=== PATIENT | female | born 1965 | race Caucasian/White ===

== ENCOUNTER 2016-05-29 17:09 | Inpatient (IN) | payer BC, MEDICARE ==
[2016-05-29] MEDS ORDERED: SODIUM CHLORIDE 0.9% 1,000 ML IV STA (17:17)
--- NOTE | 2016-05-29 17:40 | ED ---
General Adult HPI - General Stated complaint: POST OP PROBLEM Time Seen by Provider: 05/29/16 17:17 Source: RN notes reviewed, old records reviewed - History of Present Illness Initial comments: This is a 50-year-old female ER for evaluation. Patient coming in here for evaluation of wound care. Patient having postop wound issues, patient just had panniculectomy and said poor healing. Patient's surgery was an by Dr. Emery about 2-3 weeks ago. Patient denies any feversof the condyle pain, decreased appetite no chest pain cough or congestion. No other significant complaints. - Related Data Home Medications Medication Instructions Recorded Confirmed DULoxetine HCL [Cymbalta] 60 mg PO BID 03/19/15 05/29/16 Meclizine [Antivert] 25 mg PO TID PRN 03/19/15 05/29/16 Sucralfate [Carafate] 1 gm PO QID 03/19/15 05/29/16 Albuterol Inhaler [Ventolin Hfa 2 puff INHALATION RT-QID PRN 07/31/15 05/29/16 Inhaler] Cholecalciferol (Vitamin D3) 10,000 unit PO DAILY 10/24/15 05/29/16 [Vitamin D3] Multivitamins, Thera [Multivitamin] 1 tab PO DAILY 10/24/15 05/29/16 Furosemide [Lasix] 40 mg PO DAILY 05/06/16 05/29/16 Gabapentin [Neurontin] 100 mg PO BID 05/06/16 05/29/16 Metolazone [Zaroxolyn] 2.5 mg PO DAILY PRN 05/06/16 05/29/16 Mirtazapine 30 mg PO HS 05/06/16 05/29/16 Potassium Chloride [K-Sarah Oral 40 meq PO BID 05/06/16 05/29/16 Liquid] Tiotropium Br/Olodaterol HCl 1 puff INHALATION RT-BID 05/06/16 05/29/16 [Stiolto Respimat Inhal [place]] diphenhydrAMINE [Benadryl] 25 mg PO TID 05/06/16 05/29/16 Varenicline [Chantix] 1 mg PO BID 05/15/16 05/29/16 Previous Rx's Medication Instructions Recorded Omeprazole [PriLOSEC] 40 mg PO AC-BRKFST #30 cap 08/20/15 Cefuroxime Axetil [Ceftin] 500 mg PO BID #28 tab 06/08/16 HYDROcodone/APAP 7.5-325MG [Juana Diaz 1 tab PO Q6HR PRN #28 tab 06/08/16 7.5-325] LORazepam [Ativan] 1 mg PO TID PRN #15 tab 06/08/16 metroNIDAZOLE [Flagyl] 500 mg PO Q8HR #42 tab 06/08/16 Allergies Allergy/AdvReac Type Severity Reaction Status Date / Time broccoli Allergy Severe Anaphylaxis Verified 05/29/16 18:05 W/ RAW BROCCOLI ampicillin Allergy Intermediate Swelling Verified 05/29/16 18:05 IN FACE Penicillins Allergy Intermediate Swelling Verified 05/29/16 18:05 amoxicillin Allergy Swelling Verified 05/29/16 18:05 IN FACE Review of Systems ROS Statement: Those systems with pertinent positive or pertinent negative responses have been documented in the HPI. ROS Other: All systems not noted in ROS Statement are negative. Past Medical History Past Medical History: Asthma, Fibromyalgia, GERD/Reflux, Mitral Valve Prolapse ( MVP), Osteoarthritis (OA), Sleep Apnea/CPAP/BIPAP Additional Past Medical History / Comment(s): Chronic bronchial asthma, fibromyalgia, history of obesity with a previous bariatric surgery/gastric bypass surgery, reflux, osteoarthritis, obstructive sleep apnea, migraine, nephrolithiasis, gastric ulcer, varicose veins, chronic fatigue syndrome History of Any Multi-Drug Resistant Organisms: None Reported Past Surgical History: Appendectomy, Back Surgery, Bariatric Surgery, Section, Cholecystectomy, Hernia Repair, Hysterectomy Additional Past Surgical History / Comment(s): x2, metal removed from rt eye 15 years ago, kidney stone-lithotripsy, gastric bypass 2003 years ago. EGD X2, COLONOSCOPY. Carpal tunnel release bilaterally Past Anesthesia/Blood Transfusion Reactions: Family History of Problems w/ Anesthesia Additional Past Anesthesia/Blood Transfusion Reaction / Comment(s): family members w/severe headaches w/anesthesia Past Psychological History: Anxiety, Bipolar Smoking Status: Current every day smoker Past Alcohol Use History: None Reported Additional Past Alcohol Use History / Comment(s): STARTED SMOKING AT AGE 33- SMOKED 8-10 CIG PER; QUIT 2 WEEKS AGO. Past Drug Use History: None Reported - Past Family History Father Family Medical History: Cancer, CVA/TIA, Hyperlipidemia, Hypertension, Prostate Disorder Additional Family Medical History / Comment(s): PROSTATE CANCER Mother Additional Family Medical History / Comment(s): OBESITY-HAD GASTRIC BYPASS SX General Exam - General Exam Comments Initial Comments: Wound is draining mild serosanguineous fluid, no pus noted, wound has black eschar to entire surface, General appearance: alert, in no apparent distress Head exam: Present: atraumatic, normocephalic, normal inspection Eye exam: Present: normal appearance, PERRL, EOMI. Absent: scleral icterus, conjunctival injection, periorbital swelling ENT exam: Present: normal exam, mucous membranes moist Neck exam: Present: normal inspection. Absent: tenderness, meningismus, lymphadenopathy Respiratory exam: Present: normal lung sounds bilaterally. Absent: respiratory distress, wheezes, rales, rhonchi, stridor Cardiovascular Exam: Present: regular rate, normal rhythm, normal heart sounds. Absent: systolic murmur, diastolic murmur, rubs, gallop, clicks GI/Abdominal exam: Present: soft, normal bowel sounds. Absent: distended, tenderness, guarding, rebound, rigid Extremities exam: Present: normal inspection, full ROM, normal capillary refill. Absent: tenderness, pedal edema, joint swelling, calf tenderness Back exam: Present: normal inspection Neurological exam: Present: alert, oriented X3, CN II-XII intact Psychiatric exam: Present: normal affect, normal mood Skin exam: Present: warm, dry, intact, normal color. Absent: rash Course Vital Signs 05/29/16 05/29/16 17:57 19:02 Temperature 98.0 F 98.0 F Pulse Rate 101 H 96 Respiratory 18 18 Rate Blood Pressure 130/90 127/70 O2 Sat by Pulse 95 96 Oximetry EKG Findings - EKG Comments: EKG Findings:: EKG shows normal sinus rhythm rate 95, HI 180, QRS 78, QTC 439 Medical Decision Making - Medical Decision Making 4019 at ER for evaluation of postop wound, postop wound evaluation and treatment , patient will be admitted for will control and evaluation by general surgery - Lab Data Result diagrams: 06/08/16 07:34 06/08/16 07:34 Lab Results 05/29/16 05/29/16 05/29/16 Range/Units 17:50 17:50 17:50 WBC 10.4 (3.8-10.6) k/uL RBC 3.00 L (3.80-5.40) m/uL Hgb 9.1 L (11.4-16.0) gm/dL Hct 29.8 L (34.0-46.0) % MCV 99.5 (80.0-100.0) fL MCH 30.4 (25.0-35.0) pg MCHC 30.6 L (31.0-37.0) g/dL RDW 15.1 (11.5-15.5) % Plt Count 533 H D (150-450) k/uL Neutrophils % 65 % Lymphocytes % 23 % Monocytes % 6 % Eosinophils % 4 % Basophils % 1 % Neutrophils # 6.7 (1.3-7.7) k/uL Lymphocytes # 2.4 (1.0-4.8) k/uL Monocytes # 0.6 (0-1.0) k/uL Eosinophils # 0.4 (0-0.7) k/uL Basophils # 0.1 (0-0.2) k/uL Hypochromasia Slight Macrocytosis Slight PT (9.0-12.0) sec INR (<1.1) APTT (22.0-30.0) sec Sodium 141 (137-145) mmol/L Potassium 4.2 (3.5-5.1) mmol/L Chloride 108 H (98-107) mmol/L Carbon Dioxide 26 (22-30) mmol/L Anion Gap 7 mmol/L BUN 15 (7-17) mg/dL Creatinine 0.71 (0.52-1.04) mg/dL Est GFR (MDRD) Af Amer >60 (>60 ml/min/1.73 sqM) Est GFR (MDRD) Non-Af >60 (>60 ml/min/1.73 sqM) Glucose 95 (74-99) mg/dL POC Glucose (mg/dL) (75-99) mg/dL POC Glu Astronomy Instructor ID Plasma Lactic Acid Dirk (0.7-2.0) mmol/L Calcium 9.1 (8.4-10.2) mg/dL Phosphorus 4.9 H (2.5-4.5) mg/dL Magnesium 1.8 (1.6-2.3) mg/dL Total Bilirubin 0.3 (0.2-1.3) mg/dL AST 19 (14-36) U/L ALT 32 (9-52) U/L Alkaline Phosphatase 133 H (38-126) U/L Total Creatine Kinase 36 (30-135) U/L CK-MB (CK-2) 0.6 (0.0-2.4) ng/mL CK-MB (CK-2) Rel Index 1.7 Troponin I <0.012 (0.000-0.034) ng/mL Total Protein 5.8 L (6.3-8.2) g/dL Albumin 3.1 L (3.5-5.0) g/dL Urine Color Urine Appearance (Clear) Urine pH (5.0-8.0) Ur Specific [place] (1.001-1.035) Urine Protein (Negative) Urine Glucose (UA) (Negative) Urine Ketones (Negative) Urine Blood (Negative) Urine Nitrate (Negative) Urine Bilirubin (Negative) Urine Urobilinogen (<2.0) mg/dL Ur Leukocyte Esterase (Negative) Blood Type Blood Type Recheck Antibody Screen Crossmatch Spec Expiration Date 05/29/16 05/29/16 05/29/16 Range/Units 17:50 17:50 21:28 WBC (3.8-10.6) k/uL RBC (3.80-5.40) m/uL Hgb (11.4-16.0) gm/dL Hct (34.0-46.0) % MCV (80.0-100.0) fL MCH (25.0-35.0) pg MCHC (31.0-37.0) g/dL RDW (11.5-15.5) % Plt Count (150-450) k/uL Neutrophils % % Lymphocytes % % Monocytes % % Eosinophils % % Basophils % % Neutrophils # (1.3-7.7) k/uL Lymphocytes # (1.0-4.8) k/uL Monocytes # (0-1.0) k/uL Eosinophils # (0-0.7) k/uL Basophils # (0-0.2) k/uL Hypochromasia Macrocytosis PT 10.3 (9.0-12.0) sec INR 1.0 (<1.1) APTT 26.6 (22.0-30.0) sec Sodium (137-145) mmol/L Potassium (3.5-5.1) mmol/L Chloride (98-107) mmol/L Carbon Dioxide (22-30) mmol/L Anion Gap mmol/L BUN (7-17) mg/dL Creatinine (0.52-1.04) mg/dL Est GFR (MDRD) Af Amer (>60 ml/min/1.73 sqM) Est GFR (MDRD) Non-Af (>60 ml/min/1.73 sqM) Glucose (74-99) mg/dL POC Glucose (mg/dL) 144 H (75-99) mg/dL POC Glu Astronomy Instructor ID Fely Clark Plasma Lactic Acid Dirk 0.7 (0.7-2.0) mmol/L Calcium (8.4-10.2) mg/dL Phosphorus (2.5-4.5) mg/dL Magnesium (1.6-2.3) mg/dL Total Bilirubin (0.2-1.3) mg/dL AST (14-36) U/L ALT (9-52) U/L Alkaline Phosphatase (38-126) U/L Total Creatine Kinase (30-135) U/L CK-MB (CK-2) (0.0-2.4) ng/mL CK-MB (CK-2) Rel Index Troponin I (0.000-0.034) ng/mL Total Protein (6.3-8.2) g/dL Albumin (3.5-5.0) g/dL Urine Color Urine Appearance (Clear) Urine pH (5.0-8.0) Ur Specific [place] (1.001-1.035) Urine Protein (Negative) Urine Glucose (UA) (Negative) Urine Ketones (Negative) Urine Blood (Negative) Urine Nitrate (Negative) Urine Bilirubin (Negative) Urine Urobilinogen (<2.0) mg/dL Ur Leukocyte Esterase (Negative) Blood Type Blood Type Recheck Antibody Screen Crossmatch Spec Expiration Date 05/29/16 05/29/16 05/29/16 Range/Units 22:00 22:29 22:29 WBC 13.7 H (3.8-10.6) k/uL RBC 1.99 L (3.80-5.40) m/uL Hgb 6.1 L* D (11.4-16.0) gm/dL Hct 20.1 L (34.0-46.0) % MCV 101.3 H (80.0-100.0) fL MCH 30.7 (25.0-35.0) pg MCHC 30.3 L (31.0-37.0) g/dL RDW 15.3 (11.5-15.5) % Plt Count 492 H (150-450) k/uL Neutrophils % 72 % Lymphocytes % 20 % Monocytes % 4 % Eosinophils % 2 % Basophils % 0 % Neutrophils # 9.8 H (1.3-7.7) k/uL Lymphocytes # 2.7 (1.0-4.8) k/uL Monocytes # 0.6 (0-1.0) k/uL Eosinophils # 0.3 (0-0.7) k/uL Basophils # 0.1 (0-0.2) k/uL Hypochromasia Marked Macrocytosis Slight PT 11.5 (9.0-12.0) sec INR 1.2 (<1.1) APTT 23.7 (22.0-30.0) sec Sodium (137-145) mmol/L Potassium (3.5-5.1) mmol/L Chloride (98-107) mmol/L Carbon Dioxide (22-30) mmol/L Anion Gap mmol/L BUN (7-17) mg/dL Creatinine (0.52-1.04) mg/dL Est GFR (MDRD) Af Amer (>60 ml/min/1.73 sqM) Est GFR (MDRD) Non-Af (>60 ml/min/1.73 sqM) Glucose (74-99) mg/dL POC Glucose (mg/dL) 148 H (75-99) mg/dL POC Glu Astronomy Instructor ID Magen Hussein Plasma Lactic Acid Dirk (0.7-2.0) mmol/L Calcium (8.4-10.2) mg/dL Phosphorus (2.5-4.5) mg/dL Magnesium (1.6-2.3) mg/dL Total Bilirubin (0.2-1.3) mg/dL AST (14-36) U/L ALT (9-52) U/L Alkaline Phosphatase (38-126) U/L Total Creatine Kinase (30-135) U/L CK-MB (CK-2) (0.0-2.4) ng/mL CK-MB (CK-2) Rel Index Troponin I (0.000-0.034) ng/mL Total Protein (6.3-8.2) g/dL Albumin (3.5-5.0) g/dL Urine Color Urine Appearance (Clear) Urine pH (5.0-8.0) Ur Specific [place] (1.001-1.035) Urine Protein (Negative) Urine Glucose (UA) (Negative) Urine Ketones (Negative) Urine Blood (Negative) Urine Nitrate (Negative) Urine Bilirubin (Negative) Urine Urobilinogen (<2.0) mg/dL Ur Leukocyte Esterase (Negative) Blood Type Blood Type Recheck Antibody Screen Crossmatch Spec Expiration Date 05/29/16 05/29/16 05/29/16 Range/Units 22:29 22:29 22:45 WBC (3.8-10.6) k/uL RBC (3.80-5.40) m/uL Hgb (11.4-16.0) gm/dL Hct (34.0-46.0) % MCV (80.0-100.0) fL MCH (25.0-35.0) pg MCHC (31.0-37.0) g/dL RDW (11.5-15.5) % Plt Count (150-450) k/uL Neutrophils % % Lymphocytes % % Monocytes % % Eosinophils % % Basophils % % Neutrophils # (1.3-7.7) k/uL Lymphocytes # (1.0-4.8) k/uL Monocytes # (0-1.0) k/uL Eosinophils # (0-0.7) k/uL Basophils # (0-0.2) k/uL Hypochromasia Macrocytosis PT (9.0-12.0) sec INR (<1.1) APTT (22.0-30.0) sec Sodium 140 (137-145) mmol/L Potassium 4.6 (3.5-5.1) mmol/L Chloride 112 H (98-107) mmol/L Carbon Dioxide 21 L (22-30) mmol/L Anion Gap 7 mmol/L BUN 18 H (7-17) mg/dL Creatinine 0.71 (0.52-1.04) mg/dL Est GFR (MDRD) Af Amer >60 (>60 ml/min/1.73 sqM) Est GFR (MDRD) Non-Af >60 (>60 ml/min/1.73 sqM) Glucose 116 H (74-99) mg/dL POC Glucose (mg/dL) (75-99) mg/dL POC Glu Astronomy Instructor ID Plasma Lactic Acid Dirk (0.7-2.0) mmol/L Calcium 7.8 L (8.4-10.2) mg/dL Phosphorus 4.3 (2.5-4.5) mg/dL Magnesium 1.6 (1.6-2.3) mg/dL Total Bilirubin (0.2-1.3) mg/dL AST (14-36) U/L ALT (9-52) U/L Alkaline Phosphatase (38-126) U/L Total Creatine Kinase (30-135) U/L CK-MB (CK-2) (0.0-2.4) ng/mL CK-MB (CK-2) Rel Index Troponin I (0.000-0.034) ng/mL Total Protein (6.3-8.2) g/dL Albumin (3.5-5.0) g/dL Urine Color Yellow Urine Appearance Clear (Clear) Urine pH 5.5 (5.0-8.0) Ur Specific [place] 1.018 (1.001-1.035) Urine Protein Trace H (Negative) Urine Glucose (UA) Negative (Negative) Urine Ketones Negative (Negative) Urine Blood Negative (Negative) Urine Nitrate Negative (Negative) Urine Bilirubin Negative (Negative) Urine Urobilinogen <2.0 (<2.0) mg/dL Ur Leukocyte Esterase Negative (Negative) Blood Type O Positive Blood Type Recheck No Antibody Screen NEGATIVE Crossmatch See Detail Spec Expiration Date 06/01/2016232805/30/16 05/30/16 Range/Units 05:18 05:18 WBC 9.3 (3.8-10.6) k/uL RBC 2.81 L (3.80-5.40) m/uL Hgb 8.5 L D (11.4-16.0) gm/dL Hct 27.8 L (34.0-46.0) % MCV 98.9 (80.0-100.0) fL MCH 30.3 (25.0-35.0) pg MCHC 30.7 L (31.0-37.0) g/dL RDW 15.1 (11.5-15.5) % Plt Count 366 (150-450) k/uL Neutrophils % 68 % Lymphocytes % 24 % Monocytes % 5 % Eosinophils % 1 % Basophils % 1 % Neutrophils # 6.4 (1.3-7.7) k/uL Lymphocytes # 2.3 (1.0-4.8) k/uL Monocytes # 0.4 (0-1.0) k/uL Eosinophils # 0.1 (0-0.7) k/uL Basophils # 0.0 (0-0.2) k/uL Hypochromasia Slight Macrocytosis Slight PT (9.0-12.0) sec INR (<1.1) APTT (22.0-30.0) sec Sodium 141 (137-145) mmol/L Potassium 4.2 (3.5-5.1) mmol/L Chloride 111 H (98-107) mmol/L Carbon Dioxide 24 (22-30) mmol/L Anion Gap 6 mmol/L BUN 19 H (7-17) mg/dL Creatinine 0.60 (0.52-1.04) mg/dL Est GFR (MDRD) Af Amer >60 (>60 ml/min/1.73 sqM) Est GFR (MDRD) Non-Af >60 (>60 ml/min/1.73 sqM) Glucose 96 (74-99) mg/dL POC Glucose (mg/dL) (75-99) mg/dL POC Glu Astronomy Instructor ID Plasma Lactic Acid Dirk (0.7-2.0) mmol/L Calcium 8.0 L (8.4-10.2) mg/dL Phosphorus (2.5-4.5) mg/dL Magnesium 1.7 (1.6-2.3) mg/dL Total Bilirubin (0.2-1.3) mg/dL AST (14-36) U/L ALT (9-52) U/L Alkaline Phosphatase (38-126) U/L Total Creatine Kinase (30-135) U/L CK-MB (CK-2) (0.0-2.4) ng/mL CK-MB (CK-2) Rel Index Troponin I (0.000-0.034) ng/mL Total Protein (6.3-8.2) g/dL Albumin (3.5-5.0) g/dL Urine Color Urine Appearance (Clear) Urine pH (5.0-8.0) Ur Specific [place] (1.001-1.035) Urine Protein (Negative) Urine Glucose (UA) (Negative) Urine Ketones (Negative) Urine Blood (Negative) Urine Nitrate (Negative) Urine Bilirubin (Negative) Urine Urobilinogen (<2.0) mg/dL Ur Leukocyte Esterase (Negative) Blood Type Blood Type Recheck Antibody Screen Crossmatch Spec Expiration Date Disposition Clinical Impression: Postoperative wound breakdown, Panniculus adiposus, Post-op bleeding Disposition: ADMITTED IP TO THIS HOSP Condition: Good
[2016-05-29] MEDS ORDERED: SODIUM CHLORIDE 0.9% 1,000 ML IV ONE (17:59)
[2016-05-29 18:05] LABS: Basophils # (A) 0.1 k/uL (0-0.2); Basophils % (A) 1 %; CH 31.2; CHCM 31.6; Eosinophils # (A) 0.4 k/uL (0-0.7); Eosinophils % (A) 4 %; HCT 29.8 % (34.0-46.0); HDW 3.08; HGB 9.1 gm/dL (11.4-16.0); Hypochromasia Slight; Luc % (Auto) 2; Lymphocytes # (A) 2.4 k/uL (1.0-4.8); Lymphocytes % (A) 23 %; MCH 30.4 pg (25.0-35.0); MCHC 30.6 g/dL (31.0-37.0); MCV 99.5 fL (80.0-100.0); Macrocytosis Slight; Mean Platelet Volume 7.5; Monocytes # (A) 0.6 k/uL (0-1.0); Monocytes % (A) 6 %; Neutrophils # (A) 6.7 k/uL (1.3-7.7); Neutrophils % (A) 65 %; RDW 15.1 % (11.5-15.5); WBC 10.4 k/uL (3.8-10.6); WBC (Perox) 10.61
[2016-05-29 18:18] LABS: ALT 32 U/L (9-52); AST 19 U/L (14-36); Alkaline Phosphatase 133 U/L (38-126); Anion Gap 7 mmol/L; Blood Urea Nitrogen 15 mg/dL (7-17); Calcium 9.1 mg/dL (8.4-10.2); Carbon Dioxide 26 mmol/L (22-30); Chloride 108 mmol/L (98-107); Glucose 95 mg/dL (74-99); Magnesium 1.8 mg/dL (1.6-2.3); Non-African American GFR(MDRD) >60 (>60 ml/min/1.73 sqM); Phosphorous 4.9 mg/dL (2.5-4.5); Potassium 4.2 mmol/L (3.5-5.1); Sodium 141 mmol/L (137-145); Total Bilirubin 0.3 mg/dL (0.2-1.3); Total Protein 5.8 g/dL (6.3-8.2)
[2016-05-29 18:22] LABS: Partial Thromboplastin Time 26.6 sec (22.0-30.0); Prothrombin Time 10.3 sec (9.0-12.0)
[2016-05-29 18:34] LABS: Creatine Kinase 36 U/L (30-135)
--- NOTE | 2016-05-29 18:38 | XR ---
EXAMINATION TYPE: XR abdomen acute w cxr DATE OF EXAM: 05/29/2016 6:15 PM CLINICAL HISTORY: Chest and abdominal pain. Wound issues after abdominal surgery. TECHNIQUE: Single frontal view of chest is obtained. Supine and upright views of the abdomen are acq uired. COMPARISON: Chest x-ray November 17, 2015. CT abdomen August 04, 2015 FINDINGS: There is new rectangular shaped consolidation and/or atelectasis in the right midlung. Ther e is patchy left basilar atelectasis. No large pleural effusion or pneumothorax is seen bilaterally. Cardiac silhouette size appears within normal limits. Osseous structures are intact. Gas is noted in nondistended small bowel loops. Gas and fecal material is seen in nondistended colon . A few colonic loops left upper quadrant are slightly prominent with air-fluid levels. Percutaneous drainage catheters in the bilateral lower quadrants are identified. Overlying horizontal skin staple s in the upper pelvis are seen. There is postsurgical change in the lower lumbar spine with posterior interpedicular rods and screws. No pneumoperitoneum is present. IMPRESSION: 1. New right basilar atelectasis and/or consolidation. 2. Overall nonspecific but likely nonobstructive bowel gas pattern.
[2016-05-29 18:48] LABS: Creatine Kinase MB 0.6 ng/mL (0.0-2.4); Troponin I <0.012 ng/mL (0.000-0.034)
[2016-05-29] MEDS ORDERED: METOLAZONE 2.5 MG TAB PO PRN (19:12)
[2016-05-29] MEDS ORDERED: ALBUTEROL NEBULIZED 2.5 MG/3 ML INHALATION PRN (19:12)
[2016-05-29] MEDS ORDERED: MECLIZINE 25 MG TAB PO PRN (19:12)
[2016-05-29 21:33] LABS: Glucose,Whole Blood 144 mg/dL (75-99)
[2016-05-29 22:02] LABS: Glucose,Whole Blood 148 mg/dL (75-99)
[2016-05-29 22:55] LABS: Basophils # (A) 0.1 k/uL (0-0.2); Basophils % (A) 0 %; CH 30.3; CHCM 30.1; Eosinophils # (A) 0.3 k/uL (0-0.7); Eosinophils % (A) 2 %; HCT 20.1 % (34.0-46.0); HDW 3.17; Hypochromasia Marked; Luc # (Auto) 0.26; Luc % (Auto) 2; Lymphocytes # (A) 2.7 k/uL (1.0-4.8); Lymphocytes % (A) 20 %; MCH 30.7 pg (25.0-35.0); MCHC 30.3 g/dL (31.0-37.0); MCV 101.3 fL (80.0-100.0); Macrocytosis Slight; Mean Platelet Volume 6.8; Monocytes # (A) 0.6 k/uL (0-1.0); Monocytes % (A) 4 %; Neutrophils # (A) 9.8 k/uL (1.3-7.7); Neutrophils % (A) 72 %; RBC 1.99 m/uL (3.80-5.40); RDW 15.3 % (11.5-15.5); WBC 13.7 k/uL (3.8-10.6); WBC (Perox) 14.52
[2016-05-29 22:59] LABS: INR 1.2 (<1.1); Partial Thromboplastin Time 23.7 sec (22.0-30.0); Prothrombin Time 11.5 sec (9.0-12.0)
[2016-05-29 23:00] LABS: Anion Gap 7 mmol/L; Blood Urea Nitrogen 18 mg/dL (7-17); Calcium 7.8 mg/dL (8.4-10.2); Carbon Dioxide 21 mmol/L (22-30); Chloride 112 mmol/L (98-107); Glucose 116 mg/dL (74-99); Magnesium 1.6 mg/dL (1.6-2.3); Non-African American GFR(MDRD) >60 (>60 ml/min/1.73 sqM); Phosphorous 4.3 mg/dL (2.5-4.5); Potassium 4.6 mmol/L (3.5-5.1); Sodium 140 mmol/L (137-145)
[2016-05-29 23:03] LABS: HGB 6.1 gm/dL (11.4-16.0)
[2016-05-29 23:06] LABS: Appearance,Urine Clear (Clear); Bilirubin,Urine Negative (Negative); Glucose,Urine (UA) Negative (Negative); Ketones,Urine Negative (Negative); Leukocyte Esterase,Urine Negative (Negative); Nitrite,Urine Negative (Negative); PH, Urine 5.5 (5.0-8.0); Protein,Urine Trace (Negative); Specific Gravity,Urine 1.018 (1.001-1.035); UA Billing (MACRO vs. MICRO) CHEM; Urobilinogen,Urine <2.0 mg/dL (<2.0)
[2016-05-30] MEDS: PANTOPRAZOLE 40 MG/10 ML VIAL IVP SCH ×3 (01:32→22:18)
[2016-05-30] MEDS: POTASSIUM CHLORIDE ORAL LIQUID 40 MEQ/30 ML CUP PO SCH ×4 (01:32→22:07)
[2016-05-30] MEDS: DULoxetine HCL 60 MG CAPSULE.DR PO SCH ×3 (01:32→22:08)
[2016-05-30] MEDS: SUCRALFATE 1 GM TAB PO SCH ×5 (01:32→22:07)
[2016-05-30] MEDS: GABAPENTIN 100 MG CAP PO SCH ×3 (01:32→22:07)
[2016-05-30 05:40] LABS: Basophils % (A) 1 %; CH 31.5; CHCM 32.1; Eosinophils # (A) 0.1 k/uL (0-0.7); Eosinophils % (A) 1 %; HCT 27.8 % (34.0-46.0); HDW 3.25; Hypochromasia Slight; Luc # (Auto) 0.11; Luc % (Auto) 1; Lymphocytes # (A) 2.3 k/uL (1.0-4.8); Lymphocytes % (A) 24 %; MCH 30.3 pg (25.0-35.0); MCHC 30.7 g/dL (31.0-37.0); MCV 98.9 fL (80.0-100.0); Macrocytosis Slight; Mean Platelet Volume 7.6; Monocytes # (A) 0.4 k/uL (0-1.0); Monocytes % (A) 5 %; Neutrophils # (A) 6.4 k/uL (1.3-7.7); Neutrophils % (A) 68 %; RBC 2.81 m/uL (3.80-5.40); RDW 15.1 % (11.5-15.5); WBC 9.3 k/uL (3.8-10.6); WBC (Perox) 9.94
[2016-05-30 05:41] LABS: HGB 8.5 gm/dL (11.4-16.0)
[2016-05-30 05:42] LABS: Anion Gap 6 mmol/L; Blood Urea Nitrogen 19 mg/dL (7-17); Carbon Dioxide 24 mmol/L (22-30); Chloride 111 mmol/L (98-107); Glucose 96 mg/dL (74-99); Magnesium 1.7 mg/dL (1.6-2.3); Non-African American GFR(MDRD) >60 (>60 ml/min/1.73 sqM); Potassium 4.2 mmol/L (3.5-5.1); Sodium 141 mmol/L (137-145)
[2016-05-30] MEDS: MAGNESIUM SULFATE-D5W PMX 1 GM in DEXTROSE/WATER 1 100ML.BAG IVPB SCH ×2 (07:16→09:11)
[2016-05-30] MEDS: FUROSEMIDE 40 MG TAB PO SCH (09:14)
[2016-05-30] MEDS: HYDROmorphone 1 MG/ML 1 ML SYRINGE IVP PRN ×4 (09:33→22:03)
--- NOTE | 2016-05-30 11:03 | P.GSHP ---
History of Present Illness H&P Date: 05/30/16 Chief Complaint: Abdominal wall cellulitis Patient underwent recent panniculectomy. The patient developed some issues with postoperative bleeding. She was at home and noticed increased drainage from the umbilical site. She's having mild increase in her level of discomfort. She has an area in the right midabdomen where she has developing ischemia. This is being followed as an outpatient. Denies fevers or chills. Came to the hospital for further evaluation. White blood cell count 5.6. While in the hospital last night she developed hematemesis. That has resolved. No melanotic stools. She was tachycardic. She is now in the ICU. She has a history of a marginal ulcer and had 2 endoscopies done last summer by Dr. Weiss. The last endoscopy showed resolution of the ulcer. She does take antiacids. Denies abdominal pain. Abdominal x-rays benign. - Review of Systems Comment: The patient denies any acute changes in his vision or hearing, no dysphagia or odynophagia, no chest pain or shortness of breath, no dysuria or hematuria, no headache, no runny nose, no rectal bleeding or melena, no unexplained weight loss Past Medical History Past Medical History: Asthma, Fibromyalgia, GERD/Reflux, Mitral Valve Prolapse ( MVP), Osteoarthritis (OA), Sleep Apnea/CPAP/BIPAP Additional Past Medical History / Comment(s): Chronic bronchial asthma, fibromyalgia, history of obesity with a previous bariatric surgery/gastric bypass surgery, reflux, osteoarthritis, obstructive sleep apnea, migraine, nephrolithiasis, gastric ulcer, varicose veins, chronic fatigue syndrome History of Any Multi-Drug Resistant Organisms: None Reported Past Surgical History: Appendectomy, Back Surgery, Bariatric Surgery, Section, Cholecystectomy, Hernia Repair, Hysterectomy Additional Past Surgical History / Comment(s): x2, metal removed from rt eye 15 years ago, kidney stone-lithotripsy, gastric bypass 2003 years ago. EGD X2, COLONOSCOPY. Carpal tunnel release bilaterally Past Anesthesia/Blood Transfusion Reactions: Family History of Problems w/ Anesthesia Additional Past Anesthesia/Blood Transfusion Reaction / Comment(s): family members w/severe headaches w/anesthesia Past Psychological History: Anxiety, Bipolar Smoking Status: Current every day smoker Past Alcohol Use History: None Reported Additional Past Alcohol Use History / Comment(s): STARTED SMOKING AT AGE 33- SMOKED 8-10 CIG PER; QUIT 2 WEEKS AGO. Past Drug Use History: None Reported - Past Family History Father Family Medical History: Cancer, CVA/TIA, Hyperlipidemia, Hypertension, Prostate Disorder Additional Family Medical History / Comment(s): PROSTATE CANCER Mother Additional Family Medical History / Comment(s): OBESITY-HAD GASTRIC BYPASS SX Medications and Allergies Home Medications Medication Instructions Recorded Confirmed Type DULoxetine HCL [Cymbalta] 60 mg PO BID 03/19/15 05/29/16 History Meclizine [Antivert] 25 mg PO TID PRN 03/19/15 05/29/16 History Sucralfate [Carafate] 1 gm PO QID 03/19/15 05/29/16 History Albuterol Inhaler [Ventolin Hfa 2 puff INHALATION RT-QID PRN 07/31/15 05/29/16 History Inhaler] Cholecalciferol (Vitamin D3) 10,000 unit PO DAILY 10/24/15 05/29/16 History [Vitamin D3] Multivitamins, Thera [Multivitamin] 1 tab PO DAILY 10/24/15 05/29/16 History Furosemide [Lasix] 40 mg PO DAILY 05/06/16 05/29/16 History Gabapentin [Neurontin] 100 mg PO BID 05/06/16 05/29/16 History Metolazone [Zaroxolyn] 2.5 mg PO DAILY PRN 05/06/16 05/29/16 History Mirtazapine 30 mg PO HS 05/06/16 05/29/16 History Potassium Chloride [K-Sarah Oral 40 meq PO BID 05/06/16 05/29/16 History Liquid] Tiotropium Br/Olodaterol HCl 1 puff INHALATION RT-BID 05/06/16 05/29/16 History [Stiolto Respimat Inhal [place]] diphenhydrAMINE [Benadryl] 25 mg PO TID 05/06/16 05/29/16 History Varenicline [Chantix] 1 mg PO BID 05/15/16 05/29/16 History Allergies Allergy/AdvReac Type Severity Reaction Status Date / Time broccoli Allergy Severe Anaphylaxis Verified 05/29/16 18:05 W/ RAW BROCCOLI ampicillin Allergy Intermediate Swelling Verified 05/29/16 18:05 IN FACE Penicillins Allergy Intermediate Swelling Verified 05/29/16 18:05 amoxicillin Allergy Swelling Verified 05/29/16 18:05 IN FACE Surgical - Exam Vital Signs Temp Pulse Resp BP Pulse Ox 98.0 F 101 H 18 130/90 95 05/29/16 17:57 05/29/16 17:57 05/29/16 17:57 05/29/16 17:57 05/29/16 17:57 Physical exam: General: Well-developed, well-nourished HEENT: Normocephalic, sclerae nonicteric Abdomen: Mild erythema surrounding an area of black eschar in the right lower abdomen small amount of drainage from the umbilical incision site mild tenderness to drains remain in place and demonstrate serosanguineous drainage. Extremities: No edema Neuro: Alert and oriented Results - Labs 05/30/16 05:18 05/30/16 05:18 Abnormal Lab Results - Last 24 Hours (Table) 05/29/16 05/29/16 05/29/16 Range/Units 21:28 22:00 22:29 WBC 13.7 H (3.8-10.6) k/uL RBC 1.99 L (3.80-5.40) m/uL Hgb 6.1 L* D (11.4-16.0) gm/dL Hct 20.1 L (34.0-46.0) % MCV 101.3 H (80.0-100.0) fL MCHC 30.3 L (31.0-37.0) g/dL Plt Count 492 H (150-450) k/uL Neutrophils # 9.8 H (1.3-7.7) k/uL Chloride (98-107) mmol/L Carbon Dioxide (22-30) mmol/L BUN (7-17) mg/dL Glucose (74-99) mg/dL POC Glucose (mg/dL) 144 H 148 H (75-99) mg/dL Calcium (8.4-10.2) mg/dL Urine Protein (Negative) Crossmatch 05/29/16 05/29/16 05/29/16 Range/Units 22:29 22:29 22:45 WBC (3.8-10.6) k/uL RBC (3.80-5.40) m/uL Hgb (11.4-16.0) gm/dL Hct (34.0-46.0) % MCV (80.0-100.0) fL MCHC (31.0-37.0) g/dL Plt Count (150-450) k/uL Neutrophils # (1.3-7.7) k/uL Chloride 112 H (98-107) mmol/L Carbon Dioxide 21 L (22-30) mmol/L BUN 18 H (7-17) mg/dL Glucose 116 H (74-99) mg/dL POC Glucose (mg/dL) (75-99) mg/dL Calcium 7.8 L (8.4-10.2) mg/dL Urine Protein Trace H (Negative) Crossmatch See Detail 05/30/16 05/30/16 Range/Units 05:18 05:18 WBC (3.8-10.6) k/uL RBC 2.81 L (3.80-5.40) m/uL Hgb 8.5 L D (11.4-16.0) gm/dL Hct 27.8 L (34.0-46.0) % MCV (80.0-100.0) fL MCHC 30.7 L (31.0-37.0) g/dL Plt Count (150-450) k/uL Neutrophils # (1.3-7.7) k/uL Chloride 111 H (98-107) mmol/L Carbon Dioxide (22-30) mmol/L BUN 19 H (7-17) mg/dL Glucose (74-99) mg/dL POC Glucose (mg/dL) (75-99) mg/dL Calcium 8.0 L (8.4-10.2) mg/dL Urine Protein (Negative) Crossmatch Diabetes panel 05/29/16 05/30/16 Range/Units 22:29 05:18 Sodium 140 141 (137-145) mmol/L Potassium 4.6 4.2 (3.5-5.1) mmol/L Chloride 112 H 111 H (98-107) mmol/L Carbon Dioxide 21 L 24 (22-30) mmol/L BUN 18 H 19 H (7-17) mg/dL Creatinine 0.71 0.60 (0.52-1.04) mg/dL Glucose 116 H 96 (74-99) mg/dL Calcium 7.8 L 8.0 L (8.4-10.2) mg/dL Calcium panel 05/29/16 05/30/16 Range/Units 22:29 05:18 Calcium 7.8 L 8.0 L (8.4-10.2) mg/dL Phosphorus 4.3 (2.5-4.5) mg/dL Pituitary panel 05/29/16 05/30/16 Range/Units 22:29 05:18 Sodium 140 141 (137-145) mmol/L Potassium 4.6 4.2 (3.5-5.1) mmol/L Chloride 112 H 111 H (98-107) mmol/L Carbon Dioxide 21 L 24 (22-30) mmol/L BUN 18 H 19 H (7-17) mg/dL Creatinine 0.71 0.60 (0.52-1.04) mg/dL Glucose 116 H 96 (74-99) mg/dL Calcium 7.8 L 8.0 L (8.4-10.2) mg/dL Adrenal panel 05/29/16 05/30/16 Range/Units 22:29 05:18 Sodium 140 141 (137-145) mmol/L Potassium 4.6 4.2 (3.5-5.1) mmol/L Chloride 112 H 111 H (98-107) mmol/L Carbon Dioxide 21 L 24 (22-30) mmol/L BUN 18 H 19 H (7-17) mg/dL Creatinine 0.71 0.60 (0.52-1.04) mg/dL Glucose 116 H 96 (74-99) mg/dL Calcium 7.8 L 8.0 L (8.4-10.2) mg/dL Assessment and Plan (1) Abdominal wall cellulitis Narrative/Plan: Continue local wound care. Begin IV antibiotics. Continue Protonix drip with Carafate. Possible endoscopy this admission. Status: Acute
--- NOTE | 2016-05-30 11:23 | P.CNPUL ---
History of Present Illness Consult date: 05/30/16 Reason for consult: other (ICU management) Chief complaint: Vomiting blood History of present illness: This is a 50-year-old female who presented emergency department complaining of pain and drainage from her surgical site. The patient had a recent panniculectomy and has a large eschar. She also has had some 0 single and is drainage from her surgical site. The patient had an episode of vomiting bright red blood last night. She was hypotensive and given 2 units of packed red blood cells. Her blood pressure remained stable. She has not had any further vomiting. She is complaining of pain in her box from laying in bed. She states she has chronic back pain and used to take buprenorphine and now takes [place]. The patient denies abdominal pain, chest pain, shortness of breath. Review of Systems All systems: negative Past Medical History Past Medical History: Asthma, Fibromyalgia, GERD/Reflux, Mitral Valve Prolapse ( MVP), Osteoarthritis (OA), Sleep Apnea/CPAP/BIPAP Additional Past Medical History / Comment(s): Chronic bronchial asthma, fibromyalgia, history of obesity with a previous bariatric surgery/gastric bypass surgery, reflux, osteoarthritis, obstructive sleep apnea, migraine, nephrolithiasis, gastric ulcer, varicose veins, chronic fatigue syndrome History of Any Multi-Drug Resistant Organisms: None Reported Past Surgical History: Appendectomy, Back Surgery, Bariatric Surgery, Section, Cholecystectomy, Hernia Repair, Hysterectomy Additional Past Surgical History / Comment(s): x2, metal removed from rt eye 15 years ago, kidney stone-lithotripsy, gastric bypass 2003 years ago. EGD X2, COLONOSCOPY. Carpal tunnel release bilaterally Past Anesthesia/Blood Transfusion Reactions: Family History of Problems w/ Anesthesia Additional Past Anesthesia/Blood Transfusion Reaction / Comment(s): family members w/severe headaches w/anesthesia Past Psychological History: Anxiety, Bipolar Smoking Status: Current every day smoker Past Alcohol Use History: None Reported Additional Past Alcohol Use History / Comment(s): STARTED SMOKING AT AGE 33- SMOKED 8-10 CIG PER; QUIT 2 WEEKS AGO. Past Drug Use History: None Reported - Past Family History Father Family Medical History: Cancer, CVA/TIA, Hyperlipidemia, Hypertension, Prostate Disorder Additional Family Medical History / Comment(s): PROSTATE CANCER Mother Additional Family Medical History / Comment(s): OBESITY-HAD GASTRIC BYPASS SX Medications and Allergies Home Medications Medication Instructions Recorded Confirmed Type DULoxetine HCL [Cymbalta] 60 mg PO BID 03/19/15 05/29/16 History Meclizine [Antivert] 25 mg PO TID PRN 03/19/15 05/29/16 History Sucralfate [Carafate] 1 gm PO QID 03/19/15 05/29/16 History Albuterol Inhaler [Ventolin Hfa 2 puff INHALATION RT-QID PRN 07/31/15 05/29/16 History Inhaler] Cholecalciferol (Vitamin D3) 10,000 unit PO DAILY 10/24/15 05/29/16 History [Vitamin D3] Multivitamins, Thera [Multivitamin] 1 tab PO DAILY 10/24/15 05/29/16 History Furosemide [Lasix] 40 mg PO DAILY 05/06/16 05/29/16 History Gabapentin [Neurontin] 100 mg PO BID 05/06/16 05/29/16 History Metolazone [Zaroxolyn] 2.5 mg PO DAILY PRN 05/06/16 05/29/16 History Mirtazapine 30 mg PO HS 05/06/16 05/29/16 History Potassium Chloride [K-Sarah Oral 40 meq PO BID 05/06/16 05/29/16 History Liquid] Tiotropium Br/Olodaterol HCl 1 puff INHALATION RT-BID 05/06/16 05/29/16 History [Stiolto Respimat Inhal Kendall] diphenhydrAMINE [Benadryl] 25 mg PO TID 05/06/16 05/29/16 History Varenicline [Chantix] 1 mg PO BID 05/15/16 05/29/16 History Allergies Allergy/AdvReac Type Severity Reaction Status Date / Time broccoli Allergy Severe Anaphylaxis Verified 05/29/16 18:05 W/ RAW BROCCOLI ampicillin Allergy Intermediate Swelling Verified 05/29/16 18:05 IN FACE Penicillins Allergy Intermediate Swelling Verified 05/29/16 18:05 amoxicillin Allergy Swelling Verified 05/29/16 18:05 IN FACE Physical Exam Osteopathic Statement: *. No significant issues noted on an osteopathic structural exam other than those noted in the History and Physical/Consult. Vitals: Vital Signs Temp Pulse Resp BP Pulse Ox 05/30/16 09:00 91 12 119/64 95 05/30/16 08:00 98.2 F 95 11 L 116/74 95 05/30/16 07:00 92 13 109/74 95 05/30/16 06:00 93 8 L 117/70 96 05/30/16 05:00 94 8 L 113/78 96 05/30/16 04:22 98.1 F 102 H 12 118/65 98 05/30/16 04:00 98.2 F 95 10 L 115/75 97 05/30/16 03:52 98.1 F 97 12 108/65 98 05/30/16 03:42 98.1 F 102 H 12 122/73 98 05/30/16 03:21 98.1 F 99 12 112/73 98 05/30/16 03:15 12 05/30/16 03:00 112 H 16 102/73 98 05/30/16 02:27 98.1 F 110 H 12 98/64 97 05/30/16 02:00 98.1 F 113 H 12 100/64 97 05/30/16 01:57 98.1 F 113 H 12 100/64 97 05/30/16 01:47 98.0 F 96 18 127/70 96 05/30/16 01:00 98.1 F 116 H 12 99/64 96 05/30/16 00:00 98.1 F 117 H 18 100/62 96 05/29/16 23:00 119 H 12 102/68 98 05/29/16 22:00 117 H 15 117/78 100 05/29/16 21:56 120 H 05/29/16 19:02 98.0 F 96 18 127/70 96 Intake and Output 05/29/16 05/30/16 05/30/16 22:59 06:59 14:59 Intake Total 1040 400 Output Total 455 330 Balance 585 70 Intake: IV 300 Magnesium Sulfate-D5w Pmx 100 1 gm In Dextrose/Water 1 100ml.bag @ 100 mls/hr IVPB Q1H GHAZAL Rx#: [id number] Sodium Chloride 0.9% 1, 200 000 ml @ 100 mls/hr IV . Q10H ONE Rx#:[id number] Intake, IV Titration 540 100 Amount Sodium Chloride 0.9% 1, 540 100 000 ml @ 100 mls/hr IV . Q10H ONE Rx#:[id number] Blood Product 500 Rc Cpda-1 Unit 250 [id number] Rc Cpda-1 Unit 250 [id number] Output: Drainage 50 Left Lower Medial Abdomen 20 Lower Medial Abdomen 30 Urine 405 330 Other: Voiding Method Toilet Indwelling Catheter Weight 81.647 kg 89 kg Gen.: Patient is alert and oriented 3, no acute distress Cardiovascular: Regular rate and rhythm, S1/S2 Lungs: Clear to auscultation bilaterally no wheezes rales or rhonchi Abdomen: Soft, mildly diffusely tender to palpation, positive bowel sounds, large eschar noted, no drainage noted from the umbilical site Extremities: Trace edema Results - Laboratory Findings CBC and BMP: 05/30/16 05:18 05/30/16 05:18 PT/INR, D-dimer PT 11.5 sec (9.0-12.0) 05/29/16 22:29 INR 1.2 (<1.1) 05/29/16 22:29 Abnormal lab findings: Abnormal Labs 05/29/16 05/29/16 05/29/16 21:28 22:00 22:29 WBC 13.7 H RBC 1.99 L Hgb 6.1 L* D Hct 20.1 L MCV 101.3 H MCHC 30.3 L Plt Count 492 H Neutrophils # 9.8 H Chloride Carbon Dioxide BUN Glucose POC Glucose (mg/dL) 144 H 148 H Calcium Urine Protein Crossmatch 05/29/16 05/29/16 05/29/16 22:29 22:29 22:45 WBC RBC Hgb Hct MCV MCHC Plt Count Neutrophils # Chloride 112 H Carbon Dioxide 21 L BUN 18 H Glucose 116 H POC Glucose (mg/dL) Calcium 7.8 L Urine Protein Trace H Crossmatch See Detail 05/30/16 05/30/16 05:18 05:18 WBC RBC 2.81 L Hgb 8.5 L D Hct 27.8 L MCV MCHC 30.7 L Plt Count Neutrophils # Chloride 111 H Carbon Dioxide BUN 19 H Glucose POC Glucose (mg/dL) Calcium 8.0 L Urine Protein Crossmatch - Diagnostic Findings Chest x-ray: report reviewed, image reviewed Assessment and Plan Plan: Right mid lung atelectasis Hematemesis Hypotension Anemia, symptomatic Recent panniculectomy with abdominal wall cellulitis Leukocytosis History of COPD, not acutely exacerbated Chronic pain syndrome Active tobacco abuse Pain control Begin antibiotics: Levaquin Carafate and Protonix Surgery recommendations Incentive spirometry and pulmonary hygiene Monitor hemoglobin Probable plan for EGD this admission Okay to transfer out of the ICU today
[2016-05-30] MEDS: HYDROcodone/APAP 7.5-325MG 1 EACH TAB PO PRN ×3 (12:01→23:50)
[2016-05-30] MEDS: LEVOFLOXACIN 500MG-D5W PMX 500 MG in DEXTROSE/WATER 1 100ML.BAG IVPB SCH (12:02)
[2016-05-30 12:39] LABS: CH 31.3; HCT 24.4 % (34.0-46.0); HDW 3.47; HGB 7.6 gm/dL (11.4-16.0); Hypochromasia Slight; MCH 30.5 pg (25.0-35.0); MCV 98.5 fL (80.0-100.0); Macrocytosis Slight; Mean Platelet Volume 7.5; Poikilocytosis Slight; RBC 2.47 m/uL (3.80-5.40); RDW 15.5 % (11.5-15.5); WBC 9.2 k/uL (3.8-10.6)
--- NOTE | 2016-05-30 17:37 | CONS ---
DATE OF CONSULTATION: CHIEF COMPLAINT: A 50-year-old white female with hematemesis admitted to ICU for throwing up blood, large amounts of blood, recent panniculectomy and large eschar, drainage from the surgical site and vomiting and a large amount of blood, dehiscence of the right lower abdominal wound, right redness throughout the abdomen over the stitch line and a large black eschar area 5 x 5 inches, 2 units of packed red blood cells. She had no further episodes of emesis overnight, chronic back pain for which she uses [place]. She is status post panniculectomy with dehiscence of the wound as mentioned above. Expecting EGD today. Discussed with the ICU nurse and consults appreciated. REVIEW OF SYSTEMS: Fourteen-point review of systems negative. PAST MEDICAL HISTORY: Asthmas, fibromyalgia, GERD, mitral valve prolapse osteoarthritis, CPAP, sleep apnea, chronic bronchial asthma, fibromyalgia, history of bariatric surgery, osteoarthritis, nephrolithiasis, gastric ulcer, varicose veins, fatigued, chronic fatigue. Surgery, cholecystectomy, hernia repair, hysterectomy, back surgery, bariatric surgery, C-sections, gastric bypass, lithotripsy, carpal tunnel release, anxiety, bipolar. SOCIAL HISTORY: Smoking, current every day smoker. Start smoking age 33. No alcohol. No illicit drugs. FAMILY HISTORY: Father of cancer, CVA, TIA, hypertension, prostate disorder. Mother obesity and gastric symptoms. Home medicines: 1. Cymbalta 60 b.i.d. 2. Antivert 25 t.i.d. 3. Carafate 1 gram q.i.d. 4. Ventolin HFA 2 puffs q.4 hours p.r.n. 5. Vitamin D3, 10,000 units daily. 6. Multivitamin daily. 7. Lasix 40 daily. 8. Neurontin 100 b.i.d. 9. Zaroxolyn 2.5 daily. 10. Remeron 30 daily. 11. Potassium chloride 40 mEq b.i.d. 12. ( ) one puff b.i.d. 13. Benadryl 25 t.i.d. 14. Chantix 1 mg b.i.d. ALLERGIES: BROCCOLI, AMPICILLIN AND AMOXICILLIN. PHYSICAL EXAM: Pulse is in the 90s. Temperature is 98.2, respiratory rate 12 to 16, blood pressure is 100 to 120's over 70s to 80s. CARDIOVASCULAR: S1, S2. LUNGS: Transmitted upper airway sounds. HEMATOLOGICAL: Negative Homans. PSYCHIATRIC: Fair mood and affect. NEUROLOGIC: Alert and oriented x3. VASCULAR: Normal dorsalis pedis, posterior tibial and radial pulse. GI: Soft. NEUROLOGIC: Alert and oriented x3. Hemoglobin is 8.5. ASSESSMENT: 1. Abdominal wall cellulitis. 2. Acute gastrointestinal bleed unclear etiology, EGD to be done today. 3. Hypotension secondary to hematemesis. 4. Acute on chronic anemia secondary to gastrointestinal bleed. 5. Recent panniculectomy with abdominal wall cellulitis and black eschar for which debridement will be needed. 6. History of chronic obstructive pulmonary disease. Continue on home medications. Nicotine patch. On broad-spectrum antibiotics. Anti-ulcer medications. Incentive spirometry. Monitor hemoglobin. Follow up in next 24 to 48 hours. Thank you for the consult Dr. Washington.
[2016-05-30 18:34] LABS: Basophils % (A) 0 %; CH 31.8; CHCM 32.4; Eosinophils # (A) 0.2 k/uL (0-0.7); Eosinophils % (A) 2 %; HCT 24.1 % (34.0-46.0); HDW 3.47; HGB 7.4 gm/dL (11.4-16.0); Hypochromasia Slight; Luc # (Auto) 0.22; Luc % (Auto) 2; Lymphocytes % (A) 32 %; MCH 30.3 pg (25.0-35.0); MCHC 30.6 g/dL (31.0-37.0); Macrocytosis Slight; Mean Platelet Volume 8.5; Monocytes # (A) 0.5 k/uL (0-1.0); Monocytes % (A) 6 %; Neutrophils # (A) 5.3 k/uL (1.3-7.7); Neutrophils % (A) 57 %; Poikilocytosis Slight; RBC 2.44 m/uL (3.80-5.40); RDW 15.7 % (11.5-15.5); WBC 9.2 k/uL (3.8-10.6); WBC (Perox) 9.12
[2016-05-30] MEDS: SODIUM CHLORIDE 0.9% 1,000 ML IV SCH (19:28)
[2016-05-31] MEDS: HYDROmorphone 1 MG/ML 1 ML SYRINGE IVP PRN ×6 (02:29→21:04)
[2016-05-31] MEDS: SODIUM CHLORIDE 0.9% 1,000 ML IV SCH ×3 (04:09→21:09)
[2016-05-31] MEDS: SUCRALFATE 1 GM TAB PO SCH ×4 (06:41→21:03)
[2016-05-31] MEDS: PANTOPRAZOLE 40 MG/10 ML VIAL IVP SCH ×2 (08:43→21:03)
[2016-05-31 09:09] LABS: ALT 34 U/L (9-52); AST 19 U/L (14-36); Alkaline Phosphatase 88 U/L (38-126); Anion Gap 7 mmol/L; Blood Urea Nitrogen 18 mg/dL (7-17); Calcium 8.5 mg/dL (8.4-10.2); Carbon Dioxide 25 mmol/L (22-30); Chloride 109 mmol/L (98-107); Glucose 90 mg/dL (74-99); Non-African American GFR(MDRD) >60 (>60 ml/min/1.73 sqM); Potassium 4.9 mmol/L (3.5-5.1); Sodium 141 mmol/L (137-145); Total Bilirubin 0.2 mg/dL (0.2-1.3); Total Protein 4.7 g/dL (6.3-8.2)
[2016-05-31] MEDS ORDERED: PROPOFOL 10 MG/ML 20 ML VIAL IV ONE (12:29)
[2016-05-31] MEDS ORDERED: LIDOCAINE 1% INJ 10MG/ML (20 ML MDV) ONE (12:29)
[2016-05-31] MEDS ORDERED: IV FLUID CONTINUATION 1,000 ML IV ONE (12:31)
--- NOTE | 2016-05-31 12:32 | P.PN ---
Progress Note - Text The patient had recent evidence of upper GI bleed. The patient states that she vomited bright red blood on Tuesday. She is now having some melanotic and blood passing per rectum. Patient will undergo EGD today.
--- NOTE | 2016-05-31 12:40 | P.OP ---
Date of Procedure: 05/31/16 Preoperative Diagnosis: Upper GI bleed Postoperative Diagnosis: Marginal ulcer at jejunum just below gastrojejunostomy Procedure(s) Performed: EGD Anesthesia: MAC Surgeon: López Washington Pathology: other (Jejunal ulcer biopsy) Condition: stable Disposition: PACU Description of Procedure: The patient's placed on the endoscopy table in the lateral position. She received IV sedation. The gastroscope some placed oropharynx passed in the esophagus and into the stomach. The patient a previous gastric bypass. The gastrojejunostomy was seen just below the GE junction. Just distal to the gastroenterostomy in the jejunum was an ulcer. This was not actively bleeding. A biopsies performed. The ulcer was photographed. The scope was then brought back and the gastrojejunostomy was visualized. This was without any obvious scarring. The GE junction was at 40 cm. The distal esophagus appeared normal. Scope was withdrawn for patient.
[2016-05-31] MEDS: GABAPENTIN 100 MG CAP PO SCH ×2 (13:01→21:03)
[2016-05-31] MEDS: FUROSEMIDE 40 MG TAB PO SCH (13:01)
[2016-05-31] MEDS: DULoxetine HCL 60 MG CAPSULE.DR PO SCH ×2 (13:01→21:03)
[2016-05-31] MEDS: POTASSIUM CHLORIDE ORAL LIQUID 40 MEQ/30 ML CUP PO SCH ×2 (13:01→21:01)
--- NOTE | 2016-05-31 14:57 | P.PN ---
Subjective 50-year-old female being seen with the attending on rounds. Patient is tentatively scheduled for an EGD per surgical service this morning. Patient had a recent panniculectomy and has a large eschar. Currently has an abdominal binder in place. Patient reports that she had an episode last evening of vomiting with bright red blood. Patient did have an incident with the hemoglobin was down to 6.1 on May 29 necessitating the need to be transfused for 2 units of packed red blood cells hemoglobin this morning is pending Objective - Vital Signs Vital signs: Vital Signs Temp 97.1 F L 05/31/16 08:09 Pulse 101 H 05/31/16 08:09 Resp 16 05/31/16 08:09 BP 114/77 05/31/16 08:09 Pulse Ox 96 05/31/16 08:09 Intake & Output 05/30/16 05/31/16 05/31/16 18:59 06:59 18:59 Intake Total 600 1540 100 Output Total 640 590 25 Balance -40 950 75 Weight 89 kg Intake: IV 600 1300 100 Sodium Chloride 0.9% 1, 600 1300 000 ml @ 100 mls/hr IV . Q10H ONE Rx#:[id number] Oral 240 Output: Drainage 65 65 25 Left Lower Medial Abdomen 45 50 20 Lower Medial Abdomen 20 15 5 Urine 575 525 Other: Voiding Method Indwelling Catheter Toilet Toilet # Voids 1 - Exam Physical exam 50-year-old female currently resting in bed is aware of the plan of care scheduled for an EGD today Lungs posterior diminished at the bases upper airways clear Heart S1-S2 audible regular Abdomen a large black eschar 5 x 5 and inches kourtney in place to the abdominal wall at the surgical site. Soft nondistended. No further emesis reports pain to the surgical site Extremities no edema noted to the lower extremities - Labs CBC & Chem 7: 05/30/16 18:16 05/31/16 06:06 Labs: Abnormal Lab Results - Last 24 Hours (Table) 05/30/16 05/31/16 Range/Units 18:16 06:06 RBC 2.44 L (3.80-5.40) m/uL Hgb 7.4 L (11.4-16.0) gm/dL Hct 24.1 L (34.0-46.0) % MCHC 30.6 L (31.0-37.0) g/dL RDW 15.7 H (11.5-15.5) % Chloride 109 H (98-107) mmol/L BUN 18 H (7-17) mg/dL Total Protein 4.7 L (6.3-8.2) g/dL Albumin 2.3 L (3.5-5.0) g/dL Assessment and Plan Plan: Impression Acute on chronic anemia secondary to a GI bleed Recent panniculectomy with abdominal wall cellulitis with a large area of eschar measuring 5 x 5 COPD with no evidence of exacerbation Leukocytosis Chronic pain narcotic dependence Active tobacco abuse Right midlung atelectasis Episode of acute blood loss anemia hematemesis symptomatic necessitating 2 units of packed red blood cells Plan Await findings from the EGD currently pending Continue postop surgical care per surgical service Pain control DVT and GI prophylaxis Resume home meds as appropriate Smoking cessation information to be provided patient's been advised to stop smoking cigarettes Monitor hemoglobin attempt keep in a therapeutic range greater than 8 Further recommendations pending will follow IV antibiotics as ordered currently on Levaquin The above dictated assessment and findings were discussed with dr perez Impression and the plan of care have been dictated as directed. Lisa Alfaro nurse practitioner acting as a scribe for dr perez
[2016-05-31] MEDS: LEVOFLOXACIN 500MG-D5W PMX 500 MG in DEXTROSE/WATER 1 100ML.BAG IVPB SCH (15:48)
[2016-06-01] MEDS: HYDROmorphone 1 MG/ML 1 ML SYRINGE IVP PRN ×5 (01:13→23:22)
[2016-06-01] MEDS: DULoxetine HCL 60 MG CAPSULE.DR PO SCH ×2 (07:28→19:58)
[2016-06-01] MEDS: PANTOPRAZOLE 40 MG/10 ML VIAL IVP SCH ×2 (07:28→19:57)
[2016-06-01] MEDS: SUCRALFATE 1 GM TAB PO SCH ×4 (07:28→19:58)
[2016-06-01] MEDS: GABAPENTIN 100 MG CAP PO SCH ×2 (07:28→19:57)
[2016-06-01] MEDS: FUROSEMIDE 40 MG TAB PO SCH (07:28)
[2016-06-01] MEDS: HYDROcodone/APAP 7.5-325MG 1 EACH TAB PO PRN ×3 (10:10→19:57)
--- NOTE | 2016-06-01 11:59 | P.PN ---
Subjective 50-year-old female ambulating in the room. no new postop events. is being followed by surgical service status post EGD done on May 31 per surgical service no labs this morning patient states pain medication effective for pain control. Patient reports having increased swelling in the upper thighs. Additionally patient is reporting anxiety issues did note the patient is on Cymbalta 60 twice a day home dose Patient had a recent panniculectomy has a large eschar. Noted. Currently has an abdominal binder in place. Reportedly is tolerating a diet. Objective - Vital Signs Vital signs: Vital Signs Temp 98.9 F 06/01/16 07:00 Pulse 104 H 06/01/16 07:00 Resp 18 06/01/16 07:00 BP 114/70 06/01/16 07:00 Pulse Ox 98 06/01/16 07:00 Intake & Output 05/31/16 06/01/16 06/01/16 18:59 06:59 18:59 Intake Total 100 1100 Output Total 55 225 25 Balance 45 875 -25 Intake: IV 100 800 Sodium Chloride 0.9% 1, 800 000 ml @ 100 mls/hr IV . Q10H GHAZAL Rx#:[id number] Oral 300 Output: Drainage 55 25 25 Left Lower Abdomen 10 20 5 Left Lower Medial Abdomen 20 Lower Medial Abdomen 5 Right Lower Abdomen 20 5 20 Urine 200 Other: Voiding Method Toilet Toilet Toilet # Voids 2 1 1 - Exam Physical exam 50-year-old female ambulating in the room appearing in no acute distress talkative oriented 3 Lungs essentially clear with adequate air movement Heart S1-S2 audible regular Abdomen soft not distended currently has an abdominal binder in place reports urinating no difficulty. No document stool. Extremities upper extremities anterior thighs firm with a trace pedal edema - Labs CBC & Chem 7: 05/30/16 18:16 05/31/16 06:06 Assessment and Plan Plan: Impression Acute on chronic anemia secondary to a GI bleed Recent panniculectomy with abdominal wall cellulitis with a large area of eschar measuring 5 x 5 COPD with no evidence of exacerbation Leukocytosis Chronic pain narcotic dependence Active tobacco abuse Right midlung atelectasis Episode of acute blood loss anemia hematemesis symptomatic necessitating 2 units of packed red blood cells Depressive anxiety disorder nonspecified Status post EGD on the may marginal ulcer at the jejunal just below the gastrojejunostomy Plan Increase activity Continue postop surgical care per surgical service Pain control DVT and GI prophylaxis Resume home meds as appropriate Smoking cessation information to be provided patient's been advised to stop smoking cigarettes Monitor hemoglobin attempt keep in a therapeutic range greater than 8 Further recommendations pending will follow IV antibiotics as ordered currently on Levaquin The above dictated assessment and findings were discussed with dr ana Petersen and the plan of care have been dictated as directed. Lisa Alfaro nurse practitioner acting as a scribe for dr perez
[2016-06-01] MEDS: LEVOFLOXACIN 500MG-D5W PMX 500 MG in DEXTROSE/WATER 1 100ML.BAG IVPB SCH (12:58)
[2016-06-01] MEDS: METOLAZONE 2.5 MG TAB PO SCH (13:05)
[2016-06-01] MEDS: POTASSIUM CHLORIDE ORAL LIQUID 40 MEQ/30 ML CUP PO SCH ×2 (13:08→19:58)
[2016-06-01] MEDS: SODIUM CHLORIDE 0.9% 1,000 ML IV SCH ×2 (13:15→23:23)
[2016-06-01 14:28] LABS: Anisocytosis Slight; Basophils % (A) 0 %; CH 30.3; CHCM 29.9; Eosinophils # (A) 0.3 k/uL (0-0.7); Eosinophils % (A) 3 %; HCT 25.6 % (34.0-46.0); HDW 3.37; HGB 7.9 gm/dL (11.4-16.0); Hypochromasia Marked; Luc # (Auto) 0.19; Luc % (Auto) 2; Lymphocytes # (A) 2.4 k/uL (1.0-4.8); Lymphocytes % (A) 26 %; MCH 31.8 pg (25.0-35.0); MCHC 31.1 g/dL (31.0-37.0); MCV 102.5 fL (80.0-100.0); Macrocytosis Slight; Monocytes # (A) 0.4 k/uL (0-1.0); Monocytes % (A) 5 %; Neutrophils # (A) 5.9 k/uL (1.3-7.7); Neutrophils % (A) 64 %; RDW 16.4 % (11.5-15.5); WBC 9.2 k/uL (3.8-10.6); WBC (Perox) 9.46
[2016-06-01 14:45] LABS: ALT 32 U/L (9-52); AST 43 U/L (14-36); Alkaline Phosphatase 104 U/L (38-126); Anion Gap 11 mmol/L; Blood Urea Nitrogen 13 mg/dL (7-17); Calcium 8.6 mg/dL (8.4-10.2); Carbon Dioxide 18 mmol/L (22-30); Chloride 108 mmol/L (98-107); Glucose 131 mg/dL (74-99); Non-African American GFR(MDRD) >60 (>60 ml/min/1.73 sqM); Potassium 4.5 mmol/L (3.5-5.1); Sodium 137 mmol/L (137-145); Total Bilirubin 0.4 mg/dL (0.2-1.3); Total Protein 5.6 g/dL (6.3-8.2)
--- NOTE | 2016-06-01 15:37 | P.PN ---
Subjective Principal diagnosis: Upper GI bleed Patient is a 50-year-old female with medical history significant for marginal ulcer and recent panniculectomy on May 14. Patient admitted with upper GI bleed status post EGD with findings of marginal ulcer at jejunum just below gastro-jejunostomy on 05/31/2016, no evidence of active bleeding noted. Objective - Vital Signs Vital signs: Vital Signs Temp 97.1 F L 06/01/16 14:24 Pulse 106 H 06/01/16 14:24 Resp 18 06/01/16 14:24 BP 106/62 06/01/16 14:24 Pulse Ox 98 06/01/16 14:24 Intake & Output 05/31/16 06/01/16 06/01/16 18:59 06:59 18:59 Intake Total 100 1100 Output Total 55 225 25 Balance 45 875 -25 Intake: IV 100 800 Sodium Chloride 0.9% 1, 800 000 ml @ 50 mls/hr IV . Q20H GHAZAL Rx#:[id number] Oral 300 Output: Drainage 55 25 25 Left Lower Abdomen 10 20 5 Left Lower Medial Abdomen 20 Lower Medial Abdomen 5 Right Lower Abdomen 20 5 20 Urine 200 Other: Voiding Method Toilet Toilet Toilet # Voids 2 1 1 - Exam GENERAL: Pt awake and alert, well-appearing, well-nourished, and in no acute distress. LUNGS: Breath sounds clear to auscultation bilaterally. No wheezes, rales, or rhonchi. HEART: Heart S1, S2, no S3 or S4. Regular rate and rhythm. No murmurs, rubs or gallops. ABDOMEN: Soft, obese, tender, nondistended, normoactive bowel sounds. Area of black eschar in the right lower abdomen with small amount of drainage from umbilical incision site. Judd Delaney drains 2 intact and compressed with serosanguineous drainage. EXTREMITIES: 2+ peripheral pulses. 1+ edema to bilateral lower extremities. No calf tenderness. NEUROLOGICAL: Pt oriented x 3. - Labs CBC & Chem 7: 06/01/16 13:48 06/01/16 13:48 Labs: Abnormal Lab Results - Last 24 Hours (Table) 06/01/16 06/01/16 Range/Units 13:48 13:48 RBC 2.50 L (3.80-5.40) m/uL Hgb 7.9 L (11.4-16.0) gm/dL Hct 25.6 L (34.0-46.0) % MCV 102.5 H (80.0-100.0) fL RDW 16.4 H (11.5-15.5) % Chloride 108 H (98-107) mmol/L Carbon Dioxide 18 L (22-30) mmol/L Glucose 131 H (74-99) mg/dL AST 43 H (14-36) U/L Total Protein 5.6 L (6.3-8.2) g/dL Albumin 2.9 L (3.5-5.0) g/dL Assessment and Plan Plan: Impression: 1. Acute blood loss anemia status post EGD with findings of marginal jejunal ulcer just below the gastrojejunostomy, biopsies pending, on 05/31/2016. 2. History of recent panniculectomy with abdominal wall cellulitis and large area of eschar. Plan: Patient will undergo debridement of abdominal wall tomorrow. Patient will be kept nothing by mouth after midnight. Continue local wound care. Repeat CBC and BMP in a.m. Continue to follow with medical service. The above impression and plan have been discussed and directed by Dr. Washington. Nora IBRAHMI acting as scribe for Dr. Washington.
--- NOTE | 2016-06-01 16:56 | P.PN ---
Subjective Principal diagnosis: GIB, cellulitis Patient seen and examined. Patient is on room air. She denies chest pain or shortness of breath. Patient underwent EGD yesterday and was found to have an ulcer. It was not actively bleeding. Patient states she is feeling better otherwise. Objective - Vital Signs Vital signs: Vital Signs Temp 97.1 F L 06/01/16 14:24 Pulse 106 H 06/01/16 14:24 Resp 18 06/01/16 14:24 BP 106/62 06/01/16 14:24 Pulse Ox 98 06/01/16 14:24 Intake & Output 05/31/16 06/01/16 06/01/16 18:59 06:59 18:59 Intake Total 100 1100 Output Total 55 225 25 Balance 45 875 -25 Intake: IV 100 800 Sodium Chloride 0.9% 1, 800 000 ml @ 50 mls/hr IV . Q20H GHAZAL Rx#:[id number] Oral 300 Output: Drainage 55 25 25 Left Lower Abdomen 10 20 5 Left Lower Medial Abdomen 20 Lower Medial Abdomen 5 Right Lower Abdomen 20 5 20 Urine 200 Other: Voiding Method Toilet Toilet Toilet # Voids 2 1 1 - Exam Gen.: Alert and oriented 3, no acute distress Cardiac vascular: Regular rate and rhythm, S1/S2 Lungs: Clear to auscultation bilaterally no wheezes rales or rhonchi Abdomen: Soft nontender nondistended positive bowel sounds, ALTEHA drains in place, wound is unchanged Extremities: No edema - Labs CBC & Chem 7: 06/01/16 13:48 06/01/16 13:48 Labs: Abnormal Lab Results - Last 24 Hours (Table) 06/01/16 06/01/16 Range/Units 13:48 13:48 RBC 2.50 L (3.80-5.40) m/uL Hgb 7.9 L (11.4-16.0) gm/dL Hct 25.6 L (34.0-46.0) % MCV 102.5 H (80.0-100.0) fL RDW 16.4 H (11.5-15.5) % Chloride 108 H (98-107) mmol/L Carbon Dioxide 18 L (22-30) mmol/L Glucose 131 H (74-99) mg/dL AST 43 H (14-36) U/L Total Protein 5.6 L (6.3-8.2) g/dL Albumin 2.9 L (3.5-5.0) g/dL Assessment and Plan Plan: Right mid lung atelectasis Hematemesis, gastric ulcer Hypotension, resolved Anemia, symptomatic Recent panniculectomy with abdominal wall cellulitis Leukocytosis History of COPD, not acutely exacerbated Chronic pain syndrome Active tobacco abuse Pain control Levaquin Carafate and Protonix Surgery recommendations Incentive spirometry and pulmonary hygiene Monitor hemoglobin Hemodynamic and respiratory status are stable. We'll sign off and reevaluate your request. Thank you for this consultation.
[2016-06-02] MEDS: HYDROmorphone 1 MG/ML 1 ML SYRINGE IVP PRN ×5 (03:10→19:39)
[2016-06-02] MEDS: PANTOPRAZOLE 40 MG/10 ML VIAL IVP SCH ×2 (07:31→21:49)
[2016-06-02 07:37] LABS: Anisocytosis Slight; Basophils # (A) 0.1 k/uL (0-0.2); Basophils % (A) 1 %; CH 31.1; CHCM 31.6; Eosinophils # (A) 0.3 k/uL (0-0.7); Eosinophils % (A) 4 %; HDW 3.57; HGB 7.1 gm/dL (11.4-16.0); Hypochromasia Moderate; INR 1.1 (<1.1); Luc # (Auto) 0.13; Luc % (Auto) 2; Lymphocytes # (A) 2.4 k/uL (1.0-4.8); Lymphocytes % (A) 33 %; MCH 30.9 pg (25.0-35.0); MCV 99.5 fL (80.0-100.0); Macrocytosis Slight; Mean Platelet Volume 7.8; Monocytes # (A) 0.5 k/uL (0-1.0); Monocytes % (A) 6 %; Neutrophils # (A) 4.1 k/uL (1.3-7.7); Neutrophils % (A) 55 %; Poikilocytosis Slight; Prothrombin Time 10.7 sec (9.0-12.0); RBC 2.31 m/uL (3.80-5.40); RDW 17.4 % (11.5-15.5); WBC 7.5 k/uL (3.8-10.6); WBC (Perox) 7.95
[2016-06-02 07:39] LABS: ALT 32 U/L (9-52); AST 16 U/L (14-36); Alkaline Phosphatase 106 U/L (38-126); Anion Gap 10 mmol/L; Blood Urea Nitrogen 14 mg/dL (7-17); Calcium 8.6 mg/dL (8.4-10.2); Carbon Dioxide 25 mmol/L (22-30); Chloride 106 mmol/L (98-107); Glucose 84 mg/dL (74-99); Non-African American GFR(MDRD) >60 (>60 ml/min/1.73 sqM); Potassium 3.5 mmol/L (3.5-5.1); Sodium 141 mmol/L (137-145); Total Bilirubin 0.3 mg/dL (0.2-1.3); Total Protein 5.4 g/dL (6.3-8.2)
[2016-06-02] MEDS: SUCRALFATE 1 GM TAB PO SCH ×4 (09:09→21:47)
[2016-06-02] MEDS: POTASSIUM CHLORIDE ORAL LIQUID 40 MEQ/30 ML CUP PO SCH ×2 (09:15→21:49)
[2016-06-02] MEDS: DULoxetine HCL 60 MG CAPSULE.DR PO SCH ×2 (09:16→21:48)
[2016-06-02] MEDS: GABAPENTIN 100 MG CAP PO SCH ×2 (09:16→21:48)
[2016-06-02] MEDS: METOLAZONE 2.5 MG TAB PO SCH (09:16)
[2016-06-02] MEDS: HYDROcodone/APAP 7.5-325MG 1 EACH TAB PO PRN (09:24)
[2016-06-02] MEDS: FUROSEMIDE 40 MG TAB PO SCH (09:53)
--- NOTE | 2016-06-02 10:59 | P.PN ---
Subjective 50-year-old female scheduled today for debridement of the abdominal wall procedure per surgical service Patient had a recent panniculectomy has a large eschar Noted. Currently has an abdominal binder in place. Objective - Vital Signs Vital signs: Vital Signs Temp 98.2 F 06/02/16 07:00 Pulse 90 06/02/16 07:00 Resp 16 06/02/16 07:00 BP 99/68 06/02/16 07:00 Pulse Ox 96 06/02/16 07:00 Intake & Output 06/01/16 06/02/16 06/02/16 18:59 06:59 18:59 Intake Total 1140 Output Total 50 1485 Balance -50 -345 Intake: IV 400 Sodium Chloride 0.9% 1, 400 000 ml @ 50 mls/hr IV . Q20H [facility] Rx#:[id number] Oral 740 Output: Drainage 50 35 Left Lower Abdomen 10 10 Right Lower Abdomen 40 25 Urine 1450 Other: Voiding Method Toilet Toilet # Voids 1 400 - Exam Physical exam 50-year-old female scheduled this morning for debridement of the abdominal wall per surgical service currently NPL Lungs essentially clear adequate air movement Heart S1-S2 audible regular Abdomen abdominal binder in place Judd-Delaney drain Extremities no edema noted - Labs CBC & Chem 7: 06/02/16 07:10 06/02/16 07:10 Labs: Abnormal Lab Results - Last 24 Hours (Table) 06/01/16 06/01/16 06/02/16 Range/Units 13:48 13:48 07:10 RBC 2.50 L (3.80-5.40) m/uL Hgb 7.9 L (11.4-16.0) gm/dL Hct 25.6 L (34.0-46.0) % MCV 102.5 H (80.0-100.0) fL RDW 16.4 H (11.5-15.5) % Chloride 108 H (98-107) mmol/L Carbon Dioxide 18 L (22-30) mmol/L Glucose 131 H (74-99) mg/dL AST 43 H (14-36) U/L Total Protein 5.6 L 5.4 L (6.3-8.2) g/dL Albumin 2.9 L 3.0 L (3.5-5.0) g/dL 06/02/16 Range/Units 07:10 RBC 2.31 L (3.80-5.40) m/uL Hgb 7.1 L (11.4-16.0) gm/dL Hct 23.0 L (34.0-46.0) % MCV (80.0-100.0) fL RDW 17.4 H (11.5-15.5) % Chloride (98-107) mmol/L Carbon Dioxide (22-30) mmol/L Glucose (74-99) mg/dL AST (14-36) U/L Total Protein (6.3-8.2) g/dL Albumin (3.5-5.0) g/dL Assessment and Plan Plan: Impression Acute on chronic anemia secondary to a GI bleed Recent panniculectomy with abdominal wall cellulitis with a large area of eschar measuring 5 x 5 COPD with no evidence of exacerbation Leukocytosis Chronic pain narcotic dependence Active tobacco abuse Right midlung atelectasis Episode of acute blood loss anemia hematemesis symptomatic necessitating 2 units of packed red blood cells Depressive anxiety disorder nonspecified Status post EGD on the may marginal ulcer at the jejunal just below the gastrojejunostomy Plan Increase activity Continue postop surgical care per surgical service Pain control DVT and GI prophylaxis Resume home meds as appropriate Smoking cessation information to be provided patient's been advised to stop smoking cigarettes Monitor hemoglobin attempt keep in a therapeutic range greater than 8 Further recommendations pending will follow IV antibiotics as ordered currently on Levaquin Scheduled today for debridement of the abdominal wall The above dictated assessment and findings were discussed with dr ana Petersen and the plan of care have been dictated as directed. Lisa Alfaro nurse practitioner acting as a scribe for dr perez
[2016-06-02] MEDS: LEVOFLOXACIN 500MG-D5W PMX 500 MG in DEXTROSE/WATER 1 100ML.BAG IVPB SCH (11:33)
[2016-06-02] MEDS ORDERED: IV FLUID CONTINUATION 1,000 ML IV ONE (15:26)
[2016-06-02] MEDS ORDERED: LACTATED RINGERS 1,000 ML IV SCH (15:38)
[2016-06-02] MEDS ORDERED: HYDROmorphone 1 MG/ML 1 ML SYRINGE IVP PRN (15:38)
[2016-06-02] MEDS ORDERED: ONDANSETRON 4 MG/2 ML VIAL IVP ONE (15:38)
[2016-06-02] MEDS ORDERED: SCOPOLAMINE 1.5MG/72HR PATCH TRANSDERM ONE (15:38)
[2016-06-02] MEDS ORDERED: HEPARIN SODIUM,PORCINE 5,000 UNIT/ML 1 ML VIAL SQ ONE (15:42)
[2016-06-02] MEDS ORDERED: MIDAZOLAM 2 MG/2 ML VIAL ONE (16:11)
[2016-06-02] MEDS ORDERED: KETAMINE 10 MG/ML 20 ML VIAL ONE (16:11)
[2016-06-02] MEDS ORDERED: diphenhydrAMINE 50 MG/ML 1 ML VIAL ONE (16:11)
[2016-06-02] MEDS ORDERED: SODIUM CHLORIDE 0.9% 1,000 ML BAG ONE (16:11)
[2016-06-02] MEDS ORDERED: PROPOFOL 10 MG/ML 20 ML VIAL IV ONE (16:11)
[2016-06-02] MEDS ORDERED: fentaNYL (PF) 50 MCG/ML 2 ML AMP ONE (16:11)
--- NOTE | 2016-06-02 17:00 | P.PN ---
Progress Note - Text The patient had a small bloody bowel movement earlier today. She denies any significant abdominal pain. The patient was taken the OR today for debridement of abdominal wound. Her marginal ulcer appears to blood slightly. Her hematoma stable some 0.1. She'll be observed closely after her abdominal wall debridement.
[2016-06-02] MEDS ORDERED: NALOXONE 0.4 MG/ML 1 ML VIAL IV PRN (17:02)
[2016-06-02] MEDS ORDERED: ONDANSETRON 4 MG/2 ML VIAL IVP PRN (17:02)
[2016-06-02] MEDS ORDERED: LACTATED RINGERS 1,000 ML IV ONE (17:02)
--- NOTE | 2016-06-02 17:03 | P.OP ---
Date of Procedure: 06/02/16 Preoperative Diagnosis: Abdominal wall wound Postoperative Diagnosis: Abdominal wall wound Procedure(s) Performed: Debridement of abdominal wall Anesthesia: MAC Surgeon: López Washington Estimated Blood Loss (ml): 5 Pathology: other (Abdominal wall wound) Condition: stable Disposition: PACU Description of Procedure: The patient's placed the operative table in the supine position she received IV sedation. Her abdomen was prepped and draped usual sterile fashion. The patient's kourtney removed. Her abdominal wall was examined. There appeared to be some ischemia changes of the right abdominal wall with a Blanquita her on the skin. Using sharp dissection the ischemic skin and fat was sharply excised. Down to the level of the fascia. The area injury measured approximately 15 x 10 cm. There was no significant bleeding seen. The skin edges were pink and had some small amount of bleeding. The wound was packed with wet-to-dry Kerlix. Patient was sent to recovery in stable condition.
[2016-06-02] MEDS ORDERED: SODIUM CHLORIDE 0.9% 1,000 ML IV ONE (17:52)
[2016-06-02] MEDS: HYDROcodone/APAP 5-325MG 1 EACH TAB PO PRN (21:48)
[2016-06-03] MEDS: HYDROmorphone 1 MG/ML 1 ML SYRINGE IVP PRN ×6 (00:21→19:34)
[2016-06-03] MEDS: HYDROcodone/APAP 5-325MG 1 EACH TAB PO PRN ×4 (04:01→22:45)
[2016-06-03 07:38] LABS: Anisocytosis Slight; Basophils % (A) 0 %; CH 31.1; CHCM 31.8; Eosinophils # (A) 0.2 k/uL (0-0.7); Eosinophils % (A) 2 %; HCT 24.6 % (34.0-46.0); HDW 3.63; HGB 7.7 gm/dL (11.4-16.0); Hypochromasia Moderate; Luc % (Auto) 1; Lymphocytes # (A) 2.2 k/uL (1.0-4.8); Lymphocytes % (A) 23 %; MCH 31.1 pg (25.0-35.0); MCHC 31.5 g/dL (31.0-37.0); MCV 98.9 fL (80.0-100.0); Macrocytosis Slight; Monocytes # (A) 0.6 k/uL (0-1.0); Monocytes % (A) 6 %; Neutrophils # (A) 6.5 k/uL (1.3-7.7); Neutrophils % (A) 67 %; Poikilocytosis Slight; RBC 2.49 m/uL (3.80-5.40); RDW 17.3 % (11.5-15.5); WBC 9.6 k/uL (3.8-10.6)
[2016-06-03 07:51] LABS: ALT 34 U/L (9-52); AST 15 U/L (14-36); Alkaline Phosphatase 112 U/L (38-126); Anion Gap 9 mmol/L; Blood Urea Nitrogen 10 mg/dL (7-17); Calcium 8.8 mg/dL (8.4-10.2); Carbon Dioxide 31 mmol/L (22-30); Chloride 101 mmol/L (98-107); Glucose 103 mg/dL (74-99); Non-African American GFR(MDRD) >60 (>60 ml/min/1.73 sqM); Potassium 3.5 mmol/L (3.5-5.1); Sodium 141 mmol/L (137-145); Total Bilirubin 0.3 mg/dL (0.2-1.3); Total Protein 5.4 g/dL (6.3-8.2)
[2016-06-03] MEDS: SUCRALFATE 1 GM TAB PO SCH ×4 (08:50→21:21)
[2016-06-03] MEDS: DULoxetine HCL 60 MG CAPSULE.DR PO SCH ×2 (08:52→21:21)
[2016-06-03] MEDS: GABAPENTIN 100 MG CAP PO SCH ×2 (08:53→21:21)
[2016-06-03] MEDS: METOLAZONE 2.5 MG TAB PO SCH (08:53)
[2016-06-03] MEDS: PANTOPRAZOLE 40 MG/10 ML VIAL IVP SCH ×2 (08:53→21:22)
[2016-06-03] MEDS: POTASSIUM CHLORIDE ORAL LIQUID 40 MEQ/30 ML CUP PO SCH ×2 (08:54→21:21)
[2016-06-03] MEDS: FUROSEMIDE 40 MG TAB PO SCH (09:41)
[2016-06-03] MEDS ORDERED: IV VANCOMYCIN PER PHARMACY 1 EACH MISC MISCELLANE PRN (12:42)
[2016-06-03] MEDS ORDERED: cefTRIAXone 2,000 MG in SODIUM CHLORIDE 0.9% 100 ML IVPB SCH (12:45)
[2016-06-03] MEDS: LEVOFLOXACIN 500MG-D5W PMX 500 MG in DEXTROSE/WATER 1 100ML.BAG IVPB SCH (12:55)
[2016-06-03] MEDS ORDERED: VANCOMYCIN 1,500 MG in SODIUM CHLORIDE 0.9% 250 ML IVPB SCH (13:00)
[2016-06-03] MEDS: cefTRIAXone 2,000 MG in SODIUM CHLORIDE 0.9% 100 ML IVPB SCH (14:28)
--- NOTE | 2016-06-03 14:56 | P.PN ---
Subjective Principal diagnosis: Upper GI bleed Patient is a 50-year-old female with medical history significant for marginal ulcer and recent panniculectomy on May 14 with evidence of abdominal wall necrosis. Patient admitted with upper GI bleed status post EGD with findings of marginal ulcer at jejunum just below gastro-jejunostomy on 01/2017. Patient underwent debridement of abdominal wall wound on 06/03/2016. Patient tolerated procedure well. Upon evaluation, patient denies chills, nausea, vomiting, shortness of breath, or chest pain. Patient is tolerating a regular diet. Patient is urinating without difficulty. No bowel movements this morning. No further evidence of overt bleeding. Afebrile. WBC 9.6. Hemoglobin 7.7 from 7.1 yesterday. Objective - Vital Signs Vital signs: Vital Signs Temp 97.7 F 06/03/16 07:00 Pulse 95 06/03/16 07:00 Resp 16 06/03/16 07:00 BP 99/64 06/03/16 07:00 Pulse Ox 96 06/03/16 07:00 Intake & Output 06/02/16 06/03/16 06/03/16 18:59 06:59 18:59 Intake Total 935 1640 Output Total 1730 1405 770 Balance -795 235 -770 Intake: IV 775 600 Lactated Ringers 1,000 ml 600 @ 100 mls/hr IV .Q10H [facility] Rx#:[id number] Sodium Chloride 0.9% 1, 400 000 ml @ 50 mls/hr IV . Q20H [facility] Rx#:[id number] Intake, IV Titration 100 Amount Levofloxacin 500Mg-D5w 100 Pmx 500 mg In Dextrose/ Water 1 100ml.bag @ 100 mls/hr IVPB Q24H [facility] Rx#: [id number] Oral 60 1040 Output: Drainage 25 5 20 Left Lower Abdomen 15 5 20 Right Lower Abdomen 10 Urine 1700 1400 550 Stool 200 Estimated Blood Loss 5 Other: Voiding Method Toilet Toilet # Voids 3 # Bowel Movements 1 - Exam GENERAL: Pt awake and alert, well-appearing, well-nourished, and in no acute distress. LUNGS: Breath sounds clear to auscultation bilaterally. No wheezes, rales, or rhonchi. HEART: Heart S1, S2, no S3 or S4. Regular rate and rhythm. No murmurs, rubs or gallops. ABDOMEN: Soft, obese, incisional tenderness, nondistended, normoactive bowel sounds. Abdominal dressing dry and intact. EXTREMITIES: 2+ peripheral pulses. 1+ edema to bilateral lower extremities. No calf tenderness. NEUROLOGICAL: Pt oriented x 3. - Labs CBC & Chem 7: 06/03/16 07:19 06/03/16 07:19 Labs: Abnormal Lab Results - Last 24 Hours (Table) 06/03/16 06/03/16 Range/Units 07:19 07:19 RBC 2.49 L (3.80-5.40) m/uL Hgb 7.7 L (11.4-16.0) gm/dL Hct 24.6 L (34.0-46.0) % RDW 17.3 H (11.5-15.5) % Carbon Dioxide 31 H (22-30) mmol/L Glucose 103 H (74-99) mg/dL Total Protein 5.4 L (6.3-8.2) g/dL Albumin 3.0 L (3.5-5.0) g/dL Microbiology - Last 24 Hours (Table) 06/02/16 16:43 Gram Stain - Preliminary Abdomen Wound Culture - Preliminary 06/02/16 16:43 Anaerobic Culture - Preliminary Abdomen Assessment and Plan Plan: Impression: 1. Acute blood loss anemia status post EGD with findings of marginal jejunal ulcer just below the gastrojejunostomy on 05/31/2016. 2. History of recent panniculectomy with abdominal wall cellulitis and large area of eschar status post debridement of abdominal wall wound on 06/02/2016. Plan: Continue to monitor patient. Continue local wound care in the form of wet-to- dry dressing. Patient will need a wound VAC. Repeat CBC and BMP in a.m. Continue to follow with medical service. Possible discharge next 24 hours. The above impression and plan have been discussed and directed by Dr. Washington. Nora IBRAHIM acting as scribe for Dr. Washington.
--- NOTE | 2016-06-03 15:31 | P.PN ---
Subjective 50-year-old being seen on rounds. Patient currently is denying any dizziness lightheadedness chills fever nausea vomiting or shortness of breath. Patient did undergo debridement of the abdominal wound .. Patients being treated for abdominal wall cellulitis with a large area of eschar Patients being followed by surgical service. no new events. Is staying pain medication has been effective for pain control. Surgical service indicates the patient will need possible wound VAC to the area. For now will continue with the local wound care currently receiving wet-to-dry dressings to the area Objective - Vital Signs Vital signs: Vital Signs Temp 97.7 F 06/03/16 07:00 Pulse 95 06/03/16 07:00 Resp 16 06/03/16 07:00 BP 99/64 06/03/16 07:00 Pulse Ox 96 06/03/16 07:00 Intake & Output 06/02/16 06/03/16 06/03/16 18:59 06:59 18:59 Intake Total 935 1640 Output Total 1730 1405 770 Balance -795 235 -770 Intake: IV 775 600 Lactated Ringers 1,000 ml 600 @ 100 mls/hr IV .Q10H [facility] Rx#:[id number] Sodium Chloride 0.9% 1, 400 000 ml @ 50 mls/hr IV . Q20H [facility] Rx#:[id number] Intake, IV Titration 100 Amount Levofloxacin 500Mg-D5w 100 Pmx 500 mg In Dextrose/ Water 1 100ml.bag @ 100 mls/hr IVPB Q24H [facility] Rx#: [id number] Oral 60 1040 Output: Drainage 25 5 20 Left Lower Abdomen 15 5 20 Right Lower Abdomen 10 Urine 1700 1400 550 Stool 200 Estimated Blood Loss 5 Other: Voiding Method Toilet Toilet # Voids 3 # Bowel Movements 1 - Exam Physical exam 50-year-old female appears in no acute distress pleasant oriented 3 aware of the plan of care Lungs essentially clear with adequate air movement no conversational dyspnea noted no cough noted Heart S1-S2 audible and regular Abdomen patient does report having surgical tenderness with discomfort. The abdominal dressing in place dry and intact. Not distended no firmness reports no nausea vomiting Extremities 1+ nonpitting edema to the bilateral lower extremities no calf tenderness - Labs CBC & Chem 7: 06/03/16 07:19 06/03/16 07:19 Labs: Abnormal Lab Results - Last 24 Hours (Table) 06/03/16 06/03/16 Range/Units 07:19 07:19 RBC 2.49 L (3.80-5.40) m/uL Hgb 7.7 L (11.4-16.0) gm/dL Hct 24.6 L (34.0-46.0) % RDW 17.3 H (11.5-15.5) % Carbon Dioxide 31 H (22-30) mmol/L Glucose 103 H (74-99) mg/dL Total Protein 5.4 L (6.3-8.2) g/dL Albumin 3.0 L (3.5-5.0) g/dL Microbiology - Last 24 Hours (Table) 06/02/16 16:43 Gram Stain - Preliminary Abdomen Wound Culture - Preliminary 06/02/16 16:43 Anaerobic Culture - Preliminary Abdomen Assessment and Plan Plan: Impression Acute on chronic anemia secondary to a GI bleed Recent panniculectomy with abdominal wall cellulitis with a large area of eschar measuring 5 x 5 COPD with no evidence of exacerbation Leukocytosis Chronic pain narcotic dependence Active tobacco abuse Right midlung atelectasis Episode of acute blood loss anemia hematemesis symptomatic necessitating 2 units of packed red blood cells Depressive anxiety disorder nonspecified Status post EGD on the may marginal ulcer at the jejunal just below the gastrojejunostomy Plan Increase activity Continue postop surgical care per surgical service Pain control DVT and GI prophylaxis Resume home meds as appropriate Smoking cessation information to be provided patient's been advised to stop smoking cigarettes Monitor hemoglobin attempt keep in a therapeutic range greater than 8 Defer to the timing of the discharge to surgical service will continue to follow address medical issues as they arise Wound care per surgical service wet-to-dry dressing. Patient may need a wound VAC to the area defer to surgical service to address The above dictated assessment and findings were discussed with dr ana Petersen and the plan of care have been dictated as directed. Lisa Alfaro nurse practitioner acting as a scribe for dr perez
[2016-06-03] MEDS: VANCOMYCIN 1,500 MG in SODIUM CHLORIDE 0.9% 250 ML IVPB SCH ×2 (16:36→21:21)
[2016-06-04] MEDS: HYDROmorphone 1 MG/ML 1 ML SYRINGE IVP PRN ×7 (00:46→23:29)
[2016-06-04 07:41] LABS: Anisocytosis Slight; Basophils % (A) 0 %; CH 30.9; CHCM 31.6; Eosinophils # (A) 0.2 k/uL (0-0.7); Eosinophils % (A) 2 %; HCT 21.1 % (34.0-46.0); HDW 3.71; Hypochromasia Moderate; Luc # (Auto) 0.14; Luc % (Auto) 2; Lymphocytes # (A) 1.4 k/uL (1.0-4.8); Lymphocytes % (A) 17 %; MCH 30.8 pg (25.0-35.0); MCHC 31.1 g/dL (31.0-37.0); MCV 98.7 fL (80.0-100.0); Macrocytosis Slight; Mean Platelet Volume 7.5; Monocytes # (A) 0.4 k/uL (0-1.0); Monocytes % (A) 5 %; Neutrophils # (A) 6.1 k/uL (1.3-7.7); Neutrophils % (A) 74 %; Poikilocytosis Slight; RBC 2.14 m/uL (3.80-5.40); RDW 16.5 % (11.5-15.5); WBC 8.2 k/uL (3.8-10.6); WBC (Perox) 8.63
[2016-06-04 07:43] LABS: HGB 6.6 gm/dL (11.4-16.0)
[2016-06-04 07:58] LABS: ALT 26 U/L (9-52); AST 12 U/L (14-36); Alkaline Phosphatase 91 U/L (38-126); Anion Gap 8 mmol/L; Blood Urea Nitrogen 9 mg/dL (7-17); Calcium 8.4 mg/dL (8.4-10.2); Carbon Dioxide 32 mmol/L (22-30); Chloride 99 mmol/L (98-107); Glucose 111 mg/dL (74-99); Non-African American GFR(MDRD) >60 (>60 ml/min/1.73 sqM); Potassium 3.2 mmol/L (3.5-5.1); Sodium 139 mmol/L (137-145); Total Bilirubin 0.2 mg/dL (0.2-1.3); Total Protein 4.7 g/dL (6.3-8.2)
[2016-06-04] MEDS: POTASSIUM CHLORIDE ORAL LIQUID 40 MEQ/30 ML CUP PO SCH ×2 (08:17→20:32)
[2016-06-04] MEDS: PANTOPRAZOLE 40 MG/10 ML VIAL IVP SCH ×2 (08:18→20:32)
[2016-06-04] MEDS: DULoxetine HCL 60 MG CAPSULE.DR PO SCH ×2 (08:20→20:31)
[2016-06-04] MEDS: GABAPENTIN 100 MG CAP PO SCH ×2 (08:20→20:31)
[2016-06-04] MEDS: METOLAZONE 2.5 MG TAB PO SCH (08:21)
[2016-06-04] MEDS: FUROSEMIDE 40 MG TAB PO SCH (08:21)
[2016-06-04] MEDS: SUCRALFATE 1 GM TAB PO SCH ×4 (08:21→20:32)
[2016-06-04] MEDS: cefTRIAXone 2,000 MG in SODIUM CHLORIDE 0.9% 100 ML IVPB SCH (08:22)
--- NOTE | 2016-06-04 09:21 | CONS ---
DATE OF CONSULTATION: DATE OF SERVICE: 06/03/2016 REASON FOR CONSULTATION: Abdominal wound. HISTORY OF PRESENT ILLNESS: The patient is a 50-year-old female. The patient is status post panniculectomy done on May 14, 2016. Patient did have some problems postoperatively and she was noticed to have increased drainage from the umbilical site, also having increased discomfort from area. She was noticed to have the incision site becoming ischemic. Subsequently the patient has been brought into the ER and evaluated by the ER physician. The patient presented on the . She has been treated with Levaquin. She was taken to the OR by Dr. Washington yesterday and is status post extensive debridement of the abdominal wound with leading to a large open wound. The wound has been packed with wet-to-dry Kerlix. She did have cultures obtained from the wound for aerobic and anaerobic. I was asked to see the patient for further recommendations regarding antibiotic therapy. The patient had slight discomfort to the abdominal wound, dull 2 to 4 out of 10 and no radiation. There is no further drainage from it. The patient denies any high-grade fever. She denies having any chest pain, shortness of breath or cough. No diarrhea and no urinary symptoms. REVIEW OF SYSTEMS: CONSTITUTIONAL: Positive for weakness, but no high-grade fever. EYES: No complaint. ENT: No complaint. RESPIRATORY: No complaint. CARDIOVASCULAR: No complaint. GENITOURINARY: No complaint. GASTROINTESTINAL: As per HPI. MUSCULOSKELETAL: No complaint. INTEGUMENTARY: As per HPI. PSYCHOLOGICAL: No complaint. NEUROLOGICAL: No complaint. PAST MEDICAL HISTORY: Significant for gastroesophageal reflux disease, fibromyalgia, asthma, osteoarthritis, sleep apnea, mitral valve prolapse. PAST SURGICAL HISTORY: Significant for an appendectomy, back surgery, bariatric surgery, , cholecystectomy, hernia repair, hysterectomy, x2, EGD, colonoscopy, gastric bypass, carpal tunnel release. SOCIAL HISTORY: The patient recently quit smoking. She started smoking at the age of 33, did smoke about 8 to 10 cigarettes per day. Denies any drug use. FAMILY HISTORY: Father had history of prostate cancer, CVA, TIA. Allergies to AMPICILLIN, PENICILLIN, AMOXICILLIN with a rash. She has taken Keflex without any problem. Medications currently include the patient is on Fortson, Ventolin, Cymbalta, Lasix, Neurontin, Dilaudid, levofloxacin, Antivert, Zaroxolyn, Narcan, Protonix and Carafate. On examination, blood pressure 91/50 with a pulse of 94, temperature of 98. She is 96% on room air. General description is a middle-age female lying in bed in no distress. No tachypnea or accessory muscle of respiration use. HEENT examination shows pallor. There is no scleral icterus. Oral mucous membrane is dry. NECK: Trachea central. There is no thyromegaly. LUNGS: Unlabored breathing. Clear to auscultation anteriorly. No wheeze or crackle. HEART: S1, S2, regular rate and rhythm. ABDOMEN: Soft. She did have a large wound, however, the wound base looks clean with no significant slough tissue. No surrounding erythema or any foul smelling drainage. EXTREMITIES: No edema of feet. SKIN EXAMINATION: No rashes or masses palpable. NEUROLOGICAL: The patient is awake, alert, oriented x3. Mood and affect normal. LABS: Hemoglobin is 7.7, white count 9.6 with a BUN of 10, creatinine 0.67. Electrolytes have been normal. Liver enzymes are normal. Blood culture so far negative. Urine is negative. DIAGNOSTIC IMPRESSION AND PLAN: 1. Patient with extensive abdominal wound after surgical debridement in a patient who recently had extensive abdominal surgery in the form of panniculectomy with some skin ischemia more likely the etiology of the wound rather than any infection as the patient is not running any high grade fever and did not have an elevated white count. 2. The patient noted to have multiple antibiotic allergies, does limit the number of antibiotics that will be safe to use. Allergy to PENICILLIN mostly rash and has tolerated Keflex in past. PLAN: 1. Discontinue Levaquin. 2. Start the patient on Rocephin 2 gram daily and vancomycin pharmacy to dose. 3. Will apply wound VAC that will help in the wound healing process. 4. Depending upon the cultures results and clinical response, will determine her discharge antibiotic. Thank you for this consultation. Will follow this patient along with you. THAO
[2016-06-04] MEDS: VANCOMYCIN 1,500 MG in SODIUM CHLORIDE 0.9% 250 ML IVPB SCH ×2 (09:31→23:07)
[2016-06-04] MEDS: HYDROcodone/APAP 5-325MG 1 EACH TAB PO PRN ×2 (11:18→18:58)
[2016-06-04] MEDS: LEVOFLOXACIN 500 MG TAB PO SCH (12:57)
--- NOTE | 2016-06-04 13:40 | P.PN ---
Subjective 50-year-old female being seen this morning. Patient reports has had episodes of painless bright red rectal bleeding with bowel movements this morning. Hemoglobin noted to be 6.6 this morning down from 7.4 patient continues to report a nausea sensation no active bleeding. Additionally patient reports there's been a moderate amount of drainage at the surgical site. Currently has an abdominal binder in place with Judd-Delaney drain in place. Additionally patient reports feeling anxious at times is requesting something for anxiety currently a wound VAC is in place to the surgical site Objective - Vital Signs Vital signs: Vital Signs Temp 98 F 06/04/16 07:00 Pulse 88 06/04/16 07:00 Resp 16 06/04/16 07:00 BP 101/59 06/04/16 07:00 Pulse Ox 97 06/04/16 07:00 Intake & Output 06/03/16 06/04/16 06/04/16 18:59 06:59 18:59 Intake Total 100 850 Output Total 1395 200 Balance -1295 650 Intake: Intake, IV Titration 100 310 Amount Sodium Chloride 0.9% 1, 60 000 ml As IV .[facility] Rx#:[id number] Vancomycin 1,500 mg In 250 Sodium Chloride 0.9% 250 ml @ 125 mls/hr IVPB Q12HR@1000,2200 [facility] Rx#: [id number] cefTRIAXone 2,000 mg In 100 Sodium Chloride 0.9% 100 ml @ 100 mls/hr IVPB Q24HR [facility] Rx#:[id number] Oral 540 Output: Drainage 45 Left Lower Abdomen 45 Urine 1150 Stool 200 200 Other: Voiding Method Toilet Toilet # Voids 1 - Exam Physical exam 50-year-old female sitting up in bed appears in no acute distress denies dizziness lightheadedness chest pain or shortness of breath Lungs essentially clear with adequate air movement on room air heart S1-S2 audible and regular denying chest pain Abdomen wound VAC in place with an abdominal binder in place Judd-Delaney drain continues to report having surgical discomfort soft nontender Extremities no edema noted - Labs CBC & Chem 7: 06/04/16 07:16 06/04/16 07:16 Labs: Abnormal Lab Results - Last 24 Hours (Table) 06/04/16 06/04/16 06/04/16 Range/Units 07:16 07:16 09:00 RBC 2.14 L (3.80-5.40) m/uL Hgb 6.6 L* (11.4-16.0) gm/dL Hct 21.1 L (34.0-46.0) % RDW 16.5 H (11.5-15.5) % Potassium 3.2 L (3.5-5.1) mmol/L Carbon Dioxide 32 H (22-30) mmol/L Glucose 111 H (74-99) mg/dL AST 12 L (14-36) U/L Total Protein 4.7 L (6.3-8.2) g/dL Albumin 2.5 L (3.5-5.0) g/dL Crossmatch See Detail Assessment and Plan Plan: Impression Acute on chronic anemia secondary to a GI bleed Recent panniculectomy with abdominal wall cellulitis with a large area of eschar measuring 5 x 5 COPD with no evidence of exacerbation Leukocytosis Chronic pain narcotic dependence Active tobacco abuse Right midlung atelectasis Episode of acute blood loss anemia hematemesis symptomatic necessitating 2 units of packed red blood cells Depressive anxiety disorder nonspecified Status post EGD on the may marginal ulcer at the jejunal just below the gastrojejunostomy Anxiety disorder nonspecified Acute blood loss anemia necessitating 2 units of packed red blood cells infused on June 04 suspect GI source Plan Increase activity Continue postop surgical care per surgical service Pain control DVT and GI prophylaxis Resume home meds as appropriate Smoking cessation information to be provided patient's been advised to stop smoking cigarettes Defer to the timing of the discharge to surgical service will continue to follow address medical issues as they arise Wound care per surgical service wet-to-dry dressing. Patient may need a wound VAC to the area defer to surgical service to address Per surgical service wound VAC over the weekend re-eval on Tuesday Ativan as ordered for anxiety Transfused 2 units packed red blood cells repeat the hemoglobin attempt keep greater than 8 The above dictated assessment and findings were discussed with dr ana Petersen and the plan of care have been dictated as directed. Lisa Alfaro nurse practitioner acting as a scribe for dr perez
--- NOTE | 2016-06-04 14:01 | P.PN ---
Subjective Principal diagnosis: Upper GI bleed; abdominal wall wound Patient is a 50-year-old female with medical history significant for marginal ulcer and recent panniculectomy on May 14 with evidence of abdominal wall necrosis. Patient admitted with upper GI bleed status post EGD with findings of marginal ulcer at jejunum just below gastro-jejunostomy on 01/2017 for no evidence of active bleeding. Patient underwent debridement of abdominal wall wound on 06/03/2016. Patient tolerated procedure well. Upon evaluation, patient complains of feeling weak. Patient did have another bloody bowel movement yesterday afternoon. Patient denies chills, nausea, vomiting, shortness of breath, or chest pain. Incisional pain controlled. Patient is tolerating a regular diet. Patient is urinating without difficulty. Afebrile. WBC 8.2. Hemoglobin 6.6 from 7.7 yesterday. Objective - Vital Signs Vital signs: Vital Signs Temp 98 F 06/04/16 07:00 Pulse 88 06/04/16 08:00 Resp 16 06/04/16 07:00 BP 101/59 06/04/16 07:00 Pulse Ox 97 06/04/16 07:00 Intake & Output 06/03/16 06/04/16 06/04/16 18:59 06:59 18:59 Intake Total 100 850 Output Total 1395 200 20 Balance -1295 650 -20 Intake: Intake, IV Titration 100 310 Amount Sodium Chloride 0.9% 1, 60 000 ml As IV .[facility] Rx#:[id number] Vancomycin 1,500 mg In 250 Sodium Chloride 0.9% 250 ml @ 125 mls/hr IVPB Q12HR@1000,2200 [facility] Rx#: [id number] cefTRIAXone 2,000 mg In 100 Sodium Chloride 0.9% 100 ml @ 100 mls/hr IVPB Q24HR [facility] Rx#:[id number] Oral 540 Output: Drainage 45 20 Left Lower Abdomen 45 20 Urine 1150 Stool 200 200 Other: Voiding Method Toilet Toilet Toilet # Voids 1 - Exam GENERAL: Pt awake and alert, well-appearing, well-nourished, and in no acute distress. LUNGS: Breath sounds clear to auscultation bilaterally. No wheezes, rales, or rhonchi. HEART: Heart S1, S2, no S3 or S4. Regular rate and rhythm. No murmurs, rubs or gallops. ABDOMEN: Soft, obese, incisional tenderness, nondistended, normoactive bowel sounds. Wound VAC has been placed. ALTHEA drain compressed with minimal serosanguineous drainage. EXTREMITIES: 2+ peripheral pulses. 1+ edema to bilateral lower extremities. No calf tenderness. NEUROLOGICAL: Pt oriented x 3. - Labs CBC & Chem 7: 06/04/16 07:16 06/04/16 07:16 Labs: Abnormal Lab Results - Last 24 Hours (Table) 06/04/16 06/04/16 06/04/16 Range/Units 07:16 07:16 09:00 RBC 2.14 L (3.80-5.40) m/uL Hgb 6.6 L* (11.4-16.0) gm/dL Hct 21.1 L (34.0-46.0) % RDW 16.5 H (11.5-15.5) % Potassium 3.2 L (3.5-5.1) mmol/L Carbon Dioxide 32 H (22-30) mmol/L Glucose 111 H (74-99) mg/dL AST 12 L (14-36) U/L Total Protein 4.7 L (6.3-8.2) g/dL Albumin 2.5 L (3.5-5.0) g/dL Crossmatch See Detail Assessment and Plan Plan: Impression: 1. Acute blood loss anemia status post EGD with findings of marginal jejunal ulcer just below the gastrojejunostomy on 05/31/2016 with no evidence of active bleeding during procedure. Patient with bloody bowel movements and hemoglobin of 6.6 this morning. 2. History of recent panniculectomy with abdominal wall cellulitis and large area of eschar status post debridement of abdominal wall wound on 06/02/2016. Plan: Orders have been given to transfuse 2 units of PRBC. Continue to monitor for active bleeding and monitor hemoglobin. Continue wound VAC. Repeat CBC and BMP in a.m. Continue to follow with medical service. The above impression and plan have been discussed and directed by Dr. Washington. Nora IBRAHIM acting as scribe for Dr. Washington.
[2016-06-04 14:22] VITALS: BMI 35.9
[2016-06-04] MEDS: LORazepam 1 MG TAB PO PRN (23:29)
[2016-06-05] MEDS: HYDROcodone/APAP 5-325MG 1 EACH TAB PO PRN ×3 (02:01→18:12)
[2016-06-05] MEDS: HYDROmorphone 1 MG/ML 1 ML SYRINGE IVP PRN ×5 (02:54→19:57)
--- NOTE | 2016-06-05 07:48 | PN ---
DATE OF SERVICE: 06/04/2016 Reason for follow up is abdominal wall wound and cellulitis. INTERVAL HISTORY: The patient is afebrile. She has been breathing comfortably. Pain is currently controlled. Denies having any chest pain or shortness of breath or cough. No diarrhea. On examination, blood pressure is 112/58 with a pulse of 90, temperature 98.3. She is 95% on room air. General description is a middle-age female lying in bed in no distress. RESPIRATORY SYSTEM: Unlabored breathing. Clear to auscultation anteriorly. HEART: S1, S2 regular rate and rhythm. ABDOMEN: Soft, currently the wound is covered with the wound VAC. LABS: Hemoglobin 6.6, white count 8.2. BUN 9, creatinine 0.64. The abdominal wound culture currently pending. DIAGNOSTIC IMPRESSION AND PLAN: Patient with recent panniculectomy with the postoperative ischemia status post extensive debridement with significantly large wound. Patient at this time is covered with Rocephin and Vanco. That will be continued while waiting for the culture to finalize. Local wound care with wound VAC. Continue supportive care.
[2016-06-05] MEDS: cefTRIAXone 2,000 MG in SODIUM CHLORIDE 0.9% 100 ML IVPB SCH (08:19)
[2016-06-05] MEDS: POTASSIUM CHLORIDE ORAL LIQUID 40 MEQ/30 ML CUP PO SCH ×2 (08:34→19:58)
[2016-06-05] MEDS: DULoxetine HCL 60 MG CAPSULE.DR PO SCH ×2 (08:36→19:58)
[2016-06-05] MEDS: SUCRALFATE 1 GM TAB PO SCH ×4 (08:36→19:58)
[2016-06-05] MEDS: METOLAZONE 2.5 MG TAB PO SCH (08:37)
[2016-06-05] MEDS: GABAPENTIN 100 MG CAP PO SCH ×2 (08:37→19:58)
[2016-06-05] MEDS: PANTOPRAZOLE 40 MG/10 ML VIAL IVP SCH ×2 (08:37→19:57)
[2016-06-05] MEDS: FUROSEMIDE 40 MG TAB PO SCH (08:37)
[2016-06-05] MEDS ORDERED: VANCOMYCIN TROUGH DUE 1 EACH MISC MISCELLANE ONE (09:00)
[2016-06-05 09:35] LABS: ALT 31 U/L (9-52); AST 14 U/L (14-36); Alkaline Phosphatase 105 U/L (38-126); Anion Gap 8 mmol/L; Blood Urea Nitrogen 13 mg/dL (7-17); Calcium 8.5 mg/dL (8.4-10.2); Carbon Dioxide 33 mmol/L (22-30); Chloride 99 mmol/L (98-107); Glucose 96 mg/dL (74-99); Non-African American GFR(MDRD) >60 (>60 ml/min/1.73 sqM); Potassium 3.4 mmol/L (3.5-5.1); Sodium 140 mmol/L (137-145); Total Bilirubin 0.4 mg/dL (0.2-1.3); Total Protein 4.9 g/dL (6.3-8.2)
[2016-06-05 09:43] LABS: Basophils % (A) 0 %; CH 31.1; CHCM 32.7; Eosinophils # (A) 0.3 k/uL (0-0.7); Eosinophils % (A) 4 %; HCT 28.9 % (34.0-46.0); HDW 3.94; Hypochromasia Slight; Luc # (Auto) 0.16; Luc % (Auto) 2; Lymphocytes # (A) 1.3 k/uL (1.0-4.8); Lymphocytes % (A) 16 %; MCHC 32.3 g/dL (31.0-37.0); Monocytes # (A) 0.6 k/uL (0-1.0); Monocytes % (A) 7 %; Neutrophils # (A) 5.9 k/uL (1.3-7.7); Neutrophils % (A) 72 %; Poikilocytosis Slight; RBC 3.01 m/uL (3.80-5.40); RDW 15.8 % (11.5-15.5); WBC 8.2 k/uL (3.8-10.6); WBC (Perox) 8.59
[2016-06-05 09:46] LABS: HGB 9.3 gm/dL (11.4-16.0)
[2016-06-05] MEDS: VANCOMYCIN 1,500 MG in SODIUM CHLORIDE 0.9% 250 ML IVPB SCH (10:24)
--- NOTE | 2016-06-05 13:40 | P.PN ---
Subjective Principal diagnosis: Marginal ulcer with upper GI bleed, wound infection The patient is seen on rounds. She's feeling somewhat better today. She still passing some dark stools. The wound VAC is due to be changed today. Objective - Vital Signs Vital signs: Vital Signs Temp 97.8 F 06/05/16 07:00 Pulse 87 06/05/16 07:00 Resp 16 06/05/16 07:00 BP 111/58 06/05/16 07:00 Pulse Ox 98 06/05/16 07:00 Intake & Output 06/04/16 06/05/16 06/05/16 18:59 06:59 18:59 Intake Total 760 790 Output Total 30 Balance 730 790 Weight 89 kg Intake: Intake, IV Titration 450 Amount Sodium Chloride 0.9% 1, 100 000 ml As IV .STK-[facility] Rx#:[id number] Vancomycin 1,500 mg In 250 Sodium Chloride 0.9% 250 ml @ 125 mls/hr IVPB Q12HR@1000,2200 [facility] Rx#: [id number] cefTRIAXone 2,000 mg In 100 Sodium Chloride 0.9% 100 ml @ 100 mls/hr IVPB Q24HR [facility] Rx#:[id number] Oral 480 Blood Product 310 310 Rc As-1 Unit 0 310 [id number] Rc As-1 Unit 310 [id number] Output: Drainage 30 Left Lower Abdomen 30 Other: Voiding Method Toilet Toilet Toilet # Voids 2 - Constitutional General appearance: Present: cooperative, no acute distress - Gastrointestinal General gastrointestinal: Present: normal bowel sounds - Integumentary Integumentary Comment(s): Wound VAC is present in the right lower abdomen. There is a area of some superficial skin and fat necrosis about 7 or 8 mm x 3 cm. This appears superficial. The surrounding skin has some postsurgical changes. The ALTHEA in the left abdomen is serosanguineous. - Labs CBC & Chem 7: 06/05/16 08:52 06/05/16 08:52 Labs: Abnormal Lab Results - Last 24 Hours (Table) 06/04/16 06/05/16 06/05/16 Range/Units 09:00 08:52 08:52 RBC 3.01 L (3.80-5.40) m/uL Hgb 9.3 L D (11.4-16.0) gm/dL Hct 28.9 L (34.0-46.0) % RDW 15.8 H (11.5-15.5) % Potassium 3.4 L (3.5-5.1) mmol/L Carbon Dioxide 33 H (22-30) mmol/L Total Protein 4.9 L (6.3-8.2) g/dL Albumin 2.6 L (3.5-5.0) g/dL Crossmatch See Detail Microbiology - Last 24 Hours (Table) 06/02/16 16:43 Gram Stain - Final Abdomen Wound Culture - Final Assessment and Plan (1) Marginal ulcer Status: Acute (2) Postoperative wound breakdown Status: Acute (3) Acute blood loss anemia Status: Acute Plan: Her hemoglobin today appears within the expected range for her transfusion yesterday. We will recheck the CBC tomorrow. Continue local wound care. Progressing slowly.
[2016-06-05] MEDS: LEVOFLOXACIN 500 MG TAB PO SCH (13:51)
[2016-06-05] MEDS: VANCOMYCIN 1,250 MG in SODIUM CHLORIDE 0.9% 250 ML IVPB SCH (21:58)
[2016-06-05] MEDS: LORazepam 1 MG TAB PO PRN (22:01)
[2016-06-06] MEDS: HYDROmorphone 1 MG/ML 1 ML SYRINGE IVP PRN ×7 (01:11→23:21)
[2016-06-06] MEDS: HYDROcodone/APAP 5-325MG 1 EACH TAB PO PRN ×3 (01:45→17:14)
[2016-06-06 07:25] LABS: Basophils % (A) 1 %; CHCM 32.3; Eosinophils # (A) 0.3 k/uL (0-0.7); Eosinophils % (A) 4 %; HDW 3.85; HGB 9.2 gm/dL (11.4-16.0); Hypochromasia Moderate; Luc # (Auto) 0.18; Luc % (Auto) 3; Lymphocytes # (A) 1.7 k/uL (1.0-4.8); Lymphocytes % (A) 25 %; MCH 30.9 pg (25.0-35.0); MCHC 31.9 g/dL (31.0-37.0); Macrocytosis Slight; Mean Platelet Volume 8.3; Monocytes # (A) 0.5 k/uL (0-1.0); Monocytes % (A) 8 %; Neutrophils # (A) 3.9 k/uL (1.3-7.7); Neutrophils % (A) 59 %; Poikilocytosis Slight; RBC 2.99 m/uL (3.80-5.40); RDW 15.7 % (11.5-15.5); WBC 6.6 k/uL (3.8-10.6)
[2016-06-06 07:48] LABS: ALT 32 U/L (9-52); AST 18 U/L (14-36); Alkaline Phosphatase 105 U/L (38-126); Anion Gap 9 mmol/L; Blood Urea Nitrogen 19 mg/dL (7-17); Calcium 8.7 mg/dL (8.4-10.2); Carbon Dioxide 32 mmol/L (22-30); Chloride 101 mmol/L (98-107); Glucose 81 mg/dL (74-99); Non-African American GFR(MDRD) >60 (>60 ml/min/1.73 sqM); Potassium 3.9 mmol/L (3.5-5.1); Sodium 142 mmol/L (137-145); Total Bilirubin 0.3 mg/dL (0.2-1.3)
[2016-06-06] MEDS: SUCRALFATE 1 GM TAB PO SCH ×4 (09:25→21:49)
[2016-06-06] MEDS: cefTRIAXone 2,000 MG in SODIUM CHLORIDE 0.9% 100 ML IVPB SCH (09:26)
[2016-06-06] MEDS: DULoxetine HCL 60 MG CAPSULE.DR PO SCH ×2 (09:28→21:49)
[2016-06-06] MEDS: POTASSIUM CHLORIDE ORAL LIQUID 40 MEQ/30 ML CUP PO SCH ×2 (09:28→21:50)
[2016-06-06] MEDS: METOLAZONE 2.5 MG TAB PO SCH (09:29)
[2016-06-06] MEDS: PANTOPRAZOLE 40 MG/10 ML VIAL IVP SCH ×2 (09:29→21:49)
[2016-06-06] MEDS: FUROSEMIDE 40 MG TAB PO SCH (09:29)
[2016-06-06] MEDS: GABAPENTIN 100 MG CAP PO SCH ×2 (09:41→21:49)
[2016-06-06] MEDS: VANCOMYCIN 1,250 MG in SODIUM CHLORIDE 0.9% 250 ML IVPB SCH ×2 (10:46→21:49)
--- NOTE | 2016-06-06 12:07 | P.PN ---
Subjective Principal diagnosis: Marginal ulcer with upper GI bleed, wound infection The patient's continuing to pass some dark tarry stools. No nausea or vomiting. The wound VAC was changed yesterday. There is a moderately large amount of drainage in the canister. Overall she feels better. Objective - Vital Signs Vital signs: Vital Signs Temp 97.8 F 06/06/16 07:00 Pulse 83 06/06/16 07:00 Resp 16 06/06/16 07:00 BP 99/66 06/06/16 07:00 Pulse Ox 100 06/06/16 07:00 Intake & Output 06/05/16 06/06/16 06/06/16 18:59 06:59 18:59 Intake Total 250 365 Output Total 15 15 Balance 235 350 Intake: Intake, IV Titration 250 125 Amount Vancomycin 1,250 mg In 250 125 Sodium Chloride 0.9% 250 ml @ 125 mls/hr IVPB Q12HR@1000,2200 [facility] Rx#: [id number] Oral 240 Output: Drainage 15 15 Left Lower Abdomen 15 15 Other: Voiding Method Toilet Toilet # Voids 1 - Constitutional General appearance: Present: cooperative, no acute distress - Integumentary Integumentary Comment(s): Serosanguineous drainage in the wound VAC canister, wound VAC is in place and working well - Labs CBC & Chem 7: 06/06/16 07:01 06/06/16 07:01 Labs: Abnormal Lab Results - Last 24 Hours (Table) 06/06/16 06/06/16 Range/Units 07:01 07:01 RBC 2.99 L (3.80-5.40) m/uL Hgb 9.2 L (11.4-16.0) gm/dL Hct 29.0 L (34.0-46.0) % RDW 15.7 H (11.5-15.5) % Carbon Dioxide 32 H (22-30) mmol/L BUN 19 H (7-17) mg/dL Total Protein 5.0 L (6.3-8.2) g/dL Albumin 2.7 L (3.5-5.0) g/dL Microbiology - Last 24 Hours (Table) 06/02/16 16:43 Anaerobic Culture - Preliminary Abdomen Anaerobic Gram Positive Cocci Assessment and Plan (1) Marginal ulcer Status: Acute (2) Postoperative wound breakdown Status: Acute (3) Acute blood loss anemia Status: Acute Plan: The patient's hemoglobin has remained stable. I explained to her she can continue to pass some melanotic stools for several days after a upper GI bleed. If she continues to have bleeding or drops her hemoglobin, Dr. Washington may need to repeat her EGD.
[2016-06-06] MEDS: LEVOFLOXACIN 500 MG TAB PO SCH (12:44)
[2016-06-07] MEDS: HYDROcodone/APAP 5-325MG 1 EACH TAB PO PRN ×4 (00:35→23:25)
[2016-06-07] MEDS: LORazepam 1 MG TAB PO PRN ×2 (00:36→13:57)
[2016-06-07] MEDS: HYDROmorphone 1 MG/ML 1 ML SYRINGE IVP PRN ×6 (02:41→22:11)
--- NOTE | 2016-06-07 07:17 | PN ---
DATE OF SERVICE: 06/06/2016 Reason for followup is abdominal wound. INTERVAL HISTORY: The patient is afebrile. Wound VAC was changed yesterday. The patient has been complaining of more drainage and some pressure. The patient denies having any chest pain or shortness of breath or cough. Non nausea, vomiting or any diarrhea. On examination, blood pressure is 100/67 with a pulse of 92, temperature 97.7. She is 98% on room air. General description is a middle-age female, lying in bed in no distress. RESPIRATORY SYSTEM: Unlabored breathing. Clear to auscultation anteriorly. HEART: S1, S2, regular rate and rhythm. ABDOMEN: Soft, wound is currently covered with the wound VAC. Looking at the pictures that were taken yesterday at the time of dressing change, the wound is looking clean and no surrounding cellulitis. LABS: Hemoglobin is 9.2, white count is 6.6. with a BUN of 19, creatinine 0.67. Abdominal cultures showing an anaerobic gram-positive cocci. DIAGNOSTIC IMPRESSION AND PLAN: Patient with abdominal wound, status post debridement with recent panniculectomy. Cultures are negative for any resistant pathogen. Hopefully we are able to finish therapy with oral antibiotic in addition to wound VAC. Wound will be evaluated at the time of dressing change tomorrow. Continue supportive care. THAO
[2016-06-07 07:44] LABS: ALT 41 U/L (9-52); AST 36 U/L (14-36); Alkaline Phosphatase 99 U/L (38-126); Anion Gap 6 mmol/L; Blood Urea Nitrogen 19 mg/dL (7-17); Calcium 8.8 mg/dL (8.4-10.2); Carbon Dioxide 32 mmol/L (22-30); Chloride 102 mmol/L (98-107); Glucose 80 mg/dL (74-99); Non-African American GFR(MDRD) >60 (>60 ml/min/1.73 sqM); Potassium 4.3 mmol/L (3.5-5.1); Sodium 140 mmol/L (137-145); Total Bilirubin 0.2 mg/dL (0.2-1.3); Total Protein 4.7 g/dL (6.3-8.2)
[2016-06-07 08:04] LABS: Basophils % (A) 1 %; CH 30.5; CHCM 31.8; Eosinophils # (A) 0.4 k/uL (0-0.7); Eosinophils % (A) 6 %; HCT 29.6 % (34.0-46.0); HDW 3.71; HGB 9.2 gm/dL (11.4-16.0); Hypochromasia Moderate; Luc # (Auto) 0.18; Luc % (Auto) 3; Lymphocytes # (A) 2.1 k/uL (1.0-4.8); Lymphocytes % (A) 33 %; MCV 96.8 fL (80.0-100.0); Mean Platelet Volume 8.4; Monocytes # (A) 0.6 k/uL (0-1.0); Monocytes % (A) 9 %; Neutrophils # (A) 3.1 k/uL (1.3-7.7); Neutrophils % (A) 48 %; Poikilocytosis Slight; RBC 3.06 m/uL (3.80-5.40); RDW 15.3 % (11.5-15.5); WBC 6.4 k/uL (3.8-10.6); WBC (Perox) 5.94
[2016-06-07 08:36] VITALS: RESP 16
[2016-06-07] MEDS: SUCRALFATE 1 GM TAB PO SCH ×4 (08:50→21:16)
[2016-06-07] MEDS: FUROSEMIDE 40 MG TAB PO SCH (08:51)
[2016-06-07] MEDS: GABAPENTIN 100 MG CAP PO SCH ×2 (08:51→21:09)
[2016-06-07] MEDS: DULoxetine HCL 60 MG CAPSULE.DR PO SCH ×2 (08:51→21:09)
[2016-06-07] MEDS: POTASSIUM CHLORIDE ORAL LIQUID 40 MEQ/30 ML CUP PO SCH ×2 (08:52→21:09)
[2016-06-07] MEDS: METOLAZONE 2.5 MG TAB PO SCH (08:52)
[2016-06-07] MEDS: PANTOPRAZOLE 40 MG/10 ML VIAL IVP SCH ×2 (08:52→21:09)
[2016-06-07] MEDS: cefTRIAXone 2,000 MG in SODIUM CHLORIDE 0.9% 100 ML IVPB SCH (08:57)
[2016-06-07] MEDS ORDERED: FUROSEMIDE 10 MG/ML 4 ML VIAL IV STA (10:22)
[2016-06-07] MEDS: VANCOMYCIN 1,250 MG in SODIUM CHLORIDE 0.9% 250 ML IVPB SCH ×2 (10:51→23:20)
--- NOTE | 2016-06-07 11:59 | PN ---
DATE OF SERVICE: 06/07/2016 Reason for followup is abdominal wound. INTERVAL HISTORY: The patient is afebrile. She is feeling better. Breathing comfortably. Denies having any significant pain in the abdominal wound. No nausea. No vomiting. No diarrhea. On examination, blood pressure is 104/87 with a pulse of 84, temperature 97.7. She is 95% on room air. General description is a middle-age female, lying in bed in no distress. RESPIRATORY SYSTEM: Unlabored breathing. Clear to auscultation. HEART: S1, S2, regular rate and rhythm. ABDOMEN: Soft. Wound is currently packed. LABS: Hemoglobin 9.1, white count 6.4 with a BUN of 19, creatinine 0.74. Would culture shows an anaerobic gram-positive cocci. DIAGNOSTIC IMPRESSION AND PLAN: Patient with an abdominal wound status post extensive debridement and wound VAC applied that will be continued, antibiotics will be switched to oral Augmentin time of discharge for 2 weeks with outpatient followup. Continue supportive care. THAO
--- NOTE | 2016-06-07 12:53 | P.PN ---
Subjective Principal diagnosis: Upper GI bleed; abdominal wall wound Patient is a 50-year-old female with medical history significant for marginal ulcer and recent panniculectomy on May 14 with evidence of abdominal wall necrosis. Patient admitted with upper GI bleed status post EGD with findings of marginal ulcer at jejunum just below gastro-jejunostomy on 01/2017 for no evidence of active bleeding. Patient underwent debridement of abdominal wall wound on 06/03/2016. Patient tolerated procedure well. Wound VAC in place. Upon evaluation, patient complains of feeling weak. Patient complains of increased bilateral lower leg swelling. Patient's last bowel movement yesterday morning with minimal blood per patient. Patient denies chills, nausea, vomiting, shortness of breath, or chest pain. Incisional pain controlled. Patient is tolerating a regular diet. Patient is urinating without difficulty. Afebrile. WBC 6.4. Hemoglobin 9.2, stable. Objective - Vital Signs Vital signs: Vital Signs Temp 97.7 F 06/07/16 07:00 Pulse 84 06/07/16 07:00 Resp 16 06/07/16 07:00 BP 104/87 06/07/16 07:00 Pulse Ox 95 06/07/16 07:00 Intake & Output 06/06/16 06/07/16 06/07/16 18:59 06:59 18:59 Intake Total 380 Output Total 15 295 Balance -15 85 Intake: Oral 380 Output: Drainage 15 295 Left Lower Abdomen 15 45 Lower Abdomen 250 Other: Voiding Method Toilet Toilet Toilet # Voids 2 2 - Exam GENERAL: Pt awake and alert, well-appearing, well-nourished, and in no acute distress. LUNGS: Breath sounds clear to auscultation bilaterally. No wheezes, rales, or rhonchi. HEART: Heart S1, S2, no S3 or S4. Regular rate and rhythm. No murmurs, rubs or gallops. ABDOMEN: Soft, obese, incisional tenderness, nondistended, normoactive bowel sounds. Wound VAC has been placed. ALTHEA drain compressed with minimal brownish drainage. EXTREMITIES: 2+ peripheral pulses. 2+ edema to bilateral lower extremities. NEUROLOGICAL: Pt oriented x 3. - Labs CBC & Chem 7: 06/07/16 06:52 06/07/16 06:52 Labs: Abnormal Lab Results - Last 24 Hours (Table) 06/07/16 06/07/16 Range/Units 06:52 06:52 RBC 3.06 L (3.80-5.40) m/uL Hgb 9.2 L (11.4-16.0) gm/dL Hct 29.6 L (34.0-46.0) % Carbon Dioxide 32 H (22-30) mmol/L BUN 19 H (7-17) mg/dL Total Protein 4.7 L (6.3-8.2) g/dL Albumin 2.4 L (3.5-5.0) g/dL Microbiology - Last 24 Hours (Table) 06/02/16 16:43 Anaerobic Culture - Final Abdomen Anaerobic Gram Positive Cocci Assessment and Plan Plan: Impression: 1. Acute blood loss anemia status post EGD with findings of marginal jejunal ulcer just below the gastrojejunostomy on 05/31/2016 with no evidence of active bleeding during procedure. Hemoglobin stable at 9.2. 2. History of recent panniculectomy with abdominal wall cellulitis and large area of eschar status post debridement of abdominal wall wound on 06/02/2016. Plan: Continue wound VAC. Dr. Gee to evaluate for wound later today. We'll look for recommendations for antibiotics on discharge. Repeat CBC and BMP in a.m. Continue to follow with medical service. The above impression and plan have been discussed and directed by Dr. Washington. Nora IBRAHIM acting as scribe for Dr. Washington.
--- NOTE | 2016-06-07 13:28 | P.PN ---
Subjective 50-year-old female being seen on rounds. Currently resting in bed legs are elevated. Patient reports over the weekend had noted increase edema from the upper bilateral thighs to the ankle. Patient states it's painful to walk on. Patients being followed by surgical service currently has a wound VAC in place. Patient admitted with upper GI bleed status post EGD with findings of marginal ulcer at jejunum just below gastro-jejunostomy on 05/31/2016 for no evidence of active bleeding. Patient underwent debridement of abdominal wall wound on 06/03/2016. Patient tolerated procedure well. Wound VAC in place. Patient is denying any nausea vomiting. Patient does state she has been urinating frequently. Labs were noted and reviewed patient has remained afebrile. Objective - Vital Signs Vital signs: Vital Signs Temp 97.7 F 06/07/16 07:00 Pulse 84 06/07/16 07:00 Resp 16 06/07/16 07:00 BP 104/87 06/07/16 07:00 Pulse Ox 95 06/07/16 07:00 Intake & Output 06/06/16 06/07/16 06/07/16 18:59 06:59 18:59 Intake Total 380 Output Total 15 295 Balance -15 85 Intake: Oral 380 Output: Drainage 15 295 Left Lower Abdomen 15 45 Lower Abdomen 250 Other: Voiding Method Toilet Toilet Toilet # Voids 2 2 - Exam Physical exam 50-year-old female resting in bed and appears in no acute distress legs are elevated denies chest pain or shortness of breath Lungs essentially clear adequate air movement Heart S1-S2 audible and regular no murmur noted denying chest pain Abdomen obese soft wound VAC in place Judd-Delaney drain in place states no frequent stooling reports no nausea vomiting Extremities from the mid upper thigh to the ankle 2+ nonpitting edema noted bilaterally - Labs CBC & Chem 7: 06/07/16 06:52 06/07/16 06:52 Labs: Abnormal Lab Results - Last 24 Hours (Table) 06/07/16 06/07/16 Range/Units 06:52 06:52 RBC 3.06 L (3.80-5.40) m/uL Hgb 9.2 L (11.4-16.0) gm/dL Hct 29.6 L (34.0-46.0) % Carbon Dioxide 32 H (22-30) mmol/L BUN 19 H (7-17) mg/dL Total Protein 4.7 L (6.3-8.2) g/dL Albumin 2.4 L (3.5-5.0) g/dL Microbiology - Last 24 Hours (Table) 06/02/16 16:43 Anaerobic Culture - Final Abdomen Anaerobic Gram Positive Cocci Assessment and Plan Plan: Impression Acute on chronic anemia secondary to a GI bleed Recent panniculectomy with abdominal wall cellulitis with a large area of eschar measuring 5 x 5 COPD with no evidence of exacerbation Leukocytosis Chronic pain narcotic dependence Active tobacco abuse Right midlung atelectasis Episode of acute blood loss anemia hematemesis symptomatic necessitating 2 units of packed red blood cells Depressive anxiety disorder nonspecified Status post EGD on the may marginal ulcer at the jejunal just below the gastrojejunostomy Anxiety disorder nonspecified Acute blood loss anemia necessitating 2 units of packed red blood cells infused on June 04 suspect GI source Postprocedure bilateral edema lower extremities Plan Increase activity Continue postop surgical care per surgical service Pain control DVT and GI prophylaxis Resume home meds as appropriate Smoking cessation information to be provided patient's been advised to stop smoking cigarettes Defer to the timing of the discharge to surgical service will continue to follow address medical issues as they arise Wound care per surgical service wet-to-dry dressing. Patient may need a wound VAC to the area defer to surgical service to address Per surgical service wound VAC over the weekend re-eval on Tuesday Ativan as ordered for anxiety Give Lasix 40 IV now and repeat this afternoon monitoring electrolytes attempt keep in a therapeutic range Keep legs elevated Renato wrap was to the bilateral lower extremities The above dictated assessment and findings were discussed with dr deluna covering for Dr. Perez Impression and the plan of care have been dictated as directed. Lisa Alfaro nurse practitioner acting as a scribe for dr deluna covering for dr perez
[2016-06-07] MEDS: LEVOFLOXACIN 500 MG TAB PO SCH (13:53)
[2016-06-07] MEDS ORDERED: FUROSEMIDE 10 MG/ML 4 ML VIAL IV ONE (16:00)
[2016-06-08] MEDS: HYDROmorphone 1 MG/ML 1 ML SYRINGE IVP PRN ×3 (03:35→11:25)
[2016-06-08] MEDS: LORazepam 1 MG TAB PO PRN ×2 (03:37→12:41)
[2016-06-08] MEDS: HYDROcodone/APAP 5-325MG 1 EACH TAB PO PRN ×2 (06:02→12:32)
[2016-06-08 06:10] VITALS: BP 101/62; PULSE 88; TEMP 97.3
[2016-06-08] MEDS: SUCRALFATE 1 GM TAB PO SCH ×2 (08:06→12:42)
[2016-06-08] MEDS: cefTRIAXone 2,000 MG in SODIUM CHLORIDE 0.9% 100 ML IVPB SCH (08:06)
[2016-06-08] MEDS: FUROSEMIDE 40 MG TAB PO SCH (08:07)
[2016-06-08] MEDS: GABAPENTIN 100 MG CAP PO SCH (08:07)
[2016-06-08] MEDS: PANTOPRAZOLE 40 MG/10 ML VIAL IVP SCH (08:08)
[2016-06-08] MEDS: POTASSIUM CHLORIDE ORAL LIQUID 40 MEQ/30 ML CUP PO SCH (08:08)
[2016-06-08] MEDS: METOLAZONE 2.5 MG TAB PO SCH (08:08)
[2016-06-08] MEDS: DULoxetine HCL 60 MG CAPSULE.DR PO SCH (08:15)
[2016-06-08 08:25] LABS: AST 35 U/L (14-36); Alkaline Phosphatase 116 U/L (38-126); Anion Gap 7 mmol/L; Blood Urea Nitrogen 20 mg/dL (7-17); Carbon Dioxide 31 mmol/L (22-30); Chloride 103 mmol/L (98-107); Glucose 81 mg/dL (74-99); Non-African American GFR(MDRD) >60 (>60 ml/min/1.73 sqM); Potassium 4.8 mmol/L (3.5-5.1); Sodium 141 mmol/L (137-145); Total Bilirubin 0.2 mg/dL (0.2-1.3); Total Protein 5.2 g/dL (6.3-8.2)
[2016-06-08 08:27] LABS: Basophils % (A) 0 %; CH 30.3; Eosinophils # (A) 0.4 k/uL (0-0.7); Eosinophils % (A) 6 %; HCT 31.9 % (34.0-46.0); HDW 3.53; HGB 9.9 gm/dL (11.4-16.0); Hypochromasia Moderate; Luc # (Auto) 0.15; Luc % (Auto) 3; Lymphocytes # (A) 1.8 k/uL (1.0-4.8); Lymphocytes % (A) 31 %; MCH 30.4 pg (25.0-35.0); MCV 98.2 fL (80.0-100.0); Mean Platelet Volume 7.9; Monocytes # (A) 0.4 k/uL (0-1.0); Monocytes % (A) 7 %; Neutrophils # (A) 3.2 k/uL (1.3-7.7); Neutrophils % (A) 54 %; Poikilocytosis Slight; RBC 3.25 m/uL (3.80-5.40); RDW 14.9 % (11.5-15.5); WBC 5.9 k/uL (3.8-10.6)
[2016-06-08 08:45] LABS: ALT 38 U/L (9-52)
[2016-06-08] MEDS ORDERED: metroNIDAZOLE 500 MG TAB PO SCH (11:00)
--- NOTE | 2016-06-08 11:11 | P.PN ---
Subjective 50-year-old female sitting up on the edge of the bed the discharge plan is in progress. Plan on discharge today per surgical service. There's been no new events within the last 24 hours. There is a noted improvement to the edema involving the bilateral lower extremities compared to prior assessment Patient did voice concerns about the anxiety issue was asking for a prescription for Ativan to take home. Did relate to the patient that she will need to discuss with Dr. Perez in the outpatient setting about treating her anxiety issues currently is on Cymbalta 60 twice a day. Patient is in agreement to discuss this in the outpatient setting a prescription for Ativan was provided dispense 15 with no refills. It was reinforced to the patient this will need to be discussed with Dr. Perez in the office patient may benefit from therapy to discuss her anxiety issues patient agreed Objective - Vital Signs Vital signs: Vital Signs Temp 97.3 F L 06/08/16 06:09 Pulse 88 06/08/16 06:09 Resp 16 06/08/16 06:09 BP 101/62 06/08/16 06:09 Pulse Ox 96 06/08/16 06:09 Intake & Output 06/07/16 06/08/16 06/08/16 18:59 06:59 18:59 Intake Total 480 Output Total 800 1125 300 Balance -800 -645 -300 Intake: Oral 480 Output: Drainage 25 Left Lower Abdomen 15 Lower Abdomen 10 Urine 800 1100 300 Other: Voiding Method Toilet Toilet # Voids 1 - Exam Physical exam 50-year-old female sitting up on the edge of the bed wound VAC in place aware of the discharge plan Lungs essentially clear on room air Heart S1-S2 audible regular Abdomen soft wound VAC in place Extremities there is a noted improvement in the edema to the bilateral lower extremities compared to prior assessment below the knee JOHN hose in place nonpitting edema persist - Labs CBC & Chem 7: 06/08/16 07:34 06/08/16 07:34 Labs: Abnormal Lab Results - Last 24 Hours (Table) 06/08/16 06/08/16 Range/Units 07:34 07:34 RBC 3.25 L (3.80-5.40) m/uL Hgb 9.9 L (11.4-16.0) gm/dL Hct 31.9 L (34.0-46.0) % Carbon Dioxide 31 H (22-30) mmol/L BUN 20 H (7-17) mg/dL Total Protein 5.2 L (6.3-8.2) g/dL Albumin 2.7 L (3.5-5.0) g/dL Assessment and Plan Plan: Impression Acute on chronic anemia secondary to a GI bleed Recent panniculectomy with abdominal wall cellulitis with a large area of eschar measuring 5 x 5 COPD with no evidence of exacerbation Leukocytosis Chronic pain narcotic dependence Active tobacco abuse Right midlung atelectasis Episode of acute blood loss anemia hematemesis symptomatic necessitating 2 units of packed red blood cells Depressive anxiety disorder nonspecified Status post EGD on the may marginal ulcer at the jejunal just below the gastrojejunostomy Anxiety disorder nonspecified Acute blood loss anemia necessitating 2 units of packed red blood cells infused on June 04 suspect GI source Postprocedure bilateral edema lower extremities Plan From a medical perspective is appropriate to proceed with a discharge will follow patient in the outpatient setting Continue postop surgical care per surgical service Pain control DVT and GI prophylaxis Resume home meds as appropriate Smoking cessation information to be provided patient's been advised to stop smoking cigarettes Defer to the timing of the discharge to surgical service will continue to follow address medical issues as they arise Wound care per surgical service wet-to-dry dressing. Keep legs elevated Renato wrap was to the bilateral lower extremities The above dictated assessment and findings were discussed with dr deluna covering for Dr. Aleksandra Petersen and the plan of care have been dictated as directed. Lisa Alfaro nurse practitioner acting as a scribe for dr deluna covering for dr perez
[2016-06-08] MEDS: VANCOMYCIN 1,250 MG in SODIUM CHLORIDE 0.9% 250 ML IVPB SCH (11:12)
--- NOTE | 2016-06-08 11:19 | PN ---
DATE OF SERVICE: 06/08/2016 Reason for followup is abdominal wound. INTERVAL HISTORY: The patient is afebrile. The wound VAC was not changed yesterday. She is scheduled to be discharged today on a wet to dry dressing with a wound VAC application at home. Patient denies any significant chest pain, shortness of breath or cough. No abdominal pain, no diarrhea. On examination, blood pressure is 101/62 with a pulse of 88, temperature 97.3, she is 96% on room air. General description is a middle-age female, up in the bed in no distress. RESPIRATORY SYSTEM: Unlabored breathing. Clear to auscultation anteriorly. HEART: S1, S2. Regular rate and rhythm. ABDOMEN: Soft, no tenderness. LABS: Hemoglobin 9.9, white count 5.9 with a BUN of 20, creatinine 0.71. DIAGNOSTIC IMPRESSION AND PLAN: Patient with an abdominal wound, status post debridement and culture with anaerobic gram-negative. Flagyl will be added to her regimen and discharge antibiotic will be Ceftin and Flagyl for 2 weeks along with the wound VAC and outpatient followup.
[2016-06-08] MEDS: LEVOFLOXACIN 500 MG TAB PO SCH (12:41)
--- NOTE | 2016-06-08 15:35 | P.DS ---
Providers Date of admission: 05/30/16 12:19 Expected date of discharge: 06/08/16 Attending physician: López Washington Consults: 06/02/16 17:05 Consult Physician Routine Consulting Provider: Avni Gee Consult Reason/Comments: Wound VAC Do you want consulting provider notified?: Yes Primary care physician: [facility] Course: Patient is a 50-year-old female with medical history significant for marginal ulcer and recent panniculectomy on May 14 with evidence of abdominal wall necrosis. Patient admitted with upper GI bleed necessitating 2 units of packed red blood cells status post EGD with findings of marginal ulcer at jejunum just below gastro-jejunostomy on 05/31/2016 with no evidence of active bleeding. Patient underwent debridement and culture of abdominal wall wound on 06/03/2016; culture with evidence of anaerobic gram positive cocci. Patient tolerated procedure well. Dr. Gee consulted for antibiotic coverage and wound VAC management. Patient improved significantly during her hospital stay and was deemed stable for discharge to home with home care with close follow-up in the outpatient setting. Patient scheduled to be discharged on a wet-to-dry dressing with wound VAC application at home. Discharge diagnoses: 1. Acute blood loss anemia requiring 2 units of packed red blood cells status post EGD with findings of marginal jejunal ulcer just below the gastrojejunostomy on 05/31/2016 with no evidence of active bleeding during procedure. 2. History of recent panniculectomy with abdominal wall cellulitis and large area of eschar status post debridement of abdominal wall wound on 06/02/2016. The above impression and plan have been discussed and directed by Dr. Washington. Nora IBRAHIM acting as scribe for Dr. Washington. Pertinent Studies: Acute abdomen series Procedures: EGD; debridement of abdominal wall Patient Condition at Discharge: Good Plan - Discharge Summary New Discharge Prescriptions: Cefuroxime Axetil [Ceftin] 500 mg PO BID #28 tab HYDROcodone/APAP 7.5-325MG [[place] 7.5-325] 1 tab PO Q6HR PRN #28 tab PRN Reason: Pain LORazepam [Ativan] 1 mg PO TID PRN #15 tab PRN Reason: Anxiety metroNIDAZOLE [Flagyl] 500 mg PO Q8HR #42 tab Discharge Medication List DULoxetine HCL [Cymbalta] 60 mg PO BID 03/19/15 [History] Meclizine [Antivert] 25 mg PO TID PRN 03/19/15 [History] Sucralfate [Carafate] 1 gm PO QID 03/19/15 [History] Albuterol Inhaler [Ventolin Hfa Inhaler] 2 puff INHALATION RT-QID PRN 07/31/15 [ History] Omeprazole [PriLOSEC] 40 mg PO AC-BRKFST #30 cap 08/20/15 [Rx] Cholecalciferol (Vitamin D3) [Vitamin D3] 10,000 unit PO DAILY 10/24/15 [History ] Multivitamins, Thera [Multivitamin] 1 tab PO DAILY 10/24/15 [History] Furosemide [Lasix] 40 mg PO DAILY 05/06/16 [History] Gabapentin [Neurontin] 100 mg PO BID 05/06/16 [History] Metolazone [Zaroxolyn] 2.5 mg PO DAILY PRN 05/06/16 [History] Mirtazapine 30 mg PO HS 05/06/16 [History] Potassium Chloride [K-Sarah Oral Liquid] 40 meq PO BID 05/06/16 [History] Tiotropium Br/Olodaterol HCl [Stiolto Respimat Inhal [place]] 1 puff INHALATION RT -BID 05/06/16 [History] diphenhydrAMINE [Benadryl] 25 mg PO TID 05/06/16 [History] Varenicline [Chantix] 1 mg PO BID 05/15/16 [History] Cefuroxime Axetil [Ceftin] 500 mg PO BID #28 tab 06/08/16 [Rx] HYDROcodone/APAP 7.5-325MG [[place] 7.5-325] 1 tab PO Q6HR PRN #28 tab 06/08/16 [ Rx] LORazepam [Ativan] 1 mg PO TID PRN #15 tab 06/08/16 [Rx] metroNIDAZOLE [Flagyl] 500 mg PO Q8HR #42 tab 06/08/16 [Rx] Follow up Appointment(s)/Referral(s): Peter Lake MD [Primary Care Provider] - 10 Days (office closed at time of discharge. please call tomorrow to make appt.) Avni Gee MD [STAFF PHYSICIAN] - 06/17/16 9:45 am [facility] Visiting Nurse, [NON-STAFF] - (apply wound vac when patient gets home. call when you get home. wound vac. dilivered to your room to take home with you.) López Washington MD [STAFF PHYSICIAN] - 06/15/16 3:30 pm Patient Instructions/Handouts: Cefuroxime (By mouth), Hydrocodone/ Acetaminophen (By mouth), Lorazepam (By mouth), Metronidazole (By mouth), Negative Pressure Wound Therapy (GEN) Activity/Diet/Wound Care/Special Instructions: Wound care: Wet to dry dressing daily until home care nurse applies wound vac when you get home. Please notify Dr. Washington if you have any more bloody bowel movement. Discharge Disposition: HOME WITH HOME HEALTH SERVICES
== END 2016-06-08 17:11 | disposition home health service (06) | DRG 856 ==
LOC: EC 17:09 → 3SUR 17:59 → 6ICU 21:45 → OBSVTOIN 05-30 12:19 → 6SEL 05-30 21:09 → 5MS5E 05-31 10:35
PROVIDERS: ADMIT Surgery; ATTEND Surgery
PROC: 30233N1 Transfusion of Nonautologous Red Blood Cells into Peripheral Vein, Percutaneous Approach (ICD-10-PCS; 2016-05-30)
PROC: 0DBA8ZX Excision of Jejunum, Via Natural or Artificial Opening Endoscopic, Diagnostic (ICD-10-PCS; 2016-05-31)
PROC: 0JB80ZZ Excision of Abdomen Subcutaneous Tissue and Fascia, Open Approach (ICD-10-PCS; principal; 2016-06-02 14:45)
DX: T81.4XXA Infection following a procedure, initial encounter (principal); K28.4 Chronic or unspecified gastrojejunal ulcer with hemorrhage; T81.31XA Disruption of external operation (surgical) wound, not elsewhere classified, initial encounter; D62 Acute posthemorrhagic anemia; L03.311 Cellulitis of abdominal wall; F11.20 Opioid dependence, uncomplicated; J98.11 Atelectasis; E65 Localized adiposity; F17.200 Nicotine dependence, unspecified, uncomplicated; D50.0 Iron deficiency anemia secondary to blood loss (chronic); R60.9 Edema, unspecified; F41.9 Anxiety disorder, unspecified; G47.33 Obstructive sleep apnea (adult) (pediatric); G89.29 Other chronic pain; I34.1 Nonrheumatic mitral (valve) prolapse; J44.9 Chronic obstructive pulmonary disease, unspecified; J45.909 Unspecified asthma, uncomplicated; K21.9 Gastro-esophageal reflux disease without esophagitis; M19.90 Unspecified osteoarthritis, unspecified site; M79.7 Fibromyalgia; E66.9 Obesity, unspecified; G43.909 Migraine, unspecified, not intractable, without status migrainosus; I83.90 Asymptomatic varicose veins of unspecified lower extremity; M54.9 Dorsalgia, unspecified; R53.82 Chronic fatigue, unspecified; F32.9 Major depressive disorder, single episode, unspecified; Z88.0 Allergy status to penicillin; Z88.1 Allergy status to other antibiotic agents; Z98.84 Bariatric surgery status; Z79.899 Other long term (current) drug therapy; Z68.35 Body mass index [BMI] 35.0-35.9, adult; Z82.49 Family history of ischemic heart disease and other diseases of the circulatory system; Y83.4 Other reconstructive surgery as the cause of abnormal reaction of the patient, or of later complication, without mention of misadventure at the time of the procedure
CPT/HCPCS: 36415; 43239; 74022; 80048; 80053; 80202; 81003; 82550; 82553; 83605; 83735; 84100; 84484; 85025; 85027; 85610; 85730; 86850; 86900; 86901; 86920; 87040; 87070; 87075; 87086; 87205; 88304; 88305; 93005; 96361; 96365; 96366; 96367; 96375; 96376; 99285

== ENCOUNTER 2016-06-26 14:56 | Inpatient (IN) | payer BC, MEDICARE ==
[2016-06-26] MEDS ORDERED: SODIUM CHLORIDE 0.9% 500 ML IV STA (15:18)
--- NOTE | 2016-06-26 15:21 | ED ---
General Adult HPI - General Chief complaint: Recheck/Abnormal Lab/Rx Stated complaint: Dr Sent/Needs blood Time Seen by Provider: 06/26/16 15:00 Source: patient, RN notes reviewed Mode of arrival: ambulatory Limitations: no limitations - History of Present Illness Initial comments: This is a 50-year-old female presents to the emergency department complaining of feeling lightheaded and weak and feels her heart is racing. Patient states she was told her hemoglobin had dropped from 93-73 as of yesterday. Patient states she's had issues with anemia in the past secondary to bleeding ulcers. Patient states she had a hernia repair and has a wound VAC on that site because it did not heal right. Patient states she has had some darker stools but not black and tarry. Patient does say she is somewhat short of breath on occasion but she denies any fever or cough. Patient denies any chest pain. Patient denies any worsening abdominal pain. Patient denies any injury or trauma. Patient denies headache patient denies numbness weakness - Related Data Home Medications Medication Instructions Recorded Confirmed DULoxetine HCL [Cymbalta] 60 mg PO BID 03/19/15 06/26/16 Meclizine [Antivert] 25 mg PO TID PRN 03/19/15 06/26/16 Sucralfate [Carafate] 1 gm PO QID 03/19/15 06/26/16 Albuterol Inhaler [Ventolin Hfa 2 puff INHALATION RT-QID PRN 07/31/15 06/26/16 Inhaler] Cholecalciferol (Vitamin D3) 10,000 unit PO DAILY 10/24/15 06/26/16 [Vitamin D3] Multivitamins, Thera [Multivitamin] 1 tab PO DAILY 10/24/15 06/26/16 Furosemide [Lasix] 40 mg PO DAILY 05/06/16 06/26/16 Gabapentin [Neurontin] 100 mg PO BID 05/06/16 06/26/16 Metolazone [Zaroxolyn] 2.5 mg PO DAILY PRN 05/06/16 06/26/16 Mirtazapine 30 mg PO HS 05/06/16 06/26/16 Potassium Chloride [K-Sarah Oral 40 meq PO BID 05/06/16 06/26/16 Liquid] Tiotropium Br/Olodaterol HCl 1 puff INHALATION RT-BID 05/06/16 06/26/16 [Stiolto Respimat Inhal [place]] diphenhydrAMINE [Benadryl] 25 mg PO TID PRN 05/06/16 06/26/16 Varenicline [Chantix] 1 mg PO BID 05/15/16 06/26/16 Previous Rx's Medication Instructions Recorded Omeprazole [PriLOSEC] 40 mg PO AC-BRKFST #30 cap 08/20/15 HYDROcodone/APAP 7.5-325MG [[place] 1 tab PO Q6HR PRN #28 tab 06/08/16 7.5-325] LORazepam [Ativan] 1 mg PO TID PRN #15 tab 06/08/16 Allergies Allergy/AdvReac Type Severity Reaction Status Date / Time broccoli Allergy Severe Anaphylaxis Verified 06/26/16 15:13 W/ RAW BROCCOLI ampicillin Allergy Intermediate Swelling Verified 06/26/16 15:13 IN FACE Penicillins Allergy Intermediate Swelling Verified 06/26/16 15:13 amoxicillin Allergy Swelling Verified 06/26/16 15:13 IN FACE Review of Systems ROS Statement: Those systems with pertinent positive or pertinent negative responses have been documented in the HPI. ROS Other: All systems not noted in ROS Statement are negative. Past Medical History Past Medical History: Asthma, Fibromyalgia, GERD/Reflux, Mitral Valve Prolapse ( MVP), Osteoarthritis (OA), Sleep Apnea/CPAP/BIPAP Additional Past Medical History / Comment(s): Chronic bronchial asthma, fibromyalgia, history of obesity with a previous bariatric surgery/gastric bypass surgery, reflux, osteoarthritis, obstructive sleep apnea, migraine, nephrolithiasis, gastric ulcer, varicose veins, chronic fatigue syndrome History of Any Multi-Drug Resistant Organisms: None Reported Past Surgical History: Appendectomy, Back Surgery, Bariatric Surgery, Section, Cholecystectomy, Hernia Repair, Hysterectomy Additional Past Surgical History / Comment(s): x2, metal removed from rt eye 15 years ago, kidney stone-lithotripsy, gastric bypass 2003 years ago. EGD X2, COLONOSCOPY. Carpal tunnel release bilaterally Past Anesthesia/Blood Transfusion Reactions: Family History of Problems w/ Anesthesia Additional Past Anesthesia/Blood Transfusion Reaction / Comment(s): family members w/severe headaches w/anesthesia Past Psychological History: Anxiety, Bipolar Smoking Status: Former smoker Past Alcohol Use History: None Reported Additional Past Alcohol Use History / Comment(s): STARTED SMOKING AT AGE 33- SMOKED 8-10 CIG PER; QUIT 2 WEEKS AGO. Past Drug Use History: None Reported - Past Family History Father Family Medical History: Cancer, CVA/TIA, Hyperlipidemia, Hypertension, Prostate Disorder Additional Family Medical History / Comment(s): PROSTATE CANCER Mother Additional Family Medical History / Comment(s): OBESITY-HAD GASTRIC BYPASS SX General Exam - General Exam Comments Initial Comments: GENERAL: Patient is well-developed and well-nourished. Patient is nontoxic and well- hydrated and is in mild distress. ENT: Neck is soft and supple. No significant lymphadenopathy is noted. Oropharynx is clear. Moist mucous membranes. Neck has full range of motion without eliciting any pain. EYES: The sclera were anicteric and conjunctiva were pink and moist. Extraocular movements were intact and pupils were equal round and reactive to light. Eyelids were unremarkable. PULMONARY: Unlabored respirations. Good breath sounds bilaterally. No audible rales rhonchi or wheezing was noted. CARDIOVASCULAR: Patient is tachycardic ABDOMEN: Soft and nontender with normal bowel sounds. No palpable organomegaly was noted. There is no palpable pulsatile mass. Patient has a wound VAC on the lower right side SKIN: Pale skin NEUROLOGIC: Patient is alert and oriented x3. Cranial nerves II through XII are grossly intact. Motor and sensory are also intact. Normal speech, volume and content. Symmetrical smile. MUSCULOSKELETAL: Normal extremities with adequate strength and full range of motion. No lower extremity swelling or edema. No calf tenderness. LYMPHATICS: No significant lymphadenopathy is noted PSYCHIATRIC: Normal psychiatric evaluation. Normal interpersonal interactions appears functionally intact in deals appropriately with others. No signs of depression. Limitations: no limitations Course Vital Signs 06/26/16 06/26/16 15:01 15:48 Temperature 97.8 F Pulse Rate 121 H Pulse Rate [ 112 H Pulse Oximetery ] Respiratory 20 Rate Blood Pressure 121/61 O2 Sat by Pulse 99 Oximetry Medical Decision Making - Medical Decision Making EKG shows sinus tachycardia at 102 bpm NC interval is 162 QRS is 80 QT interval 334 QTC is 435. Patient's EKG shows no ST segment elevation or depression or T wave abnormalities are noted. Patient's hemoglobin was 6.9 I gave the patient 1 unit of packed red blood cells. I spoke with Dr. Mullally he wanted the patient admitted I admitted the patient and consult said Dr. Washington and Dr. Werner - Lab Data Result diagrams: 06/26/16 15:56 06/26/16 15:56 Lab Results 06/26/16 06/26/16 06/26/16 Range/Units 15:20 15:56 15:56 WBC 5.8 (3.8-10.6) k/uL RBC 2.31 L (3.80-5.40) m/uL Hgb 6.9 L* (11.4-16.0) gm/dL Hct 22.5 L (34.0-46.0) % MCV 97.6 (80.0-100.0) fL MCH 29.8 (25.0-35.0) pg MCHC 30.6 L (31.0-37.0) g/dL RDW 15.8 H (11.5-15.5) % Plt Count 295 (150-450) k/uL Neutrophils % 57 % Lymphocytes % 32 % Monocytes % 6 % Eosinophils % 3 % Basophils % 0 % Neutrophils # 3.3 (1.3-7.7) k/uL Lymphocytes # 1.8 (1.0-4.8) k/uL Monocytes # 0.3 (0-1.0) k/uL Eosinophils # 0.2 (0-0.7) k/uL Basophils # 0.0 (0-0.2) k/uL Hypochromasia Moderate Poikilocytosis Slight Macrocytosis Slight PT (9.0-12.0) sec INR (<1.1) APTT (22.0-30.0) sec Sodium 142 (137-145) mmol/L Potassium 4.4 (3.5-5.1) mmol/L Chloride 109 H (98-107) mmol/L Carbon Dioxide 25 (22-30) mmol/L Anion Gap 8 mmol/L BUN 14 (7-17) mg/dL Creatinine 0.64 (0.52-1.04) mg/dL Est GFR (MDRD) Af Amer >60 (>60 ml/min/1.73 sqM) Est GFR (MDRD) Non-Af >60 (>60 ml/min/1.73 sqM) Glucose 83 (74-99) mg/dL Calcium 8.6 (8.4-10.2) mg/dL Total Bilirubin 0.2 (0.2-1.3) mg/dL AST 25 (14-36) U/L ALT 33 (9-52) U/L Alkaline Phosphatase 102 (38-126) U/L Total Protein 5.9 L (6.3-8.2) g/dL Albumin 3.2 L (3.5-5.0) g/dL Stool Occult Blood Negative (Negative) 06/26/16 Range/Units 15:56 WBC (3.8-10.6) k/uL RBC (3.80-5.40) m/uL Hgb (11.4-16.0) gm/dL Hct (34.0-46.0) % MCV (80.0-100.0) fL MCH (25.0-35.0) pg MCHC (31.0-37.0) g/dL RDW (11.5-15.5) % Plt Count (150-450) k/uL Neutrophils % % Lymphocytes % % Monocytes % % Eosinophils % % Basophils % % Neutrophils # (1.3-7.7) k/uL Lymphocytes # (1.0-4.8) k/uL Monocytes # (0-1.0) k/uL Eosinophils # (0-0.7) k/uL Basophils # (0-0.2) k/uL Hypochromasia Poikilocytosis Macrocytosis PT 9.6 (9.0-12.0) sec INR 0.9 (<1.1) APTT 23.3 (22.0-30.0) sec Sodium (137-145) mmol/L Potassium (3.5-5.1) mmol/L Chloride (98-107) mmol/L Carbon Dioxide (22-30) mmol/L Anion Gap mmol/L BUN (7-17) mg/dL Creatinine (0.52-1.04) mg/dL Est GFR (MDRD) Af Amer (>60 ml/min/1.73 sqM) Est GFR (MDRD) Non-Af (>60 ml/min/1.73 sqM) Glucose (74-99) mg/dL Calcium (8.4-10.2) mg/dL Total Bilirubin (0.2-1.3) mg/dL AST (14-36) U/L ALT (9-52) U/L Alkaline Phosphatase (38-126) U/L Total Protein (6.3-8.2) g/dL Albumin (3.5-5.0) g/dL Stool Occult Blood (Negative) Critical Care Time Critical Care Time: Yes Total Critical Care Time: 35 Disposition Clinical Impression: Anemia, Generalized weakness Disposition: ADMITTED IP TO THIS [facility] Referrals: Peter Lake MD [Primary Care Provider] - 1-2 days Time of Disposition: 16:44
[2016-06-26 16:14] LABS: Basophils % (A) 0 %; CH 30.2; CHCM 31.1; Eosinophils # (A) 0.2 k/uL (0-0.7); Eosinophils % (A) 3 %; HCT 22.5 % (34.0-46.0); HDW 3.46; Hypochromasia Moderate; Luc # (Auto) 0.13; Luc % (Auto) 2; Lymphocytes # (A) 1.8 k/uL (1.0-4.8); Lymphocytes % (A) 32 %; MCH 29.8 pg (25.0-35.0); MCHC 30.6 g/dL (31.0-37.0); MCV 97.6 fL (80.0-100.0); Macrocytosis Slight; Mean Platelet Volume 8.4; Monocytes # (A) 0.3 k/uL (0-1.0); Monocytes % (A) 6 %; Neutrophils # (A) 3.3 k/uL (1.3-7.7); Neutrophils % (A) 57 %; Poikilocytosis Slight; RBC 2.31 m/uL (3.80-5.40); RDW 15.8 % (11.5-15.5); WBC 5.8 k/uL (3.8-10.6); WBC (Perox) 5.94
[2016-06-26 16:20] LABS: ALT 33 U/L (9-52); AST 25 U/L (14-36); Alkaline Phosphatase 102 U/L (38-126); Anion Gap 8 mmol/L; Blood Urea Nitrogen 14 mg/dL (7-17); Calcium 8.6 mg/dL (8.4-10.2); Carbon Dioxide 25 mmol/L (22-30); Chloride 109 mmol/L (98-107); Glucose 83 mg/dL (74-99); Non-African American GFR(MDRD) >60 (>60 ml/min/1.73 sqM); Potassium 4.4 mmol/L (3.5-5.1); Sodium 142 mmol/L (137-145); Total Bilirubin 0.2 mg/dL (0.2-1.3); Total Protein 5.9 g/dL (6.3-8.2)
[2016-06-26 16:24] LABS: HGB 6.9 gm/dL (11.4-16.0)
[2016-06-26 16:25] LABS: INR 0.9 (<1.1); Partial Thromboplastin Time 23.3 sec (22.0-30.0); Prothrombin Time 9.6 sec (9.0-12.0)
[2016-06-26] MEDS ORDERED: SODIUM CHLORIDE 0.9% 1,000 ML IV ONE (16:46)
[2016-06-26] MEDS ORDERED: HYDROcodone/APAP 7.5-325MG 1 EACH TAB PO STA (17:05)
[2016-06-26 19:09] LABS: Anisocytosis Slight; CH 29.4; CHCM 30.1; HCT 25.5 % (34.0-46.0); HDW 3.46; HGB 7.8 gm/dL (11.4-16.0); Hypochromasia Marked; MCHC 30.5 g/dL (31.0-37.0); MCV 98.3 fL (80.0-100.0); Macrocytosis Slight; Mean Platelet Volume 7.1; Poikilocytosis Slight; RDW 16.1 % (11.5-15.5)
[2016-06-26] MEDS ORDERED: MECLIZINE 25 MG TAB PO PRN (19:46)
[2016-06-26] MEDS ORDERED: ALBUTEROL NEBULIZED 2.5 MG/3 ML INHALATION PRN (19:46)
[2016-06-26] MEDS ORDERED: METOLAZONE 2.5 MG TAB PO PRN (19:46)
[2016-06-26] MEDS ORDERED: LORazepam 1 MG TAB PO PRN (19:46)
[2016-06-26] MEDS ORDERED: SODIUM FERRIC GLUCONAT-SUCROSE 125 MG in SODIUM CHLORIDE 0.9% 100 ML IVPB ONE (21:00)
[2016-06-26] MEDS: GABAPENTIN 100 MG CAP PO SCH (21:39)
[2016-06-26] MEDS: SUCRALFATE 1 GM TAB PO SCH (21:39)
[2016-06-26] MEDS: DULoxetine HCL 60 MG CAPSULE.DR PO SCH (21:39)
[2016-06-26] MEDS: VARENICLINE 1 MG TAB PO SCH (21:39)
[2016-06-26] MEDS: POTASSIUM CHLORIDE ORAL LIQUID 40 MEQ/30 ML CUP PO SCH (21:39)
[2016-06-26] MEDS: MIRTAZAPINE 15 MG TAB PO SCH (21:39)
[2016-06-26] MEDS: HYDROcodone/APAP 7.5-325MG 1 EACH TAB PO PRN (21:48)
[2016-06-26 23:06] VITALS: BMI 33.8
--- NOTE | 2016-06-26 23:08 | HP ---
CHIEF COMPLAINT: A 50-year-old white female with severe anemia, tachycardia and dizziness. HISTORY OF PRESENT ILLNESS: A 50-year-old white female who has had a wound VAC on her large abdominal wound. Hemoglobin dropped down 6.8, at which time she had dizziness, tachycardia and racing heart and states she had negative stools that were black or any vomiting up of blood. The patient was pale, weak. CBC was low. She was admitted for 2 units of blood and for GI bleed monitoring versus blood loss from some other source. HOME MEDICINES: 1. Cymbalta 60 b.i.d. 2. Antivert 25 t.i.d. 3. Carafate 1 g q.i.d. 4. Albuterol inhaler 2 puffs q.i.d. 5. Vitamin D3, 10,000 international units weekly. 6. Multivitamin daily. 7. Lasix 40 daily. 8. Neurontin 100 b.i.d. 9. Zaroxolyn 2.5 daily. 10. Mirtazapine 30 q.h.s. 11. Potassium chloride 40 mEq p.o. b.i.d. 12. ( ) 1 puff b.i.d. 13. Benadryl 25 t.i.d. 14. Chantix 1 b.i.d. ALLERGIES ARE TO BROCCOLI. PAST MEDICAL HISTORY: Fibromyalgia, asthma, GERD, mitral valve prolapse, osteoarthritis, sleep apnea, chronic bronchial asthma, previous bariatric gastric surgery with significant postop abdominal wound with some gangrenous tissue for which a wound VAC and debridement were necessary, history of gastric ulcer, varicose veins, chronic fatigue, sleep apnea, migraine. SURGERIES: Appendectomy, back surgery, bariatric surgery, cholecystectomy, hernia repair, hysterectomy, x2, renal stones, lithotripsy, gastric bypass, carpal tunnel release, anxiety, bipolar. SOCIAL HISTORY: Former smoker. No alcohol. FAMILY HISTORY: Father with cancer, CVA, TIA, dyslipidemia, hypertension, prostate disorder. Mother: Gastric bypass symptoms. PHYSICAL EXAM: CONSTITUTIONAL: Pale-appearing, poor skin turgor, white female, appears pale and nontoxic. Integument shows poor skin; dry, pale. ENT: External ear canals within normal limits. OPHTHALMOLOGIC: Pupils equal, round and reactive to light and accommodation. PULMONARY: Scattered wheeze, mild. No rales, rhonchi. CARDIAC: Tachycardic, S1, S2. Abdomen is soft. Wound VAC in the lower abdomen. NEUROLOGIC: Alert and oriented x3. PSYCH: Normal psych eval. Sodium 142, potassium 4.4. Hemoglobin 6.9, hematocrit 22.5. PLAN: 2 units of blood will be given, admitted to the hospital. Iron and sucrose will be given. Check CBC in the morning. Check stools for Hemoccult. Consult surgeon for GI bleed.
[2016-06-27] MEDS: HYDROcodone/APAP 7.5-325MG 1 EACH TAB PO PRN ×3 (04:57→17:48)
[2016-06-27 07:23] LABS: Anisocytosis Slight; Basophils % (A) 0 %; CH 29.9; CHCM 31.7; Eosinophils # (A) 0.2 k/uL (0-0.7); Eosinophils % (A) 4 %; HCT 27.9 % (34.0-46.0); HDW 3.84; HGB 8.8 gm/dL (11.4-16.0); Hypochromasia Moderate; Luc # (Auto) 0.17; Luc % (Auto) 3; Lymphocytes # (A) 1.4 k/uL (1.0-4.8); Lymphocytes % (A) 28 %; MCH 30.1 pg (25.0-35.0); MCHC 31.6 g/dL (31.0-37.0); MCV 95.3 fL (80.0-100.0); Mean Platelet Volume 7.2; Monocytes # (A) 0.3 k/uL (0-1.0); Monocytes % (A) 5 %; Neutrophils # (A) 2.9 k/uL (1.3-7.7); Neutrophils % (A) 59 %; Poikilocytosis Slight; RBC 2.93 m/uL (3.80-5.40); RDW 16.5 % (11.5-15.5); WBC 4.8 k/uL (3.8-10.6); WBC (Perox) 4.74
[2016-06-27 08:47] LABS: % Iron Saturation 90.4 % (20-50)
[2016-06-27] MEDS: DULoxetine HCL 60 MG CAPSULE.DR PO SCH ×2 (09:45→22:22)
[2016-06-27] MEDS: PANTOPRAZOLE 40 MG TABLET PO SCH (09:45)
[2016-06-27] MEDS: GABAPENTIN 100 MG CAP PO SCH ×2 (09:45→22:21)
[2016-06-27] MEDS: FUROSEMIDE 40 MG TAB PO SCH (09:45)
[2016-06-27] MEDS: VARENICLINE 1 MG TAB PO SCH ×2 (09:46→22:21)
[2016-06-27] MEDS: SUCRALFATE 1 GM TAB PO SCH ×4 (09:46→22:21)
[2016-06-27] MEDS: POTASSIUM CHLORIDE ORAL LIQUID 40 MEQ/30 ML CUP PO SCH ×3 (09:46→22:27)
[2016-06-27] MEDS: diphenhydrAMINE 25 MG CAP PO PRN ×2 (10:21→17:48)
--- NOTE | 2016-06-27 11:24 | P.GSCN ---
History of Present Illness Consult date: 06/27/16 Reason for Consult: Anemia, marginal ulcer History of present illness: This a 50-year-old female well-known to myself. Patient history of previous gastric bypass. She had a recent hospital admission for GI bleed secondary to marginal ulcer. Patient developed anemia and was admitted through the emergency room last night. She has received 2 units packed red cells this morning. The patient denies any evidence of GI bleed. Apparently she is Hemoccult negative. Past Medical History Past Medical History: Asthma, Fibromyalgia, GERD/Reflux, Mitral Valve Prolapse ( MVP), Osteoarthritis (OA), Sleep Apnea/CPAP/BIPAP Additional Past Medical History / Comment(s): Chronic bronchial asthma, fibromyalgia, history of obesity with a previous bariatric surgery/gastric bypass surgery, reflux, osteoarthritis, obstructive sleep apnea, migraine, nephrolithiasis, gastric ulcer, varicose veins, chronic fatigue syndrome, pernicious anemia, peneculectomy History of Any Multi-Drug Resistant Organisms: None Reported Past Surgical History: Appendectomy, Back Surgery, Bariatric Surgery, Section, Cholecystectomy, Hernia Repair, Hysterectomy Additional Past Surgical History / Comment(s): x2, metal removed from rt eye 15 years ago, kidney stone-lithotripsy, gastric bypass 2003 years ago. EGD X2, COLONOSCOPY. Carpal tunnel release bilaterally Past Anesthesia/Blood Transfusion Reactions: Family History of Problems w/ Anesthesia Additional Past Anesthesia/Blood Transfusion Reaction / Comm: family members w/ severe headaches w/anesthesia Past Psychological History: Anxiety, Bipolar Smoking Status: Former smoker Past Alcohol Use History: None Reported Additional Past Alcohol Use History / Comment(s): STARTED SMOKING AT AGE 33- SMOKED 8-10 CIG PER; QUIT 2 WEEKS before having recent abdominal surgery 05/14 Past Drug Use History: None Reported - Past Family History Father Family Medical History: Cancer, CVA/TIA, Hyperlipidemia, Hypertension, Prostate Disorder Additional Family Medical History / Comment(s): PROSTATE CANCER Mother Additional Family Medical History / Comment(s): OBESITY-HAD GASTRIC BYPASS SX Medications and Allergies Home Medications Medication Instructions Recorded Confirmed Type DULoxetine HCL [Cymbalta] 60 mg PO BID 03/19/15 06/26/16 History Meclizine [Antivert] 25 mg PO TID PRN 03/19/15 06/26/16 History Sucralfate [Carafate] 1 gm PO QID 03/19/15 06/26/16 History Albuterol Inhaler [Ventolin Hfa 2 puff INHALATION RT-QID PRN 07/31/15 06/26/16 History Inhaler] Cholecalciferol (Vitamin D3) 10,000 unit PO DAILY 10/24/15 06/26/16 History [Vitamin D3] Multivitamins, Thera [Multivitamin] 1 tab PO DAILY 10/24/15 06/26/16 History Furosemide [Lasix] 40 mg PO DAILY 05/06/16 06/26/16 History Gabapentin [Neurontin] 100 mg PO BID 05/06/16 06/26/16 History Metolazone [Zaroxolyn] 2.5 mg PO DAILY PRN 05/06/16 06/26/16 History Mirtazapine 30 mg PO HS 05/06/16 06/26/16 History Potassium Chloride [K-Sarah Oral 40 meq PO BID 05/06/16 06/26/16 History Liquid] Tiotropium Br/Olodaterol HCl 1 puff INHALATION RT-BID 05/06/16 06/26/16 History [Stiolto Respimat Inhal [place]] diphenhydrAMINE [Benadryl] 25 mg PO TID PRN 05/06/16 06/26/16 History Varenicline [Chantix] 1 mg PO BID 05/15/16 06/26/16 History Gabapentin [Gabapentin] 06/26/16 History Allergies Allergy/AdvReac Type Severity Reaction Status Date / Time broccoli Allergy Severe Anaphylaxis Verified 06/26/16 15:13 W/ RAW BROCCOLI ampicillin Allergy Intermediate Swelling Verified 06/26/16 15:13 IN FACE Penicillins Allergy Intermediate Swelling Verified 06/26/16 15:13 amoxicillin Allergy Swelling Verified 06/26/16 15:13 IN FACE Surgical - Exam Vital Signs Temp Pulse Resp BP Pulse Ox 97.8 F 121 H 20 121/61 99 06/26/16 15:01 06/26/16 15:01 06/26/16 15:01 06/26/16 15:01 06/26/16 15:01 - General well developed, no distress - Eyes PERRL - ENT normal pinna - Neck no masses - Respiratory normal expansion - Abdomen Wound VAC in place on the right lower abdomen Abdomen: soft, non tender Results - Labs 06/27/16 06:40 06/26/16 15:56 Abnormal Lab Results - Last 24 Hours (Table) 06/26/16 06/27/16 06/27/16 Range/Units 18:56 06:40 06:40 RBC 2.60 L 2.93 L (3.80-5.40) m/uL Hgb 7.8 L 8.8 L (11.4-16.0) gm/dL Hct 25.5 L 27.9 L (34.0-46.0) % MCHC 30.5 L (31.0-37.0) g/dL RDW 16.1 H 16.5 H (11.5-15.5) % Iron 265 H (37-170) ug/dL % Saturation 90.4 H (20-50) % Assessment and Plan Plan: History of chronic anemia. History gastric bypass. Patient has received packed red cell today. She'll have her hemoglobin rechecked in the morning. If there is any concern of GI bleed. She'll undergo EGD.
[2016-06-27] MEDS ORDERED: CHOLECALCIFEROL 1,000 UNIT TAB PO SCH (12:00)
[2016-06-27] MEDS ORDERED: MULTIVITAMINS, THERA 1 EACH TAB PO SCH (12:00)
[2016-06-27 21:59] VITALS: TEMP 97.9
[2016-06-27] MEDS: MIRTAZAPINE 15 MG TAB PO SCH (22:21)
[2016-06-28] MEDS: HYDROcodone/APAP 7.5-325MG 1 EACH TAB PO PRN ×2 (00:05→09:23)
[2016-06-28] MEDS: diphenhydrAMINE 25 MG CAP PO PRN ×2 (02:55→09:23)
[2016-06-28 07:22] VITALS: BP 118/69; PULSE 82; RESP 16
[2016-06-28] MEDS: VARENICLINE 1 MG TAB PO SCH (09:24)
[2016-06-28] MEDS: SUCRALFATE 1 GM TAB PO SCH (09:24)
[2016-06-28] MEDS: POTASSIUM CHLORIDE ORAL LIQUID 40 MEQ/30 ML CUP PO SCH (09:24)
[2016-06-28] MEDS: FUROSEMIDE 40 MG TAB PO SCH (09:25)
[2016-06-28] MEDS: GABAPENTIN 100 MG CAP PO SCH (09:25)
[2016-06-28] MEDS: DULoxetine HCL 60 MG CAPSULE.DR PO SCH (09:25)
[2016-06-28] MEDS: PANTOPRAZOLE 40 MG TABLET PO SCH (09:25)
[2016-06-28 10:28] LABS: Anisocytosis Slight; Basophils % (A) 0 %; CH 29.7; CHCM 31.3; Eosinophils # (A) 0.3 k/uL (0-0.7); Eosinophils % (A) 3 %; HCT 32.5 % (34.0-46.0); HDW 3.96; HGB 10.2 gm/dL (11.4-16.0); Hypochromasia Marked; Luc # (Auto) 0.25; Luc % (Auto) 3; Lymphocytes # (A) 1.7 k/uL (1.0-4.8); Lymphocytes % (A) 23 %; MCH 30.1 pg (25.0-35.0); MCHC 31.4 g/dL (31.0-37.0); MCV 95.7 fL (80.0-100.0); Mean Platelet Volume 7.4; Monocytes # (A) 0.4 k/uL (0-1.0); Monocytes % (A) 5 %; Neutrophils # (A) 4.7 k/uL (1.3-7.7); Neutrophils % (A) 65 %; Poikilocytosis Slight; RBC 3.39 m/uL (3.80-5.40); RDW 16.4 % (11.5-15.5); WBC 7.3 k/uL (3.8-10.6); WBC (Perox) 7.56
--- NOTE | 2016-06-28 11:39 | P.DS ---
Providers Date of admission: 06/26/16 16:46 Expected date of discharge: 06/28/16 Attending physician: Peter Perez Consults: Dr. peralta Primary care physician: Peter Perez [facility] Course: 50-year-old female presented on the day of admission to the emergency room with a chief complaint of dizziness lightheadedness felt like the heart was racing. Patient stated that she was told her hemoglobin had dropped down to 6.9 came into the emergency room to be evaluated for the above-mentioned symptoms the patient did receive 2 units of packed red blood cells monitoring the hemoglobin closely. There was no obvious signs of a GI bleed. Patient states she's been anemic in the past. Patient does have a history of a hernia repair and has a wound VAC in place secondary to bleeding ulcers. Patient was admitted and monitored closely and on the day of discharge hemoglobin was 10. Patient was felt to be hemodynamically stable and appropriate to proceed with a discharge. Patient will follow-up in the outpatient setting with surgical service with patient to be evaluated for a possible EGD to be set up in the outpatient setting Impression discharge diagnosis Present on admission dizziness lightheadedness heart palpitation symptomatic acute blood loss anemia hemoglobin 6.9 likely GI source Present on admission hemoglobin 6.9 necessitating 2 units of packed red blood cells infused via peripheral vein History of chronic anemia History of gastric bypass A recent EGD 05/31/2016 for acute blood loss anemia it showed no evidence of an active bleed findings marginal jejunal ulcer just below the gastrojejunostomy A recent admission with a discharge June 08 2016 History of a recent panniculectomy with abdominal wall cellulitis and a large area of eschar status post debridement of the abdominal wound on 06/02/2016 The above dictated assessment and findings were discussed with dr perez . Impression and the plan of care have been dictated as directed. Lisa Alfaro nurse practitioner acting as a scribe for dr perez. Plan - Discharge Summary Discharge Medication List DULoxetine HCL [Cymbalta] 60 mg PO BID 03/19/15 [History] Meclizine [Antivert] 25 mg PO TID PRN 03/19/15 [History] Sucralfate [Carafate] 1 gm PO QID 03/19/15 [History] Albuterol Inhaler [Ventolin Hfa Inhaler] 2 puff INHALATION RT-QID PRN 07/31/15 [ History] Omeprazole [PriLOSEC] 40 mg PO AC-BRKFST #30 cap 08/20/15 [Rx] Cholecalciferol (Vitamin D3) [Vitamin D3] 10,000 unit PO DAILY 10/24/15 [History ] Multivitamins, Thera [Multivitamin] 1 tab PO DAILY 10/24/15 [History] Furosemide [Lasix] 40 mg PO DAILY 05/06/16 [History] Gabapentin [Neurontin] 100 mg PO BID 05/06/16 [History] Metolazone [Zaroxolyn] 2.5 mg PO DAILY PRN 05/06/16 [History] Mirtazapine 30 mg PO HS 05/06/16 [History] Potassium Chloride [K-Sarah Oral Liquid] 40 meq PO BID 05/06/16 [History] Tiotropium Br/Olodaterol HCl [Stiolto Respimat Inhal [place]] 1 puff INHALATION RT -BID 05/06/16 [History] diphenhydrAMINE [Benadryl] 25 mg PO TID PRN 05/06/16 [History] Varenicline [Chantix] 1 mg PO BID 05/15/16 [History] HYDROcodone/APAP 7.5-325MG [[place] 7.5-325] 1 tab PO Q6HR PRN #28 tab 06/08/16 [ Rx] LORazepam [Ativan] 1 mg PO TID PRN #15 tab 06/08/16 [Rx] Gabapentin 06/26/16 [History] Follow up Appointment(s)/Referral(s): Peter Perez MD [Primary Care Provider] - 1-2 days López Peralta MD [STAFF PHYSICIAN] - 1 Week Discharge Disposition: HOME WITH HOME HEALTH SERVICES
--- NOTE | 2016-06-28 13:59 | CONS ---
DATE OF CONSULTATION: 06/27/2016 REASON FOR CONSULTATION: Abdominal wound. HISTORY OF PRESENT ILLNESS: The patient is a 50 -year-old female recently admitted to [facility]. The patient did have an ischemia by some eschar status post extensive debridement which resulted in abdominal wound which has been treated as an outpatient with a Wound V.A.C. The patient was [facility] seen [facility] on Tuesday. Patient presenting to the ER at [facility] with chief complaints of feeling lightheaded and weak and feels her heart racing. Apparently the patient also had hemoglobin has dropped from 9 to 7.3. The patient who did have previous history of anemia. Subsequently, the patient did have CBC and her hemoglobin was 6.9. The patient has been transfused and admitted to the hospital for further work-up. I was asked to see the patient for management of underlying abdominal wound which is currently treated with the wound VAC. The patient denies any significant blood cell secretion through the abdominal wound VAC. The patient denies significant abdominal pain. Denies any nausea or vomiting. Denies having any blood in the stool. Denies having any fever and chills. REVIEW OF SYSTEMS: CONSTITUTIONAL: Positive for weakness. No high grade fever. EYES: No complaint. ENT: No complaint. RESPIRATORY: No complaint. CARDIOVASCULAR: No complaint. GENITOURINARY: No complaint. GASTROINTESTINAL: As per HPI. MUSCULOSKELETAL: No complaint. INTEGUMENTARY: No complaint. PSYCHOLOGICAL: No complaint. ENDOCRINE: No complaint. NEUROLOGICAL: No complaint. Past medical history for: 1. Asthma. 2. Fibromyalgia. 3. Gastroesophageal reflux disease. 4. Mitral valve prolapse. 5. Osteoarthritis. 6. Obstructive sleep apnea. PAST SURGICAL HISTORY: Appendectomy, back surgery, , cholecystectomy, hernia repair, hysterectomy, EGD, colonoscopy. The patient did have history of smoking in the past. Denies any drinking, or drug use. FAMILY HISTORY: Father with history of CVA, TIA, and prostate cancer. ALLERGIES: AMPICILLIN. Medications include the patient is currently on: 1. [place]. 2. Albuterol. 3. Vitamin D3. 4. Benadryl. 5. Cymbalta. 6. Lasix. 7. Neurontin. 8. Ativan. 9. Antivert. 10. Zaroxolyn. 11. Remeron. 13. Protonix. 14. Carafate. 15. Chantix. On examination, blood pressure is 115/71, with a pulse of 83, temperature 97.4. She is 98% on room air. General description is a middle-age female lying in bed in no distress. HEENT examination shows pallor. There is no scleral icterus. Oral mucous membranes dry. NECK: Trachea is central. No thyromegaly. LUNGS: Unlabored breathing. Clear to auscultation anteriorly. HEART: S1, S2 regular rate and rhythm. ABDOMEN: Soft. Wound VAC is currently intact. No blood or blood stained secretions were noticed in the drainage canister. EXTREMITIES: No edema of the feet. No rash or mass palpable. NEUROLOGICAL: Patient is awake, alert, oriented x3. Mood and affect normal. LABS: Hemoglobin 8.8, white count 4.8. Admission hemoglobin was 6.9, BUN of 14, creatinine 0.64. Stool for occult blood was negative. DIAGNOSTIC IMPRESSION AND PLAN: Patient with abdominal wound as a result of surgical debridement currently being treated with a wound VAC with no evidence of any cellulitis in a patient admitted to hospital with anemia; however no blood has been noticed in the wound VAC not the source of her underlying anemia. PLAN: 1. We will continue the patient on wound VAC that will be changed tomorrow if the patient ends up staying in the hospital, otherwise is will be changed by the home care nurse. 2. No need for any systemic antibiotic. MTDD
--- NOTE | 2016-06-28 17:46 | DS ---
DATE OF ADMISSION: 06/26/2016 DATE OF DISCHARGE: 06/28/2016 FINAL DIAGNOSIS(ES): 1. Severe anemia due to chronic disease requiring blood transfusion of 2 units of blood and iron infusion. 2. Generalized weakness. 3. Abdominal cellulitis wound VAC in the abdominal wound. 4. Acute blood loss anemia. 5. Gastroesophageal reflux disease. 6. Status post lap band. 7. Neuropathy. DISCHARGE MEDICATIONS: 1. Cymbalta 60 b.i.d. 2. Meclizine 25 t.i.d. 3. Carafate 1 gram q.i.d. 4. Ventolin HFA inhaler 2 puffs q.i.d. 5. Prilosec 40 daily. 6. Vitamin D3 10,000 units weekly. 7. Multivitamin daily. 8. Lasix 40 mg daily. 9. Neurontin 100 b.i.d. 10. Zaroxolyn 2.5 mg daily. CONDITION: Stable. PROGNOSIS: Guarded. Ambulate as tolerated. HOSPITAL COURSE OF EVENTS: This is a white female admitted with severe anemia, acute blood loss anemia into the sixes, possibly from a wound VAC area that she has on. She has no GI bleeding, but her hemoglobin was so low she has received 2 units of blood and iron infusion. She has a history of pernicious anemia. Her hemoglobin came up to 8.6 on discharge. She will follow up in next 24 to 48 hours, ( ) CBC. Continue home medications as an outpatient. CONDITION: Stable. PROGNOSIS: Guarded.
--- NOTE | 2016-06-28 20:33 | PN ---
DATE OF SERVICE: 06/28/2016 Reason for follow-up: Abdominal wound. INTERVAL HISTORY: The patient is afebrile. Her wound VAC was changed last night because of some irritation to the right lateral side , no significant bleeding. Denies any chest pain, shortness of breath or cough and no abdominal pain or any diarrhea. On examination, blood pressure 118/69, pulse 82, temperature 97.9. She is 100% on room air. General description is a middle aged female up in the room in no distress. Abdominal examination wound VAC is intact. No bleeding. LABS: Hemoglobin 10.1, white count 7.3. Diagnostic impression and plan: The patient with abdominal wound, recommend continue with wound VAC and follow-up in the wound care center next week. Continue supportive care. CALLID
== END 2016-06-28 11:55 | disposition home health service (06) | DRG 920 ==
LOC: EC 14:56 → 5MS5E 16:46
PROVIDERS: ADMIT Family Medicine; ATTEND Family Medicine
PROC: 30233N1 Transfusion of Nonautologous Red Blood Cells into Peripheral Vein, Percutaneous Approach (ICD-10-PCS; principal; 2016-06-26)
PROC: 2W03X6Z Change Pressure Dressing on Abdominal Wall (ICD-10-PCS; 2016-06-27)
DX: L76.82 Other postprocedural complications of skin and subcutaneous tissue (principal); L03.311 Cellulitis of abdominal wall; G62.9 Polyneuropathy, unspecified; D62 Acute posthemorrhagic anemia; D63.8 Anemia in other chronic diseases classified elsewhere; M79.7 Fibromyalgia; R00.0 Tachycardia, unspecified; R53.1 Weakness; G47.33 Obstructive sleep apnea (adult) (pediatric); K21.9 Gastro-esophageal reflux disease without esophagitis; D51.0 Vitamin B12 deficiency anemia due to intrinsic factor deficiency; R19.5 Other fecal abnormalities; M19.90 Unspecified osteoarthritis, unspecified site; R42 Dizziness and giddiness; I34.1 Nonrheumatic mitral (valve) prolapse; J45.909 Unspecified asthma, uncomplicated; F41.9 Anxiety disorder, unspecified; G43.909 Migraine, unspecified, not intractable, without status migrainosus; F31.9 Bipolar disorder, unspecified; I83.90 Asymptomatic varicose veins of unspecified lower extremity; Z88.0 Allergy status to penicillin; Z91.018 Allergy to other foods; Z79.899 Other long term (current) drug therapy; Z98.84 Bariatric surgery status; Z80.9 Family history of malignant neoplasm, unspecified; Z82.3 Family history of stroke; Z82.49 Family history of ischemic heart disease and other diseases of the circulatory system; Z87.442 Personal history of urinary calculi; Z87.891 Personal history of nicotine dependence; Z83.49 Family history of other endocrine, nutritional and metabolic diseases; Z80.42 Family history of malignant neoplasm of prostate; Z98.890 Other specified postprocedural states; Z90.49 Acquired absence of other specified parts of digestive tract; Z90.710 Acquired absence of both cervix and uterus; Z87.11 Personal history of peptic ulcer disease; Z87.19 Personal history of other diseases of the digestive system; Y83.4 Other reconstructive surgery as the cause of abnormal reaction of the patient, or of later complication, without mention of misadventure at the time of the procedure; Y81.1 Therapeutic (nonsurgical) and rehabilitative general- and plastic-surgery devices associated with adverse incidents
CPT/HCPCS: 36415; 36430; 80053; 82272; 83010; 83540; 83550; 85025; 85027; 85610; 85730; 86850; 86900; 86901; 86920; 93005; 94760; 96360; 96361; 99291

== ENCOUNTER 2017-02-21 14:55 | Emergency (ER) | payer BC, MEDICARE ==
[2017-02-21] MEDS ORDERED: RX INFO: IV CONTRAST WAS GIVEN 1 EACH MISC MISCELLANE PRN (15:42)
[2017-02-21] MEDS ORDERED: IOHEXOL 350 MG/ML 25 ML BOTTLE (ORAL USE) PO PRN (15:42)
[2017-02-21] MEDS ORDERED: HYDROmorphone 1 MG/ML 1 ML SYRINGE IVP STA ×2 (15:43→20:23)
[2017-02-21] MEDS ORDERED: ONDANSETRON 4 MG/2 ML VIAL IVP STA ×2 (15:43→21:47)
--- NOTE | 2017-02-21 15:48 | ED ---
Abdominal Pain HPI - General Chief Complaint: Abdominal Pain Stated Complaint: Abd Pain Time Seen by Provider: 02/21/17 15:27 Source: patient, family Mode of arrival: wheelchair Limitations: no limitations - History of Present Illness Initial Comments: Patient is a 51-year-old female with a history of a gastric bypass in 2002, with complications from a panniculectomy and hernia repair performed in May 2016 who presents with a chief complaint abdominal pain. Patient states that her pain is her entire abdomen from her diaphragm to her pelvis. Patient characterizes the pain as an ache, and burning, with periods of sharp pain. Exacerbating factors are eating and drinking, though she states that warm liquids are somewhat alleviating. Timing is constant. This is been going on for about 4 days. Patient called her primary care doctor's office who told her to go to the emergency department. Patient denies fevers, chills, she admits to nausea though she denies vomiting. Patient states that she has also been having darker stools that she has had stools every day for the past 3 days. She states her stool is otherwise normal. - Related Data Home Medications Medication Instructions Recorded Confirmed DULoxetine HCL [Cymbalta] 60 mg PO BID 03/19/15 02/21/17 Sucralfate [Carafate] 1 gm PO QID 03/19/15 02/21/17 Albuterol Inhaler [Ventolin Hfa 2 puff INHALATION RT-QID PRN 07/31/15 02/21/17 Inhaler] Cholecalciferol (Vitamin D3) 10,000 unit PO DAILY 10/24/15 02/21/17 [Vitamin D3] Buprenorphine HCl [Subutex] 4 mg SL BID 02/21/17 02/21/17 Lisinopril [Zestril] 10 mg PO DAILY 02/21/17 02/21/17 busPIRone HCL [Buspar] 30 mg PO BID 02/21/17 02/21/17 Previous Rx's Medication Instructions Recorded Omeprazole [PriLOSEC] 40 mg PO AC-BRKFST #30 cap 08/20/15 Dicyclomine [Bentyl] 20 mg PO QID PRN #20 tablet 02/21/17 Ondansetron [Zofran ODT] 4 mg PO Q8HR PRN #20 tab 10/02/17 Allergies Allergy/AdvReac Type Severity Reaction Status Date / Time broccoli Allergy Severe Anaphylaxis Verified 02/21/17 15:49 W/ RAW BROCCOLI ampicillin Allergy Intermediate Swelling Verified 02/21/17 15:49 IN FACE Penicillins Allergy Intermediate Swelling Verified 02/21/17 15:49 amoxicillin Allergy Swelling Verified 02/21/17 15:49 IN FACE Review of Systems ROS Statement: Those systems with pertinent positive or pertinent negative responses have been documented in the HPI. ROS Other: All systems not noted in ROS Statement are negative. Constitutional: Denies: fever, chills Eyes: Denies: vision change ENT: Denies: ear pain, throat pain Respiratory: Denies: cough Cardiovascular: Denies: chest pain Endocrine: Reports: fatigue Gastrointestinal: Reports: abdominal pain, nausea. Denies: vomiting, diarrhea, constipation Genitourinary: Denies: dysuria Musculoskeletal: Denies: back pain Skin: Denies: rash Neurological: Denies: headache, weakness Past Medical History Past Medical History: Asthma, Fibromyalgia, GERD/Reflux, Mitral Valve Prolapse ( MVP), Osteoarthritis (OA), Sleep Apnea/CPAP/BIPAP Additional Past Medical History / Comment(s): Chronic bronchial asthma, fibromyalgia, history of obesity with a previous bariatric surgery/gastric bypass surgery, reflux, osteoarthritis, obstructive sleep apnea, migraine, nephrolithiasis, gastric ulcer, varicose veins, chronic fatigue syndrome, pernicious anemia, peneculectomy History of Any Multi-Drug Resistant Organisms: None Reported Past Surgical History: Appendectomy, Back Surgery, Bariatric Surgery, Section, Cholecystectomy, Hernia Repair, Hysterectomy Additional Past Surgical History / Comment(s): x2, metal removed from rt eye 15 years ago, kidney stone-lithotripsy, gastric bypass 2003 years ago. EGD X2, COLONOSCOPY. Carpal tunnel release bilaterally Past Anesthesia/Blood Transfusion Reactions: Family History of Problems w/ Anesthesia Additional Past Anesthesia/Blood Transfusion Reaction / Comment(s): family members w/severe headaches w/anesthesia Past Psychological History: Anxiety, Bipolar Smoking Status: Former smoker Past Alcohol Use History: None Reported Past Drug Use History: None Reported - Past Family History Father Family Medical History: Cancer, CVA/TIA, Hyperlipidemia, Hypertension, Prostate Disorder Additional Family Medical History / Comment(s): PROSTATE CANCER Mother Additional Family Medical History / Comment(s): OBESITY-HAD GASTRIC BYPASS SX General Exam Limitations: no limitations General appearance: alert, in no apparent distress Head exam: Present: atraumatic, normocephalic Eye exam: Present: normal appearance ENT exam: Present: normal exam, mucous membranes moist Neck exam: Present: normal inspection Respiratory exam: Present: normal lung sounds bilaterally. Absent: respiratory distress Cardiovascular Exam: Present: regular rate, normal rhythm, normal heart sounds GI/Abdominal exam: Present: tenderness, other (Inspection of the abdomen shows extensive scarring from previous surgeries. The abdomen does not feel rigid however it feels as though there is extensive scar tissue. There is no rebound tenderness.). Absent: distended, rebound Rectal exam: Present: normal inspection, normal rectal tone Extremities exam: Present: normal inspection Back exam: Present: normal inspection Neurological exam: Present: alert, oriented X3 Psychiatric exam: Present: normal affect, normal mood Skin exam: Present: warm, dry, intact Course Vital Signs 02/21/17 02/21/17 15:23 16:50 Temperature 98.2 F 97.7 F Pulse Rate 77 76 Respiratory 20 18 Rate Blood Pressure 116/75 111/64 O2 Sat by Pulse 98 97 Oximetry Medical Decision Making - Medical Decision Making Patient with an extensive history of abdominal surgeries, including bypass, herniorrhaphy, and panniculectomy with several, location presents with a chief complaint of abdominal pain. On initial evaluation, vital signs are stable, patient does not appear to be in acute distress. Patient was given pain and nausea control. She'll be sent for a computed tomography scan of the abdomen and pelvis. basic and abdominal lab work sent. 9:49 PM Lab evaluation this patient is grossly unremarkable. Patient is mildly anemic with a hemoglobin of 12 however compared to previous values this is actually increased. There are no signs of pancreatitis, or liver dysfunction. Computed tomography scan of the abdomen and pelvis does not show any acute process. Reevaluation, patient states that her pain is improved. Patient did have occult blood in her stool however given the stable nature of her hemoglobin, admission is not likely warranted. I discussed the findings with the patient. She is agreeable to discharge and follow-up with Dr. Muñoz. Patient was given prescriptions for Bentyl, and Zofran for symptomatically relief. She is further instructed to continue taking her pain medications as prescribed. Patient is agreeable with this plan. Patient was given explicit signs and symptoms that should prompt return visit to the emergency department. At this time, all of her questions are answered to the best of my ability, patient is stable for discharge. - Lab Data Result diagrams: 02/21/17 16:01 02/21/17 16:01 Lab Results 02/21/17 02/21/17 02/21/17 Range/Units 16:01 16:01 16:01 WBC 9.4 (3.8-10.6) k/uL RBC 3.57 L (3.80-5.40) m/uL Hgb 12.0 (11.4-16.0) gm/dL Hct 37.5 (34.0-46.0) % MCV 104.9 H (80.0-100.0) fL MCH 33.6 (25.0-35.0) pg MCHC 32.0 (31.0-37.0) g/dL RDW 13.6 (11.5-15.5) % Plt Count 239 (150-450) k/uL Neutrophils % 67 % Lymphocytes % 23 % Monocytes % 6 % Eosinophils % 1 % Basophils % 0 % Neutrophils # 6.3 (1.3-7.7) k/uL Lymphocytes # 2.2 (1.0-4.8) k/uL Monocytes # 0.6 (0-1.0) k/uL Eosinophils # 0.1 (0-0.7) k/uL Basophils # 0.0 (0-0.2) k/uL Macrocytosis Slight Sodium 140 (137-145) mmol/L Potassium 4.1 (3.5-5.1) mmol/L Chloride 103 (98-107) mmol/L Carbon Dioxide 27 (22-30) mmol/L Anion Gap 10 mmol/L BUN 11 (7-17) mg/dL Creatinine 0.60 (0.52-1.04) mg/dL Est GFR (MDRD) Af Amer >60 (>60 ml/min/1.73 sqM) Est GFR (MDRD) Non-Af >60 (>60 ml/min/1.73 sqM) Glucose 92 (74-99) mg/dL Calcium 9.4 (8.4-10.2) mg/dL Total Bilirubin 0.2 (0.2-1.3) mg/dL AST 22 (14-36) U/L ALT 41 (9-52) U/L Alkaline Phosphatase 108 (38-126) U/L Total Protein 6.0 L (6.3-8.2) g/dL Albumin 3.6 (3.5-5.0) g/dL Lipase 46 (23-300) U/L Stool Occult Blood Positive H (Negative) Disposition Clinical Impression: Abdominal pain, Occult blood in stools Disposition: HOME SELF-CARE Condition: Good Instructions: Abdominal Pain (ED), Rectal Bleeding (ED) Prescriptions: Dicyclomine [Bentyl] 20 mg PO QID PRN #20 tablet PRN Reason: Pain Ondansetron [Zofran ODT] 4 mg PO Q8HR PRN #20 tab PRN Reason: Nausea Referrals: Peter Lake MD [Primary Care Provider] - 1-2 days
[2017-02-21 16:27] LABS: Basophils % (A) 0 %; CH 32.9; CHCM 31.5; Eosinophils # (A) 0.1 k/uL (0-0.7); Eosinophils % (A) 1 %; HCT 37.5 % (34.0-46.0); HDW 2.14; Luc % (Auto) 2; Lymphocytes # (A) 2.2 k/uL (1.0-4.8); Lymphocytes % (A) 23 %; MCH 33.6 pg (25.0-35.0); MCV 104.9 fL (80.0-100.0); Macrocytosis Slight; Mean Platelet Volume 7.1; Monocytes # (A) 0.6 k/uL (0-1.0); Monocytes % (A) 6 %; Neutrophils # (A) 6.3 k/uL (1.3-7.7); Neutrophils % (A) 67 %; RBC 3.57 m/uL (3.80-5.40); RDW 13.6 % (11.5-15.5); WBC 9.4 k/uL (3.8-10.6); WBC (Perox) 9.47
[2017-02-21 16:38] LABS: ALT 41 U/L (9-52); AST 22 U/L (14-36); Alkaline Phosphatase 108 U/L (38-126); Anion Gap 10 mmol/L; Blood Urea Nitrogen 11 mg/dL (7-17); Calcium 9.4 mg/dL (8.4-10.2); Carbon Dioxide 27 mmol/L (22-30); Chloride 103 mmol/L (98-107); Glucose 92 mg/dL (74-99); Non-African American GFR(MDRD) >60 (>60 ml/min/1.73 sqM); Potassium 4.1 mmol/L (3.5-5.1); Sodium 140 mmol/L (137-145); Total Bilirubin 0.2 mg/dL (0.2-1.3)
--- NOTE | 2017-02-21 21:17 | CT ---
EXAMINATION TYPE: CT abdomen pelvis w con DATE OF EXAM: 02/21/2017 COMPARISON: CT 08/04/2015 HISTORY: Abdominal pressure x [address] DLP: 667.90 mGycm Automated exposure control for dose reduction was used. TECHNIQUE: Helical acquisition of images was performed from the lung bases through the pelvis. CONTRAST: Performed with Oral Contrast and with IV Contrast, patient injected with 100 mL of Omnipaqu e 300. FINDINGS: LUNG BASES: No significant abnormality is appreciated. LIVER/GB: No significant abnormality is appreciated. PANCREAS: No significant abnormality is seen. SPLEEN: No significant abnormality is seen. ADRENALS: No significant abnormality is seen. KIDNEYS: No significant abnormality is seen. FREE AIR: No free air is visualized. RETROPERITONEAL ADENOPATHY: None visualized REPRODUCTIVE ORGANS: No significant abnormality is seen URINARY BLADDER: No significant abnormality is seen. PELVIC ADENOPATHY: None visualized. OSSEOUS STRUCTURES: No significant abnormality is seen. BOWEL: No significant abnormality is seen. OTHER: Vasculature is unremarkable. IMPRESSION: NO ACUTE PROCESS.
[2017-02-21] MEDS ORDERED: DICYCLOMINE 20 MG TAB PO STA (21:47)
[2017-02-21 22:31] VITALS: BP 130/85; PULSE 89; RESP 16; TEMP 98.8
== END 2017-02-21 22:31 | disposition home or self-care (01) ==
LOC: EC 14:55
DX: R10.84 Generalized abdominal pain (principal); R19.5 Other fecal abnormalities; R11.0 Nausea; D64.9 Anemia, unspecified; K21.9 Gastro-esophageal reflux disease without esophagitis; F41.9 Anxiety disorder, unspecified; Z87.891 Personal history of nicotine dependence; Z79.899 Other long term (current) drug therapy; Z88.0 Allergy status to penicillin; Z91.018 Allergy to other foods; Z90.49 Acquired absence of other specified parts of digestive tract; Z98.84 Bariatric surgery status; Z83.79 Family history of other diseases of the digestive system; Z87.19 Personal history of other diseases of the digestive system
CPT/HCPCS: 99284 ×2; 96374 ×2; 96375 ×2; 96376 ×3; 36415; 80053; 83690; 85025; 82272; 74177; J2405; J1170; Q9967

== ENCOUNTER 2017-02-28 16:53 | Emergency (ER) | payer BC, MEDICARE ==
[2017-02-28] MEDS ORDERED: KETOROLAC 30 MG/ML 1 ML VIAL IVP STA (20:58)
[2017-02-28] MEDS ORDERED: SODIUM CHLORIDE 0.9% 1,000 ML IV STA (20:58)
--- NOTE | 2017-02-28 21:13 | ED ---
Abdominal Pain HPI - General Chief Complaint: Abdominal Pain Stated Complaint: constipation Time Seen by Provider: 02/28/17 20:40 Source: patient, RN notes reviewed, old records reviewed Mode of arrival: ambulatory Limitations: no limitations - History of Present Illness Initial Comments: 51-year-old female presents emergency Department chief complaint constipation and unable to have bowel movement for the past week. Patient was seen earlier in the week for cramping abdominal pain and was discharged and advised follow- up with primary care provider she reports she followed up with her primary and then sent her home with laxative. She reports taking laxative but no help. Patient reports that she's had extensive abdominal surgeries. - Related Data Home Medications Medication Instructions Recorded Confirmed DULoxetine HCL [Cymbalta] 60 mg PO BID 03/19/15 02/28/17 Sucralfate [Carafate] 1 gm PO ACHS 03/19/15 02/28/17 Albuterol Inhaler [Ventolin Hfa 2 puff INHALATION RT-QID PRN 07/31/15 02/28/17 Inhaler] Cholecalciferol (Vitamin D3) 10,000 unit PO DAILY 10/24/15 02/28/17 [Vitamin D3] Buprenorphine HCl [Subutex] 2 mg SUBLINGUAL BID@0800,1200 02/21/17 02/28/17 busPIRone HCL [Buspar] 30 mg PO BID 02/21/17 02/28/17 Aspirin/Acetaminophen/Caffeine 1 tab PO BID 02/28/17 02/28/17 [Excedrin Extra Strength Caplet] Buprenorphine HCl [Subutex] 4 mg SUBLINGUAL DAILY@1600 02/28/17 02/28/17 Dicyclomine [Bentyl] 20 mg PO QID PRN 02/28/17 02/28/17 Spironolactone 100 mg PO DAILY 02/28/17 02/28/17 diphenhydrAMINE HCL [Benadryl] 50 mg PO BID PRN 02/28/17 02/28/17 Previous Rx's Medication Instructions Recorded Omeprazole [PriLOSEC] 40 mg PO AC-BRKFST #30 cap 08/20/15 Ondansetron [Zofran ODT] 4 mg PO Q8HR PRN #20 tab 02/21/17 Allergies Allergy/AdvReac Type Severity Reaction Status Date / Time broccoli Allergy Severe Anaphylaxis Verified 02/28/17 20:38 with raw broccoli Penicillins Allergy Intermediate Facial Verified 02/28/17 20:38 Swelling Review of Systems ROS Statement: Those systems with pertinent positive or pertinent negative responses have been documented in the HPI. ROS Other: All systems not noted in ROS Statement are negative. Past Medical History Past Medical History: Asthma, Fibromyalgia, GERD/Reflux, Mitral Valve Prolapse ( MVP), Osteoarthritis (OA), Sleep Apnea/CPAP/BIPAP Additional Past Medical History / Comment(s): Chronic bronchial asthma, fibromyalgia, history of obesity with a previous bariatric surgery/gastric bypass surgery, reflux, osteoarthritis, obstructive sleep apnea, migraine, nephrolithiasis, gastric ulcer, varicose veins, chronic fatigue syndrome, pernicious anemia, peneculectomy History of Any Multi-Drug Resistant Organisms: None Reported Past Surgical History: Appendectomy, Back Surgery, Bariatric Surgery, Section, Cholecystectomy, Hernia Repair, Hysterectomy Additional Past Surgical History / Comment(s): x2, metal removed from rt eye 15 years ago, kidney stone-lithotripsy, gastric bypass 2003 years ago. EGD X2, COLONOSCOPY. Carpal tunnel release bilaterally Past Anesthesia/Blood Transfusion Reactions: Family History of Problems w/ Anesthesia Additional Past Anesthesia/Blood Transfusion Reaction / Comment(s): family members w/severe headaches w/anesthesia Past Psychological History: Anxiety, Bipolar Smoking Status: Former smoker Past Alcohol Use History: None Reported Past Drug Use History: None Reported - Past Family History Father Family Medical History: Cancer, CVA/TIA, Hyperlipidemia, Hypertension, Prostate Disorder Additional Family Medical History / Comment(s): PROSTATE CANCER Mother Additional Family Medical History / Comment(s): OBESITY-HAD GASTRIC BYPASS SX General Exam - General Exam Comments Initial Comments: Pleant 51 year old female, no distress. Limitations: no limitations General appearance: alert, in no apparent distress Head exam: Present: atraumatic, normocephalic, normal inspection Eye exam: Present: normal appearance ENT exam: Present: normal exam, mucous membranes moist Neck exam: Present: normal inspection. Absent: tenderness, meningismus, lymphadenopathy Respiratory exam: Present: normal lung sounds bilaterally. Absent: respiratory distress, wheezes, rales, rhonchi, stridor Cardiovascular Exam: Present: regular rate, normal rhythm, normal heart sounds. Absent: systolic murmur, diastolic murmur, rubs, gallop, clicks GI/Abdominal exam: Present: soft, normal bowel sounds, other (multiple scars from paniculectomy and multiple surgeries. ). Absent: distended, tenderness, guarding, rebound, rigid Extremities exam: Present: normal inspection, full ROM, normal capillary refill. Absent: tenderness, pedal edema, joint swelling, calf tenderness Back exam: Present: normal inspection Neurological exam: Present: alert, oriented X3, CN II-XII intact Psychiatric exam: Present: normal affect, normal mood Skin exam: Present: warm, dry, intact, normal color. Absent: rash Course Vital Signs 02/28/17 02/28/17 02/28/17 17:04 21:47 22:41 Temperature 96.9 F L Pulse Rate 82 81 58 L Respiratory 17 18 18 Rate Blood Pressure 128/72 121/76 126/71 O2 Sat by Pulse 98 100 99 Oximetry 03/01/17 00:55 Temperature 98.2 F Pulse Rate 75 Respiratory 18 Rate Blood Pressure 126/74 O2 Sat by Pulse 97 Oximetry Medical Decision Making - Medical Decision Making Old female chief complaint of increased constipation and unable to have bowel movement for a week. Patient's KUB x-ray which showed no significant stool burden. Patient had an elevated WBC compared to previous. Patient was complaining of significant bowel patterns. Therefore she underwent CT on pelvis again. It does not show any significant acute process. Patient was given milk and molasses enema. She did not have a major stool after that. At this time patient also is complaining of some acid reflux like pain. Given a GI cocktail does have some relief. Patient will be discharged with magnesium citrate. Discussed falling up with primary care provider. Discussed return to emergency department if any alarming signs or symptoms occur. Patient agrees treatment plan all 5. Return parameters were discussed. - Lab Data Result diagrams: 02/28/17 21:11 02/28/17 21:11 Lab Results 02/28/17 02/28/17 02/28/17 Range/Units 21:11 21:11 21:11 WBC 15.2 H (3.8-10.6) k/uL RBC 3.84 (3.80-5.40) m/uL Hgb 12.6 (11.4-16.0) gm/dL Hct 39.5 (34.0-46.0) % MCV 103.1 H (80.0-100.0) fL MCH 32.8 (25.0-35.0) pg MCHC 31.9 (31.0-37.0) g/dL RDW 14.2 (11.5-15.5) % Plt Count 336 (150-450) k/uL Neutrophils % 67 % Lymphocytes % 26 % Monocytes % 4 % Eosinophils % 1 % Basophils % 1 % Neutrophils # 10.2 H (1.3-7.7) k/uL Lymphocytes # 4.0 (1.0-4.8) k/uL Monocytes # 0.7 (0-1.0) k/uL Eosinophils # 0.2 (0-0.7) k/uL Basophils # 0.1 (0-0.2) k/uL Macrocytosis Slight PT 9.9 (9.0-12.0) sec INR 1.0 (<1.2) APTT 24.4 (22.0-30.0) sec Sodium 137 (137-145) mmol/L Potassium 3.9 (3.5-5.1) mmol/L Chloride 102 (98-107) mmol/L Carbon Dioxide 22 (22-30) mmol/L Anion Gap 13 mmol/L BUN 19 H (7-17) mg/dL Creatinine 0.78 (0.52-1.04) mg/dL Est GFR (MDRD) Af Amer >60 (>60 ml/min/1.73 sqM) Est GFR (MDRD) Non-Af >60 (>60 ml/min/1.73 sqM) Glucose 89 (74-99) mg/dL Calcium 9.9 (8.4-10.2) mg/dL Total Bilirubin 0.3 (0.2-1.3) mg/dL AST 22 (14-36) U/L ALT 37 (9-52) U/L Alkaline Phosphatase 117 (38-126) U/L Total Protein 7.5 (6.3-8.2) g/dL Albumin 4.6 (3.5-5.0) g/dL Amylase 30 (30-110) U/L Lipase 62 (23-300) U/L Urine Color Urine Appearance (Clear) Urine pH (5.0-8.0) Ur Specific [place] (1.001-1.035) Urine Protein (Negative) Urine Glucose (UA) (Negative) Urine Ketones (Negative) Urine Blood (Negative) Urine Nitrite (Negative) Urine Bilirubin (Negative) Urine Urobilinogen (<2.0) mg/dL Ur Leukocyte Esterase (Negative) Urine RBC (0-5) /hpf Urine WBC (0-5) /hpf Ur Squamous Epith Cells (0-4) /hpf Urine Mucus (None) /hpf 02/28/17 Range/Units 21:11 WBC (3.8-10.6) k/uL RBC (3.80-5.40) m/uL Hgb (11.4-16.0) gm/dL Hct (34.0-46.0) % MCV (80.0-100.0) fL MCH (25.0-35.0) pg MCHC (31.0-37.0) g/dL RDW (11.5-15.5) % Plt Count (150-450) k/uL Neutrophils % % Lymphocytes % % Monocytes % % Eosinophils % % Basophils % % Neutrophils # (1.3-7.7) k/uL Lymphocytes # (1.0-4.8) k/uL Monocytes # (0-1.0) k/uL Eosinophils # (0-0.7) k/uL Basophils # (0-0.2) k/uL Macrocytosis PT (9.0-12.0) sec INR (<1.2) APTT (22.0-30.0) sec Sodium (137-145) mmol/L Potassium (3.5-5.1) mmol/L Chloride (98-107) mmol/L Carbon Dioxide (22-30) mmol/L Anion Gap mmol/L BUN (7-17) mg/dL Creatinine (0.52-1.04) mg/dL Est GFR (MDRD) Af Amer (>60 ml/min/1.73 sqM) Est GFR (MDRD) Non-Af (>60 ml/min/1.73 sqM) Glucose (74-99) mg/dL Calcium (8.4-10.2) mg/dL Total Bilirubin (0.2-1.3) mg/dL AST (14-36) U/L ALT (9-52) U/L Alkaline Phosphatase (38-126) U/L Total Protein (6.3-8.2) g/dL Albumin (3.5-5.0) g/dL Amylase (30-110) U/L Lipase (23-300) U/L Urine Color Light Yellow Urine Appearance Clear (Clear) Urine pH 6.5 (5.0-8.0) Ur Specific [place] 1.010 (1.001-1.035) Urine Protein Negative (Negative) Urine Glucose (UA) Negative (Negative) Urine Ketones Negative (Negative) Urine Blood Negative (Negative) Urine Nitrite Negative (Negative) Urine Bilirubin Negative (Negative) Urine Urobilinogen <2.0 (<2.0) mg/dL Ur Leukocyte Esterase Small H (Negative) Urine RBC 1 (0-5) /hpf Urine WBC 2 (0-5) /hpf Ur Squamous Epith Cells <1 (0-4) /hpf Urine Mucus Rare H (None) /hpf - Radiology Data Radiology results: report reviewed KUB shows small left renal calculus. Nonacute abdomen. Clearing of gas distended loops of bowel malaise upper quadrant. EXAM. Clearing of atelectasis in the right lower lung. CT abdomen shows mild constipation, no other acute process. Disposition Clinical Impression: Abdominal pain, Constipation Disposition: HOME SELF-CARE Condition: Good Instructions: Constipation (ED), Abdominal Pain (ED) Additional Instructions: Advised to drink the magnesium citrate when you home. Follow-up with primary care provider tomorrow. Return to emergency department if any alarming signs or symptoms occur. Referrals: Peter Lake MD [Primary Care Provider] - 1-2 days Time of Disposition: 00:11
[2017-02-28 21:24] LABS: Basophils # (A) 0.1 k/uL (0-0.2); Basophils % (A) 1 %; CH 33.5; CHCM 32.6; Eosinophils # (A) 0.2 k/uL (0-0.7); Eosinophils % (A) 1 %; HCT 39.5 % (34.0-46.0); HDW 2.34; HGB 12.6 gm/dL (11.4-16.0); Luc # (Auto) 0.19; Luc % (Auto) 1; Lymphocytes % (A) 26 %; MCH 32.8 pg (25.0-35.0); MCHC 31.9 g/dL (31.0-37.0); MCV 103.1 fL (80.0-100.0); Macrocytosis Slight; Mean Platelet Volume 7.7; Monocytes # (A) 0.7 k/uL (0-1.0); Monocytes % (A) 4 %; Neutrophils # (A) 10.2 k/uL (1.3-7.7); Neutrophils % (A) 67 %; RBC 3.84 m/uL (3.80-5.40); RDW 14.2 % (11.5-15.5); WBC 15.2 k/uL (3.8-10.6); WBC (Perox) 15.84
--- NOTE | 2017-02-28 21:27 | XR ---
EXAMINATION TYPE: XR KUB DATE OF EXAM: 02/28/2017 COMPARISON: 05/29/2016 HISTORY: Constipation TECHNIQUE: 2 views FINDINGS: There is contrast in the left colon. There is no sign of intestinal obstruction or pneumope ritoneum. Fecal pattern is normal. Lung bases are clear. There is a 3 mm calcification over lower jesus e left kidney. IMPRESSION: Small left renal calculus. Nonacute abdomen. There is clearing of the gas distended loops of bowel in the left upper quadrant compared to old exam. There is clearing of atelectasis at the ri t lung base compared to old exam.
[2017-02-28 21:29] LABS: Appearance,Urine Clear (Clear); Bilirubin,Urine Negative (Negative); Glucose,Urine (UA) Negative (Negative); Ketones,Urine Negative (Negative); Leukocyte Esterase,Urine Small (Negative); Mucus,Urine Rare /hpf; Nitrite,Urine Negative (Negative); PH, Urine 6.5 (5.0-8.0); Particle Count 431; Protein,Urine Negative (Negative); RBC,Urine 1 /hpf (0-5); Squamous Epithelial Cell,Urine <1 /hpf (0-4); UA Billing (MACRO vs. MICRO) MICRO; Urobilinogen,Urine <2.0 mg/dL (<2.0); WBC,Urine 2 /hpf (0-5)
[2017-02-28 21:36] LABS: ALT 37 U/L (9-52); AST 22 U/L (14-36); Alkaline Phosphatase 117 U/L (38-126); Amylase 30 U/L (30-110); Anion Gap 13 mmol/L; Blood Urea Nitrogen 19 mg/dL (7-17); Calcium 9.9 mg/dL (8.4-10.2); Carbon Dioxide 22 mmol/L (22-30); Chloride 102 mmol/L (98-107); Glucose 89 mg/dL (74-99); Non-African American GFR(MDRD) >60 (>60 ml/min/1.73 sqM); Partial Thromboplastin Time 24.4 sec (22.0-30.0); Potassium 3.9 mmol/L (3.5-5.1); Prothrombin Time 9.9 sec (9.0-12.0); Sodium 137 mmol/L (137-145); Total Bilirubin 0.3 mg/dL (0.2-1.3); Total Protein 7.5 g/dL (6.3-8.2)
[2017-02-28] MEDS ORDERED: RX INFO: IV CONTRAST WAS GIVEN 1 EACH MISC MISCELLANE PRN (21:43)
[2017-02-28 21:48] VITALS: RESP 18
--- NOTE | 2017-02-28 22:34 | CT ---
EXAMINATION TYPE: CT abdomen pelvis w con DATE OF EXAM: 02/28/2017 COMPARISON: NONE HISTORY: No bowel movement x [address] DLP: 705.10 mGycm Automated exposure control for dose reduction was used. TECHNIQUE: Helical acquisition of images was performed from the lung bases through the pelvis. CONTRAST: Performed without Oral Contrast and with IV Contrast, patient injected with 100 mL of Omnipaque 300. FINDINGS: Lung bases are clear. There is no pleural effusion. Liver spleen pancreas appear normal. Bile ducts a re not dilated. There are clips from gastric surgery. Gallbladder is absent. There is no adrenal mass. Kidneys show satisfactory contrast opacification. There is no hydronephrosi s. There is no retroperitoneal adenopathy. There is metal artifact from posterior lower lumbar spine fusion surgery. Bladder distends smoothly. There is no sign of a pelvic mass. There is some retained fecal material in the right colon. There is contrast in the left colon apparently from previous CT sc an. There is no ascites. I see no focal bone destruction. There is mesh in the upper anterior abdomen from hernia surgery. IMPRESSION: PREVIOUS SURGERY. RESIDUAL ORAL CONTRAST IN THE LEFT: FROM LAST CT SCAN. MILD CONSTIPATION. NO SIGN O F ACUTE ABDOMEN AND PELVIS. 1 CM RIGHT RENAL CORTICAL CYSTS NOTED.
[2017-02-28] MEDS ORDERED: MORPHINE SULFATE 2 MG/ML SYRINGE IV ONE (22:53)
[2017-02-28] MEDS ORDERED: MAG HYDROX/AL HYDROX/SIMETH 30 ML, HYOSCYAMINE ELIXIR 10 ML, CIMETIDINE HCL 300 MG, LID... PO STA ×4 (23:38)
[2017-02-28] MEDS ORDERED: MAGNESIUM CITRATE 296 ML BOTTLE PO ONE (23:39)
[2017-02-28] MEDS ORDERED: MORPHINE SULFATE 2 MG/ML SYRINGE IVP STA (23:47)
[2017-03-01 00:55] VITALS: BP 126/74; PULSE 75; TEMP 98.2
== END 2017-03-01 00:55 | disposition home or self-care (01) ==
LOC: EC 16:53
DX: K59.00 Constipation, unspecified (principal); R10.9 Unspecified abdominal pain; M79.7 Fibromyalgia; K21.9 Gastro-esophageal reflux disease without esophagitis; M19.90 Unspecified osteoarthritis, unspecified site; G47.33 Obstructive sleep apnea (adult) (pediatric); F31.9 Bipolar disorder, unspecified; F41.9 Anxiety disorder, unspecified; Z87.891 Personal history of nicotine dependence; Z79.82 Long term (current) use of aspirin; Z79.899 Other long term (current) drug therapy; Z88.0 Allergy status to penicillin; Z91.018 Allergy to other foods; Z90.710 Acquired absence of both cervix and uterus; Z90.49 Acquired absence of other specified parts of digestive tract
CPT/HCPCS: 99285 ×2; 96374 ×2; 96375 ×2; 96361 ×2; 36415; 80053; 82150; 83690; 85025; 85610; 85730; 81001; 74000; 74177; J1885; J2270; Q9967

== ENCOUNTER 2017-04-06 07:57 | Day surgery (SDC) | payer BC, MEDICARE ==
[2017-03-31 12:45] VITALS: BMI 28.7
[~2017-04-06 07:57] MED LIST: LACTATED RINGERS 1,000 ML IV SCH; LIDOCAINE 1% 20 ML VIAL (10MG/ML) FOR IV START INTRADERMA PRN
--- NOTE | 2017-04-06 08:09 | P.GSHP ---
History of Present Illness H&P Date: 04/06/17 Chief Complaint: Constipation This a 51-year-old female who's had chronic issues with constipation. Patient presents today for colonoscopy. He's had some issues with rectal bleeding. Past Medical History Past Medical History: Asthma, Fibromyalgia, GERD/Reflux, Mitral Valve Prolapse ( MVP), Osteoarthritis (OA), Sleep Apnea/CPAP/BIPAP Additional Past Medical History / Comment(s): Chronic bronchial asthma, migraine, nephrolithiasis, gastric ulcer, varicose veins, chronic fatigue syndrome, pernicious anemia, History of Any Multi-Drug Resistant Organisms: None Reported Past Surgical History: Appendectomy, Back Surgery, Bariatric Surgery, Section, Cholecystectomy, Hernia Repair, Hysterectomy Additional Past Surgical History / Comment(s): x2, metal removed from rt eye 15 years ago, kidney stone-lithotripsy, gastric bypass 2003 years ago. EGD X2, COLONOSCOPY. Carpal tunnel release bilaterally, PANNICULECTOMY Past Anesthesia/Blood Transfusion Reactions: Family History of Problems w/ Anesthesia Additional Past Anesthesia/Blood Transfusion Reaction / Comment(s): family members w/severe headaches w/anesthesia Smoking Status: Former smoker - Past Family History Father Family Medical History: Cancer, CVA/TIA, Hyperlipidemia, Hypertension, Prostate Disorder Additional Family Medical History / Comment(s): PROSTATE CANCER Mother Additional Family Medical History / Comment(s): OBESITY-HAD GASTRIC BYPASS SX Medications and Allergies Home Medications Medication Instructions Recorded Confirmed Type DULoxetine HCL [Cymbalta] 60 mg PO BID 03/19/15 03/31/17 History Sucralfate [Carafate] 1 gm PO ACHS 03/19/15 03/31/17 History Albuterol Inhaler [Ventolin Hfa 2 puff INHALATION RT-QID PRN 07/31/15 03/31/17 History Inhaler] Omeprazole [PriLOSEC] 40 mg PO AC-BRKFST #30 cap 08/20/15 03/31/17 Rx Buprenorphine HCl [Subutex] 2 mg SUBLINGUAL BID@0800,1200 02/21/17 03/31/17 History Ondansetron [Zofran ODT] 4 mg PO Q8HR PRN #20 tab 02/21/17 03/31/17 Rx busPIRone HCL [Buspar] 30 mg PO BID 02/21/17 03/31/17 History Aspirin/Acetaminophen/Caffeine 1 tab PO BID 02/28/17 03/31/17 History [Excedrin Extra Strength Caplet] Buprenorphine HCl [Subutex] 4 mg SUBLINGUAL DAILY@1600 02/28/17 03/31/17 History Dicyclomine [Bentyl] 20 mg PO QID PRN 02/28/17 03/31/17 History Spironolactone 100 mg PO DAILY 02/28/17 03/31/17 History diphenhydrAMINE HCL [Benadryl] 50 mg PO BID PRN 02/28/17 03/31/17 History Acetaminophen Tab [Tylenol Tab] 1,000 mg PO Q6HR PRN 03/31/17 03/31/17 History Cholecalciferol [Vitamin D3] 5,000 unit PO DAILY 03/31/17 03/31/17 History Allergies Allergy/AdvReac Type Severity Reaction Status Date / Time broccoli Allergy Severe Anaphylaxis Verified 03/31/17 12:39 with raw broccoli Penicillins Allergy Intermediate Facial Verified 03/31/17 12:39 Swelling Surgical - Exam - General well developed, no distress - Eyes PERRL - ENT normal pinna - Neck no masses - Respiratory normal expansion - Cardiovascular Rhythm: regular - Abdomen Abdomen: soft, non tender Assessment and Plan Assessment: Chronic constipation, GI bleed. We'll perform colonoscopy.
[2017-04-06 08:12] VITALS: TEMP 97.4
[2017-04-06] MEDS ORDERED: PROPOFOL 10 MG/ML 20 ML VIAL IV ONE (08:22)
[2017-04-06 08:45] VITALS: PULSE 79
--- NOTE | 2017-04-06 08:47 | P.OP ---
Date of Procedure: 04/06/17 Preoperative Diagnosis: Constipation GI bleed Postoperative Diagnosis: External hemorrhoids Normal colonoscopy Anesthesia: MAC Surgeon: López Washington Pathology: none sent Condition: stable Disposition: PACU Description of Procedure: The patient's placed on the endoscopy table in the lateral position. She received IV sedation. Digital rectal exam was performed which revealed external hemorrhoids. The flexible colonoscope was then placed patient anus and passed throughout the entire colon. The ileocecal valve was visualized. Cecum, ascending and transverse colon appeared normal. The descending and sigmoid colon appeared normal. There is no evidence of any mechanical obstruction scope was then brought back the rectum and this appeared normal. Scope was withdrawn for patient.
[2017-04-06 09:04] VITALS: BP 117/81; RESP 16
== END 2017-04-06 09:26 | disposition home or self-care (01) ==
LOC: ORWHC2ENDO 07:57
PROVIDERS: ATTEND Surgery
DX: K64.4 Residual hemorrhoidal skin tags (principal); K59.09 Other constipation; M79.7 Fibromyalgia; K21.9 Gastro-esophageal reflux disease without esophagitis; I34.1 Nonrheumatic mitral (valve) prolapse; M19.90 Unspecified osteoarthritis, unspecified site; G47.30 Sleep apnea, unspecified; J44.9 Chronic obstructive pulmonary disease, unspecified; J45.998 Other asthma; G43.909 Migraine, unspecified, not intractable, without status migrainosus; R53.83 Other fatigue; N20.0 Calculus of kidney; Z98.84 Bariatric surgery status; Z79.82 Long term (current) use of aspirin; Z79.899 Other long term (current) drug therapy; Z88.0 Allergy status to penicillin; Z91.018 Allergy to other foods; Z87.891 Personal history of nicotine dependence
CPT/HCPCS: 45378; J2704

== ENCOUNTER → 2017-04-18 | Outpatient (CLI) | payer BC, MEDICARE ==
--- NOTE | 2017-04-18 08:58 | XR ---
EXAMINATION TYPE: XR cervical spine comp DATE OF EXAM: 04/18/2017 COMPARISON: NONE HISTORY: Pain TECHNIQUE: Four views are submitted. FINDINGS: The odontoid is intact. There are no compression deformities. The prevertebral soft tissue structur es are within normal limits. Diffuse osteopenia noted. Minimal anterolisthesis of C5 on C6 and C4 on C5 with facet arthropathy at these levels. Mild multilevel degenerative disc disease IMPRESSION: 1. Mild multilevel degenerative disc disease with slight anterolisthesis of C4 on C5 and C5-C6. Facet arthropathy at these levels. Recommend follow-up MRI.
--- NOTE | 2017-04-18 09:01 | XR ---
EXAMINATION TYPE: XR thoracic spine complete DATE OF EXAM: 04/18/2017 COMPARISON: NONE HISTORY: chronic back pain Alignment is anatomic. There is no compression deformities. Vertebral body height and disc interspa morena are maintained. Multilevel degenerative disc disease and hypertrophic changes seen. Scoliotic cur vature noted. IMPRESSION: 1. Multilevel degenerative disc disease with scoliotic curvature..
--- NOTE | 2017-04-18 17:05 | FL ---
EXAMINATION TYPE: FL UGI w small bowel DATE OF EXAM: 04/18/2017 COMPARISON: NONE HISTORY: Dysphasia cramping vomiting diarrhea reflux TECHNIQUE: A single contrast UGI study is performed with small bowel follow through. FINDINGS: Electric System Operator image of the abdomen shows no gross abnormality. Multiple surgical clips are in the upper abdomen compatible with the patient's Kaya-en-Y surgery history. Esophagus dilates to normal caliber has normal contour to the gastroesophageal junction. Gastroesopha geal junction opens to normal caliber. Overhead radiographs were obtained. There is prompt flow of contrast through the stomach into the sma ll bowel. Very little stomach remains present. Small bowel follow-through: Slow administration of contrast was obtained with sequential overhead rad iographs. The jejunum has a normal caliber has a normal fold pattern. There is a loop of small bowel which is somewhat prominent in the left lateral aspect appears to be a loop of jejunum. Focal stenosi s however is not identified. Mild adhesion causing minimal obstruction is not entirely excluded but s omewhat unlikely given the transit time to the colon. Transit time to the colon is estimated at 1 hour 50 minutes. Distal ileum has a normal fold pattern a nd normal caliber. Note is made during fluoroscopy as well as on overhead radiographs of thickened irregular ascending c olon. Correlate for colitis. Neoplasm is not entirely excluded, additional workup of the ascending co kavitha is recommended. IMPRESSION: 1. Normal single contrast upper GI post Kaya-en-Y without evidence of stenosis at the anastomosis. 2. Minimal partial small bowel obstruction of the lateral left jejunum is not entirely excluded. Cons ider ileus as well. 3. Transit time to the colon is 1 hour 50 minutes suggesting significant obstruction is not evident. 4. The ascending colon from the cecum appears thickened with inflammatory changes nor head radiograph s and fluoroscopic spot images. Correlate for colitis. Additional workup is recommended.
== END | disposition home or self-care (01) ==
LOC: RADFLMAIN 08:22
PROVIDERS: ATTEND Family Medicine
DX: M50.30 Other cervical disc degeneration, unspecified cervical region (principal); M43.16 Spondylolisthesis, lumbar region; M46.92 Unspecified inflammatory spondylopathy, cervical region; M51.34 Other intervertebral disc degeneration, thoracic region; M41.84 Other forms of scoliosis, thoracic region; R13.10 Dysphagia, unspecified
CPT/HCPCS: 72050; 72072; 74245

== ENCOUNTER 2017-06-19 20:24 | Emergency (ER) | payer BC, MEDICARE ==
[2017-06-19] MEDS ORDERED: RX INFO: IV CONTRAST WAS GIVEN 1 EACH MISC MISCELLANE PRN (20:43)
[2017-06-19] MEDS ORDERED: SODIUM CHLORIDE 0.9% 1,000 ML IV STA (20:43)
[2017-06-19] MEDS ORDERED: IOHEXOL 350 MG/ML 25 ML BOTTLE (ORAL USE) PO PRN (20:43)
--- NOTE | 2017-06-19 20:46 | ED ---
General Adult HPI - General Chief complaint: Abdominal Pain Stated complaint: abdominal pain Time Seen by Provider: 06/19/17 20:37 Source: patient, RN notes reviewed Mode of arrival: wheelchair Limitations: no limitations - History of Present Illness Initial comments: 51 yo female presents to the ER with a chief complaint of flareup of her chronic abdominal pain. She suffers chronically from abdominal pain she's had multiple surgeries on her abdomen and her surgeon is Dr. Berry. She states her last year so she's had these flareup of abdominal pains. She seen a surgeon she's had multiple different studies and tests they're unable to figure it out. She states now she's developed this chest discomfort with this. He denies any shortness of breath. She states she has had nausea and dry heaving associated with the abdominal pain. She states food seems to make everything worse. Do not know if this chest pain is related to her abdominal pain or not. She denies any high fevers. She denies any diaphoresis. Family history of heart disease in the past. She states the pain in her chest goes from stabbing achy. It does seem to correlate with the abdominal pain. Patient denies any recent fever, chills, shortness of breath, numbness or tingling, dysuria or hematuria, constipation or diarrhea, headaches or visual changes, or any other current symptoms. - Related Data Home Medications Medication Instructions Recorded Confirmed DULoxetine HCL [Cymbalta] 60 mg PO BID 03/19/15 06/19/17 Albuterol Inhaler [Ventolin Hfa 2 puff INHALATION RT-QID PRN 07/31/15 06/19/17 Inhaler] Buprenorphine HCl [Subutex] 2 mg SUBLINGUAL BID@0800,1200 02/21/17 06/19/17 busPIRone HCL [Buspar] 30 mg PO BID 02/21/17 06/19/17 Buprenorphine HCl [Subutex] 4 mg SUBLINGUAL DAILY@1600 02/28/17 06/19/17 Dicyclomine [Bentyl] 20 mg PO TID PRN 02/28/17 06/19/17 Spironolactone 100 mg PO DAILY 02/28/17 06/19/17 diphenhydrAMINE HCL [Benadryl] 25 - 50 mg PO BID PRN 02/28/17 06/19/17 Acetaminophen Tab [Tylenol Tab] 1,000 mg PO Q6HR PRN 03/31/17 06/19/17 Acetaminophen/Diphenhydramine 1 - 2 tab PO HS PRN 06/19/17 06/19/17 [Tylenol PM 500-25mg] Butalb/APAP/Caff 50-325-40Mg 1 tab PO Q4H PRN 06/19/17 06/19/17 [Fioricet 50-325-40] Sennosides [Senna] 8.6 mg PO BID 06/19/17 06/19/17 Previous Rx's Medication Instructions Recorded Hydrocodone/Acetaminophen [Flom 1 each PO Q6HR PRN #20 tab 06/19/17 5-325] Allergies Allergy/AdvReac Type Severity Reaction Status Date / Time broccoli Allergy Severe Anaphylaxis Verified 06/19/17 20:54 with raw broccoli Penicillins Allergy Intermediate Facial Verified 06/19/17 20:54 Swelling Review of Systems ROS Statement: Those systems with pertinent positive or pertinent negative responses have been documented in the HPI. ROS Other: All systems not noted in ROS Statement are negative. Past Medical History Past Medical History: Asthma, Fibromyalgia, GERD/Reflux, Mitral Valve Prolapse ( MVP), Osteoarthritis (OA), Sleep Apnea/CPAP/BIPAP Additional Past Medical History / Comment(s): Chronic bronchial asthma, migraine, nephrolithiasis, gastric ulcer, varicose veins, chronic fatigue syndrome, pernicious anemia, History of Any Multi-Drug Resistant Organisms: None Reported Past Surgical History: Appendectomy, Back Surgery, Bariatric Surgery, Section, Cholecystectomy, Hernia Repair, Hysterectomy Additional Past Surgical History / Comment(s): x2, metal removed from rt eye 15 years ago, kidney stone-lithotripsy, gastric bypass 2003 years ago. EGD X2, COLONOSCOPY. Carpal tunnel release bilaterally, PANNICULECTOMY Past Anesthesia/Blood Transfusion Reactions: Family History of Problems w/ Anesthesia Additional Past Anesthesia/Blood Transfusion Reaction / Comment(s): family members w/severe headaches w/anesthesia Past Psychological History: Anxiety, Bipolar Smoking Status: Former smoker Past Alcohol Use History: None Reported Past Drug Use History: None Reported - Past Family History Father Family Medical History: Cancer, CVA/TIA, Hyperlipidemia, Hypertension, Prostate Disorder Additional Family Medical History / Comment(s): PROSTATE CANCER Mother Additional Family Medical History / Comment(s): OBESITY-HAD GASTRIC BYPASS SX General Exam - General Exam Comments Initial Comments: General: The patient is awake and alert, in no distress, and does not appear acutely ill. Eye: Pupils are equal, round and reactive to light, extra-ocular movements are intact; there is normal conjunctiva bilaterally. No signs of icterus. Ears, nose, mouth and throat: There are moist mucous membranes and no oral lesions. Neck: The neck is supple, there is no tenderness. Cardiovascular: There is a regular rate and rhythm. No murmur, rub or gallop is appreciated. Respiratory: Lungs are clear to auscultation, respirations are non-labored, breath sounds are equal. No wheezes, stridor, rales, or rhonchi. Gastrointestinal: Soft, non-distended, mild diffuse tender abdomen without masses or organomegaly noted. There is no rebound or guarding present. No CVA tenderness. Bowel sounds are unremarkable. Back: There is no tenderness to palpation in the midline. There is no obvious deformity. No rashes noted. Musculoskeletal: Normal ROM, no tenderness, There is no pedal edema. There is no calf tenderness or swelling. Sensation intact. Pulses equal bilaterally 2+. Neurological: CN II-XII intact, There are no obvious motor or sensory deficits. Coordination appears grossly intact. Speech is normal. Skin: Skin is warm and dry and no rashes or lesions are noted. Psychiatric: Cooperative, appropriate mood & affect, normal judgment. Limitations: no limitations Course Vital Signs 06/19/17 06/19/17 20:26 21:56 Temperature 97.3 F L Pulse Rate 87 75 Respiratory 16 18 Rate Blood Pressure 144/84 135/85 O2 Sat by Pulse 100 100 Oximetry EKG Findings - EKG Comments: EKG Findings:: normal sinus rhythm 76 bpm, normal axis, no atopy, no S-T depressions or elevations, Medical Decision Making - Medical Decision Making 51-year-old female presents for a flareup of her chronic abdominal pain along with associated chest pain. At this time patient's EKG and lab work has been reviewed. She's had this pain for over a week. At this time we did discuss the CAT scan results and she needs follow-up with Dr. Berry. We did discuss the patient may have a mild colitis which is flaring up her pain. We discussed to use her at home pain medication for discomfort. We did discuss close follow- up with Dr. Berry and return parameters all questions. Patient stated that she understood and she is in agreement this plan. All questions have been answered. She will be discharged. - Lab Data Result diagrams: 06/19/17 21:02 06/19/17 21:02 Lab Results 06/19/17 06/19/17 06/19/17 Range/Units 21:02 21:02 21:02 WBC 7.5 (3.8-10.6) k/uL RBC 4.11 (3.80-5.40) m/uL Hgb 12.0 (11.4-16.0) gm/dL Hct 38.6 (34.0-46.0) % MCV 93.8 (80.0-100.0) fL MCH 29.1 (25.0-35.0) pg MCHC 31.0 (31.0-37.0) g/dL RDW 17.0 H (11.5-15.5) % Plt Count 248 (150-450) k/uL Neutrophils % 65 % Lymphocytes % 25 % Monocytes % 7 % Eosinophils % 1 % Basophils % 0 % Neutrophils # 4.8 (1.3-7.7) k/uL Lymphocytes # 1.9 (1.0-4.8) k/uL Monocytes # 0.5 (0-1.0) k/uL Eosinophils # 0.1 (0-0.7) k/uL Basophils # 0.0 (0-0.2) k/uL Hypochromasia Slight Anisocytosis Slight PT (9.0-12.0) sec INR (<1.2) APTT (22.0-30.0) sec Sodium 137 (137-145) mmol/L Potassium 3.5 (3.5-5.1) mmol/L Chloride 104 (98-107) mmol/L Carbon Dioxide 23 (22-30) mmol/L Anion Gap 10 mmol/L BUN 11 (7-17) mg/dL Creatinine 0.60 (0.52-1.04) mg/dL Est GFR (MDRD) Af Amer >60 (>60 ml/min/1.73 sqM) Est GFR (MDRD) Non-Af >60 (>60 ml/min/1.73 sqM) Glucose 89 (74-99) mg/dL Calcium 9.1 (8.4-10.2) mg/dL Magnesium 1.3 L (1.6-2.3) mg/dL Total Bilirubin 0.2 (0.2-1.3) mg/dL AST 23 (14-36) U/L ALT 26 (9-52) U/L Alkaline Phosphatase 118 (38-126) U/L Total Creatine Kinase 53 (30-135) U/L CK-MB (CK-2) 0.8 (0.0-2.4) ng/mL CK-MB (CK-2) Rel Index 1.5 Troponin I <0.012 (0.000-0.034) ng/mL Total Protein 5.8 L (6.3-8.2) g/dL Albumin 3.2 L (3.5-5.0) g/dL Amylase <30 L (30-110) U/L Lipase 25 (23-300) U/L 06/19/17 Range/Units 21:02 WBC (3.8-10.6) k/uL RBC (3.80-5.40) m/uL Hgb (11.4-16.0) gm/dL Hct (34.0-46.0) % MCV (80.0-100.0) fL MCH (25.0-35.0) pg MCHC (31.0-37.0) g/dL RDW (11.5-15.5) % Plt Count (150-450) k/uL Neutrophils % % Lymphocytes % % Monocytes % % Eosinophils % % Basophils % % Neutrophils # (1.3-7.7) k/uL Lymphocytes # (1.0-4.8) k/uL Monocytes # (0-1.0) k/uL Eosinophils # (0-0.7) k/uL Basophils # (0-0.2) k/uL Hypochromasia Anisocytosis PT 10.2 (9.0-12.0) sec INR 1.0 (<1.2) APTT 26.2 (22.0-30.0) sec Sodium (137-145) mmol/L Potassium (3.5-5.1) mmol/L Chloride (98-107) mmol/L Carbon Dioxide (22-30) mmol/L Anion Gap mmol/L BUN (7-17) mg/dL Creatinine (0.52-1.04) mg/dL Est GFR (MDRD) Af Amer (>60 ml/min/1.73 sqM) Est GFR (MDRD) Non-Af (>60 ml/min/1.73 sqM) Glucose (74-99) mg/dL Calcium (8.4-10.2) mg/dL Magnesium (1.6-2.3) mg/dL Total Bilirubin (0.2-1.3) mg/dL AST (14-36) U/L ALT (9-52) U/L Alkaline Phosphatase (38-126) U/L Total Creatine Kinase (30-135) U/L CK-MB (CK-2) (0.0-2.4) ng/mL CK-MB (CK-2) Rel Index Troponin I (0.000-0.034) ng/mL Total Protein (6.3-8.2) g/dL Albumin (3.5-5.0) g/dL Amylase (30-110) U/L Lipase (23-300) U/L - Radiology Data Radiology results: report reviewed, image reviewed Disposition Clinical Impression: Colitis, Chronic abdominal pain Disposition: HOME SELF-CARE Condition: Stable Instructions: Abdominal Pain (ED), Colitis (ED) Additional Instructions: Please use medication as discussed. Please follow up with family doctor if symptoms have not improved over the next two days. Please return to the emergency room if your symptoms increase or worsen or for any other concerns. Prescriptions: Hydrocodone/Acetaminophen [Flom 5-325] 1 each PO Q6HR PRN #20 tab PRN Reason: Pain Referrals: Peter Lake MD [Primary Care Provider] - 1-2 days Time of Disposition: 22:17
[2017-06-19 21:14] LABS: Anisocytosis Slight; Basophils % (A) 0 %; Eosinophils # (A) 0.1 k/uL (0-0.7); Eosinophils % (A) 1 %; HCT 38.6 % (34.0-46.0); Hypochromasia Slight; Lymphocytes # (A) 1.9 k/uL (1.0-4.8); Lymphocytes % (A) 25 %; MCH 29.1 pg (25.0-35.0); MCV 93.8 fL (80.0-100.0); Mean Platelet Volume 7.4; Monocytes # (A) 0.5 k/uL (0-1.0); Monocytes % (A) 7 %; Neutrophils # (A) 4.8 k/uL (1.3-7.7); Neutrophils % (A) 65 %; Platelet Count 248 k/uL (150-450); RBC 4.11 m/uL (3.80-5.40); WBC 7.5 k/uL (3.8-10.6)
[2017-06-19 21:22] LABS: Partial Thromboplastin Time 26.2 sec (22.0-30.0); Prothrombin Time 10.2 sec (9.0-12.0)
--- NOTE | 2017-06-19 21:39 | XR ---
EXAMINATION TYPE: XR chest 2V DATE OF EXAM: 06/19/2017 COMPARISON: 11/10/1715 HISTORY: Chest pain TECHNIQUE: Frontal and lateral views of the chest are obtained. FINDINGS: There is no focal air space opacity, pleural effusion, or pneumothorax seen. The cardiac silhouette size is within normal limits. The osseous structures are intact. Mild acromioclavicular arthropathy is seen. IMPRESSION: No acute cardiopulmonary process.
[2017-06-19 21:42] LABS: Creatine Kinase 53 U/L (30-135)
[2017-06-19 21:45] LABS: ALT 26 U/L (9-52); AST 23 U/L (14-36); Albumin 3.2 g/dL (3.5-5.0); Alkaline Phosphatase 118 U/L (38-126); Amylase <30 U/L (30-110); Anion Gap 10 mmol/L; Blood Urea Nitrogen 11 mg/dL (7-17); Calcium 9.1 mg/dL (8.4-10.2); Carbon Dioxide 23 mmol/L (22-30); Chloride 104 mmol/L (98-107); Glucose 89 mg/dL (74-99); Lipase 25 U/L (23-300); Magnesium 1.3 mg/dL (1.6-2.3); Potassium 3.5 mmol/L (3.5-5.1); Sodium 137 mmol/L (137-145); Total Bilirubin 0.2 mg/dL (0.2-1.3); Total Protein 5.8 g/dL (6.3-8.2)
--- NOTE | 2017-06-19 21:49 | CT ---
EXAMINATION TYPE: CT abdomen pelvis w con DATE OF EXAM: 06/19/2017 HISTORY: Epigastric pain. CT DLP: 510.5mGycm Automated Exposure Control for Dose Reduction was Utilized. CONTRAST: CT scan of the abdomen and pelvis is performed with IV Contrast, patient injected with 100ml mL of Om nipaque 300. COMPARISON: None. FINDINGS: LUNG BASES: No significant abnormality is appreciated. LIVER/GB: No significant abnormality is appreciated. PANCREAS: No significant abnormality is seen. SPLEEN: No significant abnormality is seen. ADRENALS: No significant abnormality is seen. KIDNEYS: 2 small to accurately characterize renal lesions may represent renal cysts. Additionally the re are bilateral 2 mm nonobstructing upper pole renal calculi. Mild hydroureteral nephrosis. Right hy droureter is seen secondary to a 3 mm obstructing calculus at the distal ureter approximately 1.5 cm proximal to the ureteropelvic junction. BOWEL: There is new bowel wall thickening of the bypassed stomach with mild surrounding inflammatory fat stranding. Thickening is also seen of the Kaya limb with mild surrounding inflammatory change ext ending into the anterior abdomen on series 3 image 19. Single loop of dilated bowel seen at the anast omotic site in the left mid abdomen, only minimally changed from the exam of 02/28/2017. Majority the small bowel is located within the left hemiabdomen, this is also unchanged from the exam of 02/28/2017 . Postsurgical changes of the ventral abdomen are also noted. No other loops of dilated bowel are see n. Additionally there is decompression of the descending colon with bowel wall thickening of the sple heron flexure and transverse colon. UTERUS/ADNEXA: No gross abnormality seen. LYMPH NODES: No greater than 1cm abdominal or pelvic lymph nodes are appreciated. Few prominent but n onenlarged central mesenteric lymph nodes are seen on sagittal series 7 image 25 and 27. OSSEOUS STRUCTURES: Postoperative changes of the lumbosacral junction are noted as well as grade 1 an terolisthesis of L4 on L5, unchanged from the prior. OTHER: No significant additional abnormality is seen. IMPRESSION: 1. Obstructing 3 mm calculus within the distal right ureter approximately 1.5 cm from the ureterovesi cular junction creating mild right hydroureteronephrosis. Additional bilateral nonobstructing renal c alculi. 2. New bowel wall thickening of the descending colon and transverse colon as well as the splenic flex ure suggesting mild colitis. 3. New bowel wall thickening of the bypassed stomach with surrounding inflammatory fat stranding. Fin ding could relate to incomplete distention and fat stranding could relate to be adjacent colitis or g astritis. 4. Distention of the solitary bowel loop in the left mid abdomen at the anastomotic site, progressed from the prior. Remainder the bowel loops are nondilated and this may be related to peristalsis or mi ld ileus. Majority of the bowel loops are seen within the left mid abdomen and pelvis however this fi nding is unchanged from the prior and internal hernia is not suspected.
[2017-06-19] MEDS ORDERED: HYDROmorphone 0.5 MG/0.5 ML SYRINGE IVP STA ×2 (21:51→22:16)
[2017-06-19 21:54] LABS: Creatine Kinase MB 0.8 ng/mL (0.0-2.4); Troponin I <0.012 ng/mL (0.000-0.034)
[2017-06-19 21:57] VITALS: RESP 18
[2017-06-19 22:30] VITALS: BP 132/85; PULSE 84; TEMP 98.2
== END 2017-06-19 22:34 | disposition home or self-care (01) ==
LOC: EC 20:24
DX: K52.9 Noninfective gastroenteritis and colitis, unspecified (principal); F41.9 Anxiety disorder, unspecified; F31.9 Bipolar disorder, unspecified; G47.30 Sleep apnea, unspecified; Z87.19 Personal history of other diseases of the digestive system; Z90.49 Acquired absence of other specified parts of digestive tract; Z98.84 Bariatric surgery status; Z90.710 Acquired absence of both cervix and uterus; Z98.890 Other specified postprocedural states; Z87.891 Personal history of nicotine dependence; Z79.899 Other long term (current) drug therapy; Z88.0 Allergy status to penicillin; Z91.018 Allergy to other foods
CPT/HCPCS: 36415; 93005; 80053; 82150; 82550; 82553; 83690; 83735; 84484; 85025; 85610; 85730; 71046; 74177; 99284; 96374; 96376; 96361; Q9967; J1170

== ENCOUNTER 2017-06-23 07:56 | Day surgery (SDC) | payer BC, MEDICARE ==
[2017-06-22 08:22] VITALS: BMI 25.6
[2017-06-23 08:11] VITALS: TEMP 98
[2017-06-23] MEDS ORDERED: GLYCOPYRROLATE 0.2 MG/ML 2 ML VIAL ONE (08:54)
[2017-06-23] MEDS ORDERED: LIDOCAINE 1% INJ 10MG/ML (20 ML MDV) ONE (08:54)
[2017-06-23] MEDS ORDERED: PROPOFOL 10 MG/ML 20 ML VIAL IV ONE (08:54)
--- NOTE | 2017-06-23 09:05 | P.GSHP ---
History of Present Illness H&P Date: 06/23/17 Chief Complaint: GI bleed, epigastric pain This a 51-year-old female for from Dr. Peter Morales. Patient presents today for EGD and colonoscopy. Patient complaints of epigastric pain and GI bleed. Patient's. History of gastric bypass surgery. Past Medical History Past Medical History: Asthma, Fibromyalgia, GERD/Reflux, Sleep Apnea/CPAP/BIPAP Additional Past Medical History / Comment(s): migraines, gastric ulcer, varicose veins, chronic fatigue syndrome, hx pernicious anemia, abdominal pain- colitis-IBS, oral yeast infections, hx kidney stones History of Any Multi-Drug Resistant Organisms: None Reported Past Surgical History: Appendectomy, Back Surgery, Bariatric Surgery, Section, Cholecystectomy, Hernia Repair, Hysterectomy Additional Past Surgical History / Comment(s): x2, metal removed from rt eye 15 years ago,-lithotripsy, gastric bypass 2002 , 2 titanium rods in lower back, Carpal tunnel release bilaterally, PANNICULECTOMY Past Anesthesia/Blood Transfusion Reactions: Family History of Problems w/ Anesthesia Additional Past Anesthesia/Blood Transfusion Reaction / Comment(s): family members w/severe headaches w/anesthesia Smoking Status: Former smoker - Past Family History Father Family Medical History: Cancer Additional Family Medical History / Comment(s): PROSTATE CANCER Mother Additional Family Medical History / Comment(s): OBESITY-HAD GASTRIC BYPASS SX Medications and Allergies Home Medications Medication Instructions Recorded Confirmed Type DULoxetine HCL [Cymbalta] 60 mg PO BID 03/19/15 06/23/17 History Albuterol Inhaler [Ventolin Hfa 2 puff INHALATION QID PRN 07/31/15 06/23/17 History Inhaler] busPIRone HCL [Buspar] 30 mg PO BID 02/21/17 06/23/17 History Dicyclomine [Bentyl] 20 mg PO TID PRN 02/28/17 06/23/17 History Spironolactone 100 mg PO DAILY 02/28/17 06/23/17 History diphenhydrAMINE HCL [Benadryl] 25 - 50 mg PO BID PRN 02/28/17 06/23/17 History Acetaminophen Tab [Tylenol Tab] 1,000 mg PO Q6HR PRN 03/31/17 06/23/17 History Acetaminophen/Diphenhydramine 1 - 2 tab PO HS PRN 06/19/17 06/23/17 History [Tylenol PM 500-25mg] Butalb/APAP/Caff 50-325-40Mg 1 tab PO Q4H PRN 06/19/17 06/23/17 History [Fioricet 50-325-40] Hydrocodone/Acetaminophen [[place] 1 each PO Q6HR PRN #20 tab 06/19/17 06/23/17 Rx 5-325] Allergies Allergy/AdvReac Type Severity Reaction Status Date / Time broccoli Allergy Severe Anaphylaxis Verified 06/23/17 08:04 with raw broccoli Penicillins Allergy Intermediate Facial Verified 06/23/17 08:04 Swelling diet cola Allergy GI irritant Uncoded 06/23/17 08:04 Surgical - Exam Vital Signs Temp Pulse Resp BP Pulse Ox 98 F 94 16 117/82 99 06/23/17 08:10 06/23/17 08:10 06/23/17 08:10 06/23/17 08:10 06/23/17 08:10 - General well developed, no distress - Eyes PERRL - ENT normal pinna - Neck no masses - Respiratory normal expansion - Cardiovascular Rhythm: regular - Abdomen Mild epigastric pain Abdomen: soft, non tender Assessment and Plan Assessment: GI bleed, epigastric pain. We'll perform EGD and colonoscopy.
[2017-06-23 09:30] VITALS: RESP 18
--- NOTE | 2017-06-23 09:31 | P.OP ---
Date of Procedure: 06/23/17 Preoperative Diagnosis: GI bleed, epigastric pain Postoperative Diagnosis: Marginal ulcer of gastrojejunostomy. Normal colonoscopy Procedure(s) Performed: EGD Colonoscopy Anesthesia: MAC Surgeon: López [place] Pathology: other (Marginal ulcer) Condition: stable Disposition: PACU Description of Procedure: The patient's placed on the endoscopy table lateral position. She received IV sedation. The gastroscope placed oropharynx passed in the esophagus and into the stomach. The patient a previous Kaya-en-Y gastric bypass. At the gastrojejunostomy there was a large ulcer seen. There was a fibropurulent peel located in the bed of the ulcer. There is no active bleeding. The ulcer was biopsied. Scope was then withdrawn and there is no other gastric pathology seen. The GE junction was at 47 is. The distal esophagus and proximal esophagus appeared normal. Scope was withdrawn for patient. Next digital rectal exam was performed which revealed no abnormalities. The flexible colonoscope was then placed patient anus and passed throughout the entire colon. The ileocecal valve was visualized. The cecum, ascending and transverse colon appeared normal. The descending and; appeared normal. Scope was then brought back the rectum and this appeared normal. Scope was withdrawn from patient.
[2017-06-23 10:00] VITALS: BP 105/78; PULSE 75
== END 2017-06-23 09:50 | disposition home or self-care (01) ==
LOC: ORWHC2ENDO 07:56
PROVIDERS: ATTEND Surgery
DX: K52.9 Noninfective gastroenteritis and colitis, unspecified (principal); K25.9 Gastric ulcer, unspecified as acute or chronic, without hemorrhage or perforation; Z98.84 Bariatric surgery status; K21.9 Gastro-esophageal reflux disease without esophagitis; J45.909 Unspecified asthma, uncomplicated; M79.7 Fibromyalgia; G47.30 Sleep apnea, unspecified; Z99.89 Dependence on other enabling machines and devices; G43.909 Migraine, unspecified, not intractable, without status migrainosus; R53.82 Chronic fatigue, unspecified; Z87.11 Personal history of peptic ulcer disease; Z87.442 Personal history of urinary calculi; Z87.891 Personal history of nicotine dependence; Z79.899 Other long term (current) drug therapy; Z88.0 Allergy status to penicillin; Z91.018 Allergy to other foods
CPT/HCPCS: 45378; 43239; J2001; J2704; 88305

== ENCOUNTER 2017-08-02 19:03 | Emergency (ER) | payer BC, MEDICARE ==
[2017-08-02 19:43] LABS: Anisocytosis Slight; Basophils % (A) 0 %; Eosinophils # (A) 0.1 k/uL (0-0.7); Eosinophils % (A) 1 %; HCT 37.1 % (34.0-46.0); HGB 11.6 gm/dL (11.4-16.0); Lymphocytes # (A) 2.8 k/uL (1.0-4.8); Lymphocytes % (A) 32 %; MCH 29.3 pg (25.0-35.0); MCHC 31.2 g/dL (31.0-37.0); MCV 93.9 fL (80.0-100.0); Mean Platelet Volume 7.6; Monocytes # (A) 0.5 k/uL (0-1.0); Monocytes % (A) 6 %; Neutrophils # (A) 5.1 k/uL (1.3-7.7); Neutrophils % (A) 58 %; Platelet Count 231 k/uL (150-450); RBC 3.96 m/uL (3.80-5.40); WBC 8.8 k/uL (3.8-10.6)
--- NOTE | 2017-08-02 19:50 | XR ---
EXAMINATION TYPE: XR chest 2V DATE OF EXAM: 08/02/2017 COMPARISON: 06/19/2017 HISTORY: Chest pain TECHNIQUE: Frontal and lateral views of the chest are obtained. FINDINGS: Heart and mediastinum are normal. Lungs are clear. Diaphragm is normal. Bony thorax is int act. IMPRESSION: Normal chest. No change.
[2017-08-02 19:52] LABS: Albumin 2.7 g/dL (3.5-5.0); Calcium 8.8 mg/dL (8.4-10.2); Magnesium 1.8 mg/dL (1.6-2.3); Potassium 3.4 mmol/L (3.5-5.1); Total Bilirubin 0.3 mg/dL (0.2-1.3); Total Protein 5.1 g/dL (6.3-8.2)
[2017-08-02 19:58] LABS: INR 1.1 (<1.2); Partial Thromboplastin Time 27.2 sec (22.0-30.0); Prothrombin Time 10.4 sec (9.0-12.0)
[2017-08-02] MEDS ORDERED: SODIUM CHLORIDE 0.9% 500 ML IV STA ×2 (20:10→21:18)
[2017-08-02] MEDS ORDERED: SODIUM CHLORIDE 0.9% 1,000 ML IV STA (20:10)
[2017-08-02 20:14] VITALS: RESP 18
--- NOTE | 2017-08-02 20:14 | ED ---
Chest Pain HPI - General Chief Complaint: Chest Pain Stated Complaint: Palpitations/dizzy Time Seen by Provider: 08/02/17 20:00 Source: patient, RN notes reviewed Mode of arrival: ambulatory Limitations: no limitations - History of Present Illness Initial Comments: This is a 51-year-old female with a history of a gastric pouch who states for last 5 days she's had episodes of lightheadedness and dizziness distress. She tries to stand up and walk occasionally when she sits. She states her hearts also been racing. Currently she is not doing in the above. She states also she 's had decreased oral intake recently. She states she does get somewhat nauseated when she tries eating or drinking. She did see her surgeon 5 days ago she states his symptoms; going on since. She has a history of GI bleeding she is concerned this may be a case of she's had no bleeding in her bowel movements and has not vomited any blood or dark material. She does deny any chest pain at this time or prior. MD Complaint: other - Related Data Home Medications Medication Instructions Recorded Confirmed DULoxetine HCL [Cymbalta] 60 mg PO BID 03/19/15 08/02/17 Albuterol Inhaler [Ventolin Hfa 2 puff INHALATION QID PRN 07/31/15 08/02/17 Inhaler] busPIRone HCL [Buspar] 30 mg PO BID 02/21/17 08/02/17 Dicyclomine [Bentyl] 20 mg PO TID PRN 02/28/17 08/02/17 Spironolactone 100 mg PO DAILY 02/28/17 08/02/17 diphenhydrAMINE HCL [Benadryl] 25 - 50 mg PO BID PRN 02/28/17 08/02/17 Acetaminophen Tab [Tylenol Tab] 1,000 mg PO Q6HR PRN 03/31/17 08/02/17 Butalb/APAP/Caff 50-325-40Mg 1 tab PO Q4H PRN 06/19/17 08/02/17 [Fioricet 50-325-40] Bon[place] 1 tab PO BID 08/02/17 08/02/17 Buprenorphine HCl [Subutex] 2 mg SL QID 08/02/17 08/02/17 Cholecalciferol [Vitamin D3] 5,000 unit PO DAILY 08/02/17 08/02/17 Fiber+Calcium 1,000mg 1 tab PO DAILY 08/02/17 08/02/17 Furosemide [Lasix] 40 mg PO DAILY PRN 08/02/17 08/02/17 L.acidoph,Paracasei, B.lactis 1 cap PO BID 08/02/17 08/02/17 [Probiotic] Lisinopril [Zestril] 10 mg PO DAILY 08/02/17 08/02/17 Meclizine HCl 25 mg PO BID 08/02/17 08/02/17 Metolazone [Zaroxolyn] 2.5 mg PO DAILY PRN 08/02/17 08/02/17 Multivitamin [Multivitamins Adult 2 tab PO DAILY 08/02/17 08/02/17 Gummies] Ondansetron HCl [Zofran] 4 mg PO BID PRN 08/02/17 08/02/17 Sennosides [Ex-Lax Maximum 25 mg PO BID 08/02/17 08/02/17 Strength] Previous Rx's Medication Instructions Recorded Omeprazole 40 mg PO DAILY #60 capsule. 06/23/17 Sucralfate [Carafate] 1 gm PO BID #60 tablet 06/23/17 Cephalexin [Keflex] 500 mg PO Q6HR #40 cap 08/02/17 Allergies Allergy/AdvReac Type Severity Reaction Status Date / Time broccoli Allergy Severe Anaphylaxis Verified 08/02/17 20:28 with raw broccoli Penicillins Allergy Intermediate Facial Verified 08/02/17 20:28 Swelling diet cola Allergy GI irritant Uncoded 06/23/17 08:04 Review of Systems ROS Statement: Those systems with pertinent positive or pertinent negative responses have been documented in the HPI. ROS Other: All systems not noted in ROS Statement are negative. EKG Findings - EKG Results: EKG: interpreted by EMMANUEL, sinus rhythm (Normal sinus rhythm rate of 88. Interval 144 QRS duration 84 QT since QTC 362/or 38 this is a normal-appearing EKG.) Past Medical History Past Medical History: Asthma, Fibromyalgia, GERD/Reflux, Sleep Apnea/CPAP/BIPAP Additional Past Medical History / Comment(s): migraines, gastric ulcer, varicose veins, chronic fatigue syndrome, hx pernicious anemia, abdominal pain- colitis-IBS, oral yeast infections, hx kidney stones History of Any Multi-Drug Resistant Organisms: None Reported Past Surgical History: Appendectomy, Back Surgery, Bariatric Surgery, Section, Cholecystectomy, Hernia Repair, Hysterectomy Additional Past Surgical History / Comment(s): x2, metal removed from rt eye 15 years ago,-lithotripsy, gastric bypass 2002 , 2 titanium rods in lower back, Carpal tunnel release bilaterally, PANNICULECTOMY Past Anesthesia/Blood Transfusion Reactions: Family History of Problems w/ Anesthesia Additional Past Anesthesia/Blood Transfusion Reaction / Comment(s): family members w/severe headaches w/anesthesia Past Psychological History: Anxiety, Depression Smoking Status: Former smoker - Past Family History Father Family Medical History: Cancer Additional Family Medical History / Comment(s): PROSTATE CANCER Mother Additional Family Medical History / Comment(s): OBESITY-HAD GASTRIC BYPASS SX General Exam - General Exam Comments Initial Comments: This a well-developed well-nourished awake alert oriented 3 female Limitations: no limitations General appearance: alert, anxious Head exam: Present: atraumatic, normocephalic, normal inspection Eye exam: Present: normal appearance, PERRL, EOMI. Absent: scleral icterus, conjunctival injection, periorbital swelling ENT exam: Present: mucous membranes dry Neck exam: Present: normal inspection. Absent: tenderness, meningismus, lymphadenopathy Respiratory exam: Present: normal lung sounds bilaterally. Absent: respiratory distress, wheezes, rales, rhonchi, stridor Cardiovascular Exam: Present: regular rate, normal rhythm, normal heart sounds. Absent: systolic murmur, diastolic murmur, rubs, gallop, clicks GI/Abdominal exam: Present: soft, tenderness (Mild left upper quadrant tenderness palpation no guarding rebound masses or bruits), normal bowel sounds. Absent: distended, guarding, rebound, rigid Extremities exam: Present: normal inspection, full ROM, normal capillary refill. Absent: tenderness, pedal edema, joint swelling, calf tenderness Back exam: Present: normal inspection Neurological exam: Present: alert, oriented X3, CN II-XII intact Psychiatric exam: Present: normal affect, normal mood Skin exam: Present: warm, dry, intact, normal color. Absent: rash Course Vital Signs 08/02/17 08/02/17 08/02/17 19:54 20:11 21:24 Temperature 97.2 F L Pulse Rate 95 91 91 Pulse Rate [ 89 Apical] Respiratory 16 18 18 Rate Blood Pressure 88/55 102/68 97/60 O2 Sat by Pulse 100 98 98 Oximetry - Reevaluation(s) Reevaluation #1: 08/02/17 21:28 I did discuss case with Dr. Washington. The patient will be discharged and follow -up with his office in 2 days. Reevaluation #2: 08/02/17 21:31 Patient is able to take Keflex as she has ALLERGY to penicillin. Chest Pain MDM - MDM I did discuss the findings with the patient and her . X-rays negative for acute findings the workup is consistent with a urinary tract infection as well as dehydration. The patient will receive IV fluids she can take Keflex she will be placed on it with the initial dose tonight. She is increase her oral fluids follow-up with her doctor and return when necessary Disposition Clinical Impression: Urinary tract infection, Dehydration Disposition: HOME SELF-CARE Condition: Good Instructions: Urinary Tract Infection in Women (ED), Dehydration (ED) Additional Instructions: Increase oral fluids, follow-up with Dr. Washington in 2 days. Prescriptions: Cephalexin [Keflex] 500 mg PO Q6HR #40 cap Referrals: Peter Lake MD [Primary Care Provider] - 1-2 days López Washington MD [STAFF PHYSICIAN] - 1-2 days
[2017-08-02 20:18] LABS: Creatine Kinase MB 1.7 ng/mL (0.0-2.4)
[2017-08-02 20:25] LABS: Amylase <30 U/L (30-110); Lipase 54 U/L (23-300)
[2017-08-02 20:46] LABS: Amorphous Sediment,Urine Occasional /hpf; Appearance,Urine Clear (Clear); Bacteria,Urine Moderate /hpf; Bilirubin,Urine Negative (Negative); Blood,Urine Negative (Negative); Color,Urine Yellow; Glucose,Urine (UA) Negative (Negative); Hyaline Casts,Urine 76 /lpf (0-2); Ketones,Urine Trace (Negative); Leukocyte Esterase,Urine Moderate (Negative); Mucus,Urine Rare /hpf; Nitrite,Urine Positive (Negative); PH, Urine 6.5 (5.0-8.0); Protein,Urine Negative (Negative); RBC,Urine 1 /hpf (0-5); Specific Gravity,Urine 1.014 (1.001-1.035); Squamous Epithelial Cell,Urine 1 /hpf (0-4); Urobilinogen,Urine <2.0 mg/dL (<2.0); WBC,Urine 37 /hpf (0-5)
[2017-08-02] MEDS ORDERED: CEPHALEXIN 500 MG CAP PO STA (21:18)
[2017-08-02 21:49] VITALS: BP 100/65; PULSE 98; TEMP 97.4
== END 2017-08-02 21:48 | disposition home or self-care (01) ==
LOC: EC 19:03
DX: E86.0 Dehydration (principal); N39.0 Urinary tract infection, site not specified; J45.909 Unspecified asthma, uncomplicated; G47.30 Sleep apnea, unspecified; K58.9 Irritable bowel syndrome, unspecified; F41.9 Anxiety disorder, unspecified; F32.9 Major depressive disorder, single episode, unspecified; Z87.19 Personal history of other diseases of the digestive system; Z87.891 Personal history of nicotine dependence; Z99.89 Dependence on other enabling machines and devices; Z90.49 Acquired absence of other specified parts of digestive tract; Z90.710 Acquired absence of both cervix and uterus; Z98.84 Bariatric surgery status; Z98.890 Other specified postprocedural states; Z79.899 Other long term (current) drug therapy; Z88.0 Allergy status to penicillin; Z91.018 Allergy to other foods
CPT/HCPCS: 36415; 71046; 80053; 81001; 82150; 82550; 82553; 83690; 83735; 84484; 85025; 85610; 85730; 93005; 96360; 99285

== ENCOUNTER 2017-08-09 06:48 | Day surgery (SDC) | payer BC, MEDICARE ==
[2017-08-05 11:21] VITALS: BMI 22.8
[2017-08-09 07:11] VITALS: RESP 18
[2017-08-09] MEDS ORDERED: LACTATED RINGERS 1,000 ML IV ONE (07:12)
[2017-08-09] MEDS ORDERED: fentaNYL (PF) 50 MCG/ML 2 ML AMP ONE (07:48)
[2017-08-09] MEDS ORDERED: PROPOFOL 10 MG/ML 20 ML VIAL IV ONE (07:48)
[2017-08-09] MEDS ORDERED: GLYCOPYRROLATE 0.2 MG/ML 2 ML VIAL ONE (07:48)
[2017-08-09] MEDS ORDERED: LIDOCAINE 1% INJ 10MG/ML (20 ML MDV) ONE (07:48)
--- NOTE | 2017-08-09 08:06 | P.GSHP ---
History of Present Illness H&P Date: 08/09/17 Chief Complaint: Peptic ulcer disease Asst. 51-year-old female with previous history of gastric bypass. Patient has a known history of marginal ulcer of the gastrojejunostomy. Patient states that she had increased pain last week. Patient presents today for EGD to evaluate her marginal ulcer. Past Medical History Past Medical History: Asthma, Fibromyalgia, GERD/Reflux, GI Bleed, Sleep Apnea/ CPAP/BIPAP Additional Past Medical History / Comment(s): Migraines, gastric ulcer, varicose veins, chronic fatigue syndrome, hx pernicious anemia, abdominal pain- colitis-IBS, oral yeast infections, hx kidney stones. USES BIPAP. VOMITING, CONSTIPATION SUBSIDED, CURRENT ULCER FOUND 06/23/17. ON PO AB RX FOR UTI. History of Any Multi-Drug Resistant Organisms: None Reported Past Surgical History: Appendectomy, Back Surgery, Bariatric Surgery, Section, Cholecystectomy, Hernia Repair, Hysterectomy Additional Past Surgical History / Comment(s): C-S x2, Metal removed from rt eye 15 years ago,-lithotripsy, gastric bypass 2002 , 2 titanium rods in lower back, Carpal tunnel release bilaterally, ABD HERNIAS. PANNICULECTOMY. EGD, COLONOSCOPY 06/23/17. Past Anesthesia/Blood Transfusion Reactions: Family History of Problems w/ Anesthesia Additional Past Anesthesia/Blood Transfusion Reaction / Comment(s): family members w/severe headaches w/anesthesia Smoking Status: Former smoker - Past Family History Father Family Medical History: Cancer Additional Family Medical History / Comment(s): PROSTATE CANCER Mother Additional Family Medical History / Comment(s): OBESITY-HAD GASTRIC BYPASS SX Medications and Allergies Home Medications Medication Instructions Recorded Confirmed Type DULoxetine HCL [Cymbalta] 60 mg PO BID 03/19/15 08/09/17 History Albuterol Inhaler [Ventolin Hfa 2 puff INHALATION QID PRN 07/31/15 08/09/17 History Inhaler] busPIRone HCL [Buspar] 30 mg PO BID 02/21/17 08/09/17 History Dicyclomine [Bentyl] 20 mg PO TID PRN 02/28/17 08/09/17 History Spironolactone 100 mg PO DAILY 02/28/17 08/09/17 History diphenhydrAMINE HCL [Benadryl] 25 - 50 mg PO BID PRN 02/28/17 08/09/17 History Acetaminophen Tab [Tylenol Tab] 1,000 mg PO Q6HR PRN 03/31/17 08/09/17 History Butalb/APAP/Caff 50-325-40Mg 1 tab PO Q4H PRN 06/19/17 08/09/17 History [Fioricet 50-325-40] Omeprazole 40 mg PO DAILY #60 capsule.dr 06/23/17 08/09/17 Rx Buprenorphine HCl [Subutex] 2 mg SL QID 08/02/17 08/09/17 History Cephalexin [Keflex] 500 mg PO Q6HR #40 cap 08/02/17 08/09/17 Rx Cholecalciferol [Vitamin D3] 5,000 unit PO DAILY 08/02/17 08/09/17 History Furosemide [Lasix] 40 mg PO DAILY PRN 08/02/17 08/09/17 History Lisinopril [Zestril] 10 mg PO DAILY PRN 08/02/17 08/09/17 History Meclizine HCl 25 mg PO BID PRN 08/02/17 08/09/17 History Metolazone [Zaroxolyn] 2.5 mg PO DAILY PRN 08/02/17 08/09/17 History Multivitamin [Multivitamins Adult 2 tab PO DAILY 08/02/17 08/09/17 History Gummies] Ondansetron HCl [Zofran] 4 mg PO BID PRN 08/02/17 08/09/17 History Sennosides [Ex-Lax Maximum 25 mg PO BID 08/02/17 08/09/17 History Strength] Fiber + Calcium Gummies 2 tab PO DAILY 08/05/17 08/09/17 History Probiotic Gummies 2 tab PO DAILY 08/05/17 08/09/17 History Sucralfate [Carafate] 1 gm PO QID 08/05/17 08/09/17 History Allergies Allergy/AdvReac Type Severity Reaction Status Date / Time broccoli Allergy Severe Anaphylaxis Verified 08/09/17 07:08 with raw broccoli Penicillins Allergy Intermediate Facial Verified 08/09/17 07:08 Swelling diet cola Allergy GI irritant Uncoded 08/09/17 07:08 Surgical - Exam Vital Signs Pulse Resp BP Pulse Ox 90 18 95/62 98 08/09/17 07:09 08/09/17 07:09 08/09/17 07:09 08/09/17 07:09 - General well developed, no distress - Eyes PERRL - ENT normal pinna - Neck no masses - Respiratory normal expansion - Cardiovascular Rhythm: regular - Abdomen Mild epigastric tenderness Abdomen: soft Assessment and Plan Assessment: Marginal ulcer. We'll perform EGD.
--- NOTE | 2017-08-09 08:16 | P.OP ---
Date of Procedure: 08/09/17 Preoperative Diagnosis: Peptic ulcer disease Postoperative Diagnosis: Marginal ulcer of gastrojejunostomy Procedure(s) Performed: EGD Anesthesia: MAC Surgeon: López Washington Pathology: other (Marginal ulcer) Condition: stable Disposition: PACU Description of Procedure: The patient's placed on the endoscopy table in the lateral position. She received IV sedation. The gastric was placed oropharynx and passed in the esophagus and into the stomach. The patient a previous gastrojejunostomy related to a Kaya-en-Y gastric bypass. At the site of the gastrojejunostomy there was a marginal ulcer. This was photographed. And biopsied. The marginal ulcer. The smaller than previously visualized. The gastrojejunostomy was patent. The remainder some appeared normal. The GE junction was at 39 cm. The distal esophagus appeared normal. The scope was then withdrawn from patient.
[2017-08-09 08:38] VITALS: BP 97/52; PULSE 95
== END 2017-08-09 08:54 | disposition home or self-care (01) ==
LOC: ORWHC2ENDO 06:48
PROVIDERS: ATTEND Surgery
DX: K28.7 Chronic gastrojejunal ulcer without hemorrhage or perforation (principal); J45.909 Unspecified asthma, uncomplicated; M79.7 Fibromyalgia; K21.9 Gastro-esophageal reflux disease without esophagitis; G47.33 Obstructive sleep apnea (adult) (pediatric); G43.909 Migraine, unspecified, not intractable, without status migrainosus; R53.82 Chronic fatigue, unspecified; F41.9 Anxiety disorder, unspecified; F32.9 Major depressive disorder, single episode, unspecified; K58.9 Irritable bowel syndrome, unspecified; Z98.84 Bariatric surgery status; Z99.89 Dependence on other enabling machines and devices; Z79.899 Other long term (current) drug therapy; Z88.0 Allergy status to penicillin; Z91.018 Allergy to other foods; Z87.891 Personal history of nicotine dependence
CPT/HCPCS: 88305; 88342; 43239; J2001; J3010; J2704

== ENCOUNTER → 2017-08-19 | Outpatient (CLI) | payer BC, MEDICARE ==
--- NOTE | 2017-08-19 19:33 | CT ---
EXAMINATION TYPE: CT abdomen pelvis wo con DATE OF EXAM: 08/19/2017 COMPARISON: 06/19/2017 HISTORY: c/o abdominal pain and cramping, flank pain, difficulty with urination. hx of stones, unexpl ained weight loss of [address] DLP: 221.0 mGycm Automated exposure control for dose reduction was used. TECHNIQUE: Helical acquisition of images was performed from the lung bases through the pelvis. FINDINGS: Lung bases are clear. There is no pleural effusion. Heart size is normal. There are surgical clips ap parently from bariatric surgery at the gastric fundus. Liver and spleen appear normal. Bile ducts are not dilated. Gallbladder appears absent. There is no e vidence of pancreatic mass. There is some thinning of the pancreas. There is no adrenal mass. Kidneys of normal size and contour. There is no hydronephrosis. There is a 1 cm cortical cyst on the lower pole right kidney. There is no retroperitoneal adenopathy. There is n o ascites. There is mesh in the anterior mid abdomen apparently from hernia surgery. There is posteri or fusion surgery in the lower lumbar spine with metal artifact. There is no ascites. There is no sig n of free air. I see no intestinal wall thickening. There are no dilated loops. Bladder distends smoo thly. There is no evidence of a pelvic mass. IMPRESSION: PREVIOUS SURGERY. NO DILATED DUCTS. SMALL RIGHT RENAL CYST. NO SIGN OF ACUTE ABDOMEN AND PELVIS. NO A DVERSE CHANGE COMPARED TO RECENT EXAM OF 06/19/2017. THERE IS HIGH ATTENUATION IN THE ANTERIOR EPIGAST SEBASTIAN REGION RELATED TO PREVIOUS SURGERY. THE POSSIBILITY OF RETAINED SPONGES CANNOT BE EXCLUDED. NO EV IDENCE OF RECURRENT HERNIA.
== END | disposition home or self-care (01) ==
LOC: RADCTMAIN 18:48
PROVIDERS: ATTEND Family Medicine
DX: R63.4 Abnormal weight loss (principal); Z98.890 Other specified postprocedural states
CPT/HCPCS: 74176

== ENCOUNTER 2017-08-20 19:16 | Emergency (ER) | payer BC, MEDICARE ==
[2017-08-20] MEDS ORDERED: SODIUM CHLORIDE 0.9% 1,000 ML IV STA (19:41)
[2017-08-20 20:22] LABS: Anisocytosis Slight; Basophils % (A) 0 %; Eosinophils # (A) 0.1 k/uL (0-0.7); Eosinophils % (A) 1 %; HCT 38.6 % (34.0-46.0); Lymphocytes # (A) 2.4 k/uL (1.0-4.8); Lymphocytes % (A) 33 %; MCH 32.3 pg (25.0-35.0); MCHC 33.6 g/dL (31.0-37.0); Macrocytosis Slight; Mean Platelet Volume 7.3; Monocytes # (A) 0.4 k/uL (0-1.0); Monocytes % (A) 5 %; Neutrophils # (A) 4.2 k/uL (1.3-7.7); Neutrophils % (A) 57 %; Platelet Count 349 k/uL (150-450); RBC 4.02 m/uL (3.80-5.40); RDW 18.1 % (11.5-15.5); WBC 7.3 k/uL (3.8-10.6)
[2017-08-20 20:28] LABS: Appearance,Urine Clear (Clear); Bacteria,Urine Rare /hpf; Bilirubin,Urine Negative (Negative); Blood,Urine Negative (Negative); Color,Urine Yellow; Glucose,Urine (UA) Negative (Negative); Hyaline Casts,Urine 4 /lpf (0-2); Ketones,Urine 1+ (Negative); Leukocyte Esterase,Urine Moderate (Negative); Mucus,Urine Occasional /hpf; Nitrite,Urine Negative (Negative); PH, Urine 6.5 (5.0-8.0); Protein,Urine Trace (Negative); Specific Gravity,Urine 1.032 (1.001-1.035); Squamous Epithelial Cell,Urine 2 /hpf (0-4); WBC,Urine 3 /hpf (0-5)
[2017-08-20 20:33] LABS: ALT 51 U/L (9-52); AST 39 U/L (14-36); Albumin 2.4 g/dL (3.5-5.0); Alkaline Phosphatase 133 U/L (38-126); Amylase <30 U/L (30-110); Anion Gap 7 mmol/L; Blood Urea Nitrogen 14 mg/dL (7-17); Calcium 8.8 mg/dL (8.4-10.2); Carbon Dioxide 25 mmol/L (22-30); Chloride 100 mmol/L (98-107); Glucose 88 mg/dL (74-99); Lipase 132 U/L (23-300); Magnesium 1.7 mg/dL (1.6-2.3); Phosphorus 3.3 mg/dL (2.5-4.5); Potassium 3.7 mmol/L (3.5-5.1); Sodium 132 mmol/L (137-145); Total Bilirubin 0.3 mg/dL (0.2-1.3); Total Protein 4.7 g/dL (6.3-8.2)
--- NOTE | 2017-08-20 22:04 | ED ---
General Adult HPI - General Chief complaint: Nausea/Vomiting/Diarrhea Stated complaint: Weakness Time Seen by Provider: 08/20/17 19:31 Source: patient, RN notes reviewed Mode of arrival: ambulatory Limitations: no limitations - History of Present Illness Initial comments: This is a 51-year-old female presented to the emergency department with chief complaint of weakness. Patient states that she's been feeling weak and tired with decreased appetite for the last 3-4 days. She says that when she is urinating she only has a small stream and feels like she has to force urination. Patient states that she feels like she passed a kidney stone approximately one week ago. Denies any current abdominal pain, nausea or vomiting. She does admit to chills but denies fevers. Denies chest pain or shortness of breath, diarrhea or constipation. She does admit to an extensive history of abdominal surgeries including cholecystectomy, appendectomy, total hysterectomy, gastric bypass and multiple abdominal surgeries. Patient states that she has been experiencing upper abdominal pain and 20 minutes after eating. - Related Data Home Medications Medication Instructions Recorded Confirmed DULoxetine HCL [Cymbalta] 60 mg PO BID 03/19/15 08/20/17 Albuterol Inhaler [Ventolin Hfa 2 puff INHALATION RT-QID PRN 07/31/15 08/20/17 Inhaler] busPIRone HCL [Buspar] 30 mg PO BID 02/21/17 08/20/17 Dicyclomine [Bentyl] 20 mg PO TID PRN 02/28/17 08/20/17 Spironolactone 100 mg PO DAILY 02/28/17 08/20/17 diphenhydrAMINE HCL [Benadryl] 25 - 50 mg PO BID PRN 02/28/17 08/20/17 Acetaminophen Tab [Tylenol Tab] 1,000 mg PO Q6HR PRN 03/31/17 08/20/17 Butalb/APAP/Caff 50-325-40Mg 1 tab PO Q4H PRN 06/19/17 08/20/17 [Fioricet 50-325-40] Buprenorphine HCl [Subutex] 2 mg SL QID 08/02/17 08/20/17 Cholecalciferol [Vitamin D3] 5,000 unit PO DAILY 08/02/17 08/20/17 Furosemide [Lasix] 40 mg PO DAILY PRN 08/02/17 08/20/17 Lisinopril [Zestril] 10 mg PO DAILY PRN 08/02/17 08/20/17 Meclizine HCl 25 mg PO BID PRN 08/02/17 08/20/17 Metolazone [Zaroxolyn] 2.5 mg PO DAILY PRN 08/02/17 08/20/17 Multivitamin [Multivitamins Adult 2 tab PO DAILY 08/02/17 08/20/17 Gummies] Ondansetron HCl [Zofran] 4 mg PO BID PRN 08/02/17 08/20/17 Sennosides [Ex-Lax Maximum 25 mg PO BID 08/02/17 08/20/17 Strength] Fiber + Calcium Gummies 2 tab PO DAILY 08/05/17 08/20/17 Probiotic Gummies 2 tab PO DAILY 08/05/17 08/20/17 Sucralfate [Carafate] 1 gm PO QID 08/05/17 08/20/17 Previous Rx's Medication Instructions Recorded Omeprazole 40 mg PO DAILY #60 capsule. 06/23/17 Nystatin 100,000 Unit/ml Susp 5 ml PO QID 10 Days 08/20/17 [Mycostatin Oral Susp] Allergies Allergy/AdvReac Type Severity Reaction Status Date / Time broccoli Allergy Severe Anaphylaxis Verified 08/20/17 19:32 with raw broccoli Penicillins Allergy Intermediate Facial Verified 08/20/17 19:32 Swelling diet cola Allergy GI irritant Uncoded 08/20/17 19:27 Review of Systems ROS Statement: Those systems with pertinent positive or pertinent negative responses have been documented in the HPI. ROS Other: All systems not noted in ROS Statement are negative. Past Medical History Past Medical History: Asthma, Fibromyalgia, GERD/Reflux, Sleep Apnea/CPAP/BIPAP Additional Past Medical History / Comment(s): migraines, gastric ulcer, varicose veins, chronic fatigue syndrome, hx pernicious anemia, abdominal pain- colitis-IBS, oral yeast infections, hx kidney stones History of Any Multi-Drug Resistant Organisms: None Reported Past Surgical History: Appendectomy, Back Surgery, Bariatric Surgery, Section, Cholecystectomy, Hernia Repair, Hysterectomy Additional Past Surgical History / Comment(s): x2, metal removed from rt eye 15 years ago,-lithotripsy, gastric bypass 2002 , 2 titanium rods in lower back, Carpal tunnel release bilaterally, PANNICULECTOMY Past Anesthesia/Blood Transfusion Reactions: Family History of Problems w/ Anesthesia Additional Past Anesthesia/Blood Transfusion Reaction / Comment(s): family members w/severe headaches w/anesthesia Past Psychological History: Anxiety, Depression Smoking Status: Former smoker Past Alcohol Use History: Occasional Past Drug Use History: None Reported - Past Family History Father Family Medical History: Cancer Additional Family Medical History / Comment(s): PROSTATE CANCER Mother Additional Family Medical History / Comment(s): OBESITY-HAD GASTRIC BYPASS SX General Exam - General Exam Comments Initial Comments: General: Awake and alert, well-developed; in no apparent distress. HEENT: Head atraumatic, normocephalic. Pupils are equal, round and reactive to light. Extraocular movements intact. Oropharynx moist without erythema. White, curd-like lesions on tongue. Neck: Supple. Normal ROM. Cardiovascular: Regular rate and rhythm. No murmurs, rubs or gallops. Chest symmetrical. Respiratory: Lungs clear to auscultation bilaterally. No wheezes, rales or rhonchi. Normal respiratory effort with no use of accessory muscles. Abdomen: Soft, non-tender, non-distended. No rigidity, rebound or guarding. Normal bowel sounds in all 4 quadrants. Multiple abdominal surgical scars are noted. Musculoskeletal: Normal ROM, no tenderness bilateral upper and lower extremities. Ambulating normally. Skin: [place], warm and dry without rashes or lesions. Neurological: Alert and oriented x3. CN II-XII grossly intact. Speech is fluent and answers are appropriate. No focal neuro deficits. Psychiatric: Normal mood and affect. No overt signs of depression or anxiety noted. Limitations: no limitations Course Vital Signs 08/20/17 19:24 Temperature 98.0 F Pulse Rate 90 Respiratory 20 Rate Blood Pressure 101/66 O2 Sat by Pulse 99 Oximetry Medical Decision Making - Medical Decision Making This is a 51-year-old female who presented to the emergency department with chief complaint of weakness and abdominal pain. This has been going on for the past 4 days. Patient does admit to multiple abdominal surgeries. Vital signs are stable and she is in no acute distress. CBC, CMP and UA were unremarkable. Patient did have an outpatient computed tomography scan of the abdomen and pelvis yesterday. I did review the report. This revealed no evidence for an acute abdomen or recurring hiatal hernia. However, it did suggest possible retained sponges from a previous surgery. I discussed CT findings with patient and strongly advised her to follow up with surgeon as well as her primary care provider. Patient is in agreement. This case was discussed with attending physician, Dr. Lacey who also evaluated the patient. Recommended follow up outpatient with surgeon as well as her primary care provider. Patient also complained of a possible oral yeast infection. There is white curd-like lesions on her tongue. Patient will be started on oral nystatin. Patient was made aware of findings and plan. She will be discharged home. She is in agreement and voices understanding. All questions were answered. - Lab Data Result diagrams: 08/20/17 19:55 08/20/17 19:55 Lab Results 08/20/17 08/20/17 08/20/17 Range/Units 19:55 19:55 19:55 WBC 7.3 (3.8-10.6) k/uL RBC 4.02 (3.80-5.40) m/uL Hgb 13.0 (11.4-16.0) gm/dL Hct 38.6 (34.0-46.0) % MCV 96.0 (80.0-100.0) fL MCH 32.3 (25.0-35.0) pg MCHC 33.6 (31.0-37.0) g/dL RDW 18.1 H (11.5-15.5) % Plt Count 349 (150-450) k/uL Neutrophils % 57 % Lymphocytes % 33 % Monocytes % 5 % Eosinophils % 1 % Basophils % 0 % Neutrophils # 4.2 (1.3-7.7) k/uL Lymphocytes # 2.4 (1.0-4.8) k/uL Monocytes # 0.4 (0-1.0) k/uL Eosinophils # 0.1 (0-0.7) k/uL Basophils # 0.0 (0-0.2) k/uL Anisocytosis Slight Macrocytosis Slight Sodium 132 L (137-145) mmol/L Potassium 3.7 (3.5-5.1) mmol/L Chloride 100 (98-107) mmol/L Carbon Dioxide 25 (22-30) mmol/L Anion Gap 7 mmol/L BUN 14 (7-17) mg/dL Creatinine 0.60 (0.52-1.04) mg/dL Est GFR (CKD-EPI)AfAm >90 (>60 ml/min/1.73 sqM) Est GFR (CKD-EPI)NonAf >90 (>60 ml/min/1.73 sqM) Glucose 88 (74-99) mg/dL Calcium 8.8 (8.4-10.2) mg/dL Phosphorus 3.3 (2.5-4.5) mg/dL Magnesium 1.7 (1.6-2.3) mg/dL Total Bilirubin 0.3 (0.2-1.3) mg/dL AST 39 H (14-36) U/L ALT 51 (9-52) U/L Alkaline Phosphatase 133 H (38-126) U/L Total Protein 4.7 L (6.3-8.2) g/dL Albumin 2.4 L (3.5-5.0) g/dL Amylase <30 L (30-110) U/L Lipase 132 (23-300) U/L Urine Color Yellow Urine Appearance Clear (Clear) Urine pH 6.5 (5.0-8.0) Ur Specific [place] 1.032 (1.001-1.035) Urine Protein Trace H (Negative) Urine Glucose (UA) Negative (Negative) Urine Ketones 1+ H (Negative) Urine Blood Negative (Negative) Urine Nitrite Negative (Negative) Urine Bilirubin Negative (Negative) Urine Urobilinogen 3.0 (<2.0) mg/dL Ur Leukocyte Esterase Moderate H (Negative) Urine WBC 3 (0-5) /hpf Ur Squamous Epith Cells 2 (0-4) /hpf Urine Bacteria Rare H (None) /hpf Hyaline Casts 4 H (0-2) /lpf Urine Mucus Occasional H (None) /hpf Disposition Clinical Impression: Abdominal pain, Oral candidiasis Disposition: HOME SELF-CARE Condition: Good Instructions: Abdominal Pain (ED), Oral Candidiasis (ED) Additional Instructions: Please take medications as prescribed. Please follow up with the surgeon within 1-2 days. Please follow up with primary care provider within 1-2 days. Return to emergency department if symptoms should worsen or any concerns arise. Prescriptions: Nystatin 100,000 Unit/ml Susp [Mycostatin Oral Susp] 5 ml PO QID 10 Days Referrals: Peter Lake MD [Primary Care Provider] - 1-2 days Time of Disposition: 22:07
[2017-08-20 22:25] VITALS: BP 100/58; PULSE 64; RESP 16; TEMP 98.2
== END 2017-08-20 22:15 | disposition home or self-care (01) ==
LOC: EC 19:16
DX: B37.0 Candidal stomatitis (principal); R10.10 Upper abdominal pain, unspecified; R53.1 Weakness; M79.7 Fibromyalgia; K21.9 Gastro-esophageal reflux disease without esophagitis; K58.9 Irritable bowel syndrome, unspecified; G47.30 Sleep apnea, unspecified; Z99.89 Dependence on other enabling machines and devices; F32.9 Major depressive disorder, single episode, unspecified; F41.9 Anxiety disorder, unspecified; Z87.891 Personal history of nicotine dependence; Z79.899 Other long term (current) drug therapy; Z79.891 Long term (current) use of opiate analgesic; Z88.0 Allergy status to penicillin; Z91.018 Allergy to other foods; Z90.49 Acquired absence of other specified parts of digestive tract; Z90.710 Acquired absence of both cervix and uterus
CPT/HCPCS: 36415; 80053; 81001; 82150; 83690; 83735; 84100; 85025; 87086; 99284

== ENCOUNTER 2017-08-27 04:28 | Inpatient (IN) | payer BC, MEDICARE ==
--- NOTE | 2017-08-27 05:12 | ED ---
General Adult HPI - General Chief complaint: GI Bleed Stated complaint: Hypotension Time Seen by Provider: 08/27/17 04:51 Source: patient Mode of arrival: wheelchair Limitations: no limitations - History of Present Illness Initial comments: This patient is a 51-year-old woman who presents to be evaluated for bilateral lower extremity edema and seeing what she suspects is small blood with bowel movements. She states that she was feeling about like her usual self until 3-4 days ago when she noticed that she was getting increasing bilateral lower extremity edema. She states that she usually takes Lasix for this and she tried to take her Lasix this time without much relief. She states that she also yesterday had about 3 in bowel movements and thought that she was seeing some reddish blood with the bowel movements. She states that she did previously have bilateral lower extremity edema and a little bit of tachycardia when she had a GI bleed so she presents here for that possibility. She has not had abdominal pain other than some chronic left upper quadrant abdominal pain. Onset/Timin -: days(s) Consistency: constant Improves with: none Worsens with: none Associated Symptoms: denies other symptoms Treatments Prior to Arrival: other - Related Data Home Medications Medication Instructions Recorded Confirmed DULoxetine HCL [Cymbalta] 60 mg PO BID 03/19/15 08/27/17 Albuterol Inhaler [Ventolin Hfa 2 puff INHALATION RT-QID PRN 07/31/15 08/27/17 Inhaler] busPIRone HCL [Buspar] 30 mg PO BID 02/21/17 08/27/17 Dicyclomine [Bentyl] 20 mg PO AC-TID 02/28/17 08/27/17 Spironolactone 100 mg PO DAILY 02/28/17 08/27/17 diphenhydrAMINE HCL [Benadryl] 50 mg PO BID PRN 02/28/17 08/27/17 Acetaminophen Tab [Tylenol Tab] 1,000 mg PO Q6HR PRN 03/31/17 08/27/17 Buprenorphine HCl [Subutex] 4 mg SL BID 08/02/17 08/27/17 Cholecalciferol [Vitamin D3] 5,000 unit PO DAILY 08/02/17 08/27/17 Furosemide [Lasix] 40 mg PO DAILY 08/02/17 08/27/17 Lisinopril [Zestril] 10 mg PO DAILY 08/02/17 08/27/17 Meclizine HCl 25 mg PO Q8H PRN 08/02/17 08/27/17 Metolazone [Zaroxolyn] 2.5 mg PO DAILY 08/02/17 08/27/17 Multivitamin [Multivitamins Adult 2 tab PO DAILY 08/02/17 08/27/17 Gummies] Ondansetron HCl [Zofran] 4 mg PO BID PRN 08/02/17 08/27/17 Sennosides [Ex-Lax Maximum 25 mg PO DAILY 08/02/17 08/27/17 Strength] Fiber + Calcium Gummies 2 tab PO DAILY 08/05/17 08/27/17 Probiotic Gummies 2 tab PO DAILY 08/05/17 08/27/17 Sucralfate [Carafate] 1 gm PO ACHS 08/05/17 08/27/17 Butalb/Acetaminophen/Caffeine 1 cap PO DAILY PRN 08/27/17 08/27/17 [Fioricet 50-300-40 mg Capsule] Previous Rx's Medication Instructions Recorded Omeprazole 40 mg PO DAILY #60 capsule. 06/23/17 Allergies Allergy/AdvReac Type Severity Reaction Status Date / Time broccoli Allergy Severe Anaphylaxis Verified 08/27/17 10:58 with raw broccoli Penicillins Allergy Unknown Anaphylaxis Verified 08/27/17 10:58 diet cola Allergy GI irritant Uncoded 08/27/17 04:35 Review of Systems ROS Statement: Those systems with pertinent positive or pertinent negative responses have been documented in the HPI. ROS Other: All systems not noted in ROS Statement are negative. Constitutional: Reports: weakness. Denies: fever, chills Respiratory: Denies: cough, dyspnea, wheezes Cardiovascular: Reports: palpitations, dyspnea on exertion, edema. Denies: chest pain, syncope Gastrointestinal: Reports: hematochezia. Denies: abdominal pain, nausea, vomiting, diarrhea, constipation, melena Genitourinary: Denies: dysuria, hematuria Musculoskeletal: Denies: back pain Skin: Denies: rash Neurological: Denies: weakness, numbness Psychiatric: Denies: anxiety Past Medical History Past Medical History: Asthma, Fibromyalgia, GERD/Reflux, Sleep Apnea/CPAP/BIPAP Additional Past Medical History / Comment(s): migraines, gastric ulcer, varicose veins, chronic fatigue syndrome, hx pernicious anemia, abdominal pain- colitis-IBS, oral yeast infections, hx kidney stones History of Any Multi-Drug Resistant Organisms: None Reported Past Surgical History: Appendectomy, Back Surgery, Bariatric Surgery, Section, Cholecystectomy, Hernia Repair, Hysterectomy Additional Past Surgical History / Comment(s): x2, metal removed from rt eye 15 years ago,-lithotripsy, gastric bypass 2002 , 2 titanium rods in lower back, Carpal tunnel release bilaterally, PANNICULECTOMY Past Anesthesia/Blood Transfusion Reactions: Family History of Problems w/ Anesthesia Additional Past Anesthesia/Blood Transfusion Reaction / Comment(s): family members w/severe headaches w/anesthesia Past Psychological History: Anxiety, Depression Smoking Status: Former smoker Past Alcohol Use History: None Reported Past Drug Use History: None Reported - Past Family History Father Family Medical History: Cancer Additional Family Medical History / Comment(s): PROSTATE CANCER Mother Additional Family Medical History / Comment(s): OBESITY-HAD GASTRIC BYPASS SX General Exam Limitations: no limitations Course Vital Signs 08/27/17 08/27/17 04:32 06:29 Temperature 96.9 F L Pulse Rate 96 92 Respiratory 18 20 Rate Blood Pressure 94/54 96/61 O2 Sat by Pulse 100 96 Oximetry EKG Findings - EKG Comments: EKG Findings:: Short ID interval - EKG Results: EKG: interpreted by ERMD, sinus rhythm (Rate approximate 94 bpm), normal axis, normal QRS - Blocks, [place], Hypertrophy, ST Abn: Repolarization changes or abnormalities: nonspecific abnormality, ST segment, and/or T wave Medical Decision Making - Medical Decision Making Patient's 51-year-old woman complaining of progressive edema. The workups reveal patient to be hyponatremic, hypokalemic, and to have acute kidney injury probably due to increased diuretic use. In addition the troponin is elevated but suspect that this is due to the acute kidney injury, as she is not having ischemic symptoms. - Lab Data Result diagrams: 08/28/17 12:20 08/28/17 12:20 Lab Results 08/27/17 08/27/17 08/27/17 Range/Units 04:45 04:45 04:45 WBC 11.4 H (3.8-10.6) k/uL RBC 3.56 L (3.80-5.40) m/uL Hgb 11.2 L (11.4-16.0) gm/dL Hct 34.5 (34.0-46.0) % MCV 96.8 (80.0-100.0) fL MCH 31.4 (25.0-35.0) pg MCHC 32.4 (31.0-37.0) g/dL RDW 18.9 H (11.5-15.5) % Plt Count 335 (150-450) k/uL Neutrophils % 76 % Lymphocytes % 17 % Monocytes % 5 % Eosinophils % 0 % Basophils % 0 % Neutrophils # 8.7 H (1.3-7.7) k/uL Lymphocytes # 1.9 (1.0-4.8) k/uL Monocytes # 0.6 (0-1.0) k/uL Eosinophils # 0.0 (0-0.7) k/uL Basophils # 0.0 (0-0.2) k/uL Anisocytosis Slight Macrocytosis Slight PT (9.0-12.0) sec INR (<1.2) APTT (22.0-30.0) sec Sodium 123 L (137-145) mmol/L Potassium 2.7 L* (3.5-5.1) mmol/L Chloride 89 L (98-107) mmol/L Carbon Dioxide 20 L (22-30) mmol/L Anion Gap 14 mmol/L BUN 32 H (7-17) mg/dL Creatinine 2.10 H (0.52-1.04) mg/dL Est GFR (CKD-EPI)AfAm 31 (>60 ml/min/1.73 sqM) Est GFR (CKD-EPI)NonAf 27 (>60 ml/min/1.73 sqM) Glucose 77 (74-99) mg/dL Calcium 8.7 (8.4-10.2) mg/dL Total Bilirubin 0.3 (0.2-1.3) mg/dL AST 37 H (14-36) U/L ALT 59 H (9-52) U/L Alkaline Phosphatase 131 H (38-126) U/L Total Creatine Kinase 308 H (30-135) U/L CK-MB (CK-2) 10.2 H* (0.0-2.4) ng/mL CK-MB (CK-2) Rel Index 3.3 Troponin I 0.064 H* (0.000-0.034) ng/mL NT-Pro-B Natriuret Pep pg/mL Total Protein 5.0 L (6.3-8.2) g/dL Albumin 2.6 L (3.5-5.0) g/dL Stool Occult Blood (Negative) Blood Type Blood Type Recheck Antibody Screen Spec Expiration Date 08/27/17 08/27/17 08/27/17 Range/Units 04:45 04:45 04:45 WBC (3.8-10.6) k/uL RBC (3.80-5.40) m/uL Hgb (11.4-16.0) gm/dL Hct (34.0-46.0) % MCV (80.0-100.0) fL MCH (25.0-35.0) pg MCHC (31.0-37.0) g/dL RDW (11.5-15.5) % Plt Count (150-450) k/uL Neutrophils % % Lymphocytes % % Monocytes % % Eosinophils % % Basophils % % Neutrophils # (1.3-7.7) k/uL Lymphocytes # (1.0-4.8) k/uL Monocytes # (0-1.0) k/uL Eosinophils # (0-0.7) k/uL Basophils # (0-0.2) k/uL Anisocytosis Macrocytosis PT 10.5 (9.0-12.0) sec INR 1.1 (<1.2) APTT 27.9 (22.0-30.0) sec Sodium (137-145) mmol/L Potassium (3.5-5.1) mmol/L Chloride (98-107) mmol/L Carbon Dioxide (22-30) mmol/L Anion Gap mmol/L BUN (7-17) mg/dL Creatinine (0.52-1.04) mg/dL Est GFR (CKD-EPI)AfAm (>60 ml/min/1.73 sqM) Est GFR (CKD-EPI)NonAf (>60 ml/min/1.73 sqM) Glucose (74-99) mg/dL Calcium (8.4-10.2) mg/dL Total Bilirubin (0.2-1.3) mg/dL AST (14-36) U/L ALT (9-52) U/L Alkaline Phosphatase (38-126) U/L Total Creatine Kinase (30-135) U/L CK-MB (CK-2) (0.0-2.4) ng/mL CK-MB (CK-2) Rel Index Troponin I (0.000-0.034) ng/mL NT-Pro-B Natriuret Pep pg/mL Total Protein (6.3-8.2) g/dL Albumin (3.5-5.0) g/dL Stool Occult Blood Positive H (Negative) Blood Type O Positive Blood Type Recheck No Antibody Screen NEGATIVE Spec Expiration Date 08/30/2017234408/27/17 Range/Units 04:45 WBC (3.8-10.6) k/uL RBC (3.80-5.40) m/uL Hgb (11.4-16.0) gm/dL Hct (34.0-46.0) % MCV (80.0-100.0) fL MCH (25.0-35.0) pg MCHC (31.0-37.0) g/dL RDW (11.5-15.5) % Plt Count (150-450) k/uL Neutrophils % % Lymphocytes % % Monocytes % % Eosinophils % % Basophils % % Neutrophils # (1.3-7.7) k/uL Lymphocytes # (1.0-4.8) k/uL Monocytes # (0-1.0) k/uL Eosinophils # (0-0.7) k/uL Basophils # (0-0.2) k/uL Anisocytosis Macrocytosis PT (9.0-12.0) sec INR (<1.2) APTT (22.0-30.0) sec Sodium (137-145) mmol/L Potassium (3.5-5.1) mmol/L Chloride (98-107) mmol/L Carbon Dioxide (22-30) mmol/L Anion Gap mmol/L BUN (7-17) mg/dL Creatinine (0.52-1.04) mg/dL Est GFR (CKD-EPI)AfAm (>60 ml/min/1.73 sqM) Est GFR (CKD-EPI)NonAf (>60 ml/min/1.73 sqM) Glucose (74-99) mg/dL Calcium (8.4-10.2) mg/dL Total Bilirubin (0.2-1.3) mg/dL AST (14-36) U/L ALT (9-52) U/L Alkaline Phosphatase (38-126) U/L Total Creatine Kinase (30-135) U/L CK-MB (CK-2) (0.0-2.4) ng/mL CK-MB (CK-2) Rel Index Troponin I (0.000-0.034) ng/mL NT-Pro-B Natriuret Pep 2120 pg/mL Total Protein (6.3-8.2) g/dL Albumin (3.5-5.0) g/dL Stool Occult Blood (Negative) Blood Type Blood Type Recheck Antibody Screen Spec Expiration Date Disposition Clinical Impression: Hypokalemia, Hyponatremia, Acute kidney injury, Edema Disposition: ADMITTED IP TO THIS HOSP Condition: Poor
[2017-08-27 05:19] LABS: Anisocytosis Slight; Basophils % (A) 0 %; Eosinophils % (A) 0 %; HCT 34.5 % (34.0-46.0); HGB 11.2 gm/dL (11.4-16.0); Lymphocytes # (A) 1.9 k/uL (1.0-4.8); Lymphocytes % (A) 17 %; MCH 31.4 pg (25.0-35.0); MCHC 32.4 g/dL (31.0-37.0); MCV 96.8 fL (80.0-100.0); Macrocytosis Slight; Mean Platelet Volume 7.7; Monocytes # (A) 0.6 k/uL (0-1.0); Monocytes % (A) 5 %; Neutrophils # (A) 8.7 k/uL (1.3-7.7); Neutrophils % (A) 76 %; Platelet Count 335 k/uL (150-450); RBC 3.56 m/uL (3.80-5.40); RDW 18.9 % (11.5-15.5); WBC 11.4 k/uL (3.8-10.6)
[2017-08-27 05:29] LABS: Albumin 2.6 g/dL (3.5-5.0); Calcium 8.7 mg/dL (8.4-10.2); Total Bilirubin 0.3 mg/dL (0.2-1.3)
[2017-08-27 05:31] LABS: Potassium 2.7 mmol/L (3.5-5.1)
[2017-08-27] MEDS ORDERED: POTASSIUM CHLORIDE ER 20 MEQ TAB.ER PO STA (05:31)
[2017-08-27] MEDS ORDERED: SODIUM CHLORIDE 0.9% 500 ML IV STA (05:32)
[2017-08-27 05:43] LABS: INR 1.1 (<1.2); Partial Thromboplastin Time 27.9 sec (22.0-30.0); Prothrombin Time 10.5 sec (9.0-12.0)
[2017-08-27 06:01] LABS: Creatine Kinase MB 10.2 ng/mL (0.0-2.4); Troponin I 0.064 ng/mL (0.000-0.034)
[2017-08-27] MEDS ORDERED: ONDANSETRON 4 MG/2 ML VIAL IVP PRN (06:41)
[2017-08-27] MEDS ORDERED: NALOXONE 0.4 MG/ML 1 ML VIAL IV PRN (06:41)
[2017-08-27] MEDS: SODIUM CHLORIDE 0.9% 1,000 ML IV SCH ×2 (16:39→19:45)
[2017-08-27] MEDS: FAMOTIDINE 20 MG TAB PO SCH (16:49)
[2017-08-27] MEDS ORDERED: Potassium Replacement Protocol 1 EACH MISC MISCELLANE PRN ×2 (18:39→18:40)
[2017-08-27] MEDS ORDERED: POTASSIUM CHLORIDE ER 20 MEQ TAB.ER PO SCH (19:00)
[2017-08-27] MEDS: POTASSIUM CHLORIDE ER 20 MEQ TAB.ER PO SCH ×2 (19:42→20:54)
[2017-08-28] MEDS: SODIUM CHLORIDE 0.9% 1,000 ML IV SCH (07:37)
[2017-08-28] MEDS: FAMOTIDINE 20 MG TAB PO SCH (07:38)
--- NOTE | 2017-08-28 10:24 | P.CRDCN ---
History of Present Illness Consult date: 08/28/17 Requesting physician: [place] Consult reason: congestive heart failure Chief complaint: Severe bilateral leg swelling, shortness of breath, fatigue History of present illness: This is a 51-year-old female with a fairly complex past medical history, she has a history of asthma, GERD, sleep apnea, former smoker, prior gastric bypass surgery, she has a known marginal ulcer of the gastro-jejunostomy , chronic pain for which she was addicted to opioids at one time. According to the patient, she has had several visits to the emergency room since February of last year. She states that she's been having issues with her colitis, abdominal discomfort, she had recently passed a kidney stone, recently had upper GI and EGD performed. She states that over the past few days she's noticed herself to be putting on significant edema in her lower extremities and she has been more short of breath than usual. For this reason she has been taking Zaroxolyn and Lasix for the past couple of days. EKG performed on arrival here showed a normal sinus rhythm with nonspecific ST-T wave changes. Blood pressure 94/50 with a heart rate in the 80s to 90s, she is afebrile, 100% on room air. Laboratory data was reviewed, white blood cell count 11.4, Coumadin 11.2, platelet count 335. Sodium 123, potassium 4.2 this morning, 2.7 on admission, BUN 32, creatinine 2.1. Troponins 0.064, 0.053, 0.052. BNP level 2120. Stool for occult blood is positive. Patient does state that she had a stool last week which was bloody. AST 37, ALT 59, alk phos 131. At the time of my examination this morning, patient complains of feeling weak, he is having some abdominal tenderness. Her bilateral lower extremities have significant edema with petechiae and are very painful. Past Medical History Past Medical History: Asthma, Fibromyalgia, GERD/Reflux, Sleep Apnea/CPAP/BIPAP Additional Past Medical History / Comment(s): migraines, gastric ulcer, varicose veins, chronic fatigue syndrome, hx pernicious anemia, abdominal pain- colitis-IBS, oral yeast infections, hx kidney stones History of Any Multi-Drug Resistant Organisms: None Reported Past Surgical History: Appendectomy, Back Surgery, Bariatric Surgery, Section, Cholecystectomy, Hernia Repair, Hysterectomy Additional Past Surgical History / Comment(s): x2, metal removed from rt eye 15 years ago,-lithotripsy, gastric bypass 2002 , 2 titanium rods in lower back, Carpal tunnel release bilaterally, PANNICULECTOMY Past Anesthesia/Blood Transfusion Reactions: Family History of Problems w/ Anesthesia Additional Past Anesthesia/Blood Transfusion Reaction / Comment(s): family members w/severe headaches w/anesthesia Past Psychological History: Anxiety, Depression Smoking Status: Former smoker Past Alcohol Use History: None Reported Additional Past Alcohol Use History / Comment(s): quit smoking 04/2016, smoked for 13 yrs, < 1 PPD Past Drug Use History: None Reported - Past Family History Father Family Medical History: Cancer Additional Family Medical History / Comment(s): PROSTATE CANCER Mother Additional Family Medical History / Comment(s): OBESITY-HAD GASTRIC BYPASS SX Medications and Allergies Home Medications Medication Instructions Recorded Confirmed Type DULoxetine HCL [Cymbalta] 60 mg PO BID 03/19/15 08/27/17 History Albuterol Inhaler [Ventolin Hfa 2 puff INHALATION RT-QID PRN 07/31/15 08/27/17 History Inhaler] busPIRone HCL [Buspar] 30 mg PO BID 02/21/17 08/27/17 History Dicyclomine [Bentyl] 20 mg PO AC-TID 02/28/17 08/27/17 History Spironolactone 100 mg PO DAILY 02/28/17 08/27/17 History diphenhydrAMINE HCL [Benadryl] 50 mg PO BID PRN 02/28/17 08/27/17 History Acetaminophen Tab [Tylenol Tab] 1,000 mg PO Q6HR PRN 03/31/17 08/27/17 History Omeprazole 40 mg PO DAILY #60 capsule. 06/23/17 08/27/17 Rx Buprenorphine HCl [Subutex] 4 mg SL BID 08/02/17 08/27/17 History Cholecalciferol [Vitamin D3] 5,000 unit PO DAILY 08/02/17 08/27/17 History Furosemide [Lasix] 40 mg PO DAILY 08/02/17 08/27/17 History Lisinopril [Zestril] 10 mg PO DAILY 08/02/17 08/27/17 History Meclizine HCl 25 mg PO Q8H PRN 08/02/17 08/27/17 History Metolazone [Zaroxolyn] 2.5 mg PO DAILY 08/02/17 08/27/17 History Multivitamin [Multivitamins Adult 2 tab PO DAILY 08/02/17 08/27/17 History Gummies] Ondansetron HCl [Zofran] 4 mg PO BID PRN 08/02/17 08/27/17 History Sennosides [Ex-Lax Maximum 25 mg PO DAILY 08/02/17 08/27/17 History Strength] Fiber + Calcium Gummies 2 tab PO DAILY 08/05/17 08/27/17 History Probiotic Gummies 2 tab PO DAILY 08/05/17 08/27/17 History Sucralfate [Carafate] 1 gm PO ACHS 08/05/17 08/27/17 History Butalb/Acetaminophen/Caffeine 1 cap PO DAILY PRN 08/27/17 08/27/17 History [Fioricet 50-300-40 mg Capsule] Allergies Allergy/AdvReac Type Severity Reaction Status Date / Time broccoli Allergy Severe Anaphylaxis Verified 08/27/17 10:58 with raw broccoli Penicillins Allergy Unknown Anaphylaxis Verified 08/27/17 10:58 diet cola Allergy GI irritant Uncoded 08/27/17 04:35 Physical Exam Vitals: Vital Signs Temp Pulse Pulse Resp BP Pulse Ox 08/28/17 07:42 97.5 F L 85 87 16 89/49 99 08/28/17 04:45 85 94/53 100 08/28/17 02:07 97.8 F 86 18 83/49 99 08/27/17 23:21 97.3 F L 95 18 91/52 96 08/27/17 21:55 90 99/55 96 08/27/17 19:47 96.3 F L 84 16 85/53 100 08/27/17 16:00 97.5 F L 72 16 90/53 98 08/27/17 11:48 97.6 F 95 16 80/51 99 Intake and Output 08/27/17 08/28/17 08/28/17 22:59 06:59 14:59 Intake Total 240 300 240 Balance 240 300 240 Intake: Intake, IV Titration 300 Amount Sodium Chloride 0.9% 1, 300 000 ml @ 75 mls/hr IV . [id number] [facility] Rx#:[id number] Oral 240 240 Other: Voiding Method Toilet Toilet Toilet # Voids 2 1 1 Weight 62.2 kg PHYSICAL EXAMINATION: HEENT: Head is atraumatic, normocephalic. Pupils equal, round. Neck is supple. There is elevated jugular venous pressure. HEART EXAMINATION: Heart S1 and S2 systolic murmur is heard. CHEST EXAMINATION: Lungs are clear with diminished air entry to the bases. ABDOMEN: Soft, positive right upper quadrant tenderness, . Bowel sounds are heard. No organomegaly noted. EXTREMITIES:[ 2+ peripheral pulses with 2-3+ evidence of peripheral edema , evidence of petechiae on the tops of both of her feet NEUROLOGIC patient is awake, alert and oriented -3. . Results 08/27/17 04:45 08/27/17 23:47 Cardiac Enzymes 08/27/17 08/27/17 Range/Units 09:59 16:19 Troponin I 0.053 H* 0.052 H* (0.000-0.034) ng/mL Comprehensive Metabolic Panel 08/27/17 08/27/17 Range/Units 09:59 23:47 Potassium 3.5 4.2 (3.5-5.1) mmol/L Current Medications Generic Name Dose Route Start Last Admin Trade Name Freq PRN Reason Stop Dose Admin Famotidine 20 mg 08/27/17 09:00 08/28/17 07:38 Pepcid PO 20 mg DAILY GHAZAL Administration Sodium Chloride 1,000 mls @ 75 mls/hr 08/27/17 17:45 08/28/17 07:37 Saline 0.9% IV Not Given .[id number] [facility] Miscellaneous Information 1 each 08/27/17 18:40 Potassium Per Protocol MISCELLANE DAILY PRN Per Protocol Protocol Naloxone HCl 0.2 mg 08/27/17 06:41 Narcan IV Q2M PRN Opioid Reversal Ondansetron HCl 4 mg 08/27/17 06:41 Zofran IVP Q8HR PRN Nausea And Vomiting Intake and Output 08/27/17 08/28/17 08/28/17 22:59 06:59 14:59 Intake Total 240 300 240 Balance 240 300 240 Intake: Intake, IV Titration 300 Amount Sodium Chloride 0.9% 1, 300 000 ml @ 75 mls/hr IV . [id number] [facility] Rx#:[id number] Oral 240 240 Other: Voiding Method Toilet Toilet Toilet # Voids 2 1 1 Weight 62.2 kg 08/27/17 04:45 08/27/17 23:47 EKG Interpretations (text) EKG shows normal sinus rhythm with nonspecific ST-T wave changes Assessment and Plan Plan: Assessment and plan #1 congestive heart failure, LV function unknown at this time. BNP 2119 #2 abdominal discomfort, patient has prior gastric bypass surgery, known marginal ulcer of the gastro-jejunostomy. History of kidney stones, she recently passed a kidney stone. #3 asthma #4 GERD # 5 sleep apnea #6 prior GI bleed, patient also noticed blood in her stool earlier this week, stool for occult is positive, hemoglobin 11 #7 chronic back pain, fibromyalgia, he is addicted to opioids, currently on Subutex #8 acute renal failure, likely combination of dehydration, use of Zaroxolyn and Lasix. Creatinine 2.1, on August 20 her creatinine was 0.6. #9 hyponatremia #10 abnormal liver functions, likely secondary to congestion #11 abnormal troponins, likely secondary to abnormal renal function. Patient did have an episode of chest pain earlier this week, EKG shows normal sinus rhythm with nonspecific ST-T wave changes. #12 hypokalemia Plan We will obtain an echocardiogram with Doppler study. We will also requested a chest x-ray be performed. Nephrology has been consulted regarding the renal failure. Zaroxolyn, Lasix,, Aldactone and lisinopril currently on hold because of renal function. Further recommendations to follow. DNP note has been reviewed, I agree with a documented findings and plan of care. Patient was seen and examined.
--- NOTE | 2017-08-28 10:30 | XR ---
EXAMINATION TYPE: XR chest 2V DATE OF EXAM: 08/28/2017 HISTORY: chf. REFERENCE: Previous study dated 08/02/2017. FINDINGS: The lungs are clear. Pleural space are clear. The heart is not enlarged. IMPRESSION: NO ACTIVE INTRATHORACIC DISEASE.
--- NOTE | 2017-08-28 10:58 | P.NPCON ---
History of Present Illness - Reason for Consult acute renal failure - History of Present Illness Patient is a 51-year-old white female with history of chronic pain syndrome previous gastric bypass surgery, colitis and nephrolithiasis lithiasis. Patient also has congestive heart failure, I do not see a recent echocardiogram. Patient does follow with cardiology out of town. She was admitted to the hospital with complaints of increased lower extremity edema and shortness of breath and chest pressure. Serum creatinine was 2.1 mg/ dL on admission. Review of previous labs shows a creatinine of 0.6 on 2017. Patient states she has not been eating or drinking much over the past few days however she denies any significant nausea vomiting or diarrhea. There is no history of fever. Patient has had a rash on her lower extremities mainly both feet it appears petechial in nature. There is no rash anywhere else and patient denies joint pains in the hands. She has had bilateral ankle pain. There is no history of use of NSAIDs. Blood pressure has been low with systolic 83-94 mmHg. Patient has not had any IV contrast this admission. Patient was on charley inhibitors in the form of lisinopril 10 mg daily prior to admission. Currently she has been voiding however we do not have accurate I's and O's. Chest x-ray from this admission does not show any pulmonary vascular congestion. I do not see a UA this admission however previous urine analysis on 08/20/2017 showed trace proteinuria. Review of Systems As per HPI other systems negative Past Medical History Past Medical History: Asthma, Fibromyalgia, GERD/Reflux, Sleep Apnea/CPAP/BIPAP Additional Past Medical History / Comment(s): migraines, gastric ulcer, varicose veins, chronic fatigue syndrome, hx pernicious anemia, abdominal pain- colitis-IBS, oral yeast infections, hx kidney stones History of Any Multi-Drug Resistant Organisms: None Reported Past Surgical History: Appendectomy, Back Surgery, Bariatric Surgery, Section, Cholecystectomy, Hernia Repair, Hysterectomy Additional Past Surgical History / Comment(s): x2, metal removed from rt eye 15 years ago,-lithotripsy, gastric bypass 2002 , 2 titanium rods in lower back, Carpal tunnel release bilaterally, PANNICULECTOMY Past Anesthesia/Blood Transfusion Reactions: Family History of Problems w/ Anesthesia Additional Past Anesthesia/Blood Transfusion Reaction / Comment(s): family members w/severe headaches w/anesthesia Past Psychological History: Anxiety, Depression Smoking Status: Former smoker Past Alcohol Use History: None Reported Additional Past Alcohol Use History / Comment(s): quit smoking 04/2016, smoked for 13 yrs, < 1 PPD Past Drug Use History: None Reported - Past Family History Father Family Medical History: Cancer Additional Family Medical History / Comment(s): PROSTATE CANCER Mother Additional Family Medical History / Comment(s): OBESITY-HAD GASTRIC BYPASS SX Medications and Allergies Home Medications Medication Instructions Recorded Confirmed Type DULoxetine HCL [Cymbalta] 60 mg PO BID 03/19/15 08/27/17 History Albuterol Inhaler [Ventolin Hfa 2 puff INHALATION RT-QID PRN 07/31/15 08/27/17 History Inhaler] busPIRone HCL [Buspar] 30 mg PO BID 02/21/17 08/27/17 History Dicyclomine [Bentyl] 20 mg PO AC-TID 02/28/17 08/27/17 History Spironolactone 100 mg PO DAILY 02/28/17 08/27/17 History diphenhydrAMINE HCL [Benadryl] 50 mg PO BID PRN 02/28/17 08/27/17 History Acetaminophen Tab [Tylenol Tab] 1,000 mg PO Q6HR PRN 03/31/17 08/27/17 History Omeprazole 40 mg PO DAILY #60 capsule. 06/23/17 08/27/17 Rx Buprenorphine HCl [Subutex] 4 mg SL BID 08/02/17 08/27/17 History Cholecalciferol [Vitamin D3] 5,000 unit PO DAILY 08/02/17 08/27/17 History Furosemide [Lasix] 40 mg PO DAILY 08/02/17 08/27/17 History Lisinopril [Zestril] 10 mg PO DAILY 08/02/17 08/27/17 History Meclizine HCl 25 mg PO Q8H PRN 08/02/17 08/27/17 History Metolazone [Zaroxolyn] 2.5 mg PO DAILY 08/02/17 08/27/17 History Multivitamin [Multivitamins Adult 2 tab PO DAILY 08/02/17 08/27/17 History Gummies] Ondansetron HCl [Zofran] 4 mg PO BID PRN 08/02/17 08/27/17 History Sennosides [Ex-Lax Maximum 25 mg PO DAILY 08/02/17 08/27/17 History Strength] Fiber + Calcium Gummies 2 tab PO DAILY 08/05/17 08/27/17 History Probiotic Gummies 2 tab PO DAILY 08/05/17 08/27/17 History Sucralfate [Carafate] 1 gm PO ACHS 08/05/17 08/27/17 History Butalb/Acetaminophen/Caffeine 1 cap PO DAILY PRN 08/27/17 08/27/17 History [Fioricet 50-300-40 mg Capsule] Allergies Allergy/AdvReac Type Severity Reaction Status Date / Time broccoli Allergy Severe Anaphylaxis Verified 08/27/17 10:58 with raw broccoli Penicillins Allergy Unknown Anaphylaxis Verified 08/27/17 10:58 diet cola Allergy GI irritant Uncoded 08/27/17 04:35 Physical Exam Vitals: Vital Signs Temp Pulse Pulse Resp BP Pulse Ox 08/28/17 07:42 97.5 F L 85 87 16 89/49 99 08/28/17 04:45 85 94/53 100 08/28/17 02:07 97.8 F 86 18 83/49 99 08/27/17 23:21 97.3 F L 95 18 91/52 96 08/27/17 21:55 90 99/55 96 08/27/17 19:47 96.3 F L 84 16 85/53 100 08/27/17 16:00 97.5 F L 72 16 90/53 98 08/27/17 11:48 97.6 F 95 16 80/51 99 Intake and Output 08/27/17 08/28/17 08/28/17 22:59 06:59 14:59 Intake Total 240 300 240 Balance 240 300 240 Intake: Intake, IV Titration 300 Amount Sodium Chloride 0.9% 1, 300 000 ml @ 75 mls/hr IV . [id number] [facility] Rx#:[id number] Oral 240 240 Other: Voiding Method Toilet Toilet Toilet # Voids 2 1 1 Weight 62.2 kg On examination patient is comfortable awake alert oriented 3. Neck Garcia she is not in any acute distress. Blood pressure is 89/49 heart rate 87/m she is afebrile Examination of the heart S1 and S2 no rub or murmur is heard Examination lungs bilateral breath sounds are heard no crackles or wheezing is heard Examination of the abdomen reveals it to be soft nontender Exertion lower ex Mittie shows edema 2+ bilaterally. There is petechial rash noted on both feet on the dorsal aspect. [employer] examination is grossly intact patient is moving all 4 extremities. Results - Lab Results Most recent lab results Calcium 8.7 mg/dL (8.4-10.2) 08/27/17 04:45 08/27/17 04:45 08/27/17 23:47 Assessment and Plan Plan: Assessment 1. Acute kidney injury currently nonoliguric most likely secondary to hypotension and hypoperfusion. I will repeat another urine analysis. We will also check an ultrasound of the kidneys. Patient is not on any nephrotoxic agents. Her blood pressure remains low therefore we'll continue to hold off on the CHARLEY inhibitor's. I will also start her on gentle IV hydration given that there is no evidence of perivascular congestion and the chest x-ray is completely clear. 2. Lower extremity edema need to rule out other etiology. Echocardiogram is currently pending we will repeat another UA. Albumin was significantly low at 2.6. This is also definitely contributing to the edema 3. Hyponatremia natremia most likely hypovolemic, secondary to diuretics. Patient was on Zaroxolyn at home this is currently on hold I will start gentle IV hydration with saline and repeat labs in about 4 hours. Check urine osmolality and urine sodium. Serum cortisol was not low it was at 17. 4. Hypo-kalemia secondary to diuretics status post replacement. Check magnesium level as well 5. Petechial rash bilateral lower extremities. Platelet count is at 3 35,000. Check serologies rule out any other underlying connective tissue disorder. 6. History of colitis area GI has been consulted. 7. Chronic pain syndrome with previous opiate dependence currently off of opiates. 8. GI bleed with positive stool for occult blood. Hemoglobin is at 11.2 g/dL. Plan Start saline at 50 mL an hour repeat electrolytes in 4 hours. Hold off on CHARLEY inhibitor's and diuretics for now. Chest x-ray is completely clear. We need to check for other causes of lower extremity edema. I will repeat a UA and check protein creatinine ratio. Previous UA had trace protein on 08/20/2017. An echocardiogram has been ordered. Albumin is low we will check baseline serologies for connective tissue disease. Check magnesium level and repeat labs in a.m. check urine osmolality and random urine sodium. Thank you for the consultation we'll continue to follow the patient with you during her hospitalization
--- NOTE | 2017-08-28 11:33 | HP ---
HISTORY AND PHYSICAL CHIEF COMPLAINT: 51-year-old white female, admitted for bilateral lower leg edema with some blood in the stool and worsening creatinine function despite high doses of diuretics. She still had extreme amount of swelling in her extremities and 3 bowel movements with blood in them. She had some tachycardia at which time she came to hospital for evaluation. This has been worsening despite failed outpatient treatment. HOME MEDICATIONS: Cymbalta 60 b.i.d., Ventolin 2 puffs q.4 p.r.n., BuSpar 30 b.i.d., Bentyl 20 t.i.d., spironolactone 100 daily, Benadryl 25-50 b.i.d., Tylenol p.r.n., Fioricet p.r.n., 2 mg sublingual q.i.d. she gets from some [facility]. Lasix 40 mg daily, Zestril 10 mg daily. Meclizine 25 b.i.d. Zaroxolyn 2.5 daily. Multivitamin daily. Zofran 4 mg b.i.d. Carafate 1 g b.i.d., probiotics. ALLERGIES: BROCCOLI, PENICILLIN, DIET COLA. REVIEW OF SYSTEMS: Fourteen point review of systems negative except for mentioned in HPI. PAST MEDICAL HISTORY: Asthma, fibromyalgia, GERD, sleep apnea, pernicious anemia, irritable bowel syndrome, kidney syndrome, fatigue syndrome. SURGERIES: Appendectomy, bariatric surgery, , cholecystectomy, hernia repair, hysterectomy, x2, gastric bypass, titanium rods lower back, carpal tunnel disease, panniculectomy, lithotripsy. Anxiety, depression, former smoker. FAMILY HISTORY: Father with cancer of the prostate. Mother with obesity, had gastric bypass surgery also. VITAL SIGNS: Temp 96.9, pulse is 90 to 96, respiratory 18 to 20, blood pressure is 94- 96 over 50s to 60s, O2 96% to 100% on room air. CARDIOVASCULAR: S1, S2. LUNGS: Rales at the bases. HEMATOLOGY: 3+ pedal edema bilaterally. She has some petechia in the lower feet over the ankle area on the dorsum, non blanchable petechia. GI: Soft, nontender. Distended due to obesity. Hemoccult-positive stool is seen by the ER. HEMATOLOGIC: Negative Homans. ASSESSMENT: 1. Progressive edema, worsening hyponatremia, hypokalemia, acute renal injury, possibly due to diuresis usage. Elevated troponin. Cardiology to see. Possibly due to acute kidney injury. 2. GI bleed. Surgery to evaluate and monitor hemoglobins. 3. History of gastric surgery. 4. Severe hypokalemia. 5. Hyponatremia. Recent renal function. Please see further orders in the chart. Cardiology consult. Renal consult. MMODL / IJN: [id number] /
[2017-08-28] MEDS ORDERED: ALBUTEROL NEBULIZED 2.5 MG/3 ML INHALATION PRN (11:53)
[2017-08-28 12:30] LABS: Anisocytosis Slight; Basophils % (A) 0 %; Eosinophils % (A) 1 %; HCT 31.1 % (34.0-46.0); Lymphocytes # (A) 1.5 k/uL (1.0-4.8); Lymphocytes % (A) 16 %; MCH 32.4 pg (25.0-35.0); MCHC 32.2 g/dL (31.0-37.0); MCV 100.7 fL (80.0-100.0); Macrocytosis Moderate; Mean Platelet Volume 7.7; Monocytes # (A) 0.6 k/uL (0-1.0); Monocytes % (A) 7 %; Neutrophils % (A) 76 %; Platelet Count 298 k/uL (150-450); RBC 3.09 m/uL (3.80-5.40); RDW 19.4 % (11.5-15.5); WBC 9.3 k/uL (3.8-10.6)
[2017-08-28 12:43] LABS: Albumin 2.3 g/dL (3.5-5.0); Calcium 8.4 mg/dL (8.4-10.2); Potassium 3.7 mmol/L (3.5-5.1); Total Bilirubin 0.3 mg/dL (0.2-1.3); Total Protein 4.6 g/dL (6.3-8.2)
[2017-08-28 12:53] LABS: Appearance,Urine Clear (Clear); Bilirubin,Urine Negative (Negative); Blood,Urine Negative (Negative); Color,Urine Colorless; Glucose,Urine (UA) Negative (Negative); Ketones,Urine Negative (Negative); Leukocyte Esterase,Urine Negative (Negative); Nitrite,Urine Negative (Negative); Protein,Urine Negative (Negative); Specific Gravity,Urine 1.004 (1.001-1.035); Urobilinogen,Urine <2.0 mg/dL (<2.0)
--- NOTE | 2017-08-28 15:04 | CONS ---
CONSULTATION DATE OF CONSULTATION: August 28, 2017. REQUESTING PHYSICIAN: Dr. Peter Lake. REASON FOR CONSULTATION: Epigastric pain. Black tarry stools. HISTORY OF PRESENT ILLNESS: The patient is a 51-year-old pleasant white female with history of gastric bypass surgery in 2002 and recurrent marginal ulcer was admitted to the hospital because of she was feeling for lower extremity swelling, fatigue, weakness, nausea, and black tarry stools. She noticed stool to be dark and tarry only yesterday and this morning. She has been having epigastric discomfort associated with nausea vomiting for almost 3 months. She had an upper endoscopy by Dr. Washington in July of 2017 and was noted to have a large marginal ulcer at the Kaya En Y anastomosis. The patient states that she had an upper endoscopy prior to that in May of 2016 and was also diagnosed with marginal ulcer at the same time. She is presently been on omeprazole 40 mg daily, Zofran as needed as well as Carafate and still remains symptomatic. She has been in and out of the emergency room 3 times in the last 3 weeks. PAST MEDICAL HISTORY: Significant for hypertension, chronic back pain, recurrent peptic ulcer disease, anxiety, depression, gastroesophageal reflux disease, sleep apnea, IBS. PAST SURGICAL HISTORY: Appendectomy, back surgery, gastric bypass surgery, , cholecystectomy, hernia repair, hysterectomy, multiple upper endoscopies and panniculectomy. MEDICATIONS: At home include Cymbalta, Ventolin, BuSpar, Bentyl, Aldactone, Benadryl, Tylenol, Fioricet, vitamin D3, Lasix, Zestril, meclizine, Zaroxolyn, Zofran, Carafate. ALLERGIES: PENICILLIN. SOCIAL HISTORY: Former smoker. No alcohol use. FAMILY HISTORY: Father had prostate cancer. Mother had morbid obesity. REVIEW OF SYSTEMS: Cardiopulmonary: No chest pain or shortness of breath. Genitourinary: No dysuria or hematuria. Musculoskeletal: Chronic back pain. Neurology unremarkable. Psychiatric: Anxiety/depression. ENT vision unremarkable. Constitutional: No recent weight loss. No fever, chills, night sweats. GI as mentioned above. Hematology unremarkable. Endocrine unremarkable. PHYSICAL EXAMINATION: She appears comfortable. No apparent distress. Vital signs stable. Blood pressure is 83/49, pulse 86, temperature 97.8. HEENT examination unremarkable. Conjunctivae pink. Sclerae anicteric. Oral cavity no lesions. Neck no JVD or lymph node enlargement. Chest was clear to auscultation. HEART: Regular rate and rhythm. ABDOMEN: Soft. Bowel sounds are positive. No organomegaly. Mild tenderness in the epigastric area. Extremities 2+ pedal edema. Skin no rashes. NEUROLOGIC: Alert and oriented x3. No focal deficits. LAB: WBC 11.4, hemoglobin 11.2, platelets are normal. PT/INR is within normal limits. Basic metabolic panel showed a sodium of 123, potassium 2.7, chloride 89, CO2 20, BUN 32, creatinine 2.1. Troponin 0.064. Stool occult blood is positive. IMPRESSION: This is a lady who presents to the hospital with epigastric pain associated with nausea, vomiting for the last 3 months duration. She had black tarry stools yesterday. Hemoglobin is stable at 11.5 g/dL. She did have an upper endoscopy by Dr. Washington in July 2017 and was noted to have a large Kaya En Y anastomosis. She has been maintained on omeprazole, Carafate, and Zofran on an outpatient basis for the last 2 months and still remains symptomatic. He did have a colonoscopy in March of [address] Washington that was unremarkable other than small internal hemorrhoids. RECOMMENDATIONS: 1. Continue with IV Protonix 40 mg q.12 hours. 2. We will proceed with an upper endoscopy tomorrow at the patient's request to assess for ulcer healing. 3. In the meantime, start on a clear liquid diet and advance as tolerated. 4. We will follow the patient during the hospital stay. Thank you for this consultation. MMODL / IJN: [id number] /
[2017-08-28] MEDS: HYDROcodone/APAP 7.5-325MG 1 EACH TAB PO PRN (15:21)
[2017-08-28] MEDS: SUCRALFATE 1 GM TAB PO SCH ×3 (16:18→22:15)
[2017-08-28 16:45] LABS: Anti-DNA, DS unit <1.0 IU/mL; DNA Double-Stranded NEGATIVE (NEGATIVE)
--- NOTE | 2017-08-28 17:19 | PN ---
PROGRESS NOTE SUBJECTIVE: This is a 51-year-old white female with acute renal failure, hyponatremia, hypokalemia, GI bleed. All blood pressure medications have been withheld. She wants to keep on her BuSpar for anxiety. She wants to keep on her pain medication she gets some Dr. Mendez for chronic fibromyalgia and she wants to keep on her sucralfate for her stomach. Otherwise, she all blood pressure medications have been withheld. Diuretics withheld. She states she has improved. She still has a rash in her lower top of her feet, which is more of a scaly type rash with some scab formation. CARDIOVASCULAR: S1, S2. LUNGS: Transmitted upper sounds. Hematologic: Negative Homans. Psych fair mood and affect. PLAN: Continue current treatment, rehydration. Await for Cardiology to check an echo report to see about contribution to lower extremity edema. Gastroenterology will do an another endoscopy likely for possible GI bleeding and renal physician is monitoring creatinine. Please see further orders. MMODL / IJN: [id number] /
[2017-08-28] MEDS ORDERED: BUPRENORPHINE HCL 4 MG SL SCH (21:00)
[2017-08-28] MEDS: BUTALB/APAP/CAFF 50-325-40MG TAB PO PRN (22:14)
[2017-08-28] MEDS: DULoxetine HCL 60 MG CAPSULE.DR PO SCH (22:15)
[2017-08-28] MEDS: busPIRone HCl 10 MG TAB PO SCH (22:16)
[2017-08-29 06:51] LABS: Anisocytosis Slight; Basophils % (A) 0 %; Eosinophils # (A) 0.1 k/uL (0-0.7); Eosinophils % (A) 1 %; HCT 24.9 % (34.0-46.0); Lymphocytes # (A) 2.1 k/uL (1.0-4.8); Lymphocytes % (A) 27 %; MCH 31.5 pg (25.0-35.0); MCHC 31.5 g/dL (31.0-37.0); Macrocytosis Moderate; Mean Platelet Volume 7.6; Monocytes # (A) 0.4 k/uL (0-1.0); Monocytes % (A) 5 %; Neutrophils # (A) 5.1 k/uL (1.3-7.7); Neutrophils % (A) 65 %; Platelet Count 250 k/uL (150-450); RBC 2.49 m/uL (3.80-5.40); RDW 19.4 % (11.5-15.5); WBC 7.8 k/uL (3.8-10.6)
[2017-08-29 06:54] LABS: HGB 7.8 gm/dL (11.4-16.0)
[2017-08-29 06:55] LABS: ALT 48 U/L (9-52); AST 19 U/L (14-36); Albumin 1.7 g/dL (3.5-5.0); Alkaline Phosphatase 122 U/L (38-126); Anion Gap 3 mmol/L; Blood Urea Nitrogen 16 mg/dL (7-17); Calcium 7.8 mg/dL (8.4-10.2); Carbon Dioxide 24 mmol/L (22-30); Chloride 107 mmol/L (98-107); Glucose 77 mg/dL (74-99); Potassium 3.4 mmol/L (3.5-5.1); Sodium 134 mmol/L (137-145); Total Bilirubin 0.1 mg/dL (0.2-1.3); Total Protein 3.7 g/dL (6.3-8.2)
[2017-08-29 09:29] LABS: Complement C3 52.8 mg/dL (80.0-207.0)
--- NOTE | 2017-08-29 11:28 | P.PN ---
Subjective Progress Note Date: 08/29/17 Principal diagnosis: Atrial fibrillation This is a 51-year-old female with a fairly complex past medical history, she has a history of asthma, GERD, sleep apnea, former smoker, prior gastric bypass surgery, she has a known marginal ulcer of the gastro-jejunostomy , chronic pain for which she was addicted to opioids at one time. According to the patient, she has had several visits to the emergency room since February of last year. She states that she's been having issues with her colitis, abdominal discomfort, she had recently passed a kidney stone, recently had upper GI and EGD performed. She states that over the past few days she's noticed herself to be putting on significant edema in her lower extremities and she has been more short of breath than usual. For this reason she has been taking Zaroxolyn and Lasix for the past couple of days. EKG performed on arrival here showed a normal sinus rhythm with nonspecific ST-T wave changes. Blood pressure 94/50 with a heart rate in the 80s to 90s, she is afebrile, 100% on room air. Laboratory data was reviewed, white blood cell count 11.4, Coumadin 11.2, platelet count 335. Sodium 123, potassium 4.2 this morning, 2.7 on admission, BUN 32, creatinine 2.1. Troponins 0.064, 0.053, 0.052. BNP level 2120. Stool for occult blood is positive. Patient does state that she had a stool last week which was bloody. AST 37, ALT 59, alk phos 131. At the time of my examination this morning, patient complains of feeling weak, he is having some abdominal tenderness. Her bilateral lower extremities have significant edema with petechiae and are very painful. 08/29/2017 Patient was seen and examined this morning, states she is feeling better overall today. Still complains of feeling weak. Blood pressure today 87/54, heart rate in the 80s, 96% on room air. White blood cell count 7.8, hemoglobin 7.8 which is down from 10 yesterday, sodium 134, potassium 3.4, BUN 16, creatinine 0.5. Total protein 3.7, albumin 1.7. Patient is scheduled today to undergo an EGD with Dr. Kent. Objective - Vital Signs Vital signs: Vital Signs Temp 97.0 F L 08/29/17 04:00 Pulse 84 08/29/17 04:00 Resp 18 08/29/17 04:00 BP 80/41 08/29/17 04:00 Pulse Ox 96 08/29/17 04:00 Intake & Output 08/28/17 08/29/17 08/29/17 18:59 06:59 18:59 Intake Total 240 360 Balance 240 360 Weight 63.2 kg Intake: Oral 240 360 Other: Voiding Method Toilet Toilet # Voids 1 1 - Exam PHYSICAL EXAMINATION: HEENT: Head is atraumatic, normocephalic. Pupils equal, round. Neck is supple. There is elevated jugular venous pressure. HEART EXAMINATION: Heart S1 and S2 systolic murmur is heard. CHEST EXAMINATION: Lungs are clear with diminished air entry to the bases. ABDOMEN: Soft, positive right upper quadrant tenderness, . Bowel sounds are heard. No organomegaly noted. EXTREMITIES:[ 2+ peripheral pulses with 2-3+ evidence of peripheral edema , evidence of petechiae on the tops of both of her feet, dressings in place today NEUROLOGIC patient is awake, alert and oriented -3. - Labs CBC & Chem 7: 08/29/17 06:28 08/29/17 06:28 Labs: Abnormal Lab Results - Last 24 Hours (Table) 08/28/17 08/28/17 08/28/17 Range/Units 12:20 12:20 12:30 RBC 3.09 L (3.80-5.40) m/uL Hgb 10.0 L (11.4-16.0) gm/dL Hct 31.1 L (34.0-46.0) % MCV 100.7 H (80.0-100.0) fL RDW 19.4 H (11.5-15.5) % Sodium 131 L (137-145) mmol/L Potassium (3.5-5.1) mmol/L BUN 25 H (7-17) mg/dL Calcium (8.4-10.2) mg/dL Total Bilirubin (0.2-1.3) mg/dL ALT 53 H (9-52) U/L Alkaline Phosphatase 132 H (38-126) U/L Total Protein 4.6 L (6.3-8.2) g/dL Albumin 2.3 L (3.5-5.0) g/dL Ur Random Sodium 106 H (30-90) mmol/L 08/29/17 08/29/17 Range/Units 06:28 06:28 RBC 2.49 L (3.80-5.40) m/uL Hgb 7.8 L D (11.4-16.0) gm/dL Hct 24.9 L (34.0-46.0) % MCV (80.0-100.0) fL RDW 19.4 H (11.5-15.5) % Sodium 134 L (137-145) mmol/L Potassium 3.4 L (3.5-5.1) mmol/L BUN (7-17) mg/dL Calcium 7.8 L (8.4-10.2) mg/dL Total Bilirubin 0.1 L (0.2-1.3) mg/dL ALT (9-52) U/L Alkaline Phosphatase (38-126) U/L Total Protein 3.7 L (6.3-8.2) g/dL Albumin 1.7 L (3.5-5.0) g/dL Ur Random Sodium (30-90) mmol/L Assessment and Plan Plan: Assessment and plan #1 congestive heart failure, LV function unknown at this time. BNP 2120 on admission. #2 abdominal discomfort, with associated nausea and vomiting patient has prior gastric bypass surgery, known marginal ulcer of the gastro-jejunostomy. History of kidney stones, she recently passed a kidney stone. #3 asthma #4 GERD # 5 sleep apnea #6 prior GI bleed, patient also noticed blood in her stool earlier this week, stool for occult is positive, hemoglobin 7.8 today #7 chronic back pain, fibromyalgia, he is addicted to opioids, currently on Subutex #8 acute renal failure, #9 hyponatremia #10 abnormal liver functions, likely secondary to congestion #11 abnormal troponins, likely secondary to abnormal renal function. Patient did have an episode of chest pain earlier this week, EKG shows normal sinus rhythm with nonspecific ST-T wave changes. #12 hypokalemia #13 hypotension Plan Echocardiogram with Doppler study has been performed which is yet pending. Being followed by nephrology, diuretics and alfred inhibitors continue to be on hold. Patient also been worked up for possible connective tissue disorder. Marked perspective, we'll continue current medications. She is also receiving some IV fluid hydration at this time. Scheduled for EGD today. DNP note has been reviewed, I agree with a documented findings and plan of care. Patient was seen and examined.
[2017-08-29] MEDS ORDERED: IV FLUID CONTINUATION 100 ML IV ONE (11:29)
[2017-08-29] MEDS ORDERED: PROPOFOL 10 MG/ML 20 ML VIAL IV ONE (11:36)
[2017-08-29] MEDS ORDERED: PHENYLEPHRINE-0.9% NACL SYG 1 MG/10 ML SYRINGE ONE (11:36)
[2017-08-29] MEDS ORDERED: LIDOCAINE 1% INJ 10MG/ML (20 ML MDV) ONE (11:36)
--- NOTE | 2017-08-29 11:46 | P.PCN ---
Date of Procedure: 08/29/17 Procedure(s) Performed: BRIEF HISTORY: Patient is a 51-year-old, pleasant, female, with history of gastric bypass surgery in 2002 was diagnosed with nonhealing marginal ulcer at the Kaya-en-Y anastomosis in May of this year. She since has been on omeprazole 40 mg daily as well as Carafate and remains symptomatic with epigastric discomfort associated with intermittent nausea vomiting. She had black tarry stools for 2 days and drop in hemoglobin from 10-7.9 g/dL. She is hence scheduled for an upper endoscopy to evaluate further PROCEDURE PERFORMED: Esophagogastroduodenoscopy with biopsy. PREOPERATIVE DIAGNOSIS: Epigastric pain/intermittent black tarry stools IV sedation per anesthesia. PROCEDURE: After informed consent was obtained, the patient was brought into the endoscopy unit. IV sedation was administered by Anesthesia under continuous monitoring. Initially the Olympus GIF-140 video endoscope was inserted into the mouth. Esophagus intubated without any difficulty. It was gradually advanced into the stomach pouch without any difficulty. It was a 2.5 cm superficial marginal ulcer identified with no active bleeding. The scope was advanced into the efferent loop and 60 cm visualized and appeared normal. The scope at this time was withdrawn back into the gastric pouch. Biopsies were done from marginal ulcer. The gastric pouch appeared normal. The GE junction was located at 39 cm from the incisors. The esophagus appeared normal. There were no erosions or ulcerations seen and the patient tolerated the procedure well. IMPRESSION: 1. 2.5 cm superficial marginal ulcer at the Kaya-en-Y anastomosis with no active bleeding. 2. Pouch appeared normal. RECOMMENDATIONS: The findings of this examination were discussed with the patient. She'll be started a full liquid diet. She'll be continued on Protonix 40 mg twice daily as well as Carafate 1 g 4 times daily..
[2017-08-29] MEDS: SODIUM FERRIC GLUCONAT-SUCROSE 125 MG in SODIUM CHLORIDE 0.9% 100 ML IVPB SCH (15:04)
[2017-08-29] MEDS: busPIRone HCl 10 MG TAB PO SCH ×2 (17:14→21:30)
[2017-08-29] MEDS: CHOLECALCIFEROL 1,000 UNIT TAB PO SCH (17:15)
[2017-08-29] MEDS: DULoxetine HCL 60 MG CAPSULE.DR PO SCH ×2 (17:15→21:30)
[2017-08-29] MEDS: FAMOTIDINE 20 MG TAB PO SCH ×2 (17:15→21:30)
[2017-08-29] MEDS: HYDROcodone/APAP 7.5-325MG 1 EACH TAB PO PRN (17:16)
[2017-08-29] MEDS: MULTIVITAMINS, THERA 1 EACH TAB PO SCH (17:16)
--- NOTE | 2017-08-29 18:06 | ECHOF ---
Referral Reason:chf MEASUREMENTS -------- HEIGHT: 157.5 cm WEIGHT: 63.0 kg BP: 80/41 IVSd: 0.7 cm (0.6 - 1.1) LVIDd: 3.9 cm (3.9 - 5.3) LVPWd: 0.8 cm (0.6 - 1.1) IVSs: 1.3 cm LVIDs: 1.7 cm LVPWs: 1.3 cm RVIDd: 2.3 cm (< 3.3) Ao Diam: 2.6 cm (2.0 - 3.7) LA Diam: 2.7 cm (2.7 - 3.8) AV Cusp: 1.9 cm (1.5 - 2.6) EPSS: 0.5 cm MV E Hector: 0.87 m/s MV DecT: 155 ms MV A Hector: 0.76 m/s MV E/A Ratio: 1.14 RAP: 5.00 mmHg RVSP: 33.51 mmHg MV EF SLOPE: 100.15 mm/s (70 - 150) MV EXCURSION: 16.38 mm (> 18.000) FINDINGS -------- Sinus rhythm. This was a technically good study. The left ventricular size is normal. Left ventricular wall thickness is normal. Overall left vent ricular systolic function is normal with, an EF between 55 - 60 %. The right ventricle is normal in size. The left atrium is normal in size. The right atrium is normal in size. The aortic valve is trileaflet and appears structurally normal. The mitral valve leaflets are mildly thickened. There is trace mitral regurgitation. Severe tricuspid regurgitation present. The right ventricular systolic pressure, as measured by Dop pler, is 33.51mmHg. Pulmonic valve appears structurally normal. The aortic root size is normal. Normal inferior vena cava with normal inspiratory collapse consistent with estimated right atrial pre ssure of 5 mmHg. There is a trivial pericardial effusion present. CONCLUSIONS -------- 1. Sinus rhythm. 2. This was a technically good study. 3. The left ventricular size is normal. 4. Left ventricular wall thickness is normal. 5. Overall left ventricular systolic function is normal with, an EF between 55 - 60 %. 6. The right ventricle is normal in size. 7. The left atrium is normal in size. 8. The right atrium is normal in size. 9. The aortic valve is trileaflet and appears structurally normal. 10. The mitral valve leaflets are mildly thickened. 11. There is trace mitral regurgitation. 12. Severe tricuspid regurgitation present. 13. The right ventricular systolic pressure, as measured by Doppler, is 33.51mmHg. 14. Pulmonic valve appears structurally normal. 15. The aortic root size is normal. 16. Normal inferior vena cava with normal inspiratory collapse consistent with estimated right atrial pressure of 5 mmHg. 17. There is a trivial pericardial effusion present. ENROLLMENT REPRESENTATIVE: Berta Alexis RDCS
[2017-08-29] MEDS: BUTALB/APAP/CAFF 50-325-40MG TAB PO PRN (21:46)
--- NOTE | 2017-08-29 22:33 | PN ---
PROGRESS NOTE SUBJECTIVE: This is a 51-year-old white female with acute renal failure, hyponatremia. Renal failure is back to normal. Her creatinine is down to 0.75. She has low albumin at 1.7. Discussed hypoalbuminemia and edema secondary to this. Echo is pending. Hemoglobin dropped down to 7.8 from 10. She will be placed on iron infusions on a daily basis. B12 recently in my office was normal, so she will be set up with IV infusions. Hematology consult is pending. Protein-calorie malnutrition was addressed with her family and her. Lungs are clear. CARDIOVASCULAR: S1, S2. GI: Soft. Extremities peripheral edema. ASSESSMENT: 1. Hypoalbuminemia. 2. Gastroesophageal ulcer found on esophagogastroduodenoscopy. 3. Acute on chronic anemia. 4. Gastrointestinal bleed, unclear etiology. 5. Acute renal failure, improved. 6. Possible diastolic congestive heart failure. All Lasix diuretics are discontinued. She has Renato wraps on her lower legs. Continue with iron infusions. MMODL / IJN: [id number] /
[2017-08-30] MEDS: PANTOPRAZOLE 40 MG TABLET PO SCH ×2 (06:39→13:44)
[2017-08-30] MEDS: SUCRALFATE 1 GM TAB PO SCH ×5 (06:39→21:39)
[2017-08-30 07:03] LABS: Anisocytosis Slight; Basophils % (A) 0 %; Eosinophils # (A) 0.1 k/uL (0-0.7); Eosinophils % (A) 1 %; HCT 25.1 % (34.0-46.0); HGB 7.9 gm/dL (11.4-16.0); Hypochromasia Slight; Lymphocytes # (A) 2.2 k/uL (1.0-4.8); Lymphocytes % (A) 35 %; MCH 32.2 pg (25.0-35.0); MCHC 31.5 g/dL (31.0-37.0); Macrocytosis Moderate; Mean Platelet Volume 7.9; Monocytes # (A) 0.4 k/uL (0-1.0); Monocytes % (A) 6 %; Neutrophils # (A) 3.4 k/uL (1.3-7.7); Neutrophils % (A) 54 %; Platelet Count 241 k/uL (150-450); RBC 2.46 m/uL (3.80-5.40); RDW 19.5 % (11.5-15.5); WBC 6.3 k/uL (3.8-10.6)
[2017-08-30 07:05] LABS: ALT 43 U/L (9-52); AST 23 U/L (14-36); Albumin 1.7 g/dL (3.5-5.0); Alkaline Phosphatase 115 U/L (38-126); Anion Gap 3 mmol/L; Blood Urea Nitrogen 11 mg/dL (7-17); Calcium 7.4 mg/dL (8.4-10.2); Carbon Dioxide 25 mmol/L (22-30); Chloride 105 mmol/L (98-107); Glucose 68 mg/dL (74-99); Potassium 3.7 mmol/L (3.5-5.1); Sodium 133 mmol/L (137-145); Total Bilirubin <0.1 mg/dL (0.2-1.3); Total Protein 3.6 g/dL (6.3-8.2)
[2017-08-30] MEDS: busPIRone HCl 10 MG TAB PO SCH ×2 (08:14→21:39)
[2017-08-30] MEDS: DULoxetine HCL 60 MG CAPSULE.DR PO SCH ×2 (08:15→21:39)
--- NOTE | 2017-08-30 09:34 | P.PN ---
Subjective Progress Note Date: 08/30/17 Principal diagnosis: Upper GI bleed marginal ulcer Status post EGD with findings of 2.5cm superficial marginal ulcer at the Kaya-en -Y anastomosis with no active bleeding. Pouch appeared normal. Denies hematemesis hematochezia melena. Tolerating full liquids. Denies abdominal pain. Hemoglobin 7.9. Objective - Vital Signs Vital signs: Vital Signs Temp 97.4 F L 08/30/17 08:00 Pulse 83 08/30/17 08:00 Resp 18 08/30/17 08:00 BP 91/51 08/30/17 08:00 Pulse Ox 99 08/30/17 08:00 Intake & Output 08/29/17 08/30/17 08/30/17 18:59 06:59 18:59 Intake Total 410 120 Output Total 200 400 Balance 210 -400 120 Weight 63.2 kg 65 kg Intake: IV 50 Oral 360 120 Output: Urine 200 400 Other: Voiding Method Toilet # Voids 0 1 - Exam General appearance: The patient is alert, oriented, in no acute distress. Heart: S1 S2. Regular rate and rhythm. Lungs: No crackles or wheezes are heard. Abdomen: Soft, nontender, nondistended with bowel sounds. No peritoneal signs. No palpable organomegaly or masses. - Labs CBC & Chem 7: 08/30/17 06:16 08/30/17 06:16 Labs: Abnormal Lab Results - Last 24 Hours (Table) 08/28/17 08/30/17 08/30/17 Range/Units 12:20 06:16 06:16 RBC 2.46 L (3.80-5.40) m/uL Hgb 7.9 L (11.4-16.0) gm/dL Hct 25.1 L (34.0-46.0) % MCV 102.0 H (80.0-100.0) fL RDW 19.5 H (11.5-15.5) % Sodium 133 L (137-145) mmol/L Creatinine 0.41 L (0.52-1.04) mg/dL Glucose 68 L (74-99) mg/dL Calcium 7.4 L (8.4-10.2) mg/dL Total Bilirubin <0.1 L (0.2-1.3) mg/dL Total Protein 3.6 L (6.3-8.2) g/dL Albumin 1.7 L (3.5-5.0) g/dL Complement C3 52.8 L (80.0-207.0) mg/dL Assessment and Plan (1) Acute upper GI bleed Current Visit: Yes Status: Acute Code(s): K92.2 - GASTROINTESTINAL HEMORRHAGE, UNSPECIFIED SNOMED Code(s): 07774289 (2) Marginal ulcer Current Visit: Yes Status: Acute Code(s): K28.9 - GASTROJEJUNAL ULCER, UNSP ACUTE OR CHR, W/O HEMOR OR PERF SNOMED Code(s): 222277972 (3) History of Kaya-en-Y gastric bypass Current Visit: Yes Status: Acute Code(s): Z98.84 - BARIATRIC SURGERY STATUS SNOMED Code(s): 448740155 (4) Acute blood loss anemia Current Visit: No Status: Acute Code(s): D62 - ACUTE POSTHEMORRHAGIC ANEMIA SNOMED Code(s): 807843682 Plan: 1. Advance to soft diet. Avoid alcohol NSAIDs and aspirin. Continue Protonix 40 mg daily. Carafate 1 g 4 times daily. Return to office in 2 weeks for reevaluation. Discharge per medicine. Assessment and plan a care discussed with Dr. Kent
[2017-08-30 11:33] LABS: Reticulocyte % 4.7 % (0.5-2.0)
--- NOTE | 2017-08-30 13:09 | P.CONS ---
History of Present Illness - Reason for Consult Consult date: 08/30/17 Anemia Requesting physician: Peter Lake - Chief Complaint Fatigue - History of Present Illness Mrs. Faith is a 51 year old patient who presented to [facility] Emergency Department for increasing bilateral lower extremity swelling, fatigue , and black tarry stools (earlier in the week). She take lasix on occassion for her intermittent lower extremity swelling, although she did not notice any relief this time. She has a history of gastric Bypass in 2002. As well as other multiple co-morbidies including GERD, Sleep Apnea, Asthma, Nephrolithiasis, Chronic Pain, Tobacco Abuse (History). She has a known marginal ulcer of the Gastro-Jejunostomy which had caused her to become dependent on narcotic pain medications in the past. She has had multiple emergency visits for issues related to abdominal pain, renal stones, colitis. She did recently have EGD and Upper GI diagnostics performed. On admission her WBC were mildly elevated at 11.4, Hemoglobin 11.2, platlets 335. Hyponatremic with a sodium of 123, and admission creatinine 2.1, B.U.N 32. She has had GI bleed in past as well requiring PRBC transfusions and IV/PO Iron supplements. She was unable to remain adherent to the PO iron over the past shalonda secondary to GI upset. She denies any new or acute abdominal pain. She has chronic intermittent abdominal pain RUQ, although she stated this is unchanged from her "usual". She complains of pain associated more in her lower extremities and with evident petechaie like rash. She did undergo an EGD yesterday and Biopsy was taken. Review of Systems A 14 point review of systems assessed and completed and all negative except HPI. Past Medical History Past Medical History: Asthma, Fibromyalgia, GERD/Reflux, Sleep Apnea/CPAP/BIPAP Additional Past Medical History / Comment(s): migraines, gastric ulcer, varicose veins, chronic fatigue syndrome, hx pernicious anemia, abdominal pain- colitis-IBS, oral yeast infections, hx kidney stones History of Any Multi-Drug Resistant Organisms: None Reported Past Surgical History: Appendectomy, Back Surgery, Bariatric Surgery, Section, Cholecystectomy, Hernia Repair, Hysterectomy Additional Past Surgical History / Comment(s): x2, metal removed from rt eye 15 years ago,-lithotripsy, gastric bypass 2002 , 2 titanium rods in lower back, Carpal tunnel release bilaterally, PANNICULECTOMY Past Anesthesia/Blood Transfusion Reactions: Family History of Problems w/ Anesthesia Additional Past Anesthesia/Blood Transfusion Reaction / Comm: family members w/ severe headaches w/anesthesia Past Psychological History: Anxiety, Depression Smoking Status: Former smoker Past Alcohol Use History: None Reported Past Drug Use History: None Reported - Past Family History Father Family Medical History: Cancer Additional Family Medical History / Comment(s): PROSTATE CANCER Mother Additional Family Medical History / Comment(s): OBESITY-HAD GASTRIC BYPASS SX Medications and Allergies Home Medications Medication Instructions Recorded Confirmed Type DULoxetine HCL [Cymbalta] 60 mg PO BID 03/19/15 08/27/17 History Albuterol Inhaler [Ventolin Hfa 2 puff INHALATION RT-QID PRN 07/31/15 08/27/17 History Inhaler] busPIRone HCL [Buspar] 30 mg PO BID 02/21/17 08/27/17 History Dicyclomine [Bentyl] 20 mg PO AC-TID 02/28/17 08/27/17 History Spironolactone 100 mg PO DAILY 02/28/17 08/27/17 History diphenhydrAMINE HCL [Benadryl] 50 mg PO BID PRN 02/28/17 08/27/17 History Acetaminophen Tab [Tylenol Tab] 1,000 mg PO Q6HR PRN 03/31/17 08/27/17 History Omeprazole 40 mg PO DAILY #60 capsule. 06/23/17 08/27/17 Rx Buprenorphine HCl [Subutex] 4 mg SL BID 08/02/17 08/27/17 History Cholecalciferol [Vitamin D3] 5,000 unit PO DAILY 08/02/17 08/27/17 History Furosemide [Lasix] 40 mg PO DAILY 08/02/17 08/27/17 History Lisinopril [Zestril] 10 mg PO DAILY 08/02/17 08/27/17 History Meclizine HCl 25 mg PO Q8H PRN 08/02/17 08/27/17 History Metolazone [Zaroxolyn] 2.5 mg PO DAILY 08/02/17 08/27/17 History Multivitamin [Multivitamins Adult 2 tab PO DAILY 08/02/17 08/27/17 History Gummies] Ondansetron HCl [Zofran] 4 mg PO BID PRN 08/02/17 08/27/17 History Sennosides [Ex-Lax Maximum 25 mg PO DAILY 08/02/17 08/27/17 History Strength] Fiber + Calcium Gummies 2 tab PO DAILY 08/05/17 08/27/17 History Probiotic Gummies 2 tab PO DAILY 08/05/17 08/27/17 History Sucralfate [Carafate] 1 gm PO ACHS 08/05/17 08/27/17 History Butalb/Acetaminophen/Caffeine 1 cap PO DAILY PRN 08/27/17 08/27/17 History [Fioricet 50-300-40 mg Capsule] Allergies Allergy/AdvReac Type Severity Reaction Status Date / Time broccoli Allergy Severe Anaphylaxis Verified 08/27/17 10:58 with raw broccoli Penicillins Allergy Unknown Anaphylaxis Verified 08/27/17 10:58 diet cola Allergy GI irritant Uncoded 08/27/17 04:35 Physical Exam Vitals: Vital Signs Temp Pulse Resp BP BP Pulse Ox 08/30/17 08:00 97.4 F L 83 18 91/51 99 08/30/17 04:00 97.0 F L 81 18 78/50 95 08/30/17 00:00 97.7 F 83 18 87/59 99 08/29/17 20:00 97.2 F L 87 16 87/61 98 08/29/17 16:00 97.4 F L 86 16 96/55 94 L 08/29/17 12:00 97.2 F L 89 16 96/56 92 L Intake and Output 08/29/17 08/30/17 08/30/17 22:59 06:59 14:59 Intake Total 120 120 Output Total 400 Balance 120 -400 120 Intake: Oral 120 120 Output: Urine 400 Other: Voiding Method Toilet Toilet # Voids 0 1 Weight 65 kg - Constitutional General appearance: cooperative, thin - EENT Eyes: EOMI, poor dentition, normal appearance ENT: NA/AT, normal oropharynx - Neck Neck: normal ROM - Respiratory Respiratory: bilateral: CTA (No increased effort) - Cardiovascular Rhythm: regular Heart sounds: normal: S1, S2 foot Peripheral Edema: bilateral: 3+ (with petechaie like rash bilateral ) leg Peripheral Edema: bilateral: 3+ - Gastrointestinal General gastrointestinal: normal bowel sounds, soft, tenderness - Integumentary Integumentary: pale, rash - Neurologic No focal defects Neurologic: CNII-XII intact - Musculoskeletal Musculoskeletal: generalized weakness, strength equal bilaterally - Psychiatric Psychiatric: A&O x's 3, appropriate affect, intact judgment & insight Results CBC & Chem 7: 08/30/17 06:16 08/30/17 06:16 Labs: Abnormal Lab Results - Last 24 Hours (Table) 08/28/17 08/30/17 08/30/17 Range/Units 12:20 06:16 06:16 RBC 2.46 L (3.80-5.40) m/uL Hgb 7.9 L (11.4-16.0) gm/dL Hct 25.1 L (34.0-46.0) % MCV 102.0 H (80.0-100.0) fL RDW 19.5 H (11.5-15.5) % Sodium 133 L (137-145) mmol/L Creatinine 0.41 L (0.52-1.04) mg/dL Glucose 68 L (74-99) mg/dL Calcium 7.4 L (8.4-10.2) mg/dL Total Bilirubin <0.1 L (0.2-1.3) mg/dL Total Protein 3.6 L (6.3-8.2) g/dL Albumin 1.7 L (3.5-5.0) g/dL Complement C3 52.8 L (80.0-207.0) mg/dL Assessment and Plan (1) Macrocytic anemia Current Visit: Yes Status: Acute Code(s): D53.9 - NUTRITIONAL ANEMIA, UNSPECIFIED SNOMED Code(s): 12408275 (2) Acute kidney injury Current Visit: Yes Status: Acute Code(s): N17.9 - ACUTE KIDNEY FAILURE, UNSPECIFIED SNOMED Code(s): 21813823 (3) Acute upper GI bleed Current Visit: Yes Status: Acute Code(s): K92.2 - GASTROINTESTINAL HEMORRHAGE, UNSPECIFIED SNOMED Code(s): 56645373 (4) Edema Current Visit: Yes Status: Acute Code(s): R60.9 - EDEMA, UNSPECIFIED SNOMED Code(s): 970955659 (5) History of Kaya-en-Y gastric bypass Current Visit: Yes Status: Acute Code(s): Z98.84 - BARIATRIC SURGERY STATUS SNOMED Code(s): 354086912 (6) Hypokalemia Current Visit: Yes Status: Acute Code(s): E87.6 - HYPOKALEMIA SNOMED Code( s): 35948463 (7) Hyponatremia Current Visit: Yes Status: Acute Code(s): E87.1 - HYPO-OSMOLALITY AND HYPONATREMIA SNOMED Code(s): 91532328 (8) Marginal ulcer Current Visit: Yes Status: Acute Code(s): K28.9 - GASTROJEJUNAL ULCER, UNSP ACUTE OR CHR, W/O HEMOR OR PERF SNOMED Code(s): 331152544 (9) Abdominal pain Current Visit: No Status: Acute Code(s): R10.9 - UNSPECIFIED ABDOMINAL PAIN SNOMED Code(s): 88809074 (10) Acute blood loss anemia Current Visit: No Status: Acute Code(s): D62 - ACUTE POSTHEMORRHAGIC ANEMIA SNOMED Code(s): 723936480 Plan: Assessment and Recommendations: 1. Macrocytic Anemia - Likely Multifactoral with component of Iron deficiency with blood loss anemia from known Marginal ulcer and malabsorption with known history of Gastric Bypass Surgery: - Check B12, Folate, Methylmalonic Acid, Retic, Iron studies, Ferritin (may be inaccurate patient status post one parental IV iron), SPEP, TSH, - Transfuse if hemoglobin is less than 7 - Likely will need and benefit from more IV Iron Supplements. Will give another IV today Iron studies are drawn and assess to see if further inpatient need presents. 2. Acute Renal Insufficiency - Per Nephrology 3. Hyponatremia - Positive Urine Sodium - Per Nephrology 4. Bilateral Lower extremity Rash (Petechaie -like) - Platelets and Coagulation factors are with in normal limits. 5. Bilateral Lower extremity Edema - likely secondary to number 2 and low albumin levels 6. Protein calorie malnutrition, Low serum albumin levels. Physician Attestations: I have completed the Full history and physical on this patient and discussed and agree with dictation above by Sveta Chaparro NP. Documented as a scribe
[2017-08-30] MEDS: CHOLECALCIFEROL 1,000 UNIT TAB PO SCH (13:45)
[2017-08-30] MEDS: MULTIVITAMINS, THERA 1 EACH TAB PO SCH (13:46)
[2017-08-30] MEDS: HYDROcodone/APAP 7.5-325MG 1 EACH TAB PO PRN ×2 (13:46→21:40)
--- NOTE | 2017-08-30 13:46 | P.PN ---
Subjective Progress Note Date: 08/30/17 Principal diagnosis: Atrial fibrillation This is a 51-year-old female with a fairly complex past medical history, she has a history of asthma, GERD, sleep apnea, former smoker, prior gastric bypass surgery, she has a known marginal ulcer of the gastro-jejunostomy , chronic pain for which she was addicted to opioids at one time. According to the patient, she has had several visits to the emergency room since February of last year. She states that she's been having issues with her colitis, abdominal discomfort, she had recently passed a kidney stone, recently had upper GI and EGD performed. She states that over the past few days she's noticed herself to be putting on significant edema in her lower extremities and she has been more short of breath than usual. For this reason she has been taking Zaroxolyn and Lasix for the past couple of days. EKG performed on arrival here showed a normal sinus rhythm with nonspecific ST-T wave changes. Blood pressure 94/50 with a heart rate in the 80s to 90s, she is afebrile, 100% on room air. Laboratory data was reviewed, white blood cell count 11.4, Coumadin 11.2, platelet count 335. Sodium 123, potassium 4.2 this morning, 2.7 on admission, BUN 32, creatinine 2.1. Troponins 0.064, 0.053, 0.052. BNP level 2120. Stool for occult blood is positive. Patient does state that she had a stool last week which was bloody. AST 37, ALT 59, alk phos 131. At the time of my examination this morning, patient complains of feeling weak, he is having some abdominal tenderness. Her bilateral lower extremities have significant edema with petechiae and are very painful. 08/29/2017 Patient was seen and examined this morning, states she is feeling better overall today. Still complains of feeling weak. Blood pressure today 87/54, heart rate in the 80s, 96% on room air. White blood cell count 7.8, hemoglobin 7.8 which is down from 10 yesterday, sodium 134, potassium 3.4, BUN 16, creatinine 0.5. Total protein 3.7, albumin 1.7. Patient is scheduled today to undergo an EGD with Dr. Kent. 08/30/2017 Patient was seen and examined this morning, overall feeling significantly better today. She's been up ambulating in the hallway without any difficulty. EGD was performed today which revealed a 2.5 cm superficial marginal ulcer at the Kaya-en-Y anastomosis with no active bleeding. However she appeared to be normal. Blood pressure remains on the low side at 90/50 with a heart rate in the 80s, 99% on room air. Hemoglobin 7.9, sodium 133, potassium 3.7, BUN 11, creatinine 0.4. Objective - Vital Signs Vital signs: Vital Signs Temp 97.4 F L 08/30/17 08:00 Pulse 83 08/30/17 08:00 Resp 18 08/30/17 08:00 BP 91/51 08/30/17 08:00 Pulse Ox 99 08/30/17 08:00 Intake & Output 08/29/17 08/30/17 08/30/17 18:59 06:59 18:59 Intake Total 410 120 Output Total 200 400 Balance 210 -400 120 Weight 63.2 kg 65 kg Intake: IV 50 Oral 360 120 Output: Urine 200 400 Other: Voiding Method Toilet # Voids 0 1 1 - Exam PHYSICAL EXAMINATION: HEENT: Head is atraumatic, normocephalic. Pupils equal, round. Neck is supple. There is elevated jugular venous pressure. HEART EXAMINATION: Heart S1 and S2 systolic murmur is heard. CHEST EXAMINATION: Lungs are clear with diminished air entry to the bases. ABDOMEN: Soft, positive right upper quadrant tenderness, . Bowel sounds are heard. No organomegaly noted. EXTREMITIES:[ 2+ peripheral pulses with 2-3+ evidence of peripheral edema , evidence of petechiae on the tops of both of her feet, dressings in place today NEUROLOGIC patient is awake, alert and oriented -3. - Labs CBC & Chem 7: 08/30/17 06:16 08/30/17 06:16 Labs: Abnormal Lab Results - Last 24 Hours (Table) 08/28/17 08/30/17 08/30/17 Range/Units 12:20 06:16 06:16 RBC 2.46 L (3.80-5.40) m/uL Hgb 7.9 L (11.4-16.0) gm/dL Hct 25.1 L (34.0-46.0) % MCV 102.0 H (80.0-100.0) fL RDW 19.5 H (11.5-15.5) % Retic Count (0.5-2.0) % Sodium 133 L (137-145) mmol/L Creatinine 0.41 L (0.52-1.04) mg/dL Glucose 68 L (74-99) mg/dL Calcium 7.4 L (8.4-10.2) mg/dL Total Bilirubin <0.1 L (0.2-1.3) mg/dL Total Protein 3.6 L (6.3-8.2) g/dL Albumin 1.7 L (3.5-5.0) g/dL Complement C3 52.8 L (80.0-207.0) mg/dL 08/30/17 Range/Units 11:17 RBC (3.80-5.40) m/uL Hgb (11.4-16.0) gm/dL Hct (34.0-46.0) % MCV (80.0-100.0) fL RDW (11.5-15.5) % Retic Count 4.7 H (0.5-2.0) % Sodium (137-145) mmol/L Creatinine (0.52-1.04) mg/dL Glucose (74-99) mg/dL Calcium (8.4-10.2) mg/dL Total Bilirubin (0.2-1.3) mg/dL Total Protein (6.3-8.2) g/dL Albumin (3.5-5.0) g/dL Complement C3 (80.0-207.0) mg/dL Assessment and Plan Plan: Assessment and plan #1 congestive heart failure, diastolic, acute on chronic BNP 2120 on admission. #2 abdominal discomfort, with associated nausea and vomiting patient has prior gastric bypass surgery, known marginal ulcer of the gastro-jejunostomy. History of kidney stones, she recently passed a kidney stone. #3 asthma #4 GERD # 5 sleep apnea #6 prior GI bleed, patient also noticed blood in her stool earlier this week, stool for occult is positive, hemoglobin 7.8 today #7 chronic back pain, fibromyalgia, he is addicted to opioids, currently on Subutex #8 acute renal failure, #9 hyponatremia #10 abnormal liver functions, likely secondary to congestion #11 abnormal troponins, likely secondary to abnormal renal function. Patient did have an episode of chest pain earlier this week, EKG shows normal sinus rhythm with nonspecific ST-T wave changes. #12 hypokalemia #13 hypotension From cardiology's perspective, we will continue the patient on her current medications. She is asymptomatic with a blood pressure in the 90s. Echocardiogram with Doppler study revealed a normal left ventricular systolic function with severe tricuspid regurgitation. 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 DNP note has been reviewed, I agree with a documented findings and plan of care. Patient was seen and examined.
[2017-08-30 14:56] LABS: C-ANCA <1:20 Titer (<1:20); P-ANCA <1:20 Titer (<1:20)
[2017-08-30 15:44] LABS: Protein, Total 3.5 g/dL (6.2-8.2)
[2017-08-30] MEDS: SODIUM FERRIC GLUCONAT-SUCROSE 125 MG in SODIUM CHLORIDE 0.9% 100 ML IVPB SCH (17:25)
[2017-08-30] MEDS: BUTALB/APAP/CAFF 50-325-40MG TAB PO PRN (18:47)
--- NOTE | 2017-08-30 20:22 | PN ---
PROGRESS NOTE Patient is seen for followup for acute kidney injury which appears to be mainly prerenal. Patient's renal function has improved significantly after IV fluids. However, she has significant lower extremity edema. Her edema has worsened. IV fluids have been discontinued. All serologies came back negative. Serum creatinine is down to 0.4 mg/dL. Patient was found to have a peptic ulcer with no active bleeding on an EGD. Her albumin remains significantly low at 1.7, and she is trying to increase her protein intake. On examination, blood pressure is 101/50, heart rate 80 per minute. Patient is afebrile. EXAMINATION OF THE HEART: S1, S2. EXAMINATION OF LUNGS: Bilateral breath sounds are heard. ABDOMEN: Soft, non-tender. Examination of lower extremities shows 4+ edema bilaterally. CRIMINAL INVESTIGATOR exam is grossly intact. Labs show sodium 133, potassium 3.7, serum creatinine 0.4, hemoglobin 7.9 g/dL, albumin 1.7. UA shows no protein and all serologies, including QUAN, p-ANCA and C ANCA and anti double-stranded DNA were all negative. Immunofixation did show IgG kappa and additional lambda free light chains. ASSESSMENT: 1. Acute kidney injury, prerenal, currently significantly improved. 2. Lower extremity edema mainly secondary to hypoalbuminemia. There was no proteinuria noted on the regular urinalysis; however, patient does have elevated kappa and lambda chains. This will need further evaluation. 3. Hyponatremia, mainly hypovolemic, on initial admission, currently improved. 4. Anemia secondary to gastrointestinal bleed, status post esophagogastroduodenoscopy showing peptic ulcer, currently maintained on Protonix and Pepcid. 5. Severe iron deficiency, currently on IV iron. PLAN: Resume diuretics. Check kappa and lambda free light chains. I will hold off on CHARLEY inhibitors, since blood pressure is significantly low. MMODL / IJN: [id number] /
[2017-08-30] MEDS: FAMOTIDINE 20 MG TAB PO SCH ×2 (21:38→21:39)
[2017-08-30] MEDS: FUROSEMIDE 10 MG/ML 4 ML VIAL IV SCH (21:39)
--- NOTE | 2017-08-30 23:07 | PN ---
PROGRESS NOTE SUBJECTIVE: Hemoglobin is 7.9. She was to stay one other day. Low-dose Lasix has been reinstated. She continues on Venofer IV iron infusions. Vital signs are stable. Afebrile. CARDIOVASCULAR: S1, S2. LUNGS: Clear. GI: Soft. HEMATOLOGY: Negative Homans. Two to three plus pedal edema. Continue with Renato wraps to the lower legs. PT, OT. Iron infusions. Low-dose Lasix. Possible discharge home in the next 24 hours. MMODL / IJN: [id number] /
[2017-08-31 01:05] LABS: Folate, Serum 7.9 ng/mL
[2017-08-31 01:16] LABS: Iron Saturation 8.6 (12.00-45.00)
[2017-08-31] MEDS: SUCRALFATE 1 GM TAB PO SCH ×5 (03:13→19:57)
[2017-08-31 06:44] LABS: Anisocytosis Slight; Basophils % (A) 0 %; Eosinophils # (A) 0.1 k/uL (0-0.7); Eosinophils % (A) 1 %; HCT 25.1 % (34.0-46.0); HGB 8.2 gm/dL (11.4-16.0); Lymphocytes # (A) 2.5 k/uL (1.0-4.8); Lymphocytes % (A) 44 %; MCH 32.6 pg (25.0-35.0); MCHC 32.7 g/dL (31.0-37.0); MCV 99.7 fL (80.0-100.0); Macrocytosis Moderate; Mean Platelet Volume 7.9; Monocytes # (A) 0.4 k/uL (0-1.0); Monocytes % (A) 7 %; Neutrophils # (A) 2.5 k/uL (1.3-7.7); Neutrophils % (A) 45 %; Platelet Count 238 k/uL (150-450); RBC 2.52 m/uL (3.80-5.40); RDW 19.7 % (11.5-15.5); WBC 5.7 k/uL (3.8-10.6)
[2017-08-31 06:59] LABS: ALT 36 U/L (9-52); AST 18 U/L (14-36); Albumin 1.7 g/dL (3.5-5.0); Alkaline Phosphatase 110 U/L (38-126); Anion Gap 2 mmol/L; Blood Urea Nitrogen 9 mg/dL (7-17); Calcium 7.7 mg/dL (8.4-10.2); Carbon Dioxide 28 mmol/L (22-30); Chloride 104 mmol/L (98-107); Glucose 73 mg/dL (74-99); Potassium 3.6 mmol/L (3.5-5.1); Sodium 134 mmol/L (137-145); Total Bilirubin <0.1 mg/dL (0.2-1.3); Total Protein 3.7 g/dL (6.3-8.2)
[2017-08-31] MEDS: PANTOPRAZOLE 40 MG TABLET PO SCH (06:59)
[2017-08-31] MEDS: DULoxetine HCL 60 MG CAPSULE.DR PO SCH ×2 (08:29→19:57)
[2017-08-31] MEDS: FAMOTIDINE 20 MG TAB PO SCH ×2 (08:29→19:56)
[2017-08-31] MEDS: FUROSEMIDE 10 MG/ML 4 ML VIAL IV SCH ×2 (08:30→19:56)
[2017-08-31] MEDS: busPIRone HCl 10 MG TAB PO SCH ×2 (08:30→19:56)
[2017-08-31] MEDS: SODIUM FERRIC GLUCONAT-SUCROSE 125 MG in SODIUM CHLORIDE 0.9% 100 ML IVPB SCH (09:06)
[2017-08-31] MEDS: HYDROcodone/APAP 7.5-325MG 1 EACH TAB PO PRN ×3 (09:06→20:42)
[2017-08-31] MEDS ORDERED: FUROSEMIDE 10 MG/ML 2 ML VIAL IV ONE (09:59)
[2017-08-31] MEDS: MULTIVITAMINS, THERA 1 EACH TAB PO SCH (12:03)
[2017-08-31] MEDS: CHOLECALCIFEROL 1,000 UNIT TAB PO SCH (12:03)
[2017-08-31 12:15] LABS: Albumin 1.92 g/dL (3.80-4.90); Gamma Globulin 0.44 g/dL (0.70-1.50)
[2017-08-31] MEDS ORDERED: POTASSIUM CHLORIDE ER 20 MEQ TAB.ER PO STA (13:36)
--- NOTE | 2017-08-31 13:52 | P.PN ---
Subjective Progress Note Date: 08/31/17 Principal diagnosis: Anemia Ms. Faith seen in follow-up today Objective - Vital Signs Vital signs: Vital Signs Temp 97.7 F 08/31/17 12:00 Pulse 95 08/31/17 12:00 Resp 16 08/31/17 12:00 BP 116/75 08/31/17 12:00 Pulse Ox 98 08/31/17 08:00 Intake & Output 08/30/17 08/31/17 08/31/17 18:59 06:59 18:59 Intake Total 240 580 820 Balance 240 580 820 Weight 65 kg Intake: Intake, IV Titration 100 Amount Sodium Ferric Gluconat- 100 Sucrose 125 mg In Sodium Chloride 0.9% 100 ml @ 100 mls/hr IVPB DAILY GHAZAL Rx#:[id number] Oral 240 480 820 Other: Voiding Method Toilet Toilet # Voids 1 4 2 - Constitutional General appearance: Present: cooperative, no acute distress - EENT Eyes: Present: EOMI, dentition normal ENT: Present: NA/AT, normal oropharynx - Neck Details: Supple, Trachea midline Neck: Present: normal ROM - Respiratory Respiratory: bilateral: CTA (No increased respiratory effort) - Cardiovascular Rhythm: regular Heart sounds: normal: S1, S2 - Peripheral edema leg Peripheral Edema: bilateral: 2+ foot Peripheral Edema: bilateral: 2+ (Petechae rash bilateral top of feet) - Gastrointestinal General gastrointestinal: Present: soft - Integumentary Integumentary: Present: pale - Neurologic Neurologic: Present: CNII-XII intact - Musculoskeletal Musculoskeletal: Present: generalized weakness - Psychiatric Psychiatric: Present: A&O x's 3, appropriate affect, intact judgment & insight - Labs CBC & Chem 7: 08/31/17 06:27 08/31/17 06:27 Labs: Abnormal Lab Results - Last 24 Hours (Table) 08/29/17 08/29/17 08/30/17 Range/Units 12:09 12:09 06:16 RBC (3.80-5.40) m/uL Hgb (11.4-16.0) gm/dL Hct (34.0-46.0) % RDW (11.5-15.5) % Sodium (137-145) mmol/L Creatinine (0.52-1.04) mg/dL Glucose (74-99) mg/dL Calcium (8.4-10.2) mg/dL Iron 16 L (50-170) ug/dL TIBC 186 L (228-460) ug/dL Iron Saturation 8.60 L (12.00-45.00) Total Bilirubin (0.2-1.3) mg/dL Total Protein (6.3-8.2) g/dL Total Protein (PEP) 3.5 L (6.2-8.2) g/dL Albumin (3.5-5.0) g/dL Albumin (PEP) 1.92 L (3.80-4.90) g/dL Zyoit-2-Hegbiraxd 0.57 L (0.60-1.00) g/dL Beta Globulins 0.39 L (0.60-1.30) g/dL Gamma Globulins 0.44 L (0.70-1.50) g/dL Vitamin B12 968.0 H (200.0-944.0) pg/mL Free [facility] LC, Quant (0.33-1.94) mg/dL Free Lambda LC, Quant (0.57-2.63) mg/dL 08/31/17 08/31/17 08/31/17 Range/Units 06:27 06:27 06:27 RBC 2.52 L (3.80-5.40) m/uL Hgb 8.2 L (11.4-16.0) gm/dL Hct 25.1 L (34.0-46.0) % RDW 19.7 H (11.5-15.5) % Sodium 134 L (137-145) mmol/L Creatinine 0.43 L (0.52-1.04) mg/dL Glucose 73 L (74-99) mg/dL Calcium 7.7 L (8.4-10.2) mg/dL Iron (50-170) ug/dL TIBC (228-460) ug/dL Iron Saturation (12.00-45.00) Total Bilirubin <0.1 L (0.2-1.3) mg/dL Total Protein 3.7 L (6.3-8.2) g/dL Total Protein (PEP) (6.2-8.2) g/dL Albumin 1.7 L (3.5-5.0) g/dL Albumin (PEP) (3.80-4.90) g/dL Gocag-2-Jhthymdki (0.60-1.00) g/dL Beta Globulins (0.60-1.30) g/dL Gamma Globulins (0.70-1.50) g/dL Vitamin B12 (200.0-944.0) pg/mL Free [facility] LC, Quant 2.20 H (0.33-1.94) mg/dL Free Lambda LC, Quant 2.66 H (0.57-2.63) mg/dL Assessment and Plan (1) Macrocytic anemia Current Visit: Yes Status: Acute Code(s): D53.9 - NUTRITIONAL ANEMIA, UNSPECIFIED SNOMED Code(s): 67175882 (2) Acute kidney injury Current Visit: Yes Status: Acute Code(s): N17.9 - ACUTE KIDNEY FAILURE, UNSPECIFIED SNOMED Code(s): 36554057 (3) Acute upper GI bleed Current Visit: Yes Status: Acute Code(s): K92.2 - GASTROINTESTINAL HEMORRHAGE, UNSPECIFIED SNOMED Code(s): 36886178 (4) Edema Current Visit: Yes Status: Acute Code(s): R60.9 - EDEMA, UNSPECIFIED SNOMED Code(s): 356753829 (5) History of Kaya-en-Y gastric bypass Current Visit: Yes Status: Acute Code(s): Z98.84 - BARIATRIC SURGERY STATUS SNOMED Code(s): 332966614 (6) Hypokalemia Current Visit: Yes Status: Acute Code(s): E87.6 - HYPOKALEMIA SNOMED Code( s): 40678822 (7) Hyponatremia Current Visit: Yes Status: Acute Code(s): E87.1 - HYPO-OSMOLALITY AND HYPONATREMIA SNOMED Code(s): 14186734 (8) Marginal ulcer Current Visit: Yes Status: Acute Code(s): K28.9 - GASTROJEJUNAL ULCER, UNSP ACUTE OR CHR, W/O HEMOR OR PERF SNOMED Code(s): 516615684 (9) Abdominal pain Current Visit: No Status: Acute Code(s): R10.9 - UNSPECIFIED ABDOMINAL PAIN SNOMED Code(s): 38068490 (10) Acute blood loss anemia Current Visit: No Status: Acute Code(s): D62 - ACUTE POSTHEMORRHAGIC ANEMIA SNOMED Code(s): 543578088 Plan: Assessment and Recommendations: 1. Macrocytic Anemia - Likely Multifactoral with component of Iron deficiency with blood loss anemia from known Marginal ulcer and malabsorption with known history of Gastric Bypass Surgery: - Reviewed Results of B12, Folate, Methylmalonic Acid, Retic, Iron studies, Ferritin, SPEP, TSH, - Transfuse if hemoglobin is less than 7 - Agree with the total of 3 IV iron supplementations, Hgb 8.2 today. Continue daily CBC. 2. Acute Renal Insufficiency - Per Nephrology 3. Hyponatremia - Positive Urine Sodium - Per Nephrology 4. Bilateral Lower extremity Rash (Petechaie -like) - Platelets and Coagulation factors are with in normal limits. 5. Bilateral Lower extremity Edema - likely secondary to number 2 and low albumin levels 6. Protein calorie malnutrition, Low serum albumin levels. Physician Attestations: I have completed the Full history and physical on this patient and discussed and agree with dictation above by Sveta Chaparro NP. Documented as a scribe
--- NOTE | 2017-08-31 16:00 | CDI ---
Last Revision, April 2017 Documentation Clarification Form Date: 08/31/17 From: Kamilah Mckeon RN, CCDS Admit Date: 08/27/2017 6:41:00 AM Patient Name: Keyla Faith Visit Number: [id number] Discharge Date: ATTENTION: The Clinical Documentation Specialists (CDI) and [facility] Coding Staff appreciate your assistance in clarifying documentation. Please respond to the clarification below the line at the bottom and electronically sign. The CDI & [facility] Coding staff will review the response and follow-up if needed. Please note: Queries are made part of the Legal Health Record. If you have any questions, please contact the author of this message via ITS. Dr. Sp Gonzalez Protein calorie Malnutrition has been documented in your progress notes beginning 08/30/17 History/Risk Factors: Marginal ulcer and malabsorption, Gastric Bypass Surgery, Abdominal Npre-[id number]-JIU, Clinical Indicators: Present with increasing bilateral lower extremity swelling , fatigue, generalized weakness. Labs: Albumin 1.7 Pre albumin (PEP) 1,92, Total Protein 3.7 Current BMI: 26.2 Weight Loss: Bariatric patient Nutrient Needs: Increased protein needs Fluid accumulation: Yes bilateral lower extremities Treatment Bariatric Advantage to provide 27 gm protein Dietary Consult: Yes Lab monitoring: In your professional opinion, can you please clarify if these findings signify one of the following conditions? Mild Protein-Calorie Malnutrition Moderate Protein-Calorie Malnutrition Severe Protein-Calorie Malnutrition Other condition please specify Unable to determine Please continue to document in your progress notes in order to capture severity of illness and risk of mortality. Include clinical findings that support your diagnosis. MTDD
[2017-08-31] MEDS: SODIUM CHLORIDE 0.9% 1,000 ML IV SCH ×2 (19:41→21:36)
--- NOTE | 2017-09-01 00:02 | PN ---
PROGRESS NOTE SUBJECTIVE: This is a white female, still on IV Lasix 40 mg q.8 hours. Renato wraps to the lower legs. Venofer IV iron infusions. Her hemoglobin is up to 8.3 today. Waiting for renal physician to clear her for discharge with Lasix dose. Low albumin is being treated with large dietary measures at this time, which would help with third spacing in the lower legs. She is to wear Renato wraps on her lower legs. Vital signs are stable. Afebrile. CARDIOVASCULAR: S1, S2. LUNGS: Clear. GI: Soft. HEMATOLOGY: Negative Homans. Three plus anasarca lower extremities. ASSESSMENT: 1. Hypoalbuminemia. 2. Peripheral edema secondary to hypoalbuminemia. 3. Severe anemia. 4. Non-bleeding gastric ulcer. 5. Status post gastric surgery. 6. Severe iron deficiency anemia. Continue on Venofer, Lasix. Wait for oral Lasix to be discharged home per renal physician. MMODL / IJN: [id number] /
[2017-09-01] MEDS: HYDROcodone/APAP 7.5-325MG 1 EACH TAB PO PRN ×4 (03:16→22:55)
--- NOTE | 2017-09-01 05:05 | PN ---
PROGRESS NOTE Patient is seen for followup for acute kidney injury. Her renal function has improved. Serum creatinine is down to 0.4 mg/dL. The patient was started on IV Lasix yesterday since she has had significant lower extremity edema. The patient states overall she feels fairly well. PHYSICAL EXAMINATION: Blood pressure this morning was 110/70. Patient is afebrile. EXAMINATION OF THE HEART: S1 and S2. EXAMINATION OF THE LUNGS: Bilateral breath sounds are heard. Abdomen is soft, nontender. Examination of the lower extremities shows 3 to 4+ edema bilaterally. SET DESIGNER exam is grossly intact. LABS: Labs show sodium of 134, potassium 3.6, chloride 104, BUN 9, serum creatinine 0.43 mg/dL. ASSESSMENT: 1. Acute kidney injury, prerenal, currently resolved. 2. Lower extremity edema associated with hypoalbuminemia. All serologies are negative. [employer] [place] [employer] and lambda chains were elevated. However, the ratio is not significantly high. 3. Severe iron deficiency, maintained on IV iron. 4. Anemia associated with gastrointestinal bleed, status post endoscopy which showed peptic ulcer which was not bleeding. The patient is also maintained on Protonix along with Pepcid. PLAN: Give 60 mg of Lasix this morning and we will repeat another 60 mg tomorrow morning. This evening, patient can have 40 mg of Lasix IV push. I will also add Zaroxolyn, which can be started tomorrow morning. MMODL / IJN: [id number] /
[2017-09-01] MEDS: PANTOPRAZOLE 40 MG TABLET PO SCH (06:34)
[2017-09-01] MEDS: SUCRALFATE 1 GM TAB PO SCH ×4 (06:34→20:35)
[2017-09-01 06:44] LABS: Glucose,Whole Blood 79 mg/dL (75-99)
[2017-09-01] MEDS ORDERED: FUROSEMIDE 10 MG/ML 10 ML VIAL IV SCH (09:14)
[2017-09-01] MEDS: METOLAZONE 5 MG TAB PO SCH (09:32)
[2017-09-01] MEDS: FUROSEMIDE 10 MG/ML 4 ML VIAL IV SCH (09:57)
[2017-09-01] MEDS: busPIRone HCl 10 MG TAB PO SCH ×2 (09:58→20:36)
[2017-09-01] MEDS: FUROSEMIDE 10 MG/ML 10 ML VIAL IV SCH ×2 (09:59→20:35)
[2017-09-01] MEDS: FAMOTIDINE 20 MG TAB PO SCH ×2 (09:59→20:36)
[2017-09-01] MEDS: DULoxetine HCL 60 MG CAPSULE.DR PO SCH ×2 (09:59→20:36)
[2017-09-01] MEDS: SODIUM FERRIC GLUCONAT-SUCROSE 125 MG in SODIUM CHLORIDE 0.9% 100 ML IVPB SCH (10:01)
[2017-09-01 10:30] LABS: Anisocytosis Slight; Basophils % (A) 0 %; Eosinophils # (A) 0.1 k/uL (0-0.7); Eosinophils % (A) 1 %; HCT 28.5 % (34.0-46.0); HGB 9.1 gm/dL (11.4-16.0); Hypochromasia Slight; Lymphocytes # (A) 1.6 k/uL (1.0-4.8); Lymphocytes % (A) 26 %; MCH 32.8 pg (25.0-35.0); MCHC 31.9 g/dL (31.0-37.0); MCV 102.8 fL (80.0-100.0); Macrocytosis Moderate; Mean Platelet Volume 7.9; Monocytes # (A) 0.4 k/uL (0-1.0); Monocytes % (A) 7 %; Neutrophils # (A) 3.9 k/uL (1.3-7.7); Neutrophils % (A) 63 %; Platelet Count 267 k/uL (150-450); RBC 2.77 m/uL (3.80-5.40); RDW 19.7 % (11.5-15.5); WBC 6.2 k/uL (3.8-10.6)
[2017-09-01 10:41] LABS: Anion Gap 5 mmol/L; Blood Urea Nitrogen 11 mg/dL (7-17); Calcium 7.6 mg/dL (8.4-10.2); Carbon Dioxide 31 mmol/L (22-30); Chloride 99 mmol/L (98-107); Glucose 54 mg/dL (74-99); Potassium 3.6 mmol/L (3.5-5.1); Sodium 135 mmol/L (137-145)
--- NOTE | 2017-09-01 11:12 | P.PN ---
Subjective Progress Note Date: 09/01/17 Principal diagnosis: Anemia Ms. Faith seen in follow-up today, Her hemoglobin has improved to 9.2 this am. Discussed renato bandages and the natural process with third spacing and low protein. Electrophoresis showed no monioclonal proteins Objective - Vital Signs Vital signs: Vital Signs Temp 97.4 F L 09/01/17 07:50 Pulse 86 09/01/17 07:50 Resp 17 09/01/17 07:50 BP 106/69 09/01/17 07:50 Pulse Ox 100 09/01/17 07:50 Intake & Output 08/31/17 09/01/17 09/01/17 18:59 06:59 18:59 Intake Total 940 240 360 Output Total 675 200 Balance 940 -435 160 Weight 65.4 kg Intake: Oral 940 240 360 Output: Urine 675 200 Other: Voiding Method Toilet Toilet Toilet # Voids 1 2 1 # Bowel Movements 0 - Constitutional General appearance: Present: cooperative, no acute distress - EENT Eyes: Present: EOMI, poor dentition ENT: Present: NA/AT, normal oropharynx - Neck Details: Supple, Trachea Midline Neck: Present: normal ROM - Respiratory Respiratory: bilateral: CTA (No increased effort) - Cardiovascular Rhythm: regular Heart sounds: normal: S1, S2 - Peripheral edema leg Peripheral Edema: bilateral: 1+ (Improving still with petechaie rash tops of feet) - Gastrointestinal General gastrointestinal: Present: normal bowel sounds, soft, tenderness - Integumentary Integumentary: Present: pale - Neurologic Neurologic Comment(s): No focal Defects Neurologic: Present: CNII-XII intact - Musculoskeletal Musculoskeletal: Present: gait normal, generalized weakness, strength equal bilaterally - Psychiatric Psychiatric: Present: A&O x's 3, appropriate affect, intact judgment & insight - Labs CBC & Chem 7: 09/01/17 10:12 09/01/17 10:12 Labs: Abnormal Lab Results - Last 24 Hours (Table) 08/30/17 08/31/17 09/01/17 Range/Units 06:16 06:27 10:12 RBC 2.77 L (3.80-5.40) m/uL Hgb 9.1 L (11.4-16.0) gm/dL Hct 28.5 L (34.0-46.0) % MCV 102.8 H (80.0-100.0) fL RDW 19.7 H (11.5-15.5) % Sodium (137-145) mmol/L Carbon Dioxide (22-30) mmol/L Creatinine (0.52-1.04) mg/dL Glucose (74-99) mg/dL Calcium (8.4-10.2) mg/dL Albumin (PEP) 1.92 L (3.80-4.90) g/dL Tquxb-9-Vbicaopud 0.57 L (0.60-1.00) g/dL Beta Globulins 0.39 L (0.60-1.30) g/dL Gamma Globulins 0.44 L (0.70-1.50) g/dL Free [place] LC, Quant 2.20 H (0.33-1.94) mg/dL Free Lambda LC, Quant 2.66 H (0.57-2.63) mg/dL 09/01/17 Range/Units 10:12 RBC (3.80-5.40) m/uL Hgb (11.4-16.0) gm/dL Hct (34.0-46.0) % MCV (80.0-100.0) fL RDW (11.5-15.5) % Sodium 135 L (137-145) mmol/L Carbon Dioxide 31 H (22-30) mmol/L Creatinine 0.47 L (0.52-1.04) mg/dL Glucose 54 L (74-99) mg/dL Calcium 7.6 L (8.4-10.2) mg/dL Albumin (PEP) (3.80-4.90) g/dL Atrzp-7-Hmmfninlz (0.60-1.00) g/dL Beta Globulins (0.60-1.30) g/dL Gamma Globulins (0.70-1.50) g/dL Free [place] LC, Quant (0.33-1.94) mg/dL Free Lambda LC, Quant (0.57-2.63) mg/dL Assessment and Plan (1) Macrocytic anemia Current Visit: Yes Status: Acute Code(s): D53.9 - NUTRITIONAL ANEMIA, UNSPECIFIED SNOMED Code(s): 19209403 (2) Acute kidney injury Current Visit: Yes Status: Acute Code(s): N17.9 - ACUTE KIDNEY FAILURE, UNSPECIFIED SNOMED Code(s): 77499851 (3) Acute upper GI bleed Current Visit: Yes Status: Acute Code(s): K92.2 - GASTROINTESTINAL HEMORRHAGE, UNSPECIFIED SNOMED Code(s): 07194080 (4) Edema Current Visit: Yes Status: Acute Code(s): R60.9 - EDEMA, UNSPECIFIED SNOMED Code(s): 023944322 (5) History of Kaya-en-Y gastric bypass Current Visit: Yes Status: Acute Code(s): Z98.84 - BARIATRIC SURGERY STATUS SNOMED Code(s): 749509366 (6) Hypokalemia Current Visit: Yes Status: Acute Code(s): E87.6 - HYPOKALEMIA SNOMED Code( s): 95154486 (7) Hyponatremia Current Visit: Yes Status: Acute Code(s): E87.1 - HYPO-OSMOLALITY AND HYPONATREMIA SNOMED Code(s): 21410439 (8) Marginal ulcer Current Visit: Yes Status: Acute Code(s): K28.9 - GASTROJEJUNAL ULCER, UNSP ACUTE OR CHR, W/O HEMOR OR PERF SNOMED Code(s): 568161328 (9) Abdominal pain Current Visit: No Status: Acute Code(s): R10.9 - UNSPECIFIED ABDOMINAL PAIN SNOMED Code(s): 74968475 (10) Acute blood loss anemia Current Visit: No Status: Acute Code(s): D62 - ACUTE POSTHEMORRHAGIC ANEMIA SNOMED Code(s): 078309719 Plan: Assessment and Recommendations: 1. Macrocytic Anemia - Likely Multifactoral with component of Iron deficiency with blood loss anemia from known Marginal ulcer and malabsorption ( Clarification of malabsorption from mild protein calorie malnutrition and previous surgery malsorption) with known history of Gastric Bypass Surgery: - Reviewed Results of B12, Folate, Methylmalonic Acid, Retic, Iron studies, Ferritin, SPEP, TSH, - Transfuse if hemoglobin is less than 7 - Agree with the total of 3 IV iron supplementations, Hgb 9.2 today. Continue daily CBC. - SPEP failed to show or identify any monoclonal Paraproteins 2. Acute Renal Insufficiency - Per Nephrology 3. Hyponatremia - Positive Urine Sodium - Per Nephrology 4. Bilateral Lower extremity Rash (Petechaie -like) - Platelets and Coagulation factors are with in normal limits. 5. Bilateral Lower extremity Edema - likely secondary to number 2 and low albumin levels - Renato bandacges to assist with extravascular fluid collection. 6. Protein calorie malnutrition, Low serum albumin levels. Clarified mild with evidence of third spacing and history of malabsortion from gastric surgery Physician Attestations: I have completed the Full history and physical on this patient and discussed and agree with dictation above by Sveta Chaparro NP. Documented as a scribe
--- NOTE | 2017-09-01 11:27 | PN ---
PROGRESS NOTE Patient is seen for followup for acute kidney injury. Her renal function has improved and is back to baseline. Patient continues to have edema of bilateral lower extremities. She has had significant hypoalbuminemia. Patient was restarted on her diuretics. I increased it yesterday. We will increase it further today and resume the Zaroxolyn at a higher dose than as outpatient. All serologies came back negative. The free kappa and lambda chains were slightly elevated, but the ratio was not off. PHYSICAL EXAMINATION: On examination today, blood pressure is 107/71, heart rate 87 per minute. Patient is afebrile. Examination shows patient has edema about 3+ bilateral lower extremities. Abdomen is soft, nontender. Lungs are clear. LABS: Show sodium 134, potassium 3.6, serum creatinine 0.43, hemoglobin 8.2 g/dL. ASSESSMENT: 1. Acute kidney injury, prerenal, currently completely resolved. 2. Gastrointestinal bleed, status post EGD which showed ulcer at the Kaya-en-Y anastomosis from the gastric bypass surgery. Currently maintained on Protonix and Pepcid. 3. Lower extremity edema associated with severe hypoalbuminemia. No evidence of proteinuria. Serologies are mostly negative and echocardiogram did not reveal low ejection fraction. Her ejection fraction was at 55% to 60%. PLAN: Increase diuretics. Add Zaroxolyn and repeat labs. MMODL / IJN: [id number] /
[2017-09-01 11:37] VITALS: RESP 16
[2017-09-01] MEDS: CHOLECALCIFEROL 1,000 UNIT TAB PO SCH (12:19)
[2017-09-01] MEDS: MULTIVITAMINS, THERA 1 EACH TAB PO SCH (12:19)
[2017-09-01 14:58] VITALS: BMI 26.4
[2017-09-01] MEDS: BUTALB/APAP/CAFF 50-325-40MG TAB PO PRN (18:38)
--- NOTE | 2017-09-01 23:15 | PN ---
PROGRESS NOTE SUBJECTIVE: A 51-year-old white female with hypoalbuminemia, acute renal failure, diastolic heart failure, severe anemia, gastric ulcer, nonbleeding. She responded with IV iron. Hemoglobin is up to 9.3 today. She has been added onto Zaroxolyn for peripheral edema per renal physician. Her renal function maintains normal. CARDIOVASCULAR: S1, S2. LUNGS: Clear. ABDOMEN: Soft. HEMATOLOGY: Negative Homans'. PSYCH: Fair mood and affect. OPHTHALMOLOGICAL: Pupils round and reactive to light and accommodation. NEUROLOGIC: Alert and oriented x3. VASCULAR: Normal dorsalis pedis, posterior tibial, radial pulses. ASSESSMENT: 1. Acute renal failure. 2. Hypoalbuminemia. 3. Hyponatremia. 4. Hyperkalemia. Continue with current treatment. Follow up in next 24-48 hours. Possible discharge home on oral diuretics. Continue oral diet intake. MMODL / JOSEN: [id number] /
[2017-09-02] MEDS: HYDROcodone/APAP 7.5-325MG 1 EACH TAB PO PRN ×3 (04:28→16:43)
[2017-09-02] MEDS: PANTOPRAZOLE 40 MG TABLET PO SCH (06:29)
[2017-09-02] MEDS: SUCRALFATE 1 GM TAB PO SCH ×3 (06:29→17:17)
[2017-09-02] MEDS: busPIRone HCl 10 MG TAB PO SCH (10:09)
[2017-09-02] MEDS: FAMOTIDINE 20 MG TAB PO SCH (10:10)
[2017-09-02] MEDS: DULoxetine HCL 60 MG CAPSULE.DR PO SCH (10:10)
[2017-09-02] MEDS: METOLAZONE 5 MG TAB PO SCH (10:10)
[2017-09-02] MEDS: FUROSEMIDE 10 MG/ML 10 ML VIAL IV SCH (10:12)
[2017-09-02] MEDS: SODIUM FERRIC GLUCONAT-SUCROSE 125 MG in SODIUM CHLORIDE 0.9% 100 ML IVPB SCH (10:13)
[2017-09-02] MEDS: ASPIRIN-ACET-CAFF 250-250-65MG 1 EACH TAB PO PRN ×2 (11:08→16:44)
[2017-09-02] MEDS: CHOLECALCIFEROL 1,000 UNIT TAB PO SCH (14:16)
[2017-09-02] MEDS: MULTIVITAMINS, THERA 1 EACH TAB PO SCH (14:17)
--- NOTE | 2017-09-02 15:19 | PN ---
PROGRESS NOTE Patient is seen for followup for acute kidney injury which has now resolved. The patient has significant lower extremity edema associated with severe hypoalbuminemia. There is no evidence of proteinuria. Her ejection fraction is not low. The patient was found to have an ulcer at the Kaya-en-Y junction from previous gastric bypass. She is currently maintained on Protonix and Pepcid. Initially all diuretics were held and patient was maintained on IV fluids for a short period of time. Subsequently her edema worsened and now patient is maintained on IV Lasix along with Zaroxolyn. This morning she states she is having a headache. Her swelling has improved to some degree and renal function remains intact with serum creatinine at 0.47 mg/dL. On examination, blood pressure was 97/67, heart rate 85 per minute. Patient is afebrile. EXAMINATION OF THE HEART: S1, S2. EXAMINATION OF LUNGS: Bilateral breath sounds are heard. ABDOMEN: Soft, non-tender. Examination of lower extremities shows edema 3+ bilaterally with petechiae noted. MAINTENANCE PAINTER exam is grossly intact. Labs show sodium 135, potassium 3.6, BUN 11, serum creatinine 0.47, hemoglobin 9.1 g/dL. ASSESSMENT: 1. Acute kidney injury, prerenal, currently resolved. 2. Bilateral lower extremity edema, most likely associated with severe hypoalbuminemia. Albumin is 1.7. Patient does not have any significant underlying liver disease which is evident at this time. She is maintained on IV Lasix, which we will continue along with the Zaroxolyn. Her ejection fraction is well preserved and there is no evidence of proteinuria. Most of the baseline serologies were negative as well. The patient did have mildly elevated lambda and kappa chains, but the ratio was normal. 3. Anemia with severe iron deficiency, currently maintained on IV iron. 4. Gastrointestinal bleed, status post endoscopy which showed ulcer at the Kaya-en-Y anastomosis from previous gastric bypass surgery, currently maintained on Protonix and Pepcid. PLAN: Continue with IV Lasix and Zaroxolyn. Patient can be discharged tomorrow on p.o. Lasix 60 mg b.i.d. and Zaroxolyn 5 mg daily. She will need monitoring of labs closely. MMODL / IJN: [id number] /
[2017-09-02 15:50] LABS: Anisocytosis Slight; Basophils % (A) 0 %; Eosinophils % (A) 0 %; HCT 28.8 % (34.0-46.0); HGB 9.4 gm/dL (11.4-16.0); Lymphocytes # (A) 1.4 k/uL (1.0-4.8); Lymphocytes % (A) 16 %; MCH 32.9 pg (25.0-35.0); MCHC 32.6 g/dL (31.0-37.0); MCV 100.7 fL (80.0-100.0); Macrocytosis Moderate; Mean Platelet Volume 8.2; Monocytes # (A) 0.6 k/uL (0-1.0); Monocytes % (A) 7 %; Neutrophils # (A) 6.6 k/uL (1.3-7.7); Neutrophils % (A) 74 %; Platelet Count 264 k/uL (150-450); RBC 2.86 m/uL (3.80-5.40); RDW 19.7 % (11.5-15.5); WBC 8.8 k/uL (3.8-10.6)
[2017-09-02 16:31] VITALS: BP 94/57; PULSE 116; TEMP 98
== END 2017-09-02 18:02 | disposition home health service (06) | DRG 682 ==
LOC: EC 04:28 → 6SEL 06:41
PROVIDERS: ADMIT Family Medicine; ATTEND Family Medicine
PROC: 0DBA8ZX Excision of Jejunum, Via Natural or Artificial Opening Endoscopic, Diagnostic (ICD-10-PCS; principal; 2017-08-29 07:30)
DX: N17.9 Acute kidney failure, unspecified (principal); I50.33 Acute on chronic diastolic (congestive) heart failure; E44.1 Mild protein-calorie malnutrition; E87.1 Hypo-osmolality and hyponatremia; E87.5 Hyperkalemia; I07.1 Rheumatic tricuspid insufficiency; I48.91 Unspecified atrial fibrillation; E86.0 Dehydration; I95.9 Hypotension, unspecified; E87.6 Hypokalemia; E66.9 Obesity, unspecified; K21.9 Gastro-esophageal reflux disease without esophagitis; Z87.891 Personal history of nicotine dependence; F41.9 Anxiety disorder, unspecified; F32.9 Major depressive disorder, single episode, unspecified; K58.9 Irritable bowel syndrome, unspecified; R00.0 Tachycardia, unspecified; J45.909 Unspecified asthma, uncomplicated; G47.30 Sleep apnea, unspecified; I83.90 Asymptomatic varicose veins of unspecified lower extremity; G43.909 Migraine, unspecified, not intractable, without status migrainosus; R53.82 Chronic fatigue, unspecified; G89.4 Chronic pain syndrome; M79.7 Fibromyalgia; M54.9 Dorsalgia, unspecified; T50.2X5A Adverse effect of carbonic-anhydrase inhibitors, benzothiadiazides and other diuretics, initial encounter; T50.1X5A Adverse effect of loop [high-ceiling] diuretics, initial encounter; R23.3 Spontaneous ecchymoses; F11.99 Opioid use, unspecified with unspecified opioid-induced disorder; D53.9 Nutritional anemia, unspecified; K28.9 Gastrojejunal ulcer, unspecified as acute or chronic, without hemorrhage or perforation; D50.0 Iron deficiency anemia secondary to blood loss (chronic); E86.1 Hypovolemia; Z88.0 Allergy status to penicillin; Z91.018 Allergy to other foods; Z98.84 Bariatric surgery status; Z79.899 Other long term (current) drug therapy; Z87.442 Personal history of urinary calculi; Z87.11 Personal history of peptic ulcer disease; Z68.24 Body mass index [BMI] 24.0-24.9, adult; Z80.42 Family history of malignant neoplasm of prostate; Z90.49 Acquired absence of other specified parts of digestive tract; Z87.19 Personal history of other diseases of the digestive system; Z90.710 Acquired absence of both cervix and uterus
CPT/HCPCS: 36415; 43239; 71046; 80048; 80053; 81003; 82272; 82533; 82550; 82553; 82607; 82746; 83540; 83550; 83735; 83880; 83883; 83921; 83935; 84132; 84165; 84300; 84443; 84484; 85025; 85045; 85610; 85730; 86038; 86160; 86225; 86255; 86334; 86335; 86850; 86900; 86901; 88305; 93306; 94640; 96360; 99284

== ENCOUNTER 2017-09-26 17:26 | Inpatient (IN) | payer BC, MEDICARE ==
[2017-09-26] MEDS ORDERED: SODIUM CHLORIDE 0.9% 1,000 ML IV STA (17:39)
[2017-09-26] MEDS ORDERED: SODIUM CHLORIDE 0.9% 500 ML IV STA (17:39)
[2017-09-26] MEDS ORDERED: POTASSIUM BICARBONATE/CIT AC 20 MEQ TABLET.EFF PO ONE (17:40)
[2017-09-26 18:39] LABS: Partial Thromboplastin Time 25.1 sec (22.0-30.0); Prothrombin Time 10.2 sec (9.0-12.0)
[2017-09-26 18:42] LABS: Anisocytosis Slight; Basophils % (A) 0 %; Eosinophils # (A) 0.1 k/uL (0-0.7); Eosinophils % (A) 1 %; HGB 12.8 gm/dL (11.4-16.0); Lymphocytes # (A) 1.8 k/uL (1.0-4.8); Lymphocytes % (A) 20 %; MCHC 33.6 g/dL (31.0-37.0); MCV 101.1 fL (80.0-100.0); Macrocytosis Slight; Mean Platelet Volume 6.9; Monocytes # (A) 0.6 k/uL (0-1.0); Monocytes % (A) 6 %; Neutrophils # (A) 6.2 k/uL (1.3-7.7); Neutrophils % (A) 69 %; Platelet Count 295 k/uL (150-450); RBC 3.76 m/uL (3.80-5.40); RDW 17.3 % (11.5-15.5); WBC 8.9 k/uL (3.8-10.6)
[2017-09-26 18:49] LABS: ALT 33 U/L (9-52); AST 48 U/L (14-36); Albumin 2.8 g/dL (3.5-5.0); Alkaline Phosphatase 123 U/L (38-126); Anion Gap 13 mmol/L; Blood Urea Nitrogen 29 mg/dL (7-17); Carbon Dioxide 25 mmol/L (22-30); Chloride 94 mmol/L (98-107); Glucose 89 mg/dL (74-99); Potassium 3.2 mmol/L (3.5-5.1); Sodium 132 mmol/L (137-145); Total Bilirubin 0.3 mg/dL (0.2-1.3); Total Protein 5.4 g/dL (6.3-8.2)
[2017-09-26 19:47] LABS: Creatine Kinase MB 2.7 ng/mL (0.0-2.4); Troponin I 0.034 ng/mL (0.000-0.034)
[2017-09-26] MEDS ORDERED: HYDROcodone/APAP 7.5-325MG 1 EACH TAB PO ONE (20:55)
[2017-09-26] MEDS ORDERED: MAG HYDROX/AL HYDROX/SIMETH 30 ML, HYOSCYAMINE ELIXIR 10 ML, CIMETIDINE HCL 300 MG, LID... PO STA ×4 (21:07)
[2017-09-26] MEDS ORDERED: RX INFO: IV CONTRAST WAS GIVEN 1 EACH MISC MISCELLANE PRN (21:34)
--- NOTE | 2017-09-26 22:20 | ED ---
General Adult HPI - General Chief complaint: Weakness Stated complaint: weakness Time Seen by Provider: 09/26/17 17:37 Source: patient, EMS Mode of arrival: EMS Limitations: no limitations - History of Present Illness Initial comments: 22 years old lady transfer from [facility] with a low potassium and potassium is 2.2-year-old blood pressure was on the lower side they did give her some potassium 20 mg/kg by mouth I advised him to give him 40 mEq by mouth potassium bicarbonate, which is complaining about shortness of breath she said it hurts to take a deep breath no abdominal pain she does complain about generalized weakness no frequency urgency dysuria no symptoms of TIA or CVA - Related Data Home Medications Medication Instructions Recorded Confirmed DULoxetine HCL [Cymbalta] 60 mg PO BID 03/19/15 09/26/17 Albuterol Inhaler [Ventolin Hfa 2 puff INHALATION RT-QID PRN 07/31/15 09/26/17 Inhaler] busPIRone HCL [Buspar] 30 mg PO BID 02/21/17 09/26/17 Dicyclomine [Bentyl] 20 mg PO AC-TID 02/28/17 09/26/17 Spironolactone 100 mg PO DAILY 02/28/17 09/26/17 diphenhydrAMINE HCL [Benadryl] 50 mg PO BID PRN 02/28/17 09/26/17 Acetaminophen Tab [Tylenol Tab] 1,000 mg PO Q6HR PRN 03/31/17 09/26/17 Buprenorphine HCl [Subutex] 4 mg SL BID 08/02/17 09/26/17 Cholecalciferol [Vitamin D3] 5,000 unit PO DAILY 08/02/17 09/26/17 Lisinopril [Zestril] 10 mg PO DAILY 08/02/17 09/26/17 Meclizine HCl 25 mg PO Q8H PRN 08/02/17 09/26/17 Metolazone [Zaroxolyn] 2.5 mg PO DAILY 08/02/17 09/26/17 Multivitamin [Multivitamins Adult 2 tab PO DAILY 08/02/17 09/26/17 Gummies] Ondansetron HCl [Zofran] 4 mg PO BID PRN 08/02/17 09/26/17 Sennosides [Ex-Lax Maximum 25 mg PO DAILY 08/02/17 09/26/17 Strength] Fiber + Calcium Gummies 2 tab PO DAILY 08/05/17 09/26/17 Probiotic Gummies 2 tab PO DAILY 08/05/17 09/26/17 Sucralfate [Carafate] 1 gm PO ACHS 08/05/17 09/26/17 Butalb/Acetaminophen/Caffeine 1 cap PO DAILY PRN 08/27/17 09/26/17 [Fioricet 50-300-40 mg Capsule] Previous Rx's Medication Instructions Recorded Omeprazole 40 mg PO DAILY #60 capsule. 06/23/17 Furosemide [Lasix] 60 mg PO BID #60 tablet 09/02/17 Allergies Allergy/AdvReac Type Severity Reaction Status Date / Time broccoli Allergy Severe Anaphylaxis Verified 09/26/17 18:03 with raw broccoli Penicillins Allergy Unknown Anaphylaxis Verified 09/26/17 18:03 ketorolac [From Toradol] Allergy Unknown Verified 09/26/17 18:03 diet cola Allergy GI irritant Uncoded 09/23/17 09:57 Review of Systems ROS Statement: Those systems with pertinent positive or pertinent negative responses have been documented in the HPI. ROS Other: All systems not noted in ROS Statement are negative. Past Medical History Past Medical History: Asthma, Fibromyalgia, GERD/Reflux, Sleep Apnea/CPAP/BIPAP Additional Past Medical History / Comment(s): migraines, gastric ulcer, varicose veins, chronic fatigue syndrome, hx pernicious anemia, abdominal pain- colitis-IBS, oral yeast infections, hx kidney stones History of Any Multi-Drug Resistant Organisms: None Reported Past Surgical History: Appendectomy, Back Surgery, Bariatric Surgery, Section, Cholecystectomy, Hernia Repair, Hysterectomy Additional Past Surgical History / Comment(s): x2, metal removed from rt eye 15 years ago,-lithotripsy, gastric bypass 2002 , 2 titanium rods in lower back, Carpal tunnel release bilaterally, PANNICULECTOMY Past Anesthesia/Blood Transfusion Reactions: Family History of Problems w/ Anesthesia Additional Past Anesthesia/Blood Transfusion Reaction / Comment(s): family members w/severe headaches w/anesthesia Past Psychological History: Anxiety, Depression Smoking Status: Former smoker Past Alcohol Use History: None Reported Past Drug Use History: None Reported - Past Family History Father Family Medical History: Cancer Additional Family Medical History / Comment(s): PROSTATE CANCER Mother Additional Family Medical History / Comment(s): OBESITY-HAD GASTRIC BYPASS SX General Exam - General Exam Comments Initial Comments: General: The patient is awake and alert, looks pale and tired Skin: Skin is warm and dry and no rashes or lesions are noted. Eye: Pupils are equal, round and reactive to light, extra-ocular movements are intact; there is normal conjunctiva bilaterally. Ears, nose, mouth and throat: There are moist mucous membranes and no oral lesions. Neck: The neck is supple, there is no tenderness or JVD. Cardiovascular: There is a regular rate and rhythm. No murmur, rub or gallop is appreciated. Respiratory: To auscultation bilateral, and consistent with a COPD Gastrointestinal: Soft, non-distended, non-tender abdomen without masses or organomegaly noted. There is no rebound or guarding present. Bowel sounds are unremarkable. Back: There is no tenderness to palpation in the midline. There is no obvious deformity. Musculoskeletal: Normal ROM, no tenderness, There is no pedal edema. There is no calf tenderness or swelling. No cords were appreciated. Neurological: CN II-XII intact, Cranial nerves III through XII are intact. There are no obvious motor or sensory deficits. Coordination appears grossly intact. Speech is normal. Psychiatric: Cooperative, appropriate mood & affect, normal judgment. Limitations: no limitations Course Vital Signs 09/26/17 09/26/17 09/26/17 17:31 18:34 20:00 Temperature 97.5 F L Pulse Rate 101 H 88 Respiratory 18 16 16 Rate Blood Pressure 98/71 137/68 O2 Sat by Pulse 99 98 Oximetry Repeat labs showed potassium of 3.2 chest x-rays unremarkable CBC is normal, BS metabolic panel is on unremarkable considering patient's shortness of breath and pleuritic chest pain and d-dimer is in a matta area CT angiogram is pending at this point but definitely she be admitted to the hospital under Dr. Peter Lake, and discussed with him he agrees with that and she does have a history of COPD she sees Dr. Dixon will consult Dr. Akabr EKG Findings - EKG Comments: EKG Findings:: G is normal sinus rhythm ventricular rate is 97 TN interval is 110 QRS duration is 76 QT/QTc is 400/508 review of this EKG reveals no ST elevation or ST depression Medical Decision Making - Lab Data Result diagrams: 09/26/17 17:40 09/26/17 17:40 Lab Results 09/26/17 09/26/17 09/26/17 Range/Units 17:40 17:40 17:40 WBC 8.9 (3.8-10.6) k/uL RBC 3.76 L (3.80-5.40) m/uL Hgb 12.8 D (11.4-16.0) gm/dL Hct 38.0 (34.0-46.0) % MCV 101.1 H (80.0-100.0) fL MCH 34.0 (25.0-35.0) pg MCHC 33.6 (31.0-37.0) g/dL RDW 17.3 H (11.5-15.5) % Plt Count 295 (150-450) k/uL Neutrophils % 69 % Lymphocytes % 20 % Monocytes % 6 % Eosinophils % 1 % Basophils % 0 % Neutrophils # 6.2 (1.3-7.7) k/uL Lymphocytes # 1.8 (1.0-4.8) k/uL Monocytes # 0.6 (0-1.0) k/uL Eosinophils # 0.1 (0-0.7) k/uL Basophils # 0.0 (0-0.2) k/uL Anisocytosis Slight Macrocytosis Slight PT (9.0-12.0) sec INR (<1.2) APTT (22.0-30.0) sec D-Dimer (<0.60) mg/L FEU Sodium 132 L (137-145) mmol/L Potassium 3.2 L (3.5-5.1) mmol/L Chloride 94 L (98-107) mmol/L Carbon Dioxide 25 (22-30) mmol/L Anion Gap 13 mmol/L BUN 29 H (7-17) mg/dL Creatinine 0.80 (0.52-1.04) mg/dL Est GFR (CKD-EPI)AfAm >90 (>60 ml/min/1.73 sqM) Est GFR (CKD-EPI)NonAf 86 (>60 ml/min/1.73 sqM) Glucose 89 (74-99) mg/dL Plasma Lactic Acid Dirk (0.7-2.0) mmol/L Calcium 9.0 (8.4-10.2) mg/dL Total Bilirubin 0.3 (0.2-1.3) mg/dL AST 48 H (14-36) U/L ALT 33 (9-52) U/L Alkaline Phosphatase 123 (38-126) U/L Total Creatine Kinase 30 (30-135) U/L CK-MB (CK-2) 2.7 H* (0.0-2.4) ng/mL CK-MB (CK-2) Rel Index 9.0 Troponin I 0.034 (0.000-0.034) ng/mL Total Protein 5.4 L (6.3-8.2) g/dL Albumin 2.8 L (3.5-5.0) g/dL 09/26/17 09/26/17 09/26/17 Range/Units 17:40 17:40 20:00 WBC (3.8-10.6) k/uL RBC (3.80-5.40) m/uL Hgb (11.4-16.0) gm/dL Hct (34.0-46.0) % MCV (80.0-100.0) fL MCH (25.0-35.0) pg MCHC (31.0-37.0) g/dL RDW (11.5-15.5) % Plt Count (150-450) k/uL Neutrophils % % Lymphocytes % % Monocytes % % Eosinophils % % Basophils % % Neutrophils # (1.3-7.7) k/uL Lymphocytes # (1.0-4.8) k/uL Monocytes # (0-1.0) k/uL Eosinophils # (0-0.7) k/uL Basophils # (0-0.2) k/uL Anisocytosis Macrocytosis PT 10.2 (9.0-12.0) sec INR 1.0 (<1.2) APTT 25.1 (22.0-30.0) sec D-Dimer 0.55 (<0.60) mg/L FEU Sodium (137-145) mmol/L Potassium (3.5-5.1) mmol/L Chloride (98-107) mmol/L Carbon Dioxide (22-30) mmol/L Anion Gap mmol/L BUN (7-17) mg/dL Creatinine (0.52-1.04) mg/dL Est GFR (CKD-EPI)AfAm (>60 ml/min/1.73 sqM) Est GFR (CKD-EPI)NonAf (>60 ml/min/1.73 sqM) Glucose (74-99) mg/dL Plasma Lactic Acid Dirk 1.5 (0.7-2.0) mmol/L Calcium (8.4-10.2) mg/dL Total Bilirubin (0.2-1.3) mg/dL AST (14-36) U/L ALT (9-52) U/L Alkaline Phosphatase (38-126) U/L Total Creatine Kinase (30-135) U/L CK-MB (CK-2) (0.0-2.4) ng/mL CK-MB (CK-2) Rel Index Troponin I (0.000-0.034) ng/mL Total Protein (6.3-8.2) g/dL Albumin (3.5-5.0) g/dL Disposition Clinical Impression: Hypokalemia, Generalized weakness Disposition: ADMITTED IP TO THIS HOSP Condition: Good Referrals: Peter Lake MD [Primary Care Provider] - 1-2 days
[2017-09-26] MEDS ORDERED: ONDANSETRON 4 MG/2 ML VIAL IVP PRN (22:34)
[2017-09-26] MEDS ORDERED: NALOXONE 0.4 MG/ML 1 ML VIAL IV PRN (22:34)
[2017-09-26] MEDS ORDERED: ACETAMINOPHEN TAB 325 MG TAB PO PRN (22:34)
[2017-09-26] MEDS ORDERED: MORPHINE SULFATE 4 MG/ML SYRINGE IV PRN (22:34)
--- NOTE | 2017-09-26 22:37 | CT ---
EXAMINATION TYPE: CT chest angio for PE DATE OF EXAM: 09/26/2017 COMPARISON: NONE HISTORY: Chest pain with SOB CT DLP: 134.3 mGycm Automated exposure control for dose reduction was used. CONTRAST: CT Chest for pulmonary embolism performed with with IV Contrast, patient injected with 60 mL of Isovu e 300. FINDINGS: There are 3-D post processed images. The lungs are clear of infiltrate. There is no evidence of a pul monary mass. There is no pleural effusion. Heart size is normal. There is no pericardial effusion. Th ere is no mediastinal adenopathy. There are no hilar masses. There is normal contrast opacification of the pulmonary arteries. There are no filling defects. There is no sign of aortic aneurysm or dissection. The bony thorax is intact. IMPRESSION: Normal CT angiogram of the chest. No evidence of pulmonary embolism. Previous gastric surgery noted.
[2017-09-26] MEDS ORDERED: ALBUTEROL INHALER 60 PUFF/8 GM INHALER INHALATION PRN (22:39)
[2017-09-26] MEDS ORDERED: BUTALB/APAP/CAFF 50-325-40MG TAB PO PRN (22:39)
[2017-09-26] MEDS ORDERED: MECLIZINE 25 MG TAB PO PRN (22:39)
[2017-09-26] MEDS ORDERED: diphenhydrAMINE 50 MG CAP PO PRN (22:39)
[2017-09-26] MEDS ORDERED: ONDANSETRON 4 MG TAB PO PRN (22:39)
[2017-09-26] MEDS ORDERED: ALBUTEROL NEBULIZED 2.5 MG/3 ML INHALATION PRN (23:11)
[2017-09-27] MEDS: SUCRALFATE 1 GM TAB PO SCH ×4 (06:30→21:20)
[2017-09-27] MEDS: DICYCLOMINE 20 MG TAB PO SCH ×3 (06:30→18:22)
[2017-09-27] MEDS ORDERED: Potassium Replacement Protocol 1 EACH MISC MISCELLANE PRN (07:51)
[2017-09-27] MEDS ORDERED: FIBER PO SCH (09:00)
[2017-09-27] MEDS ORDERED: FUROSEMIDE 20 MG TAB PO SCH (09:00)
[2017-09-27] MEDS ORDERED: PROBIOTIC GUMMIES PO SCH (09:00)
[2017-09-27] MEDS ORDERED: PANTOPRAZOLE 40 MG/10 ML VIAL IV SCH (09:00)
[2017-09-27] MEDS ORDERED: CALCIUM GUMMIES PO SCH (09:00)
[2017-09-27] MEDS ORDERED: SPIRONOLACTONE 25 MG TAB PO SCH (09:00)
[2017-09-27] MEDS ORDERED: METOLAZONE 2.5 MG TAB PO SCH (09:00)
[2017-09-27] MEDS: busPIRone HCl 10 MG TAB PO SCH ×2 (09:09→21:02)
[2017-09-27] MEDS: POTASSIUM CHLORIDE ER 20 MEQ TAB.ER PO SCH ×4 (09:09→21:02)
[2017-09-27] MEDS: CHOLECALCIFEROL 1,000 UNIT TAB PO SCH (09:09)
[2017-09-27] MEDS: DULoxetine HCL 60 MG CAPSULE.DR PO SCH ×2 (09:10→21:02)
[2017-09-27] MEDS: MULTIVITAMINS, THERA 1 EACH TAB PO SCH (09:11)
[2017-09-27] MEDS: BUPRENORPHINE PO SCH ×2 (09:11→21:39)
[2017-09-27] MEDS: SENNOSIDES 8.6 MG TAB PO SCH (09:11)
[2017-09-27] MEDS: HYDROcodone/APAP 5-325MG 1 EACH TAB PO PRN ×4 (09:14→22:22)
[2017-09-27 10:47] VITALS: BMI 21.0
--- NOTE | 2017-09-27 11:54 | P.CRDCN ---
History of Present Illness Consult date: 09/27/17 Requesting physician: Peter Lake Reason for Consult (text): Abnormal troponins Chief complaint: Hypokalemia History of present illness: This is a 52-year-old female who has seen Dr. Chapman in the office in the past, she has a fairly complex past medical history, history of asthma, GERD , sleep apnea, former smoker, prior gastric bypass surgery, chronic pain for which she was addicted to opioids at one time. Patient also has history of irritable bowel syndrome and fibromyalgia. She presents to the hospital on this occasion because of low potassium levels. According to the patient she's been quite weak at home and sleeping a lot, her appetite has been extremely poor. Patient states that she was having episodes of diarrhea as well as dry heaves. She did not eat anything all day Tuesday, continues to feel weak. Cardiology consultation was requested because of abnormal troponin values noted on her admission here. The patient did undergo a CT of the chest, no evidence of pulmonary embolism, prior gastric surgery is noted. EKG on admission here showed a normal sinus rhythm with PACs, no acute changes are noted. Blood pressure on arrival here 98/70, heart rate 100, temperature 97.5, she is 99% on room air. Blood pressure this morning 90/60, heart rate in the 80s, temperature 97.5, she is 99% on room air. Laboratory data was reviewed, white blood cell count 8.9, hemoglobin 12.8, platelet count 295. D-dimer 0.5. Sodium 132, potassium 3.0, BUN 29, creatinine 0.8. Troponins 0.034, 0.052, 0.053. At the time of my examination this morning, patient complains of feeling weak, denies any further episodes of vomiting, no diarrhea. Past Medical History Past Medical History: Asthma, Fibromyalgia, GERD/Reflux, Sleep Apnea/CPAP/BIPAP Additional Past Medical History / Comment(s): migraines, gastric ulcer, varicose veins, chronic fatigue syndrome, hx pernicious anemia, abdominal pain- colitis-IBS, oral yeast infections, hx kidney stones History of Any Multi-Drug Resistant Organisms: None Reported Past Surgical History: Appendectomy, Back Surgery, Bariatric Surgery, Section, Cholecystectomy, Hernia Repair, Hysterectomy Additional Past Surgical History / Comment(s): x2, metal removed from rt eye 15 years ago,-lithotripsy, gastric bypass 2002 , 2 titanium rods in lower back, Carpal tunnel release bilaterally, PANNICULECTOMY Past Anesthesia/Blood Transfusion Reactions: Family History of Problems w/ Anesthesia Additional Past Anesthesia/Blood Transfusion Reaction / Comment(s): family members w/severe headaches w/anesthesia Past Psychological History: Anxiety, Depression Smoking Status: Former smoker Past Alcohol Use History: None Reported Additional Past Alcohol Use History / Comment(s): quit smoking 04/2016, smoked for 13 yrs, < 1 PPD Past Drug Use History: None Reported - Past Family History Father Family Medical History: Cancer Additional Family Medical History / Comment(s): PROSTATE CANCER Mother Additional Family Medical History / Comment(s): OBESITY-HAD GASTRIC BYPASS SX Medications and Allergies Home Medications Medication Instructions Recorded Confirmed Type DULoxetine HCL [Cymbalta] 60 mg PO BID 03/19/15 09/26/17 History Albuterol Inhaler [Ventolin Hfa 2 puff INHALATION RT-QID PRN 07/31/15 09/26/17 History Inhaler] busPIRone HCL [Buspar] 30 mg PO BID 02/21/17 09/26/17 History Dicyclomine [Bentyl] 20 mg PO AC-TID 02/28/17 09/26/17 History Spironolactone 100 mg PO DAILY 02/28/17 09/26/17 History diphenhydrAMINE HCL [Benadryl] 50 mg PO BID PRN 02/28/17 09/26/17 History Acetaminophen Tab [Tylenol Tab] 1,000 mg PO Q6HR PRN 03/31/17 09/26/17 History Omeprazole 40 mg PO DAILY #60 capsule. 06/23/17 09/26/17 Rx Buprenorphine HCl [Subutex] 4 mg SL BID 08/02/17 09/26/17 History Cholecalciferol [Vitamin D3] 5,000 unit PO DAILY 08/02/17 09/26/17 History Lisinopril [Zestril] 10 mg PO DAILY 08/02/17 09/26/17 History Meclizine HCl 25 mg PO Q8H PRN 08/02/17 09/26/17 History Metolazone [Zaroxolyn] 2.5 mg PO DAILY 08/02/17 09/26/17 History Multivitamin [Multivitamins Adult 2 tab PO DAILY 08/02/17 09/26/17 History Gummies] Ondansetron HCl [Zofran] 4 mg PO BID PRN 08/02/17 09/26/17 History Sennosides [Ex-Lax Maximum 25 mg PO DAILY 08/02/17 09/26/17 History Strength] Fiber + Calcium Gummies 2 tab PO DAILY 08/05/17 09/26/17 History Probiotic Gummies 2 tab PO DAILY 08/05/17 09/26/17 History Sucralfate [Carafate] 1 gm PO ACHS 08/05/17 09/26/17 History Butalb/Acetaminophen/Caffeine 1 cap PO DAILY PRN 08/27/17 09/26/17 History [Fioricet 50-300-40 mg Capsule] Furosemide [Lasix] 60 mg PO BID #60 tablet 09/02/17 09/26/17 Rx Allergies Allergy/AdvReac Type Severity Reaction Status Date / Time broccoli Allergy Severe Anaphylaxis Verified 09/26/17 18:03 with raw broccoli Penicillins Allergy Unknown Anaphylaxis Verified 09/26/17 18:03 ketorolac [From Toradol] Allergy Unknown Verified 09/26/17 18:03 diet cola Allergy GI irritant Uncoded 09/23/17 09:57 Physical Exam Vitals: Vital Signs Temp Pulse Pulse Resp BP BP Pulse Ox 09/27/17 08:41 99 09/27/17 07:40 97.5 F L 84 16 91/61 100 09/27/17 04:00 97.6 F 87 19 98/67 99 09/27/17 03:31 86 18 09/27/17 00:37 97.9 F 83 18 88/62 97 09/26/17 23:40 83 18 09/26/17 23:10 98.0 F 85 16 97/54 97 09/26/17 22:53 97.9 F 83 18 88/62 97 09/26/17 22:00 98.4 F 89 18 92/54 99 09/26/17 21:00 119 H 20 98 09/26/17 20:00 88 16 137/68 98 09/26/17 18:34 16 09/26/17 17:31 97.5 F L 101 H 18 98/71 99 Intake and Output 09/26/17 09/27/17 09/27/17 22:59 06:59 14:59 Intake Total 500 0 Balance 500 0 Intake: Amount of Fluid Infused ( 500 ml) Oral 0 Other: Voiding Method Toilet Toilet # Voids 1 Weight 53.524 kg 52.2 kg 52.2 kg PHYSICAL EXAMINATION: This is a 52-year-old female slightly emaciated female in no apparent distress at the time of my examination HEENT: Head is atraumatic, normocephalic. Pupils equal, round. Neck is supple. There is no elevated jugular venous pressure. HEART EXAMINATION: S1 and S2 irregularly irregular CHEST EXAMINATION: Lungs are clear to auscultation and precussion. No chest wall tenderness is noted on palpation or with deep breathing. ABDOMEN: Soft, nontender. Bowel sounds are heard. No organomegaly noted. EXTREMITIES: 2+ peripheral pulses with no evidence of peripheral edema and no calf tenderness noted. NEUROLOGIC patient is awake, alert and oriented -3. . Results 09/26/17 17:40 09/27/17 05:24 Cardiac Enzymes 09/26/17 09/26/17 09/26/17 Range/Units 17:40 17:40 23:39 AST 48 H (14-36) U/L CK-MB (CK-2) 2.7 H* (0.0-2.4) ng/mL Troponin I 0.034 0.052 H* (0.000-0.034) ng/mL 09/27/17 Range/Units 05:24 AST (14-36) U/L CK-MB (CK-2) (0.0-2.4) ng/mL Troponin I 0.053 H* (0.000-0.034) ng/mL Coagulation 09/26/17 Range/Units 17:40 PT 10.2 (9.0-12.0) sec APTT 25.1 (22.0-30.0) sec CBC 09/26/17 Range/Units 17:40 WBC 8.9 (3.8-10.6) k/uL RBC 3.76 L (3.80-5.40) m/uL Hgb 12.8 D (11.4-16.0) gm/dL Hct 38.0 (34.0-46.0) % Plt Count 295 (150-450) k/uL Comprehensive Metabolic Panel 09/26/17 09/27/17 Range/Units 17:40 05:24 Sodium 132 L (137-145) mmol/L Potassium 3.2 L 3.0 L* (3.5-5.1) mmol/L Chloride 94 L (98-107) mmol/L Carbon Dioxide 25 (22-30) mmol/L BUN 29 H (7-17) mg/dL Creatinine 0.80 (0.52-1.04) mg/dL Glucose 89 (74-99) mg/dL Calcium 9.0 (8.4-10.2) mg/dL AST 48 H (14-36) U/L ALT 33 (9-52) U/L Alkaline Phosphatase 123 (38-126) U/L Total Protein 5.4 L (6.3-8.2) g/dL Albumin 2.8 L (3.5-5.0) g/dL Current Medications Generic Name Dose Route Start Last Admin Trade Name Freq PRN Reason Stop Dose Admin Acetaminophen 650 mg 09/26/17 22:34 Tylenol Tab PO Q6HR PRN Mild Pain or Fever > 100.5 Acetaminophen/Butalbital/Caffeine 1 each 09/26/17 22:39 Fioricet 50-325-40 PO DAILY PRN Migraine Headache Hydrocodone Bitart/Acetaminophen 1 each 09/27/17 08:09 09/27/17 09:14 [place] 5-325 PO 1 each Q4HR PRN Administration Pain Albuterol Sulfate 2.5 mg 09/26/17 23:11 Ventolin Nebulized INHALATION RT-QID PRN Shortness Of Breath Buspirone HCl 30 mg 09/27/17 09:00 09/27/17 09:09 Buspar PO 30 mg BID GHAZAL Administration Cholecalciferol 5,000 unit 09/27/17 09:00 09/27/17 09:09 Vitamin D3 PO 5,000 unit DAILY GHAZAL Administration Dicyclomine HCl 20 mg 09/27/17 07:30 09/27/17 06:30 Bentyl PO 20 mg AC-TID GHAZAL Administration Diphenhydramine HCl 50 mg 09/26/17 22:39 Benadryl PO BID PRN Anxiety Duloxetine HCl 60 mg 09/27/17 09:00 09/27/17 09:10 Cymbalta PO 60 mg BID GHAZAL Administration Furosemide 60 mg 09/27/17 09:00 09/27/17 09:10 Lasix PO 60 mg BID GHAZAL Administration Meclizine HCl 25 mg 09/26/17 22:39 Antivert PO Q8H PRN Vertigo Metolazone 2.5 mg 09/27/17 09:00 09/27/17 09:10 Zaroxolyn PO 2.5 mg DAILY GHAZAL Administration Miscellaneous Information 1 each 09/26/17 21:34 Rx Info: Iv Contrast Was Given MISCELLANE 09/28/17 21:34 DAILY PRN Per Protocol Miscellaneous Information 1 each 09/27/17 07:51 Potassium Per Protocol MISCELLANE DAILY PRN Per Protocol Protocol Morphine Sulfate 4 mg 09/26/17 22:34 Morphine Sulfate (Inj) IV Q4HR PRN Severe Pain Multivitamins 1 each 09/27/17 09:00 09/27/17 09:11 Theragran PO 1 each DAILY GHAZAL Administration Naloxone HCl 0.2 mg 09/26/17 22:34 Narcan IV Q2M PRN Opioid Reversal Subutex] 4 Mg) 4 each 09/27/17 09:00 09/27/17 09:11 PO Not Given BID GHAZAL Ondansetron HCl 4 mg 09/26/17 22:34 Zofran IVP Q8HR PRN Nausea And Vomiting Ondansetron HCl 4 mg 09/26/17 22:39 Zofran PO BID PRN Nausea Pantoprazole Sodium 40 mg 09/27/17 09:00 09/27/17 09:11 Protonix IV 40 mg DAILY GHAZAL Administration Senna 17.2 mg 09/27/17 09:00 09/27/17 09:11 Senokot PO Not Given DAILY GHAZAL Spironolactone 100 mg 09/27/17 09:00 09/27/17 09:11 Aldactone PO 100 mg DAILY GHAZAL Administration Sucralfate 1 gm 09/27/17 07:30 09/27/17 06:30 Carafate PO 1 gm ACHS GHAZAL Administration Intake and Output 09/26/17 09/27/17 09/27/17 22:59 06:59 14:59 Intake Total 500 0 Balance 500 0 Intake: Amount of Fluid Infused ( 500 ml) Oral 0 Other: Voiding Method Toilet Toilet # Voids 1 Weight 53.524 kg 52.2 kg 52.2 kg Patient Weight 09/28/17 06:59 Weight 52.2 kg 09/26/17 17:40 09/27/17 05:24 EKG Interpretations (text) EKG shows a normal sinus rhythm with no acute changes. Assessment and Plan Plan: Assessment and plan #1 hypokalemia, patient had been having diarrhea stools at home prior to admission. #2 asthma #3 GERD 4 sleep apnea #5 prior GI bleeding #6 fibromyalgia #7 abnormal troponins, not consistent with acute coronary syndrome. On review of patient's prior admissions, troponins were also in the abnormal range. Echo with Doppler study performed at that time which was in August, revealed a normal left ventricular systolic function. Plan We will not repeat an echocardiogram with Doppler study at this time, patient just had an echo performed in August which revealed normal left ventricular systolic function. We will obtain a BNP level, patient is on Lasix, Aldactone, and Zaroxolyn at home, which may be too much for this frail, thin female who is currently malnourished. Further recommendations to follow. DNP note has been reviewed, I agree with a documented findings and plan of care. Patient was seen and examined.
[2017-09-27 12:40] LABS: Magnesium 1.8 mg/dL (1.6-2.3); Potassium 3.6 mmol/L (3.5-5.1)
--- NOTE | 2017-09-27 12:57 | HP ---
HISTORY AND PHYSICAL CHIEF COMPLAINT: A 52-year-old white female with hypokalemia. HISTORY OF PRESENT ILLNESS: This 52-year-old white female with asthma, GERD, sleep apnea, status post gastric bypass surgery, comes in with fibromyalgia, irritable bowel syndrome, severe hypokalemia. She has had difficulty with low potassium levels on multiple admissions secondary to after having bowel surgery and lap band. Cardiology is also consulted for elevated troponins. CT of the chest shows no pulmonary embolism. EKG shows sinus rhythm. Blood pressure is 90s over 60s. Heart rates in the 70s to 80s, temp afebrile, O2 sat 99% on room air. D-dimer is negative. Potassium 3.0. Potassium has been replaced. Sodium is 132. History of asthma, fibromyalgia, GERD, sleep apnea on CPAP machine, history of pernicious anemia, chronic fatigue. She gets outpatient iron infusion injections. She has oral yeast infections, chronic colitis, irritable bowel, migraines, gastric ulcers, varicose veins, chronic fatigue syndrome, history renal stones. She has had bariatric surgery, , back surgery, appendectomy, hernia repair, hysterectomy, C-sections x2, gastric bypass in 2002, two titanium rods in the lower back, panniculectomy, lithotripsies. History of anxiety, depression. SOCIAL HISTORY: Former smoker. FAMILY HISTORY: Cancer in the prostate in father. Mother had bypass and obesity. HOME MEDICATIONS: 1. Cymbalta 60 mg b.i.d. 2. Ventolin HFA 2 puffs q.4 hours p.r.n. 3. BuSpar 30 mg b.i.d. 4. Bentyl 20 mg a.c. t.i.d. 5. Spironolactone 100 mg daily. 6. Benadryl 50 mg b.i.d. 7. Omeprazole 40 mg daily. 8. Subutex 4 mg sublingual b.i.d. 9. Vitamin D3, 5000 units daily. 10.Zestril 10 mg daily. 11.Meclizine 25 q.8 p.r.n. 12.Zaroxolyn 2.5 mg daily. ALLERGIES: Allergies to BROCCOLI, PENICILLIN, KETOROLAC, DIET COLA. Vital signs reviewed. She is in no acute distress. INTEGUMENT: She has dry mucous membranes. Poor skin turgor. . HEART: S1, S2, irregular, irregular. Lungs show clear. Abdomen is soft. Normal bowel sounds. No mass or organomegaly. Extremities show 2+ peripheral edema. No calf tenderness. NEUROLOGIC: Alert and oriented x3. OPHTHALMOLOGIC: Pupils equal, round, react to light and accommodation. Hemoglobin 12.8, white count 8.9. Potassium 3.0. Elevated troponin. ASSESSMENT: 1. Hypokalemia secondary to diarrhea and abdominal pain with chronic history since recent bowel surgeries. 2. Asthma. 3. Gastroesophageal reflux disease. 4. Sleep apnea. 5. Upper gastrointestinal bleeding. 6. Fibromyalgia. 7. Pernicious anemia, on iron infusions. 8. Abnormal troponins. Cardiology consult, pulmonary consult, GI consult with surgeon who operated on her belly recently. Potassium replacement. MMODL / IJN: [id number] /
--- NOTE | 2017-09-27 13:31 | P.CNPUL ---
History of Present Illness Consult date: 09/27/17 Reason for consult: dyspnea Chief complaint: Generalized weakness and hypokalemia History of present illness: A 56-year-old female patient was referred to our hospital because of generalized weakness and hypokalemia. Apparently the patient's potassium level was as low as 2.2. The patient was having issues with chronic edema. She was noted on a combination of Zaroxolyn and Lasix. She was taken Lasix is milligrams twice a day in addition to Zaroxolyn. She also expressed some shortness of breath and for that reason she came into the hospital. She is currently being replaced with a potassium and his level is up to 3..0 this morning and she was given an additional 40 mEq of potassium and her level is up to 3.6 pH is already feeling better. No chest pain. No cover sputum production. No chest that is so wheezing. CT angios the chest was done and it showed no major abnormalities. Note that the patient has undergone previous Kaya-en-Y gastric bypass surgery and the patient has lost approximately 160 pounds. She was having problems with anemia, which is attributed to questionable GI bleeding or malabsorption of iron and the patient was supplemented with IV iron the patient's hemoglobin has normalized. The patient has been under the care of Dr. Gonzalez. No other complaints otherwise for now. She is feeling better already. No nausea. No vomiting. No diarrhea. No abdominal pain. No swelling lower extremities on today's evaluation. Cardiac enzymes showed troponin of 0.03 and 0.052 and the patient is going to be seen by cardiology. Sodium level is at 132. Renal function is stable for now. D- dimer is low. She is afebrile and she is hemodynamically stable. No significant EKG changes other than some occasional PACs. Review of Systems Constitutional: Reports weakness, Reports weight loss Eyes: denies blurred vision, denies bulging eye, denies decreased vision Ears: deny: decreased hearing, ear discharge, earache Ears, nose, mouth and throat: Denies headache, Denies sore throat Cardiovascular: Reports dyspnea on exertion Respiratory: Reports dyspnea Gastrointestinal: Denies abdominal pain, Denies diarrhea, Denies nausea, Denies vomiting Genitourinary: Denies dysuria, Denies hematuria Musculoskeletal: Denies myalgias Musculoskeletal: bilateral: ankle swelling, absent: ankle pain, ankle stiffness Integumentary: Denies pruritus, Denies rash Neurological: Reports weakness Psychiatric: Denies anxiety, Denies depression Endocrine: Reports fatigue, Denies weight change Past Medical History Past Medical History: Asthma, Fibromyalgia, GERD/Reflux, Sleep Apnea/CPAP/BIPAP Additional Past Medical History / Comment(s): Asthma, fibromyalgia, acid reflux , Kaya-en-Y gastric bypass surgery for morbid obesity with subsequent 150 pounds of weight loss, history of obstructive sleep apnea, migraines, gastric ulcer, varicose veins, chronic fatigue syndrome, hx pernicious anemia, abdominal [id number], oral yeast infections, hx kidney stones History of Any Multi-Drug Resistant Organisms: None Reported Past Surgical History: Appendectomy, Back Surgery, Bariatric Surgery, Section, Cholecystectomy, Hernia Repair, Hysterectomy Additional Past Surgical History / Comment(s): x2, metal removed from rt eye 15 years ago,-lithotripsy, gastric bypass 2002 , 2 titanium rods in lower back, Carpal tunnel release bilaterally, PANNICULECTOMY Past Anesthesia/Blood Transfusion Reactions: Family History of Problems w/ Anesthesia Additional Past Anesthesia/Blood Transfusion Reaction / Comment(s): family members w/severe headaches w/anesthesia Past Psychological History: Anxiety, Depression Smoking Status: Former smoker Past Alcohol Use History: None Reported Additional Past Alcohol Use History / Comment(s): quit smoking 04/2016, smoked for 13 yrs, < 1 PPD Past Drug Use History: None Reported - Past Family History Father Family Medical History: Cancer Additional Family Medical History / Comment(s): PROSTATE CANCER Mother Additional Family Medical History / Comment(s): OBESITY-HAD GASTRIC BYPASS SX Medications and Allergies Home Medications Medication Instructions Recorded Confirmed Type DULoxetine HCL [Cymbalta] 60 mg PO BID 03/19/15 09/26/17 History Albuterol Inhaler [Ventolin Hfa 2 puff INHALATION RT-QID PRN 07/31/15 09/26/17 History Inhaler] busPIRone HCL [Buspar] 30 mg PO BID 02/21/17 09/26/17 History Dicyclomine [Bentyl] 20 mg PO AC-TID 02/28/17 09/26/17 History Spironolactone 100 mg PO DAILY 02/28/17 09/26/17 History diphenhydrAMINE HCL [Benadryl] 50 mg PO BID PRN 02/28/17 09/26/17 History Acetaminophen Tab [Tylenol Tab] 1,000 mg PO Q6HR PRN 03/31/17 09/26/17 History Omeprazole 40 mg PO DAILY #60 capsule. 06/23/17 09/26/17 Rx Buprenorphine HCl [Subutex] 4 mg SL BID 08/02/17 09/26/17 History Cholecalciferol [Vitamin D3] 5,000 unit PO DAILY 08/02/17 09/26/17 History Lisinopril [Zestril] 10 mg PO DAILY 08/02/17 09/26/17 History Meclizine HCl 25 mg PO Q8H PRN 08/02/17 09/26/17 History Metolazone [Zaroxolyn] 2.5 mg PO DAILY 08/02/17 09/26/17 History Multivitamin [Multivitamins Adult 2 tab PO DAILY 08/02/17 09/26/17 History Gummies] Ondansetron HCl [Zofran] 4 mg PO BID PRN 08/02/17 09/26/17 History Sennosides [Ex-Lax Maximum 25 mg PO DAILY 08/02/17 09/26/17 History Strength] Fiber + Calcium Gummies 2 tab PO DAILY 08/05/17 09/26/17 History Probiotic Gummies 2 tab PO DAILY 08/05/17 09/26/17 History Sucralfate [Carafate] 1 gm PO ACHS 08/05/17 09/26/17 History Butalb/Acetaminophen/Caffeine 1 cap PO DAILY PRN 08/27/17 09/26/17 History [Fioricet 50-300-40 mg Capsule] Furosemide [Lasix] 60 mg PO BID #60 tablet 09/02/17 09/26/17 Rx Allergies Allergy/AdvReac Type Severity Reaction Status Date / Time broccoli Allergy Severe Anaphylaxis Verified 09/26/17 18:03 with raw broccoli Penicillins Allergy Unknown Anaphylaxis Verified 09/26/17 18:03 ketorolac [From Toradol] Allergy Unknown Verified 09/26/17 18:03 diet cola Allergy GI irritant Uncoded 09/23/17 09:57 Physical Exam Vitals: Vital Signs Temp Pulse Pulse Resp BP BP Pulse Ox 09/27/17 08:41 99 05/08/18 07:40 97.5 F L 84 16 91/61 100 09/27/17 04:00 97.6 F 87 19 98/67 99 09/27/17 03:31 86 18 09/27/17 00:37 97.9 F 83 18 88/62 97 09/26/17 23:40 83 18 09/26/17 23:10 98.0 F 85 16 97/54 97 09/26/17 22:53 97.9 F 83 18 88/62 97 09/26/17 22:00 98.4 F 89 18 92/54 99 09/26/17 21:00 119 H 20 98 09/26/17 20:00 88 16 137/68 98 09/26/17 18:34 16 09/26/17 17:31 97.5 F L 101 H 18 98/71 99 Intake and Output 09/26/17 09/27/17 09/27/17 22:59 06:59 14:59 Intake Total 500 0 Balance 500 0 Intake: Amount of Fluid Infused ( 500 ml) Oral 0 Other: Voiding Method Toilet Toilet # Voids 1 Weight 53.524 kg 52.2 kg 52.2 kg Gen. appearance the patient is, comfortable likely distress Head exam was generally normal. There was no scleral icterus or corneal arcus. Mucous membranes were moist. Neck was supple and without jugular venous distension, thyromegaly, or carotid bruits. Carotids were easily palpable bilaterally. There was no adenopathy. Lungs were clear to auscultation and percussion, and with normal diaphragmatic excursion. No wheezes or rales were noted. Cardiac exam revealed the PMI to be normally situated and sized. The rhythm was regular and no extrasystoles were noted during several minutes of auscultation. The first and second heart sounds were normal and physiologic splitting of the second heart sound was noted. There were no murmurs, rubs, clicks, or gallops. Abdominal exam revealed normal bowel sounds. The abdomen was soft, non-tender, and without masses, organomegaly, or appreciable enlargement of the abdominal aorta. Examination of the extremities revealed easily palpable radial, femoral and pedal pulses. There was no cyanosis, clubbing or edema. Examination of the skin revealed no evidence of significant rashes, suspicious appearing nevi or other concerning lesions. Neurologically patient is awake and alert and there is no focal neurological deficit at this point Results - Laboratory Findings CBC and BMP: 09/26/17 17:40 09/27/17 12:00 PT/INR, D-dimer PT 10.2 sec (9.0-12.0) 09/26/17 17:40 INR 1.0 (<1.2) 09/26/17 17:40 D-Dimer 0.55 mg/L FEU (<0.60) 09/26/17 20:00 Abnormal lab findings: Abnormal Labs 09/26/17 09/26/17 09/26/17 17:40 17:40 17:40 RBC 3.76 L MCV 101.1 H RDW 17.3 H Sodium 132 L Potassium 3.2 L Chloride 94 L BUN 29 H AST 48 H CK-MB (CK-2) 2.7 H* Troponin I Total Protein 5.4 L Albumin 2.8 L 09/26/17 09/27/17 09/27/17 23:39 05:24 05:24 RBC MCV RDW Sodium Potassium 3.0 L* Chloride BUN AST CK-MB (CK-2) Troponin I 0.052 H* 0.053 H* Total Protein Albumin - Diagnostic Findings CT scan - chest: image reviewed Assessment and Plan Plan: Assessment 1 generalized weakness and shortness of breath secondary to profound diuretic induced hypokalemia, potassium level is being replaced and the patient is clinically improved 2 morbid obesity with a previous Kaya-en-Y gastric bypass surgery, current BMI is down to 21 3 anemia history of with history of iron deficiency and vitamin dishes see anemia which improved and treated and hemoglobin level is above 12 4 obstructive sleep apnea, history of currently on no treatment 5 nephrolithiasis 6 bronchial asthma 7 fibromyalgia 8 chronic diuretic use secondary to lower extremity edema 9 preserved LV function with evidence of mild pulmonary hypertension with a PA pressure of 33 without any significant valvular abnormalities 10 mild minimal troponin leak Plan Replaced potassium. Suggest putting the patient maintenance potassium of 20 medical is twice a day especially if she wants to continue the diuretics. No signs of any fluid overload. Shortness of breath improved. CT angios the chest is negative. We'll ask cardiology to comment on the patient's troponin leak.
[2017-09-27] MEDS: diphenhydrAMINE 25 MG CAP PO PRN (21:11)
[2017-09-28] MEDS: HYDROcodone/APAP 5-325MG 1 EACH TAB PO PRN ×5 (02:52→20:20)
[2017-09-28 07:31] LABS: Anisocytosis Slight; Basophils % (A) 0 %; Eosinophils # (A) 0.1 k/uL (0-0.7); Eosinophils % (A) 1 %; HCT 33.7 % (34.0-46.0); HGB 10.7 gm/dL (11.4-16.0); Lymphocytes # (A) 3.2 k/uL (1.0-4.8); Lymphocytes % (A) 39 %; MCH 33.1 pg (25.0-35.0); MCHC 31.8 g/dL (31.0-37.0); MCV 104.1 fL (80.0-100.0); Macrocytosis Moderate; Mean Platelet Volume 7.3; Monocytes # (A) 0.5 k/uL (0-1.0); Monocytes % (A) 5 %; Neutrophils # (A) 4.3 k/uL (1.3-7.7); Neutrophils % (A) 51 %; Platelet Count 293 k/uL (150-450); RBC 3.23 m/uL (3.80-5.40); WBC 8.3 k/uL (3.8-10.6)
[2017-09-28] MEDS: SUCRALFATE 1 GM TAB PO SCH ×4 (07:33→20:20)
[2017-09-28] MEDS: DULoxetine HCL 60 MG CAPSULE.DR PO SCH ×2 (07:33→20:20)
[2017-09-28] MEDS: busPIRone HCl 10 MG TAB PO SCH ×2 (07:33→20:20)
[2017-09-28] MEDS: MULTIVITAMINS, THERA 1 EACH TAB PO SCH (07:33)
[2017-09-28] MEDS: CHOLECALCIFEROL 1,000 UNIT TAB PO SCH (07:33)
[2017-09-28] MEDS: FUROSEMIDE 40 MG TAB PO SCH (07:34)
[2017-09-28] MEDS: DICYCLOMINE 20 MG TAB PO SCH ×3 (07:34→16:03)
[2017-09-28] MEDS: POTASSIUM CHLORIDE ER 20 MEQ TAB.ER PO SCH ×4 (07:35→20:20)
[2017-09-28] MEDS: SENNOSIDES 8.6 MG TAB PO SCH (07:35)
[2017-09-28] MEDS: SPIRONOLACTONE 25 MG TAB PO SCH (07:35)
[2017-09-28 07:44] LABS: ALT 27 U/L (9-52); AST 26 U/L (14-36); Albumin 2.3 g/dL (3.5-5.0); Alkaline Phosphatase 95 U/L (38-126); Anion Gap 7 mmol/L; Blood Urea Nitrogen 15 mg/dL (7-17); Calcium 8.5 mg/dL (8.4-10.2); Carbon Dioxide 23 mmol/L (22-30); Chloride 107 mmol/L (98-107); Glucose 79 mg/dL (74-99); Potassium 3.5 mmol/L (3.5-5.1); Sodium 137 mmol/L (137-145); Total Bilirubin <0.1 mg/dL (0.2-1.3); Total Protein 4.5 g/dL (6.3-8.2)
[2017-09-28] MEDS: PANTOPRAZOLE 40 MG TABLET PO SCH (09:53)
[2017-09-28] MEDS ORDERED: MORPHINE ORAL SOLN 10 MG/5 ML CUP PO PRN (11:08)
[2017-09-28] MEDS: BUPRENORPHINE PO SCH ×2 (11:44→20:31)
--- NOTE | 2017-09-28 13:49 | P.PN ---
Subjective Progress Note Date: 09/28/17 Principal diagnosis: Generalized weakness secondary to profound hypokalemia. A 56-year-old female patient was referred to our hospital because of generalized weakness and hypokalemia. Apparently the patient's potassium level was as low as 2.2. The patient was having issues with chronic edema. She was noted on a combination of Zaroxolyn and Lasix. She was taken Lasix is milligrams twice a day in addition to Zaroxolyn. She also expressed some shortness of breath and for that reason she came into the hospital. She is currently being replaced with a potassium and his level is up to 3..0 this morning and she was given an additional 40 mEq of potassium and her level is up to 3.6 pH is already feeling better. No chest pain. No cover sputum production. No chest that is so wheezing. CT angios the chest was done and it showed no major abnormalities. Note that the patient has undergone previous Kaya-en-Y gastric bypass surgery and the patient has lost approximately 160 pounds. She was having problems with anemia, which is attributed to questionable GI bleeding or malabsorption of iron and the patient was supplemented with IV iron the patient's hemoglobin has normalized. The patient has been under the care of Dr. Gonzalez. No other complaints otherwise for now. She is feeling better already. No nausea. No vomiting. No diarrhea. No abdominal pain. No swelling lower extremities on today's evaluation. Cardiac enzymes showed troponin of 0.03 and 0.052 and the patient is going to be seen by cardiology. Sodium level is at 132. Renal function is stable for now. D- dimer is low. She is afebrile and she is hemodynamically stable. No significant EKG changes other than some occasional PACs. The patient is seen again today 09/28/2017 in follow-up on the regular medical floor. She is awake and alert in no acute distress. She is quite stronger today as compared to yesterday. She's been up ambulating with assistance. Current potassium 3.5. No pulmonary complaints. She is maintaining good O2 saturations on 200% on room air. She's been afebrile. Hemodynamically stable. Objective - Vital Signs Vital signs: Vital Signs Temp 97.9 F 09/28/17 08:00 Pulse 86 09/28/17 08:00 Resp 16 09/28/17 00:20 BP 109/76 09/28/17 08:00 Pulse Ox 100 09/28/17 08:00 Intake & Output 09/27/17 09/28/17 09/28/17 18:59 06:59 18:59 Intake Total 750 1328 Balance 750 1328 Weight 52.2 kg Intake: Intake, IV Titration 548 Amount Sodium Chloride 0.9% 1, 548 000 ml @ 100 mls/hr IV . Q10H STA Rx#:[id number] Oral 750 780 Other: Voiding Method Toilet Toilet Toilet # Voids 2 # Bowel Movements 1 1 # Emeses 0 - Exam Gen. appearance the patient is, comfortable no distress Head exam was generally normal. There was no scleral icterus or corneal arcus. Mucous membranes were moist. Neck was supple and without jugular venous distension, thyromegaly, or carotid bruits. Carotids were easily palpable bilaterally. There was no adenopathy. Lungs were clear to auscultation and percussion, and with normal diaphragmatic excursion. No wheezes or rales were noted. Cardiac exam revealed the PMI to be normally situated and sized. The rhythm was regular and no extrasystoles were noted during several minutes of auscultation. The first and second heart sounds were normal and physiologic splitting of the second heart sound was noted. There were no murmurs, rubs, clicks, or gallops. Abdominal exam revealed normal bowel sounds. The abdomen was soft, non-tender, and without masses, organomegaly, or appreciable enlargement of the abdominal aorta. Examination of the extremities revealed easily palpable radial, femoral and pedal pulses. There was no cyanosis, clubbing or edema. Examination of the skin revealed no evidence of significant rashes, suspicious appearing nevi or other concerning lesions. Neurologically patient is awake and alert and there is no focal neurological deficit at this point - Labs CBC & Chem 7: 09/28/17 06:43 09/28/17 06:43 Labs: Abnormal Lab Results - Last 24 Hours (Table) 09/28/17 09/28/17 Range/Units 06:43 06:43 RBC 3.23 L (3.80-5.40) m/uL Hgb 10.7 L (11.4-16.0) gm/dL Hct 33.7 L (34.0-46.0) % MCV 104.1 H (80.0-100.0) fL RDW 17.0 H (11.5-15.5) % Total Bilirubin <0.1 L (0.2-1.3) mg/dL Total Protein 4.5 L (6.3-8.2) g/dL Albumin 2.3 L (3.5-5.0) g/dL Assessment and Plan Assessment: Assessment 1 generalized weakness and shortness of breath secondary to profound diuretic induced hypokalemia, potassium level is being replaced and the patient is clinically improved and her current potassium 3.5 2 morbid obesity with a previous Kaya-en-Y gastric bypass surgery, current BMI is down to 21 3 anemia history of with history of iron deficiency and vitamin dishes see anemia which improved and treated and hemoglobin level is 10.7 4 obstructive sleep apnea, history of currently on no treatment 5 nephrolithiasis 6 bronchial asthma 7 fibromyalgia 8 chronic diuretic use secondary to lower extremity edema 9 preserved LV function with evidence of mild pulmonary hypertension with a PA pressure of 33 without any significant valvular abnormalities 10 mild minimal troponin leak Plan: The patient was seen and evaluated by Dr. Pedraza. She is stable from the pulmonary and critical care standpoint. We will follow her on an as-needed basis. I, the cosigning physician, performed a history & physical examination of the patient. Lungs sounds are clear. Maintaining good O2 saturations in the 90s on room air. I discussed the assessment and plan of care with my nurse practitioner, Nery Nolasco. I attest to the above note as dictated by her.
--- NOTE | 2017-09-28 14:14 | P.PN ---
Subjective Progress Note Date: 09/28/17 Mrs. Faith is a pleasant 52-year-old female past medical history significant for sleep apnea, asthma, fibromyalgia, Kaya-en-Y gastric bypass surgery with 150 lb weight loss and GERD. She is seen and examined today sitting up in bed in no acute distress. She denies chest pain, shortness of breath, palpitations, nausea, vomiting or diaphoresis. Lasix was decreased down to 40 mg daily and aldactone down to 25 mg daily. Potassium today 3.5, sodium 137, creatinine 0.57, hemoglobin 10.7, platelets 293, albumin 2.3, total protein 4.5. Blood pressure 109/76 heart rate 86 afebrile maintaining oxygen saturation on room air. Objective - Vital Signs Vital signs: Vital Signs Temp 97.9 F 09/28/17 08:00 Pulse 86 09/28/17 08:00 Resp 16 09/28/17 00:20 BP 109/76 09/28/17 08:00 Pulse Ox 100 09/28/17 08:00 Intake & Output 09/27/17 09/28/17 09/28/17 18:59 06:59 18:59 Intake Total 750 1328 Balance 750 1328 Weight 52.2 kg Intake: Intake, IV Titration 548 Amount Sodium Chloride 0.9% 1, 548 000 ml @ 100 mls/hr IV . Q10H STA Rx#:[id number] Oral 750 780 Other: Voiding Method Toilet Toilet Toilet # Voids 2 # Bowel Movements 1 1 # Emeses 0 - Exam GENERAL: Well-appearing, well-nourished and in no acute distress. Frail. NECK: Supple without JVD or thyromegaly. LUNGS: Breath sounds clear to auscultation bilaterally. Respiration equal and unlabored. No wheezes, rales or rhonchi. HEART: Regular rate and rhythm with murmur, no rubs or gallops. S1 and S2 heard. EXTREMITIES: Normal range of motion, no edema. No clubbing or cyanosis. Peripheral pulses intact and strong. - Labs CBC & Chem 7: 09/29/17 06:48 09/29/17 06:48 Labs: Abnormal Lab Results - Last 24 Hours (Table) 09/28/17 09/28/17 Range/Units 06:43 06:43 RBC 3.23 L (3.80-5.40) m/uL Hgb 10.7 L (11.4-16.0) gm/dL Hct 33.7 L (34.0-46.0) % MCV 104.1 H (80.0-100.0) fL RDW 17.0 H (11.5-15.5) % Total Bilirubin <0.1 L (0.2-1.3) mg/dL Total Protein 4.5 L (6.3-8.2) g/dL Albumin 2.3 L (3.5-5.0) g/dL Assessment and Plan Assessment: ASSESSMENT 1. Hypokalemia secondary to diuretic therapy and persistent diarrhea, currently being replaced. 2. Mild troponin leak, not consistent with an acute coronary event. 3. Mild malnutrition, albumin 2.3 total protein 4.5 4. History of diastolic heart failure PLAN Continue with current medical therapy. We will continue to see the patient as needed. She is stable from a cardiac perspective. Nurse Practitioner note has been reviewed, I agree with a documented findings and plan of care. Patient was seen and examined.
--- NOTE | 2017-09-28 15:58 | P.GSCN ---
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 Patient has a previous history of Kaya-en-Y gastric bypass. Patient states that she had complaints of diarrhea starting 3 days ago. She's had profuse watery diarrhea. She is to the hospital for dehydration. She is noted to be hypokalemic. She states her diarrhea has improved. She denies any rectal bleeding. Patient has a known history of a marginal ulcer of her gastrojejunostomy. Past Medical History Past Medical History: Asthma, Fibromyalgia, GERD/Reflux, Sleep Apnea/CPAP/BIPAP Additional Past Medical History / Comment(s): Asthma, fibromyalgia, acid reflux , Kaya-en-Y gastric bypass surgery for morbid obesity with subsequent 150 pounds of weight loss, history of obstructive sleep apnea, migraines, gastric ulcer, varicose veins, chronic fatigue syndrome, hx pernicious anemia, abdominal [id number], oral yeast infections, hx kidney stones History of Any Multi-Drug Resistant Organisms: None Reported Past Surgical History: Appendectomy, Back Surgery, Bariatric Surgery, Section, Cholecystectomy, Hernia Repair, Hysterectomy Additional Past Surgical History / Comment(s): x2, metal removed from rt eye 15 years ago,-lithotripsy, gastric bypass 2002 , 2 titanium rods in lower back, Carpal tunnel release bilaterally, PANNICULECTOMY Past Anesthesia/Blood Transfusion Reactions: Family History of Problems w/ Anesthesia Additional Past Anesthesia/Blood Transfusion Reaction / Comm: family members w/ severe headaches w/anesthesia Past Psychological History: Anxiety, Depression Smoking Status: Former smoker Past Alcohol Use History: None Reported Additional Past Alcohol Use History / Comment(s): quit smoking 04/2016, smoked for 13 yrs, < 1 PPD Past Drug Use History: None Reported - Past Family History Father Family Medical History: Cancer Additional Family Medical History / Comment(s): PROSTATE CANCER Mother Additional Family Medical History / Comment(s): OBESITY-HAD GASTRIC BYPASS SX Medications and Allergies Home Medications Medication Instructions Recorded Confirmed Type DULoxetine HCL [Cymbalta] 60 mg PO BID 03/19/15 09/26/17 History Albuterol Inhaler [Ventolin Hfa 2 puff INHALATION RT-QID PRN 07/31/15 09/26/17 History Inhaler] busPIRone HCL [Buspar] 30 mg PO BID 02/21/17 09/26/17 History Dicyclomine [Bentyl] 20 mg PO AC-TID 02/28/17 09/26/17 History Spironolactone 100 mg PO DAILY 02/28/17 09/26/17 History diphenhydrAMINE HCL [Benadryl] 50 mg PO BID PRN 02/28/17 09/26/17 History Acetaminophen Tab [Tylenol Tab] 1,000 mg PO Q6HR PRN 03/31/17 09/26/17 History Omeprazole 40 mg PO DAILY #60 capsule. 06/23/17 09/26/17 Rx Buprenorphine HCl [Subutex] 4 mg SL BID 08/02/17 09/26/17 History Cholecalciferol [Vitamin D3] 5,000 unit PO DAILY 08/02/17 09/26/17 History Lisinopril [Zestril] 10 mg PO DAILY 08/02/17 09/26/17 History Meclizine HCl 25 mg PO Q8H PRN 08/02/17 09/26/17 History Metolazone [Zaroxolyn] 2.5 mg PO DAILY 08/02/17 09/26/17 History Multivitamin [Multivitamins Adult 2 tab PO DAILY 08/02/17 09/26/17 History Gummies] Ondansetron HCl [Zofran] 4 mg PO BID PRN 08/02/17 09/26/17 History Sennosides [Ex-Lax Maximum 25 mg PO DAILY 08/02/17 09/26/17 History Strength] Fiber + Calcium Gummies 2 tab PO DAILY 08/05/17 09/26/17 History Probiotic Gummies 2 tab PO DAILY 08/05/17 09/26/17 History Sucralfate [Carafate] 1 gm PO ACHS 08/05/17 09/26/17 History Butalb/Acetaminophen/Caffeine 1 cap PO DAILY PRN 08/27/17 09/26/17 History [Fioricet 50-300-40 mg Capsule] Furosemide [Lasix] 60 mg PO BID #60 tablet 09/02/17 09/26/17 Rx Allergies Allergy/AdvReac Type Severity Reaction Status Date / Time broccoli Allergy Severe Anaphylaxis Verified 09/26/17 18:03 with raw broccoli Penicillins Allergy Unknown Anaphylaxis Verified 09/26/17 18:03 ketorolac [From Toradol] Allergy Unknown Verified 09/26/17 18:03 diet cola Allergy GI irritant Uncoded 09/23/17 09:57 Surgical - Exam Vital Signs Temp Pulse Resp BP Pulse Ox 97.5 F L 101 H 18 98/71 99 09/26/17 17:31 09/26/17 17:31 09/26/17 17:31 09/26/17 17:31 09/26/17 17:31 - General well developed, no distress - Eyes PERRL - ENT normal pinna - Neck no masses - Respiratory normal expansion - Cardiovascular Rhythm: regular - Abdomen Abdomen: soft, non tender Results - Labs 09/28/17 06:43 09/28/17 06:43 Abnormal Lab Results - Last 24 Hours (Table) 09/28/17 09/28/17 Range/Units 06:43 06:43 RBC 3.23 L (3.80-5.40) m/uL Hgb 10.7 L (11.4-16.0) gm/dL Hct 33.7 L (34.0-46.0) % MCV 104.1 H (80.0-100.0) fL RDW 17.0 H (11.5-15.5) % Total Bilirubin <0.1 L (0.2-1.3) mg/dL Total Protein 4.5 L (6.3-8.2) g/dL Albumin 2.3 L (3.5-5.0) g/dL Diabetes panel 09/27/17 09/28/17 Range/Units 20:56 06:43 Sodium 137 (137-145) mmol/L Potassium 4.3 3.5 (3.5-5.1) mmol/L Chloride 107 (98-107) mmol/L Carbon Dioxide 23 (22-30) mmol/L BUN 15 (7-17) mg/dL Creatinine 0.57 (0.52-1.04) mg/dL Glucose 79 (74-99) mg/dL Calcium 8.5 (8.4-10.2) mg/dL AST 26 (14-36) U/L ALT 27 (9-52) U/L Alkaline Phosphatase 95 (38-126) U/L Total Protein 4.5 L (6.3-8.2) g/dL Albumin 2.3 L (3.5-5.0) g/dL Calcium panel 09/28/17 Range/Units 06:43 Calcium 8.5 (8.4-10.2) mg/dL Albumin 2.3 L (3.5-5.0) g/dL Pituitary panel 09/27/17 09/28/17 Range/Units 20:56 06:43 Sodium 137 (137-145) mmol/L Potassium 4.3 3.5 (3.5-5.1) mmol/L Chloride 107 (98-107) mmol/L Carbon Dioxide 23 (22-30) mmol/L BUN 15 (7-17) mg/dL Creatinine 0.57 (0.52-1.04) mg/dL Glucose 79 (74-99) mg/dL Calcium 8.5 (8.4-10.2) mg/dL Adrenal panel 09/27/17 09/28/17 Range/Units 20:56 06:43 Sodium 137 (137-145) mmol/L Potassium 4.3 3.5 (3.5-5.1) mmol/L Chloride 107 (98-107) mmol/L Carbon Dioxide 23 (22-30) mmol/L BUN 15 (7-17) mg/dL Creatinine 0.57 (0.52-1.04) mg/dL Glucose 79 (74-99) mg/dL Calcium 8.5 (8.4-10.2) mg/dL Total Bilirubin <0.1 L (0.2-1.3) mg/dL AST 26 (14-36) U/L ALT 27 (9-52) U/L Alkaline Phosphatase 95 (38-126) U/L Total Protein 4.5 L (6.3-8.2) g/dL Albumin 2.3 L (3.5-5.0) g/dL Assessment and Plan Assessment: Diarrhea Hypokalemia Patient will have her I's her place. We will observe her closely. If her diarrhea does not improve in the next 48 hours she may require endoscopy.
--- NOTE | 2017-09-28 22:10 | PN ---
PROGRESS NOTE SUBJECTIVE: A 52-year-old white female states she starting to eat. Her potassium. She feels better. She is going to stay with her mom and dad for couple weeks. She has started back on her home medications. CARDIOVASCULAR: S1, S2. Lungs clear. Hemoglobin is 10.7, white count is 8.3, potassium is 4.5, sodium 137, albumin is 2.3. C diff negative. Cardiovascular S1-S2. Lungs clear. GI soft. Hematology negative Homans. Psych fair mood and affect. Ophthalmological pupils equal, round, react to light and accommodation. ASSESSMENT: 1. Hyperkalemia improved. 2. Chronic diarrhea, improve. Diet will be advanced. 3. Possible viral syndrome. 4. Asthma. 5. Fibromyalgia. 6. Gastroesophageal reflux disease. 7. Sleep apnea. 8. Irritable bowel syndrome. 9. Maybe endoscopy if diarrhea does not slow down. 10.Surgical, cardiac evaluation has been seen. MMODL / IJN: [id number] /
[2017-09-28] MEDS: diphenhydrAMINE 25 MG CAP PO PRN (22:59)
[2017-09-29] MEDS: HYDROcodone/APAP 5-325MG 1 EACH TAB PO PRN ×2 (01:16→07:31)
[2017-09-29 07:25] VITALS: BP 113/83; PULSE 85; RESP 12; TEMP 97.8
[2017-09-29 07:29] LABS: Anisocytosis Slight; Basophils % (A) 0 %; Eosinophils # (A) 0.2 k/uL (0-0.7); Eosinophils % (A) 2 %; HCT 32.5 % (34.0-46.0); HGB 10.2 gm/dL (11.4-16.0); Hypochromasia Slight; Lymphocytes # (A) 2.8 k/uL (1.0-4.8); Lymphocytes % (A) 34 %; MCH 33.2 pg (25.0-35.0); MCHC 31.4 g/dL (31.0-37.0); MCV 105.7 fL (80.0-100.0); Macrocytosis Marked; Mean Platelet Volume 7.7; Monocytes # (A) 0.5 k/uL (0-1.0); Monocytes % (A) 5 %; Neutrophils # (A) 4.6 k/uL (1.3-7.7); Neutrophils % (A) 55 %; Platelet Count 264 k/uL (150-450); RBC 3.07 m/uL (3.80-5.40); RDW 16.9 % (11.5-15.5); WBC 8.4 k/uL (3.8-10.6)
[2017-09-29] MEDS: SENNOSIDES 8.6 MG TAB PO SCH (07:31)
[2017-09-29] MEDS: SUCRALFATE 1 GM TAB PO SCH (07:31)
[2017-09-29] MEDS: busPIRone HCl 10 MG TAB PO SCH (07:31)
[2017-09-29] MEDS: POTASSIUM CHLORIDE ER 20 MEQ TAB.ER PO SCH (07:31)
[2017-09-29] MEDS: PANTOPRAZOLE 40 MG TABLET PO SCH (07:31)
[2017-09-29] MEDS: CHOLECALCIFEROL 1,000 UNIT TAB PO SCH (07:32)
[2017-09-29] MEDS: FUROSEMIDE 40 MG TAB PO SCH (07:32)
[2017-09-29] MEDS: DULoxetine HCL 60 MG CAPSULE.DR PO SCH (07:32)
[2017-09-29] MEDS: DICYCLOMINE 20 MG TAB PO SCH (07:32)
[2017-09-29] MEDS: MULTIVITAMINS, THERA 1 EACH TAB PO SCH (07:32)
[2017-09-29] MEDS: BUPRENORPHINE PO SCH (07:32)
[2017-09-29] MEDS: SPIRONOLACTONE 25 MG TAB PO SCH (07:32)
[2017-09-29 07:48] LABS: ALT 26 U/L (9-52); AST 21 U/L (14-36); Albumin 2.3 g/dL (3.5-5.0); Alkaline Phosphatase 102 U/L (38-126); Anion Gap 8 mmol/L; Blood Urea Nitrogen 17 mg/dL (7-17); Calcium 8.4 mg/dL (8.4-10.2); Carbon Dioxide 23 mmol/L (22-30); Chloride 107 mmol/L (98-107); Glucose 70 mg/dL (74-99); Potassium 3.8 mmol/L (3.5-5.1); Sodium 138 mmol/L (137-145); Total Bilirubin 0.1 mg/dL (0.2-1.3); Total Protein 4.5 g/dL (6.3-8.2)
--- NOTE | 2017-09-29 12:46 | P.PN ---
Progress Note - Text Progress Note Date: 09/29/17 The patient potassium has remained stable. Her diarrhea is improved. On exam her vital signs are stable. Her abdomen soft. Patient will be discharged home today. She'll follow-up in one week.
== END 2017-09-29 11:25 | disposition home or self-care (01) | DRG 641 ==
LOC: EC 17:26 → 6SEL 22:39 → 3SUR 09-27 19:27
PROVIDERS: ADMIT Family Medicine; ATTEND Family Medicine
DX: E87.6 Hypokalemia (principal); E44.1 Mild protein-calorie malnutrition; I50.32 Chronic diastolic (congestive) heart failure; E86.0 Dehydration; D51.0 Vitamin B12 deficiency anemia due to intrinsic factor deficiency; G43.909 Migraine, unspecified, not intractable, without status migrainosus; G47.33 Obstructive sleep apnea (adult) (pediatric); I27.20 Pulmonary hypertension, unspecified; I83.90 Asymptomatic varicose veins of unspecified lower extremity; B34.9 Viral infection, unspecified; J44.9 Chronic obstructive pulmonary disease, unspecified; K21.9 Gastro-esophageal reflux disease without esophagitis; M79.7 Fibromyalgia; K58.0 Irritable bowel syndrome with diarrhea; T50.2X5A Adverse effect of carbonic-anhydrase inhibitors, benzothiadiazides and other diuretics, initial encounter; F32.9 Major depressive disorder, single episode, unspecified; F41.9 Anxiety disorder, unspecified; G89.29 Other chronic pain; R60.9 Edema, unspecified; R77.8 Other specified abnormalities of plasma proteins; R53.82 Chronic fatigue, unspecified; Z98.84 Bariatric surgery status; Z90.710 Acquired absence of both cervix and uterus; Z87.891 Personal history of nicotine dependence; Z87.442 Personal history of urinary calculi; Z87.11 Personal history of peptic ulcer disease; Z90.49 Acquired absence of other specified parts of digestive tract; Z68.21 Body mass index [BMI] 21.0-21.9, adult; Z79.899 Other long term (current) drug therapy; Z88.0 Allergy status to penicillin; Z88.8 Allergy status to other drugs, medicaments and biological substances; Z91.018 Allergy to other foods; Z80.9 Family history of malignant neoplasm, unspecified; Z84.89 Family history of other specified conditions
CPT/HCPCS: 36415; 71275; 80053; 82550; 82553; 83605; 83735; 84132; 84484; 85025; 85379; 85610; 85730; 87324; 93005; 94760; 96360; 96361; 99285

== ENCOUNTER 2017-10-08 13:43 | Inpatient (IN) | payer BC, MEDICARE ==
[2017-10-08] MEDS: SODIUM CHLORIDE 0.9% 1,000 ML IV SCH (20:04)
[2017-10-08 20:05] LABS: Anisocytosis Slight; Basophils % (A) 0 %; Eosinophils # (A) 0.1 k/uL (0-0.7); Eosinophils % (A) 1 %; HCT 23.4 % (34.0-46.0); Lymphocytes # (A) 2.1 k/uL (1.0-4.8); Lymphocytes % (A) 37 %; MCH 31.9 pg (25.0-35.0); MCHC 32.1 g/dL (31.0-37.0); Macrocytosis Moderate; Mean Platelet Volume 7.6; Monocytes # (A) 0.3 k/uL (0-1.0); Monocytes % (A) 4 %; Neutrophils # (A) 3.1 k/uL (1.3-7.7); Neutrophils % (A) 55 %; Platelet Count 211 k/uL (150-450); RBC 2.35 m/uL (3.80-5.40); RDW 18.9 % (11.5-15.5); WBC 5.7 k/uL (3.8-10.6)
[2017-10-08] MEDS: PANTOPRAZOLE 40 MG/10 ML VIAL IVP SCH (20:05)
[2017-10-08 20:16] LABS: HGB 7.5 gm/dL (11.4-16.0); MCV 99.5 fL (80.0-100.0)
[2017-10-08 20:24] LABS: Anion Gap 3 mmol/L; Blood Urea Nitrogen 20 mg/dL (7-17); Calcium 8.2 mg/dL (8.4-10.2); Carbon Dioxide 26 mmol/L (22-30); Chloride 107 mmol/L (98-107); Glucose 80 mg/dL (74-99); Potassium 3.9 mmol/L (3.5-5.1); Sodium 136 mmol/L (137-145)
[2017-10-08] MEDS: HYDROcodone/APAP 5-325MG 1 EACH TAB PO PRN (21:40)
[2017-10-08] MEDS: DULoxetine HCL 60 MG CAPSULE.DR PO SCH (21:41)
[2017-10-09] MEDS: SODIUM CHLORIDE 0.9% 1,000 ML IV SCH ×2 (06:27→21:37)
[2017-10-09] MEDS: HYDROcodone/APAP 5-325MG 1 EACH TAB PO PRN ×3 (06:27→18:03)
[2017-10-09] MEDS: DULoxetine HCL 60 MG CAPSULE.DR PO SCH ×2 (09:06→21:37)
[2017-10-09] MEDS: PANTOPRAZOLE 40 MG/10 ML VIAL IVP SCH ×2 (09:06→21:37)
[2017-10-09] MEDS ORDERED: MECLIZINE 25 MG TAB PO PRN (12:42)
[2017-10-09] MEDS ORDERED: ALBUTEROL NEBULIZED 2.5 MG/3 ML INHALATION PRN (12:42)
[2017-10-09] MEDS ORDERED: ONDANSETRON 4 MG TAB PO PRN (12:42)
--- NOTE | 2017-10-09 14:30 | P.GSCN ---
History of Present Illness Consult date: 10/09/17 History of present illness: CHIEF COMPLAINT: Gastrointestinal bleeding. HISTORY OF PRESENT ILLNESS: The patient is a 52 year old female who is admitted secondary GI bleed. She reports developing new crampy abdominal pain along the right upper quadrant followed by copious bloody diarrhea. She has stopped smoking for 1 year following a panniculectomy. She was recently discharged less than 2 weeks ago for low potassium. She has been trying to re-gain weight with her history of gastric bypass. She is pending to see a specialist at [facility] as a result that is pending October 19. Her parents are at bedside and reports global declining health. The patient presents as a transfer from [facility] for acute blood loss anemia from gastrointestinal source. Separately, she has history of chronic gastrojejunal ulcers. PAST MEDICAL HISTORY: Please see list. PAST SURGICAL HISTORY: Please see list. MEDICATIONS: Please see list. ALLERGIES: Please see list. SOCIAL HISTORY: No illicit drug use. FAMILY HISTORY: Has morbid obesity. REVIEW OF ORGAN SYSTEMS: CONSTITUTIONAL: Reports of fevers. Weight loss over 100+ pounds from gastric bypass. GASTROINTESTINAL: Has dark blood in stools. Has chronic gastric pouch ulcers. HEENT: No troubles with vision, hearing or dysphagia. RESPIRATORY: No recent pneumonias. Report dyspnea. CARDIAC: No recent chest pain. No recent myocardial ischemia. MUSCULOSKELETAL: Has intermittent diffuse joint pain. NEURO: No recent stroke or seizure disorder. PSYCH: No depression or suicidal ideation. SKIN: Past history of panniculitis. ENDOCRINE: No diabetes of thyroid disorder. HEMATOLOGIC: History of acute blood loss anemia from index operation Hgb 10.7 down to 7.5 less than 1 week ago. PHYSICAL EXAM: VITAL SIGNS: Vital Signs Temp 98 F 10/09/17 08:00 Pulse 94 10/09/17 08:00 Resp 16 10/09/17 08:00 BP 98/60 10/09/17 08:00 Pulse Ox 100 10/09/17 08:00 Intake & Output 10/08/17 10/09/17 10/09/17 18:59 06:59 18:59 Intake Total 850 100 Output Total 0 0 Balance 850 100 Weight 52.1 kg 64 kg Intake: Oral 850 100 Output: Stool 0 0 Other: # Voids 0 1 1 # Bowel Movements 1 GENERAL: Well-developed and in no acute distress. HEENT: No scleral icterus. Extraocular movements grossly intact. Moist buccal mucosa. NECK: Supple without lymphadenopathy. CHEST: Unlabored respirations. Equal bilateral excursions. CARDIOVASCULAR: Regular rate and rhythm. Distal 2+ pulses. ABDOMEN: Soft, nondistended. Minimal tenderness along epigastrium and right upper quadrant. MUSCULOSKELETAL: No clubbing, cyanosis. NEURO: No focal or lateralizing signs. Cranial Nerves II to XII grossly intact. SKIN: Pale. Poor skin turgor. ASSESSMENT: 1. Gastrointestinal hemorrhage 2. Acute blood loss anemia, symptomatic 3. History of gastrojejunal ulcer. PLAN: 1. She has symptomatic anemia. 2. Recommend re-check iron indices. 3. Recommend bariatric labs, full panel. 4. Recommend blood transfusion for symptomatic blood loss anemia. 5. Upper/lower scope to be determined by Dr. Washington. Past Medical History Past Medical History: Asthma, Fibromyalgia, GERD/Reflux, Sleep Apnea/CPAP/BIPAP Additional Past Medical History / Comment(s): Asthma, fibromyalgia, acid reflux , Kaya-en-Y gastric bypass surgery for morbid obesity with subsequent 150 pounds of weight loss, history of obstructive sleep apnea, migraines, gastric ulcer, varicose veins, chronic fatigue syndrome, hx pernicious anemia, abdominal [id number], oral yeast infections, hx kidney stones History of Any Multi-Drug Resistant Organisms: None Reported Past Surgical History: Appendectomy, Back Surgery, Bariatric Surgery, Section, Cholecystectomy, Hernia Repair, Hysterectomy Additional Past Surgical History / Comment(s): x2, metal removed from rt eye 15 years ago,-lithotripsy, gastric bypass 2002 , 2 titanium rods in lower back, Carpal tunnel release bilaterally, PANNICULECTOMY Past Anesthesia/Blood Transfusion Reactions: Family History of Problems w/ Anesthesia Additional Past Anesthesia/Blood Transfusion Reaction / Comm: family members w/ severe headaches w/anesthesia Past Psychological History: Anxiety, Depression Smoking Status: Former smoker Past Alcohol Use History: None Reported Additional Past Alcohol Use History / Comment(s): quit smoking 04/2016, smoked for 13 yrs, < 1 PPD Past Drug Use History: None Reported - Past Family History Father Family Medical History: Cancer Additional Family Medical History / Comment(s): PROSTATE CANCER Mother Additional Family Medical History / Comment(s): OBESITY-HAD GASTRIC BYPASS SX Medications and Allergies Home Medications Medication Instructions Recorded Confirmed Type DULoxetine HCL [Cymbalta] 60 mg PO BID 03/19/15 10/09/17 History Albuterol Inhaler [Ventolin Hfa 2 puff INHALATION RT-QID PRN 07/31/15 10/09/17 History Inhaler] busPIRone HCL [Buspar] 30 mg PO BID 02/21/17 10/09/17 History Dicyclomine [Bentyl] 20 mg PO AC-TID 02/28/17 10/09/17 History diphenhydrAMINE HCL [Benadryl] 25 mg PO DAILY 02/28/17 10/09/17 History Buprenorphine HCl [Subutex] 4 mg SL HS 08/02/17 10/09/17 History Lisinopril [Zestril] 10 mg PO DAILY 08/02/17 10/09/17 History Ondansetron HCl [Zofran] 4 mg PO BID PRN 08/02/17 10/09/17 History Sucralfate [Carafate] 1 gm PO BID 08/05/17 10/09/17 History Butalb/Acetaminophen/Caffeine 1 cap PO DAILY PRN 08/27/17 10/09/17 History [Fioricet 50-300-40 mg Capsule] Potassium Chloride ER [K-Dur 20] 20 meq PO BID tab.er.prt 09/29/17 10/09/17 Rx Buprenorphine HCl [Subutex] 2 mg SL BID@0800,1200 10/09/17 10/09/17 History Furosemide [Lasix] 60 mg PO BID 10/09/17 10/09/17 History Magnesium Oxide [Mag-Ox] 500 mg PO BID 10/09/17 10/09/17 History Meclizine [Antivert] 25 mg PO Q8H PRN 10/09/17 10/09/17 History Metolazone [Zaroxolyn] 5 mg PO DAILY 10/09/17 10/09/17 History Pantoprazole Sodium [Protonix] 40 mg PO BID 10/09/17 10/09/17 History Spironolactone 100 mg PO DAILY 10/09/17 10/09/17 History rOPINIRole HCL [Requip] 0.5 mg PO HS 10/09/17 10/09/17 History Allergies Allergy/AdvReac Type Severity Reaction Status Date / Time broccoli Allergy Severe Anaphylaxis Verified 09/26/17 18:03 with raw broccoli Penicillins Allergy Unknown Anaphylaxis Verified 09/26/17 18:03 ketorolac [From Toradol] Allergy Unknown Verified 09/26/17 18:03 adhesive tape AdvReac Itching Verified 10/09/17 04:51 diet cola Allergy GI irritant Uncoded 09/23/17 09:57 Surgical - Exam Vital Signs Temp Pulse Resp BP Pulse Ox 97.1 F L 86 15 98/62 100 10/08/17 18:38 10/08/17 18:38 10/08/17 18:38 10/08/17 18:38 10/08/17 18:38 Results - Labs 10/08/17 19:49 10/08/17 19:49 Abnormal Lab Results - Last 24 Hours (Table) 10/08/17 10/08/17 Range/Units 19:49 19:49 RBC 2.35 L (3.80-5.40) m/uL Hgb 7.5 L D (11.4-16.0) gm/dL Hct 23.4 L (34.0-46.0) % RDW 18.9 H (11.5-15.5) % Sodium 136 L (137-145) mmol/L BUN 20 H (7-17) mg/dL Creatinine 0.42 L (0.52-1.04) mg/dL Calcium 8.2 L (8.4-10.2) mg/dL Diabetes panel 10/08/17 Range/Units 19:49 Sodium 136 L (137-145) mmol/L Potassium 3.9 (3.5-5.1) mmol/L Chloride 107 (98-107) mmol/L Carbon Dioxide 26 (22-30) mmol/L BUN 20 H (7-17) mg/dL Creatinine 0.42 L (0.52-1.04) mg/dL Glucose 80 (74-99) mg/dL Calcium 8.2 L (8.4-10.2) mg/dL Calcium panel 10/08/17 Range/Units 19:49 Calcium 8.2 L (8.4-10.2) mg/dL Pituitary panel 10/08/17 Range/Units 19:49 Sodium 136 L (137-145) mmol/L Potassium 3.9 (3.5-5.1) mmol/L Chloride 107 (98-107) mmol/L Carbon Dioxide 26 (22-30) mmol/L BUN 20 H (7-17) mg/dL Creatinine 0.42 L (0.52-1.04) mg/dL Glucose 80 (74-99) mg/dL Calcium 8.2 L (8.4-10.2) mg/dL Adrenal panel 10/08/17 Range/Units 19:49 Sodium 136 L (137-145) mmol/L Potassium 3.9 (3.5-5.1) mmol/L Chloride 107 (98-107) mmol/L Carbon Dioxide 26 (22-30) mmol/L BUN 20 H (7-17) mg/dL Creatinine 0.42 L (0.52-1.04) mg/dL Glucose 80 (74-99) mg/dL Calcium 8.2 L (8.4-10.2) mg/dL
[2017-10-09 14:38] LABS: Anisocytosis Slight; Basophils % (A) 0 %; Eosinophils # (A) 0.1 k/uL (0-0.7); Eosinophils % (A) 2 %; HCT 21.8 % (34.0-46.0); Hypochromasia Slight; Lymphocytes # (A) 1.5 k/uL (1.0-4.8); Lymphocytes % (A) 28 %; MCH 32.7 pg (25.0-35.0); MCV 102.1 fL (80.0-100.0); Macrocytosis Moderate; Mean Platelet Volume 8.3; Monocytes # (A) 0.3 k/uL (0-1.0); Monocytes % (A) 5 %; Neutrophils # (A) 3.3 k/uL (1.3-7.7); Neutrophils % (A) 63 %; Platelet Count 203 k/uL (150-450); RBC 2.13 m/uL (3.80-5.40); RDW 18.6 % (11.5-15.5); WBC 5.3 k/uL (3.8-10.6)
--- NOTE | 2017-10-09 16:40 | P.HPIM ---
History of Present Illness H&P Date: 10/09/17 Chief Complaint: Bleeding per rectum Ms. Faith is a 52-year-old female with a past medical history of asthma, fibromyalgia, GERD, Kaya-en-Y gastric bypass surgery for morbid obesity, migraines, pernicious anemia transferred from [facility] with a chief complaint of bleeding bright red blood per rectum. Patient was in the hospital couple of weeks back for hypokalemia. Patient has history of Kaya-en-Y gastric bypass surgery done by Dr. Washington in 2002. Since then patient has lost almost 160 pounds. 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 She also follows with Dr. Gonzalez. Patient denies having any abdominal pain nausea vomiting or diarrhea. Patient experienced some lower quadrant abdominal pain then started to have a bowel movement that was bloody in nature. Patient was also having dizziness but currently asymptomatic. Patient had a hemoglobin checked at [facility] which was 7.5 and she got 1 unit of PRBC transfusion there. Repeat hemoglobin from last night was 7.5 and this afternoon is 7.0. Review of Systems REVIEW OF SYSTEMS: PSYCH: little anxious NEURO:No c/o weakness of the extremties, No facial droop, No speech abnormalities. VASCULAR: No edema HEMATOLOGIC: No history of easy bleeding and bruising . No recent infections . RESPIRATORY: No cough, No SOB, No chest discomfort. 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 PV CARDIAC: No chest pain , shortness of breath , paroxysmal nocturnal dyspnea MUSCULOSKELETAL : History of fibromyalgia GI: As per HPI Past Medical History Past Medical History: Asthma, Fibromyalgia, GERD/Reflux, Sleep Apnea/CPAP/BIPAP Additional Past Medical History / Comment(s): Asthma, fibromyalgia, acid reflux , Kaya-en-Y gastric bypass surgery for morbid obesity with subsequent 150 pounds of weight loss, history of obstructive sleep apnea, migraines, gastric ulcer, varicose veins, chronic fatigue syndrome, hx pernicious anemia, abdominal [id number], oral yeast infections, hx kidney stones History of Any Multi-Drug Resistant Organisms: None Reported Past Surgical History: Appendectomy, Back Surgery, Bariatric Surgery, Section, Cholecystectomy, Hernia Repair, Hysterectomy Additional Past Surgical History / Comment(s): x2, metal removed from rt eye 15 years ago,-lithotripsy, gastric bypass 2002 , 2 titanium rods in lower back, Carpal tunnel release bilaterally, PANNICULECTOMY Past Anesthesia/Blood Transfusion Reactions: Family History of Problems w/ Anesthesia Additional Past Anesthesia/Blood Transfusion Reaction / Comment(s): family members w/severe headaches w/anesthesia Past Psychological History: Anxiety, Depression Smoking Status: Former smoker Past Alcohol Use History: None Reported Additional Past Alcohol Use History / Comment(s): quit smoking 04/2016, smoked for 13 yrs, < 1 PPD Past Drug Use History: None Reported - Past Family History Father Family Medical History: Cancer Additional Family Medical History / Comment(s): PROSTATE CANCER Mother Additional Family Medical History / Comment(s): OBESITY-HAD GASTRIC BYPASS SX Medications and Allergies Home Medications Medication Instructions Recorded Confirmed Type DULoxetine HCL [Cymbalta] 60 mg PO BID 03/19/15 10/09/17 History Albuterol Inhaler [Ventolin Hfa 2 puff INHALATION RT-QID PRN 07/31/15 10/09/17 History Inhaler] busPIRone HCL [Buspar] 30 mg PO BID 02/21/17 10/09/17 History Dicyclomine [Bentyl] 20 mg PO AC-TID 02/28/17 10/09/17 History diphenhydrAMINE HCL [Benadryl] 25 mg PO DAILY 02/28/17 10/09/17 History Buprenorphine HCl [Subutex] 4 mg SL HS 08/02/17 10/09/17 History Lisinopril [Zestril] 10 mg PO DAILY 08/02/17 10/09/17 History Ondansetron HCl [Zofran] 4 mg PO BID PRN 08/02/17 10/09/17 History Sucralfate [Carafate] 1 gm PO BID 08/05/17 10/09/17 History Butalb/Acetaminophen/Caffeine 1 cap PO DAILY PRN 08/27/17 10/09/17 History [Fioricet 50-300-40 mg Capsule] Potassium Chloride ER [K-Dur 20] 20 meq PO BID tab.er.prt 09/29/17 10/09/17 Rx Buprenorphine HCl [Subutex] 2 mg SL BID@0800,1200 10/09/17 10/09/17 History Furosemide [Lasix] 60 mg PO BID 10/09/17 10/09/17 History Magnesium Oxide [Mag-Ox] 500 mg PO BID 10/09/17 10/09/17 History Meclizine [Antivert] 25 mg PO Q8H PRN 10/09/17 10/09/17 History Metolazone [Zaroxolyn] 5 mg PO DAILY 10/09/17 10/09/17 History Pantoprazole Sodium [Protonix] 40 mg PO BID 10/09/17 10/09/17 History Spironolactone 100 mg PO DAILY 10/09/17 10/09/17 History rOPINIRole HCL [Requip] 0.5 mg PO HS 10/09/17 10/09/17 History Allergies Allergy/AdvReac Type Severity Reaction Status Date / Time broccoli Allergy Severe Anaphylaxis Verified 09/26/17 18:03 with raw broccoli Penicillins Allergy Unknown Anaphylaxis Verified 09/26/17 18:03 ketorolac [From Toradol] Allergy Unknown Verified 09/26/17 18:03 adhesive tape AdvReac Itching Verified 10/09/17 04:51 diet cola Allergy GI irritant Uncoded 09/23/17 09:57 Physical Exam Vitals: Vital Signs Temp Pulse Pulse Resp BP Pulse Ox 10/09/17 07:47 89 95 14 10/09/17 04:00 97.2 F L 91 95 12 104/61 100 10/09/17 00:00 97.1 F L 91 12 106/63 100 10/08/17 23:22 95 18 10/08/17 20:34 99 10/08/17 19:37 98.6 F 95 18 92/53 100 10/08/17 18:38 97.1 F L 86 15 98/62 100 Intake and Output 10/08/17 10/09/17 10/09/17 22:59 06:59 14:59 Intake Total 850 100 Output Total 0 0 0 Balance 850 0 100 Intake: Oral 850 100 Output: Stool 0 0 0 Other: # Voids 0 1 1 # Bowel Movements 1 Weight 52.1 kg 64 kg GENERAL EXAM GEN. APPEARANCE: alert, in no apparent distress HEAD EXAM: atraumatic, normocephalic, normal inspection EYE EXAM: Pallor + NECK EXAM: normal inspection. Absent: tenderness, meningismus, full ROM, lymphadenopathy RESPIRATORY EXAM: normal lung sounds bilaterally. Absent: respiratory distress , wheezes, rales, rhonchi, stridor CARDIOVASCULAR EXAM: regular rate, normal rhythm, normal heart sounds. Absent : systolic murmur, diastolic murmur, rubs, gallop, clicks GI/ABDOMINAL EXAM: soft, normal bowel sounds. Absent: distended, tenderness, guarding, rebound, rigid. surgical scars seen all over the abdomen EXTREMITIES EXAM: normal inspection, full ROM, normal capillary refill. Absent : tenderness, pedal edema, joint swelling, calf tenderness BACK EXAM: normal inspection NEUROLOGICAL EXAM: alert, oriented X3, no focal neurological deficits PSYCHIATRIC EXAM: normal affect, normal mood SKIN EXAM: warm, dry, intact, normal color. Results CBC & Chem 7: 10/09/17 14:23 10/08/17 19:49 Labs: Abnormal Lab Results - Last 24 Hours (Table) 10/08/17 10/08/17 Range/Units 19:49 19:49 RBC 2.35 L (3.80-5.40) m/uL Hgb 7.5 L D (11.4-16.0) gm/dL Hct 23.4 L (34.0-46.0) % RDW 18.9 H (11.5-15.5) % Sodium 136 L (137-145) mmol/L BUN 20 H (7-17) mg/dL Creatinine 0.42 L (0.52-1.04) mg/dL Calcium 8.2 L (8.4-10.2) mg/dL Thrombosis Risk Factor Assmnt - Choose All That Apply Each Factor Represents 1 point: Age 41-60 years Other Risk Factors: No Other congenital or acquired thrombophilia - If yes, enter type in comment: No Thrombosis Risk Factor Assessment Total Risk Factor Score: 1 Thrombosis Risk Factor Assessment Level: Low Risk Assessment and Plan Assessment: ASSESSMENT Acute blood loss anemia GI bleed History of Kaya-en-Y gastric bypass Iron deficiency anemia Severe protein calorie malnutrition Fibromyalgia Obstructive sleep apnea GERD Irritable bowel syndrome History of renal calculi History of anxiety and depression History of smoking Plan: Patient's hemoglobin has been stable around 7. We'll transfuse with 1 unit of PRBC. Surgery has been consulted. We'll follow H&H. Home medications have been resumed. Further recommendations to follow depending on the progress of the patient.
[2017-10-09] MEDS: DICYCLOMINE 20 MG TAB PO SCH (17:13)
[2017-10-09] MEDS: MAGNESIUM OXIDE 400 MG TAB PO SCH (21:36)
[2017-10-09] MEDS: POTASSIUM CHLORIDE ER 20 MEQ TAB.ER PO SCH (21:36)
[2017-10-09] MEDS: SUCRALFATE 1 GM TAB PO SCH (21:36)
[2017-10-09] MEDS: busPIRone HCl 10 MG TAB PO SCH (21:36)
[2017-10-10] MEDS: HYDROcodone/APAP 5-325MG 1 EACH TAB PO PRN ×3 (03:44→14:36)
[2017-10-10] MEDS: SODIUM CHLORIDE 0.9% 1,000 ML IV SCH ×3 (03:44→20:48)
[2017-10-10] MEDS: DICYCLOMINE 20 MG TAB PO SCH ×3 (06:50→17:27)
[2017-10-10 07:29] LABS: Anisocytosis Slight; Basophils % (A) 0 %; Eosinophils # (A) 0.1 k/uL (0-0.7); Eosinophils % (A) 1 %; HCT 26.1 % (34.0-46.0); HGB 8.2 gm/dL (11.4-16.0); Lymphocytes # (A) 1.8 k/uL (1.0-4.8); Lymphocytes % (A) 33 %; MCH 31.5 pg (25.0-35.0); MCHC 31.3 g/dL (31.0-37.0); MCV 100.6 fL (80.0-100.0); Macrocytosis Moderate; Mean Platelet Volume 7.5; Monocytes # (A) 0.3 k/uL (0-1.0); Monocytes % (A) 5 %; Neutrophils # (A) 3.2 k/uL (1.3-7.7); Neutrophils % (A) 58 %; Platelet Count 198 k/uL (150-450); RBC 2.59 m/uL (3.80-5.40); WBC 5.6 k/uL (3.8-10.6)
[2017-10-10] MEDS: SUCRALFATE 1 GM TAB PO SCH ×2 (08:58→20:48)
[2017-10-10] MEDS: POTASSIUM CHLORIDE ER 20 MEQ TAB.ER PO SCH ×2 (08:58→20:48)
[2017-10-10] MEDS: DULoxetine HCL 60 MG CAPSULE.DR PO SCH ×2 (08:58→20:48)
[2017-10-10] MEDS: MAGNESIUM OXIDE 400 MG TAB PO SCH ×2 (08:58→20:48)
[2017-10-10] MEDS: busPIRone HCl 10 MG TAB PO SCH ×2 (08:58→20:48)
[2017-10-10] MEDS: PANTOPRAZOLE 40 MG/10 ML VIAL IVP SCH ×2 (08:59→20:47)
[2017-10-10 09:59] LABS: Iron Saturation 38.24 (12.00-45.00)
[2017-10-10 10:28] VITALS: BMI 23.8
--- NOTE | 2017-10-10 13:35 | P.PN ---
Subjective Progress Note Date: 10/10/17 52-year-old female resting in bed. Patient states she continues to have cramping abdominal pain along the right quadrant. Patient states she's had several bloody stools this morning. Patient was scheduled this morning for an EGD this is being held rescheduled for tomorrow. Chief complaint this morning is "feel tired out" Objective - Vital Signs Vital signs: Vital Signs Temp 97.9 F 10/10/17 12:00 Pulse 95 10/10/17 12:00 Resp 16 10/10/17 12:00 BP 99/50 10/10/17 12:00 Pulse Ox 100 10/10/17 12:00 Intake & Output 10/09/17 10/10/17 10/10/17 18:59 06:59 18:59 Intake Total 1600 790 0 Output Total 1000 1300 Balance 600 -510 0 Weight 59.2 kg 59.2 kg Intake: Intake, IV Titration 800 Amount Sodium Chloride 0.9% 1, 800 000 ml @ 100 mls/hr IV . Q10H [facility] Rx#:[id number] Oral 800 480 0 Blood Product 310 Rc As-1 Unit 310 [id number] Output: Urine 300 Stool 1000 1000 Other: # Voids 2 2 # Bowel Movements 1 0 - Exam GENERAL APPEARANCE: alert, oriented, in no acute distress. VITAL SIGNS: Reviewed HEENT: Head is normocephalic and atraumatic. Pupils are equal and reactive. The nares are patent. Oropharynx is clear without lesions. NECK: Supple without lymphadenopathy. Traches midline. HEART: S1, S2. Regular rate and rhythm. LUNGS: No crackles or wheezes are heard. ABDOMEN: Soft, mild tenderness right upper quadrant nondistended with good bowel sounds. No peritoneal signs. No palpable organomegaly or masses. States has had several loose bloody stools this morning abdominal cramping persist EXTREMITIES: Normal skin color and turgor. No cyanosis, rash, ulceration, clubbing or edema. Radial pedal pulses are 2/4 bilaterally. NEUROLOGICAL: No focal deficits. Strength and sensation are grossly intact. - Labs CBC & Chem 7: 10/10/17 06:42 10/08/17 19:49 Labs: Abnormal Lab Results - Last 24 Hours (Table) 10/08/17 10/09/17 10/09/17 Range/Units 19:49 14:23 19:35 RBC 2.13 L (3.80-5.40) m/uL Hgb 7.0 L* (11.4-16.0) gm/dL Hct 21.8 L (34.0-46.0) % MCV 102.1 H (80.0-100.0) fL RDW 18.6 H (11.5-15.5) % TIBC 170 L (228-460) ug/dL Crossmatch See Detail 10/10/17 Range/Units 06:42 RBC 2.59 L (3.80-5.40) m/uL Hgb 8.2 L (11.4-16.0) gm/dL Hct 26.1 L (34.0-46.0) % MCV 100.6 H (80.0-100.0) fL RDW 20.0 H (11.5-15.5) % TIBC (228-460) ug/dL Crossmatch Assessment and Plan Assessment: Impression Present on admission cramping abdominal pain right upper quadrant with copious amount of bloody stool suspect due to a GI bleed Present on admission symptomatic acute blood loss anemia suspect due to a GI bleed necessitating the need for blood transfusion History of morbid obesity with a fifi-en-y gastric bypass Pain deficiency anemia Severe protein calorie malnutrition Anxiety depressive disorder Esophageal reflux disease History of a prior panniculectomy History of chronic gastroduodenal ulcers Plan Will be scheduled tomorrow for an EGD part of the workup for a GI bleed Continue GI and DVT prophylaxis Monitor hemoglobin Carafate 1 g twice a day IV fluid for hydration Nothing by mouth after midnight the plan EGD in the morning Plan discussed with the patient questions answered The above impression and plan of care have been discussed and directed by signing physician. Lisa Alfaro nurse practitioner acting as scribe for signing physician.
[2017-10-10] MEDS: HYDROcodone/APAP 7.5-325MG 1 EACH TAB PO PRN ×2 (17:21→23:23)
--- NOTE | 2017-10-10 21:49 | PN ---
PROGRESS NOTE SUBJECTIVE: This is a white female who had one unit of blood. Her hemoglobin is up to 8.2 today. She still has dark maroon in the stools. She was supposed to have an EGD today, but apparently it has been rescheduled until tomorrow. She feels tired out. Temperature is 97.9, pulse 80s to 95, respiratory rate 14 to 16, blood pressure 99/50, oxygen 100% on room air. CARDIOVASCULAR: S1, S2. LUNGS: Transmitted upper sounds. GI has increased bowel sounds x4. No mass. No organomegaly. HEMATOLOGIC: Negative Homans. PSYCH: Fair mood and affect. ASSESSMENT: 1. Right upper quadrant abdominal pain. 2. Copious amounts of bloody stool secondary to gastrointestinal bleed. Possible swallow evaluation will be done if EGD is negative. 3. Status post Kaya-en-Y bypass. 4. Iron deficiency anemia. 5. Severe protein-calorie malnutrition causing third spacing in the lower legs. 6. Anxiety. 7. Depression disorder. 8. History of prior panniculectomy. 9. Chronic gastroduodenal ulcers. IV fluid rehydration. EGD in the morning. Possible blood transfusion will be needed. Possible iron infusion will be done tonight. MMODL / IJN: [id number] /
[2017-10-11 06:35] LABS: Anisocytosis Slight; Basophils % (A) 0 %; Eosinophils # (A) 0.1 k/uL (0-0.7); Eosinophils % (A) 2 %; HCT 25.3 % (34.0-46.0); HGB 8.1 gm/dL (11.4-16.0); Hypochromasia Slight; Lymphocytes # (A) 1.9 k/uL (1.0-4.8); Lymphocytes % (A) 43 %; MCH 32.1 pg (25.0-35.0); MCHC 31.9 g/dL (31.0-37.0); MCV 100.6 fL (80.0-100.0); Macrocytosis Moderate; Mean Platelet Volume 7.9; Monocytes # (A) 0.3 k/uL (0-1.0); Monocytes % (A) 6 %; Neutrophils # (A) 2.1 k/uL (1.3-7.7); Neutrophils % (A) 47 %; Platelet Count 192 k/uL (150-450); RBC 2.51 m/uL (3.80-5.40); RDW 19.8 % (11.5-15.5); WBC 4.5 k/uL (3.8-10.6)
[2017-10-11 06:49] LABS: ALT 37 U/L (9-52); AST 29 U/L (14-36); Albumin 2.1 g/dL (3.5-5.0); Alkaline Phosphatase 56 U/L (38-126); Anion Gap 5 mmol/L; Blood Urea Nitrogen 8 mg/dL (7-17); Calcium 8.3 mg/dL (8.4-10.2); Carbon Dioxide 21 mmol/L (22-30); Chloride 111 mmol/L (98-107); Glucose 75 mg/dL (74-99); Sodium 137 mmol/L (137-145)
[2017-10-11 06:50] LABS: Total Bilirubin <0.1 mg/dL (0.2-1.3)
[2017-10-11] MEDS: SODIUM CHLORIDE 0.9% 1,000 ML IV SCH ×2 (08:06→17:22)
[2017-10-11] MEDS ORDERED: PROPOFOL 10 MG/ML 20 ML VIAL IV ONE (08:39)
[2017-10-11] MEDS ORDERED: IV FLUID CONTINUATION 1,000 ML IV ONE (08:39)
[2017-10-11] MEDS ORDERED: LIDOCAINE 1% INJ 10MG/ML (20 ML MDV) ONE (08:39)
--- NOTE | 2017-10-11 09:07 | P.OP ---
Date of Procedure: 10/11/17 Preoperative Diagnosis: GI bleed Postoperative Diagnosis: Healing marginal ulcer at gastrojejunostomy anastomosis No evidence of active upper GI bleed Procedure(s) Performed: EGD Anesthesia: MAC Surgeon: López Washington Pathology: other (Marginal ulcer) Condition: stable Disposition: PACU Description of Procedure: Patient's placed on the endoscopy table lateral position she received IV sedation. The gastroscope was placed oropharynx and passed in the esophagus into the stomach. The scope then placed through the gastrojejunostomy into jejunum. There is no blood in the upper GI tract. The scope was withdrawn. And at the margin of the gastrojejunostomy there was a healing ulcer. The ulcer was smaller than previously seen on the last EGD. There is no ends of active bleeding. This the ulcer edge was biopsied. Scope was withdrawn the gastric pouch appeared normal. The GE junction was at 40 cm. The distal esophagus appeared normal proximal esophagus appeared normal. Scope was withdrawn for patient.
[2017-10-11] MEDS: PANTOPRAZOLE 40 MG/10 ML VIAL IVP SCH ×2 (09:16→20:39)
[2017-10-11] MEDS: SUCRALFATE 1 GM TAB PO SCH ×2 (09:16→20:40)
[2017-10-11] MEDS: MAGNESIUM OXIDE 400 MG TAB PO SCH ×2 (09:16→20:40)
[2017-10-11] MEDS: busPIRone HCl 10 MG TAB PO SCH ×2 (09:16→20:39)
[2017-10-11] MEDS: DICYCLOMINE 20 MG TAB PO SCH ×3 (09:17→17:22)
[2017-10-11] MEDS: POTASSIUM CHLORIDE ER 20 MEQ TAB.ER PO SCH ×2 (09:17→20:39)
[2017-10-11] MEDS: DULoxetine HCL 60 MG CAPSULE.DR PO SCH ×2 (09:17→20:39)
[2017-10-11] MEDS: HYDROcodone/APAP 7.5-325MG 1 EACH TAB PO PRN ×3 (09:26→20:37)
[2017-10-11] MEDS ORDERED: LACTATED RINGERS 1,000 ML IV SCH (11:34)
[2017-10-11] MEDS: SODIUM FERRIC GLUCONAT-SUCROSE 125 MG in SODIUM CHLORIDE 0.9% 100 ML IVPB SCH (12:50)
[2017-10-11] MEDS: CYCLOBENZAPRINE 10 MG TAB PO PRN (21:09)
--- NOTE | 2017-10-11 23:09 | PN ---
PROGRESS NOTE SUBJECTIVE: 52-year-old white female with GI bleed. Discussed the case with Dr. Washington who is going to order a camera scope. EGD with a camera downloaded thru the small bowel to look for bleeding as she has had recurrent episodes of admissions with GI bleeding and severe anemia. Continue current treatment. Otherwise, check hemoglobins in the morning. Continue iron infusions. Check CBC in the morning. Clinically, she is stable. GI soft. CARDIOVASCULAR: S1, S2. Lungs clear. Hematology negative Homans. ASSESSMENT: 1. Gastrointestinal bleed, severe anemia. 2. Status post gastric surgery. 3. Multiple medical diseases. Please see further orders. Check camera scope in the morning. MMODL / IJN: [id number] /
[2017-10-12] MEDS: HYDROcodone/APAP 7.5-325MG 1 EACH TAB PO PRN ×4 (02:27→21:49)
[2017-10-12] MEDS: CYCLOBENZAPRINE 10 MG TAB PO PRN ×3 (05:40→23:40)
[2017-10-12] MEDS: SODIUM CHLORIDE 0.9% 1,000 ML IV SCH ×2 (05:40→18:32)
[2017-10-12 06:24] LABS: ALT 36 U/L (9-52); AST 25 U/L (14-36); Albumin 2.3 g/dL (3.5-5.0); Alkaline Phosphatase 68 U/L (38-126); Anion Gap 9 mmol/L; Blood Urea Nitrogen 10 mg/dL (7-17); Calcium 8.4 mg/dL (8.4-10.2); Carbon Dioxide 19 mmol/L (22-30); Chloride 111 mmol/L (98-107); Glucose 74 mg/dL (74-99); Potassium 3.8 mmol/L (3.5-5.1); Sodium 139 mmol/L (137-145); Total Bilirubin <0.1 mg/dL (0.2-1.3); Total Protein 4.3 g/dL (6.3-8.2)
[2017-10-12] MEDS: DULoxetine HCL 60 MG CAPSULE.DR PO SCH ×2 (06:30→21:48)
[2017-10-12] MEDS: DICYCLOMINE 20 MG TAB PO SCH ×3 (06:31→18:33)
[2017-10-12 06:46] LABS: Anisocytosis Moderate; Basophils % (A) 0 %; Eosinophils # (A) 0.1 k/uL (0-0.7); Eosinophils % (A) 2 %; HCT 26.6 % (34.0-46.0); HGB 8.5 gm/dL (11.4-16.0); Hypochromasia Slight; Lymphocytes # (A) 2.1 k/uL (1.0-4.8); Lymphocytes % (A) 36 %; MCH 32.6 pg (25.0-35.0); Macrocytosis Moderate; Mean Platelet Volume 7.6; Monocytes # (A) 0.3 k/uL (0-1.0); Monocytes % (A) 5 %; Neutrophils # (A) 3.2 k/uL (1.3-7.7); Neutrophils % (A) 55 %; Platelet Count 218 k/uL (150-450); RBC 2.61 m/uL (3.80-5.40); RDW 20.1 % (11.5-15.5); WBC 5.9 k/uL (3.8-10.6)
[2017-10-12] MEDS: PANTOPRAZOLE 40 MG/10 ML VIAL IVP SCH ×2 (08:41→21:51)
[2017-10-12] MEDS: MAGNESIUM OXIDE 400 MG TAB PO SCH ×2 (08:42→21:48)
[2017-10-12] MEDS: SUCRALFATE 1 GM TAB PO SCH ×2 (08:42→21:49)
[2017-10-12] MEDS: POTASSIUM CHLORIDE ER 20 MEQ TAB.ER PO SCH ×2 (08:42→21:49)
[2017-10-12] MEDS: busPIRone HCl 10 MG TAB PO SCH ×2 (08:42→21:49)
[2017-10-12] MEDS: SODIUM FERRIC GLUCONAT-SUCROSE 125 MG in SODIUM CHLORIDE 0.9% 100 ML IVPB SCH (08:43)
--- NOTE | 2017-10-12 11:57 | P.PN ---
Subjective Progress Note Date: 10/12/17 52-year-old female seen and examined sitting up in bed reports continues to have bloody stools dark. Hemoglobin this morning 8.5. Patient states abdominal pain feels unchanged. Patient had an EGD done on October 11 showed healing marginal ulcer at gastrojejunostomy anastomosis no evidence of active upper GI bleeding Objective - Vital Signs Vital signs: Vital Signs Temp 97.6 F 10/12/17 11:48 Pulse 102 H 10/12/17 11:48 Resp 18 10/12/17 11:48 BP 112/78 10/12/17 11:48 Pulse Ox 100 10/12/17 11:48 Intake & Output 10/11/17 10/12/17 10/12/17 18:59 06:59 18:59 Intake Total 1186 Balance 1186 Weight 64.9 kg Intake: IV 150 Intake, IV Titration 800 Amount Sodium Chloride 0.9% 1, 700 000 ml @ 100 mls/hr IV . Q10H [facility] Rx#:[id number] Sodium Ferric Gluconat- 100 Sucrose 125 mg In Sodium Chloride 0.9% 100 ml @ 100 mls/hr IVPB DAILY [facility] Rx#:[id number] Oral 236 Other: Voiding Method Toilet # Voids 2 1 # Bowel Movements 1 - Exam GENERAL APPEARANCE: sitting up in bed alert, oriented, in no acute distress. VITAL SIGNS: Reviewed reviewed HEENT: Head is normocephalic and atraumatic. Pupils are equal and reactive. The nares are patent. Oropharynx is clear without lesions. NECK: Supple without lymphadenopathy. Traches midline. HEART: S1, S2. Regular rate and rhythm. LUNGS: No crackles or wheezes are heard. ABDOMEN: Soft, mild tenderness right upper quadrant nondistended with good bowel sounds. No peritoneal signs. No palpable organomegaly or masses. States has had several loose bloody stools this morning dark bloody stools abdominal cramping persist EXTREMITIES: Normal skin color and turgor. No cyanosis, rash, ulceration, clubbing or edema. Radial pedal pulses are 2/4 bilaterally. NEUROLOGICAL: No focal deficits. Strength and sensation are grossly intact. - Labs CBC & Chem 7: 10/12/17 05:27 10/12/17 05:27 Labs: Abnormal Lab Results - Last 24 Hours (Table) 05/23/18 05/23/18 Range/Units 05:27 05:27 RBC 2.61 L (3.80-5.40) m/uL Hgb 8.5 L (11.4-16.0) gm/dL Hct 26.6 L (34.0-46.0) % MCV 102.0 H (80.0-100.0) fL RDW 20.1 H (11.5-15.5) % Chloride 111 H (98-107) mmol/L Carbon Dioxide 19 L (22-30) mmol/L Creatinine 0.50 L (0.52-1.04) mg/dL Total Bilirubin <0.1 L (0.2-1.3) mg/dL Total Protein 4.3 L (6.3-8.2) g/dL Albumin 2.3 L (3.5-5.0) g/dL Assessment and Plan Assessment: Impression Present on admission cramping abdominal pain right upper quadrant with copious amount of bloody stool suspect due to a GI bleed Present on admission symptomatic acute blood loss anemia suspect due to a GI bleed necessitating the need for blood transfusion History of morbid obesity with a fifi-en-y gastric bypass Pain deficiency anemia Severe protein calorie malnutrition Anxiety depressive disorder Esophageal reflux disease History of a prior panniculectomy History of chronic gastroduodenal ulcers EGD done by 10/11/17 showed healing marginal ulcer at gastrojejunostomy anastomosis no evidence of active upper GI blled Plan continue IV ferric as ordered Continue GI and DVT prophylaxis Monitor hemoglobin Carafate 1 g twice a day IV fluid for hydration The above impression and plan of care have been discussed and directed by signing physician. Lisa Alfaro nurse practitioner acting as scribe for signing physician.
[2017-10-12] MEDS ORDERED: MAGNESIUM CITRATE 296 ML BOTTLE PO ONE (18:00)
--- NOTE | 2017-10-12 22:19 | PN ---
PROGRESS NOTE SUBJECTIVE: [age]old white female with a GI bleed, supposed to have an endoscopy capsule test, small-bowel followthrough with a capsule tomorrow. Her hemoglobin is up to 8.2 today. CARDIOVASCULAR: S1, S2. LUNGS: Clear. GI: Soft. HEMATOLOGY: Negative Homans. She is complaining of sciatic pain. Risk factor PT like positions were discussed with the patient. Continue with muscle relaxants, pain pills p.r.n. Scope in the morning. ASSESSMENT: 1. Status post gastric surgery. 2. Gastrointestinal bleed, unclear etiology. Continue on IV Venofer, iron injections, infusions. Await endoscopy in the morning. Continue current medications as mentioned above. Check hemoglobin, hematocrit in the morning. MMODL / IJN: [id number] /
[2017-10-13] MEDS: HYDROcodone/APAP 7.5-325MG 1 EACH TAB PO PRN ×2 (05:53→11:37)
[2017-10-13] MEDS: SODIUM CHLORIDE 0.9% 1,000 ML IV SCH ×2 (06:20→09:15)
[2017-10-13] MEDS ORDERED: SIMETHICONE 40 MG/0.6 ML DROPS 2,000 MG/30 ML BOTTLE PO ONE (06:50)
[2017-10-13 08:44] VITALS: RESP 18
[2017-10-13] MEDS: SODIUM FERRIC GLUCONAT-SUCROSE 125 MG in SODIUM CHLORIDE 0.9% 100 ML IVPB SCH (09:15)
[2017-10-13] MEDS: DICYCLOMINE 20 MG TAB PO SCH ×2 (11:33→11:34)
[2017-10-13] MEDS: busPIRone HCl 10 MG TAB PO SCH (11:34)
[2017-10-13] MEDS: POTASSIUM CHLORIDE ER 20 MEQ TAB.ER PO SCH (11:36)
[2017-10-13] MEDS: PANTOPRAZOLE 40 MG/10 ML VIAL IVP SCH (11:36)
[2017-10-13] MEDS: MAGNESIUM OXIDE 400 MG TAB PO SCH (11:36)
[2017-10-13] MEDS: SUCRALFATE 1 GM TAB PO SCH (11:37)
[2017-10-13 12:19] VITALS: BP 103/70; PULSE 99; TEMP 97.8
[2017-10-13] MEDS: DULoxetine HCL 60 MG CAPSULE.DR PO SCH (13:38)
[2017-10-13] MEDS: CYCLOBENZAPRINE 10 MG TAB PO PRN (13:38)
--- NOTE | 2017-10-13 13:43 | P.PN ---
Subjective Progress Note Date: 10/13/17 52-year-old female seen and examined at bedside. A capsule study in progress will be completed at 3:00 this afternoon. Patient states she had bowel movements this morning there was no blood noted in the stool. Less abdominal cramping. Did note at 6 AM this morning did have a run of SVT self limiting no symptoms denies chest pain. No labs this morning. had an EGD done on October 11 showed healing marginal ulcer at gastrojejunostomy anastomosis no evidence of active upper GI bleeding Objective - Vital Signs Vital signs: Vital Signs Temp 97.8 F 10/13/17 12:00 Pulse 99 10/13/17 12:00 Resp 18 10/13/17 12:00 BP 103/70 10/13/17 12:00 Pulse Ox 100 10/13/17 12:00 Intake & Output 10/12/17 10/13/17 10/13/17 18:59 06:59 18:59 Intake Total 590 600 Output Total 500 500 500 Balance 90 100 -500 Weight 66 kg Intake: Intake, IV Titration 600 Amount Sodium Chloride 0.9% 1, 600 000 ml @ 100 mls/hr IV . Q10H [facility] Rx#:[id number] Oral 590 Output: Stool 500 500 500 Other: Voiding Method Toilet Toilet # Voids 1 - Exam GENERAL APPEARANCE: sitting up in bed alert, talkative oriented,x 3 in no acute distress. VITAL SIGNS: Reviewed reviewed HEENT: Head is normocephalic and atraumatic. Pupils are equal and reactive. The nares are patent. Oropharynx is clear without lesions. NECK: Supple without lymphadenopathy. Traches midline. HEART: S1, S2. Regular rate and rhythm. Denying chest pain LUNGS: No crackles or wheezes are heard. Good air movement bilaterally on room air ABDOMEN: Soft, mild tenderness states abdominal pain has resolved reports no nausea vomiting states had a bowel movement this morning no blood noted in stool nondistended with good bowel sounds. No peritoneal signs. No palpable organomegaly or mass EXTREMITIES: Normal skin color and turgor. No cyanosis, rash, ulceration, clubbing or edema. Radial pedal pulses are 2/4 bilaterally. NEUROLOGICAL: No focal deficits. Strength and sensation are grossly intact. - Labs CBC & Chem 7: 10/12/17 05:27 10/12/17 05:27 Assessment and Plan Assessment: Impression Present on admission cramping abdominal pain right upper quadrant with copious amount of bloody stool suspect due to a GI bleed Present on admission symptomatic acute blood loss anemia suspect due to a GI bleed necessitating the need for blood transfusion History of morbid obesity with a fifi-en-y gastric bypass Pain deficiency anemia Severe protein calorie malnutrition Anxiety depressive disorder Esophageal reflux disease History of a prior panniculectomy History of chronic gastroduodenal ulcers EGD done by 10/11/17 showed healing marginal ulcer at gastrojejunostomy anastomosis no evidence of active upper GI blled Plan From a surgical perspective patient is felt to be stable to be discharged home could be followed up in the outpatient setting Capsule study to be completed at 3:00 today and follow-up in the outpatient setting for results continue IV ferric as ordered Continue GI and DVT prophylaxis Monitor hemoglobin Carafate 1 g twice a day IV fluid for hydration The above impression and plan of care have been discussed and directed by signing physician. Lisa Alfaro nurse practitioner acting as scribe for signing physician.
[2017-10-13] MEDS ORDERED: SODIUM CHLORIDE 0.9% 1,000 ML IV SCH (13:45)
[2017-10-14] MEDS ORDERED: PANTOPRAZOLE 40 MG TABLET PO SCH (07:30)
== END 2017-10-13 16:01 | disposition home or self-care (01) | DRG 377 ==
LOC: 6SEL 17:58
PROVIDERS: ADMIT Family Medicine; ATTEND Family Medicine
PROC: 30233N1 Transfusion of Nonautologous Red Blood Cells into Peripheral Vein, Percutaneous Approach (ICD-10-PCS; principal; 2017-10-09)
PROC: 0DB68ZX Excision of Stomach, Via Natural or Artificial Opening Endoscopic, Diagnostic (ICD-10-PCS; 2017-10-11)
DX: K92.2 Gastrointestinal hemorrhage, unspecified (principal); E43 Unspecified severe protein-calorie malnutrition; D62 Acute posthemorrhagic anemia; I47.1 Supraventricular tachycardia; K90.9 Intestinal malabsorption, unspecified; Z68.26 Body mass index [BMI] 26.0-26.9, adult; E87.6 Hypokalemia; F32.9 Major depressive disorder, single episode, unspecified; F41.9 Anxiety disorder, unspecified; G47.33 Obstructive sleep apnea (adult) (pediatric); K21.9 Gastro-esophageal reflux disease without esophagitis; K28.9 Gastrojejunal ulcer, unspecified as acute or chronic, without hemorrhage or perforation; J45.909 Unspecified asthma, uncomplicated; K58.0 Irritable bowel syndrome with diarrhea; M54.30 Sciatica, unspecified side; M79.7 Fibromyalgia; R53.82 Chronic fatigue, unspecified; Z79.899 Other long term (current) drug therapy; Z87.11 Personal history of peptic ulcer disease; Z87.442 Personal history of urinary calculi; Z87.891 Personal history of nicotine dependence; Z90.710 Acquired absence of both cervix and uterus; Z98.84 Bariatric surgery status; Z88.0 Allergy status to penicillin; Z91.018 Allergy to other foods; Z90.49 Acquired absence of other specified parts of digestive tract
CPT/HCPCS: 43239; 80048; 80053; 82728; 83540; 83550; 85025; 86850; 86900; 86901; 86920; 88305; 91110; 94760

== ENCOUNTER 2017-11-11 17:47 | Inpatient (IN) | payer BC, MEDICARE ==
[2017-11-11] MEDS ORDERED: MORPHINE SULFATE 2 MG/ML SYRINGE IVP STA (19:26)
[2017-11-11] MEDS ORDERED: SODIUM CHLORIDE 0.9% 1,000 ML IV ONE (19:26)
[2017-11-11] MEDS ORDERED: ONDANSETRON 4 MG/2 ML VIAL IVP STA (19:26)
[2017-11-11 20:30] LABS: Anisocytosis Slight; HCT 35.9 % (34.0-46.0); HGB 10.9 gm/dL (11.4-16.0); Hypochromasia Marked; MCH 32.5 pg (25.0-35.0); MCHC 30.4 g/dL (31.0-37.0); MCV 106.7 fL (80.0-100.0); Macrocytosis Marked; Mean Platelet Volume 7.5; Platelet Count 246 k/uL (150-450); RBC 3.36 m/uL (3.80-5.40); RDW 18.1 % (11.5-15.5); WBC 6.4 k/uL (3.8-10.6)
[2017-11-11 20:32] LABS: ALT 33 U/L (9-52); AST 18 U/L (14-36); Albumin 2.7 g/dL (3.5-5.0); Alkaline Phosphatase 185 U/L (38-126); Anion Gap 22 mmol/L; Blood Urea Nitrogen 12 mg/dL (7-17); Calcium 8.9 mg/dL (8.4-10.2); Carbon Dioxide 13 mmol/L (22-30); Chloride 107 mmol/L (98-107); Glucose 93 mg/dL (74-99); Lipase 628 U/L (23-300); Potassium 3.2 mmol/L (3.5-5.1); Sodium 142 mmol/L (137-145); Total Bilirubin 0.3 mg/dL (0.2-1.3); Total Protein 5.6 g/dL (6.3-8.2)
[2017-11-11 20:47] LABS: Lymphocytes # (M) 0.77 k/uL (1.0-4.8); Monocytes # (M) 0.96 k/uL (0-1.0); Neutrophils # (M) 4.67 k/uL (1.3-7.7); Neutrophils % (M) 73 %; Nucleated Red Blood Cells 0 /100 WBC (0-0); Polychromasia Present; Total Cells Counted 100
[2017-11-11] MEDS ORDERED: NALOXONE 0.4 MG/ML 1 ML VIAL IV PRN (21:25)
[2017-11-11] MEDS ORDERED: ONDANSETRON 4 MG/2 ML VIAL IVP PRN (21:25)
--- NOTE | 2017-11-11 21:25 | ED ---
General Adult HPI - General Chief complaint: Nausea/Vomiting/Diarrhea Stated complaint: C-Diff Time Seen by Provider: 11/11/17 18:39 Source: patient Mode of arrival: wheelchair Limitations: physical limitation - History of Present Illness Initial comments: 52-year-old female past medical history as noted below presented for evaluation of intractable diarrhea with associated abdominal pain nausea and vomiting. She states that her daughter was recently diagnosed with a C. diff infection and was started on antibiotics. The patient was also prescribed anabiotic type she states that she did not start taking them and did not Them filled out. Starting Tuesday she started having bowel movements continuously throughout the day and states that shortly after that she started having abdominal discomfort. She does have a past medical history of a Bariatric surgery as well as other abdominal surgeries including appendectomy, cholecystectomy, hernia repair, and hysterectomy. She denies recent antibiotic use and states her only risk factor is her daughter. - Related Data Home Medications Medication Instructions Recorded Confirmed DULoxetine HCL [Cymbalta] 60 mg PO BID 03/19/15 11/11/17 Albuterol Inhaler [Ventolin Hfa 2 puff INHALATION RT-QID PRN 07/31/15 11/11/17 Inhaler] busPIRone HCL [Buspar] 30 mg PO BID 02/21/17 11/11/17 Dicyclomine [Bentyl] 20 mg PO AC-TID 02/28/17 11/11/17 diphenhydrAMINE HCL [Benadryl] 25 mg PO DAILY PRN 02/28/17 11/11/17 Buprenorphine HCl [Subutex] 4 mg SL HS 08/02/17 11/11/17 Ondansetron HCl [Zofran] 4 mg PO BID PRN 08/02/17 11/11/17 Sucralfate [Carafate] 1 gm PO BID 08/05/17 11/11/17 Butalb/Acetaminophen/Caffeine 1 cap PO DAILY PRN 08/27/17 11/11/17 [Fioricet 50-300-40 mg Capsule] Buprenorphine HCl [Subutex] 2 mg SL BID@0800,1200 10/09/17 11/11/17 Furosemide [Lasix] 60 mg PO BID PRN 10/09/17 11/11/17 Magnesium Oxide [Mag-Ox] 500 mg PO BID 10/09/17 11/11/17 Meclizine [Antivert] 25 mg PO Q8H PRN 10/09/17 11/11/17 Metolazone [Zaroxolyn] 5 mg PO DAILY 10/09/17 11/11/17 Pantoprazole Sodium [Protonix] 40 mg PO BID 10/09/17 11/11/17 Spironolactone 100 mg PO DAILY 10/09/17 11/11/17 rOPINIRole HCL [Requip] 0.5 mg PO HS 10/09/17 11/11/17 Cyanocobalamin [Vitamin B-12] 500 mcg PO DAILY 11/11/17 11/11/17 Multivitamins, Thera [Multivitamin 1 tab PO DAILY 11/11/17 11/11/17 (formulary)] Vitamin B Complex 1 cap PO DAILY 11/11/17 11/11/17 Vitamin C/Citrate 1 tab PO DAILY 11/11/17 11/11/17 Previous Rx's Medication Instructions Recorded Potassium Chloride ER [K-Dur 20] 20 meq PO BID tab.er.prt 09/29/17 Allergies Allergy/AdvReac Type Severity Reaction Status Date / Time broccoli Allergy Severe Anaphylaxis Verified 11/11/17 19:07 with raw broccoli ketorolac [From Toradol] Allergy Unknown Verified 11/11/17 19:07 Penicillins AdvReac Unknown Anaphylaxis Verified 11/11/17 23:27 adhesive tape AdvReac Itching Verified 11/11/17 19:07 diet cola Allergy GI irritant Uncoded 11/11/17 18:39 Review of Systems ROS Statement: Those systems with pertinent positive or pertinent negative responses have been documented in the HPI. ROS Other: All systems not noted in ROS Statement are negative. Constitutional: Denies: fever, chills Eyes: Denies: eye pain, vision change ENT: Denies: ear pain, throat pain Respiratory: Denies: cough, dyspnea Cardiovascular: Denies: chest pain, palpitations Endocrine: Reports: fatigue. Denies: polydipsia, polyuria Gastrointestinal: Reports: abdominal pain, nausea, vomiting, diarrhea. Denies: constipation, hematemesis, melena, hematochezia Genitourinary: Denies: urgency, dysuria Musculoskeletal: Denies: back pain, arthralgia, myalgia Skin: Denies: rash, lesions Neurological: Denies: headache, weakness Psychiatric: Denies: anxiety, depression Hematological/Lymphatic: Denies: easy bleeding, easy bruising Past Medical History Past Medical History: Asthma, Fibromyalgia, GERD/Reflux, Sleep Apnea/CPAP/BIPAP Additional Past Medical History / Comment(s): Asthma, fibromyalgia, acid reflux , Kaya-en-Y gastric bypass surgery for morbid obesity with subsequent 150 pounds of weight loss, history of obstructive sleep apnea, migraines, gastric ulcer, varicose veins, chronic fatigue syndrome, hx pernicious anemia, abdominal [id number], oral yeast infections, hx kidney stones History of Any Multi-Drug Resistant Organisms: None Reported Past Surgical History: Appendectomy, Back Surgery, Bariatric Surgery, Section, Cholecystectomy, Hernia Repair, Hysterectomy Additional Past Surgical History / Comment(s): x2, metal removed from rt eye 15 years ago,-lithotripsy, gastric bypass 2002 , 2 titanium rods in lower back, Carpal tunnel release bilaterally, PANNICULECTOMY Past Anesthesia/Blood Transfusion Reactions: Family History of Problems w/ Anesthesia Additional Past Anesthesia/Blood Transfusion Reaction / Comment(s): family members w/severe headaches w/anesthesia Past Psychological History: Anxiety, Depression Smoking Status: Former smoker Past Alcohol Use History: None Reported Past Drug Use History: None Reported - Past Family History Father Family Medical History: Cancer Additional Family Medical History / Comment(s): PROSTATE CANCER Mother Additional Family Medical History / Comment(s): OBESITY-HAD GASTRIC BYPASS SX General Exam Limitations: physical limitation General appearance: alert, in distress Head exam: Present: atraumatic, normocephalic Eye exam: Present: normal appearance, EOMI. Absent: scleral icterus ENT exam: Present: mucous membranes dry. Absent: normal exam, mucous membranes moist Neck exam: Present: normal inspection, full ROM. Absent: tenderness Respiratory exam: Present: normal lung sounds bilaterally. Absent: respiratory distress Cardiovascular Exam: Present: regular rate, normal rhythm GI/Abdominal exam: Present: soft, tenderness. Absent: distended, guarding, rebound, rigid Rectal exam: Present: deferred Extremities exam: Present: normal inspection, full ROM Back exam: Present: normal inspection, full ROM Neurological exam: Present: alert, oriented X3 Psychiatric exam: Present: normal affect, normal mood Skin exam: Present: warm, dry, intact Course Vital Signs 11/11/17 11/11/17 11/11/17 18:35 22:25 23:00 Temperature 98.0 F 98.3 F Pulse Rate 82 94 Pulse Rate [ 94 Pulse Oximetery ] Respiratory 18 16 16 Rate Blood Pressure 128/79 103/64 Blood Pressure 106/75 [Left Arm] O2 Sat by Pulse 100 100 97 Oximetry Medical Decision Making - Medical Decision Making 52-year-old female with past medical history as noted above presented for evaluation of intractable diarrhea, abdominal pain, nausea and vomiting. Her daughter was recently diagnosed with C. diff infection as well. On physical examination she appears to be in mild to moderate distress holding her abdomen. She has had 3 bowel movements prior to being seen by the physician here in the ED. Abdomen is soft without peritoneal signs of guarding, rigidity , rebound however it is tender to palpation throughout. Mucous membranes are dry. Remainder of exam reveals no significant abnormalities. Given concern for C. diff the patient was placed in precautions, stool sample sent for evaluation, and labs obtained. Labs revealed an elevated lipase to 628 as well as other transaminitis. There is no leukocytosis and her C. diff serology is negative. Patient continues to have discomfort and diarrhea. We'll obtain CT abdomen and pelvis and admit for further treatment and evaluation. Dr. Eisenberg accepted the admission with request for consult with ID. Admission order placed and bed request submitted. Pt started on flagyl. CT reviewed and showed indications of colitis but no other abnormality. - Lab Data Result diagrams: 11/11/17 19:56 11/11/17 19:56 Lab Results 11/11/17 11/11/17 11/11/17 Range/Units 19:56 19:56 19:56 WBC 6.4 (3.8-10.6) k/uL RBC 3.36 L (3.80-5.40) m/uL Hgb 10.9 L (11.4-16.0) gm/dL Hct 35.9 (34.0-46.0) % MCV 106.7 H (80.0-100.0) fL MCH 32.5 (25.0-35.0) pg MCHC 30.4 L (31.0-37.0) g/dL RDW 18.1 H (11.5-15.5) % Plt Count 246 (150-450) k/uL Neutrophils % (Manual) 73 % Lymphocytes % (Manual) 12 % Monocytes % (Manual) 15 % Neutrophils # (Manual) 4.67 (1.3-7.7) k/uL Lymphocytes # (Manual) 0.77 L (1.0-4.8) k/uL Monocytes # (Manual) 0.96 (0-1.0) k/uL Nucleated RBCs 0 (0-0) /100 WBC Polychromasia Present Hypochromasia Marked Anisocytosis Slight Macrocytosis Marked Sodium 142 (137-145) mmol/L Potassium 3.2 L (3.5-5.1) mmol/L Chloride 107 (98-107) mmol/L Carbon Dioxide 13 L (22-30) mmol/L Anion Gap 22 mmol/L BUN 12 (7-17) mg/dL Creatinine 0.60 (0.52-1.04) mg/dL Est GFR (CKD-EPI)AfAm >90 (>60 ml/min/1.73 sqM) Est GFR (CKD-EPI)NonAf >90 (>60 ml/min/1.73 sqM) Glucose 93 (74-99) mg/dL Plasma Lactic Acid Dirk 0.6 L (0.7-2.0) mmol/L Calcium 8.9 (8.4-10.2) mg/dL Total Bilirubin 0.3 (0.2-1.3) mg/dL AST 18 (14-36) U/L ALT 33 (9-52) U/L Alkaline Phosphatase 185 H (38-126) U/L Total Protein 5.6 L (6.3-8.2) g/dL Albumin 2.7 L (3.5-5.0) g/dL Lipase 628 H (23-300) U/L C. difficile (EIA) Intrp (Negative) 11/11/17 Range/Units 19:56 WBC (3.8-10.6) k/uL RBC (3.80-5.40) m/uL Hgb (11.4-16.0) gm/dL Hct (34.0-46.0) % MCV (80.0-100.0) fL MCH (25.0-35.0) pg MCHC (31.0-37.0) g/dL RDW (11.5-15.5) % Plt Count (150-450) k/uL Neutrophils % (Manual) % Lymphocytes % (Manual) % Monocytes % (Manual) % Neutrophils # (Manual) (1.3-7.7) k/uL Lymphocytes # (Manual) (1.0-4.8) k/uL Monocytes # (Manual) (0-1.0) k/uL Nucleated RBCs (0-0) /100 WBC Polychromasia Hypochromasia Anisocytosis Macrocytosis Sodium (137-145) mmol/L Potassium (3.5-5.1) mmol/L Chloride (98-107) mmol/L Carbon Dioxide (22-30) mmol/L Anion Gap mmol/L BUN (7-17) mg/dL Creatinine (0.52-1.04) mg/dL Est GFR (CKD-EPI)AfAm (>60 ml/min/1.73 sqM) Est GFR (CKD-EPI)NonAf (>60 ml/min/1.73 sqM) Glucose (74-99) mg/dL Plasma Lactic Acid Dirk (0.7-2.0) mmol/L Calcium (8.4-10.2) mg/dL Total Bilirubin (0.2-1.3) mg/dL AST (14-36) U/L ALT (9-52) U/L Alkaline Phosphatase (38-126) U/L Total Protein (6.3-8.2) g/dL Albumin (3.5-5.0) g/dL Lipase (23-300) U/L C. difficile (EIA) Intrp Negative (Negative) Disposition Clinical Impression: Intractable diarrhea, Intractable abdominal pain, Elevated lipase, Nausea and vomiting Disposition: ADMITTED IP TO THIS [facility] Decision to Admit Reason: Admit from EC Decision Date: 11/11/17 Decision Time: 21:25
[2017-11-11] MEDS ORDERED: diphenhydrAMINE 25 MG CAP PO PRN (21:27)
[2017-11-11] MEDS ORDERED: BUTALB/APAP/CAFF 50-325-40MG TAB PO PRN (21:27)
[2017-11-11] MEDS ORDERED: FUROSEMIDE 40 MG TAB PO PRN (21:27)
[2017-11-11] MEDS ORDERED: MECLIZINE 25 MG TAB PO PRN (21:27)
[2017-11-11] MEDS ORDERED: ALBUTEROL NEBULIZED 2.5 MG/3 ML INHALATION PRN (21:27)
[2017-11-11] MEDS ORDERED: metroNIDAZOLE-NS PMX 500 MG in SALINE 1 100ML.BAG IVPB STA (21:32)
[2017-11-11] MEDS ORDERED: FUROSEMIDE 20 MG TAB PO PRN (21:59)
--- NOTE | 2017-11-11 22:38 | CT ---
EXAMINATION TYPE: CT abdomen pelvis w con DATE OF EXAM: 11/11/2017 COMPARISON: 08/19/2017 HISTORY: Intractable diarrhea CT DLP: 389.3 mGycm Automated exposure control for dose reduction was used. TECHNIQUE: Helical acquisition of images was performed from the lung bases through the pelvis. CONTRAST: Performed without Oral Contrast and with IV Contrast, patient injected with 100 mL of Isovue 300. FINDINGS: Lung bases are clear. There is no pleural effusion. Heart size is normal. There is no pericardial eff usion. Liver shows no focal defect. Bile ducts are not dilated. Spleen appears normal. There is no evidence of a pancreatic mass. There are surgical clips in the stomach with distortion of the anatomy. Gallbladder appears absent. There is no adrenal mass. Kidneys show satisfactory contrast opacification. There is no hydronephrosi s. Ureters are not dilated. There is slight decreased contrast density in the left kidney compared to the right. There is no retroperitoneal adenopathy. There is no ascites. There is diffuse wall thickening involvi ng the right colon and the transverse colon. Appendix is not definitely seen. There is no sign of toan endicitis. There is minimal wall thickening in the descending colon. There is some mesh on the anteri or abdomen from hernia surgery. There is posterior fusion surgery at L5-S1. There is a slight subluxa tion anteriorly of L4 in relation L5 of 5 mm. There is no compression fracture. The bladder distends smoothly. There is no evidence of a pelvic mass. There is no free fluid in the pelvis IMPRESSION: THERE IS WALL THICKENING OF THE RIGHT COLON AND TRANSVERSE COLON CONSISTENT WITH A NONSPECIFIC COLITI S. THIS APPEARS NEW COMPARED TO OLD EXAM. THERE IS SLIGHT DECREASED EXCRETION ON THE LEFT KIDNEY COMPARED TO THE RIGHT. THE KIDNEYS HAVE SYMMET SEBASTIAN SIZE. CLINICAL SIGNIFICANCE AND CAUSE FOR THIS IS NOT CLEAR. PREVIOUS APPARENT BARIATRIC SURGERY. NO BOWEL OBSTRUCTION. PREVIOUS HERNIA SURGERY.
[2017-11-11] MEDS: SODIUM CHLORIDE 0.9% 1,000 ML IV SCH (23:20)
[2017-11-11] MEDS: busPIRone HCl 10 MG TAB PO SCH (23:22)
[2017-11-11] MEDS: DULoxetine HCL 60 MG CAPSULE.DR PO SCH (23:23)
[2017-11-11] MEDS: MAGNESIUM OXIDE 400 MG TAB PO SCH (23:23)
[2017-11-12] MEDS: BUPRENORPHINE HCL 4 MG SL SCH ×2 (01:46→20:12)
[2017-11-12] MEDS: CYANOCOBALAMIN 500 MCG TAB PO SCH (08:12)
[2017-11-12] MEDS: POTASSIUM CHLORIDE ER 20 MEQ TAB.ER PO SCH ×5 (08:12→20:17)
[2017-11-12] MEDS: MAGNESIUM OXIDE 400 MG TAB PO SCH ×2 (08:13→20:17)
[2017-11-12] MEDS: SUCRALFATE 1 GM TAB PO SCH ×2 (08:13→20:17)
[2017-11-12] MEDS: BUPRENORPHINE HCL 2 MG SL SCH ×2 (08:13→11:57)
[2017-11-12] MEDS: DICYCLOMINE 20 MG TAB PO SCH ×3 (08:13→17:30)
[2017-11-12] MEDS: busPIRone HCl 10 MG TAB PO SCH ×2 (08:13→20:17)
[2017-11-12] MEDS: DULoxetine HCL 60 MG CAPSULE.DR PO SCH ×2 (08:14→20:17)
[2017-11-12] MEDS: METOLAZONE 5 MG TAB PO SCH (08:14)
[2017-11-12] MEDS: PANTOPRAZOLE 40 MG TABLET PO SCH ×2 (08:14→20:17)
[2017-11-12] MEDS: SPIRONOLACTONE 25 MG TAB PO SCH (08:15)
[2017-11-12 09:03] LABS: Anisocytosis Slight; Basophils % (A) 0 %; Eosinophils # (A) 0.1 k/uL (0-0.7); Eosinophils % (A) 1 %; HCT 34.2 % (34.0-46.0); HGB 10.4 gm/dL (11.4-16.0); Hypochromasia Moderate; Lymphocytes % (A) 14 %; MCHC 30.3 g/dL (31.0-37.0); MCV 105.7 fL (80.0-100.0); Macrocytosis Marked; Mean Platelet Volume 7.5; Monocytes # (A) 0.3 k/uL (0-1.0); Monocytes % (A) 4 %; Neutrophils # (A) 5.3 k/uL (1.3-7.7); Neutrophils % (A) 78 %; Platelet Count 222 k/uL (150-450); RBC 3.24 m/uL (3.80-5.40); RDW 17.8 % (11.5-15.5); WBC 6.7 k/uL (3.8-10.6)
[2017-11-12 09:05] LABS: ALT 30 U/L (9-52); AST 17 U/L (14-36); Albumin 2.5 g/dL (3.5-5.0); Alkaline Phosphatase 173 U/L (38-126); Anion Gap 18 mmol/L; Blood Urea Nitrogen 7 mg/dL (7-17); Calcium 8.6 mg/dL (8.4-10.2); Carbon Dioxide 14 mmol/L (22-30); Chloride 104 mmol/L (98-107); Glucose 75 mg/dL (74-99); Lipase 619 U/L (23-300); Magnesium 1.8 mg/dL (1.6-2.3); Sodium 136 mmol/L (137-145); Total Bilirubin 0.4 mg/dL (0.2-1.3); Total Protein 5.2 g/dL (6.3-8.2)
[2017-11-12 09:17] LABS: Phosphorus 1.2 mg/dL (2.5-4.5); Potassium 2.9 mmol/L (3.5-5.1)
[2017-11-12] MEDS ORDERED: Phosphorus Replacement Protoco 1 EACH MISC MISCELLANE PRN (09:43)
[2017-11-12] MEDS ORDERED: Potassium Replacement Protocol 1 EACH MISC MISCELLANE PRN (09:47)
[2017-11-12] MEDS: POTASSIUM PHOSPHATE 10 MMOL in SODIUM CHLORIDE 0.9% 250 ML IV SCH ×3 (10:10→15:25)
[2017-11-12] MEDS: SODIUM CHLORIDE 0.9% 1,000 ML IV SCH (10:14)
[2017-11-12] MEDS: MORPHINE SULFATE 2 MG/ML SYRINGE IV PRN ×3 (14:05→22:06)
[2017-11-12] MEDS ORDERED: ACETAMINOPHEN TAB 325 MG TAB PO PRN (14:47)
[2017-11-12] MEDS: NYSTATIN 100,000 UNIT/ML SUSP 500,000 UNIT/5 ML CUP PO SCH ×2 (17:30→20:18)
[2017-11-12] MEDS: CHOLESTYRAMINE (WITH SUGAR) 4 GM PACKET PO SCH (18:00)
[2017-11-12] MEDS: VANCOMYCIN ORAL SOLUTION 250 MG/5 ML BOTTLE PO SCH ×2 (18:01→23:43)
[2017-11-12] MEDS: CHERRY FLAVOR 60 ML BOTTLE PO SCH ×2 (18:02→23:44)
[2017-11-13] MEDS: MORPHINE SULFATE 2 MG/ML SYRINGE IV PRN ×5 (02:49→21:58)
[2017-11-13] MEDS: SODIUM CHLORIDE 0.9% 1,000 ML IV SCH ×2 (04:41→12:08)
[2017-11-13] MEDS: CHERRY FLAVOR 60 ML BOTTLE PO SCH ×2 (06:31→11:09)
[2017-11-13] MEDS: VANCOMYCIN ORAL SOLUTION 250 MG/5 ML BOTTLE PO SCH ×2 (06:31→11:09)
[2017-11-13] MEDS: BUPRENORPHINE HCL 2 MG SL SCH ×2 (07:49→09:03)
[2017-11-13] MEDS: CHOLESTYRAMINE (WITH SUGAR) 4 GM PACKET PO SCH ×2 (07:51→17:24)
[2017-11-13] MEDS: NYSTATIN 100,000 UNIT/ML SUSP 500,000 UNIT/5 ML CUP PO SCH ×4 (07:51→20:55)
[2017-11-13] MEDS: DICYCLOMINE 20 MG TAB PO SCH ×3 (07:52→17:25)
[2017-11-13] MEDS: busPIRone HCl 10 MG TAB PO SCH ×2 (07:52→20:56)
[2017-11-13] MEDS: SPIRONOLACTONE 25 MG TAB PO SCH (07:52)
[2017-11-13] MEDS: CYANOCOBALAMIN 500 MCG TAB PO SCH (07:52)
[2017-11-13] MEDS: MAGNESIUM OXIDE 400 MG TAB PO SCH ×2 (07:52→20:56)
[2017-11-13] MEDS: POTASSIUM CHLORIDE ER 20 MEQ TAB.ER PO SCH ×2 (07:53→20:56)
[2017-11-13] MEDS: PANTOPRAZOLE 40 MG TABLET PO SCH ×2 (07:53→20:57)
[2017-11-13] MEDS: DULoxetine HCL 60 MG CAPSULE.DR PO SCH ×2 (07:53→20:56)
[2017-11-13] MEDS: METOLAZONE 5 MG TAB PO SCH (07:53)
[2017-11-13] MEDS: SUCRALFATE 1 GM TAB PO SCH ×2 (07:53→20:56)
--- NOTE | 2017-11-13 09:37 | CONS ---
CONSULTATION DATE OF SERVICE: 11/12/2017. REASON FOR CONSULTATION: Diarrhea. HISTORY OF PRESENT ILLNESS: The patient is a 52-year-old female presenting to the [facility] ER with chief complaints of diarrhea, that has been going on since Tuesday, that is about 4 days prior to presentation to hospital. The patient did mention that her daughter was recently diagnosed with C difficile colitis by her primary care physician who started having diarrhea on about 4 days before this. The patient started having symptoms. The patient did have 5-6 episodes of loose stools per day with no blood or mucus in it. She did have some crampy lower abdominal pain with episode of bowel movement with intensity. The pain about 5/10. The patient felt nauseated but no vomiting. Denies any high-grade fever. The patient did have stool for C diff checked by her primary care physician on Tuesday that came back negative and repeat was done in the ER but that was negative. The patient has been admitted to the hospital and I was asked to see the patient for further recommendation regarding diarrhea and need for antibiotic therapy. The patient currently denies having any other family members having similar symptoms except the daughter and did not recall if she ate anything unusual. No fever or chills. REVIEW OF SYSTEMS: CONSTITUTIONAL: Positive for weakness. No fever. EYES: No complaint. ENT: No complaint. RESPIRATORY: No complaint. CARDIOVASCULAR: No complaint. GENITOURINARY: No complaint. GASTROINTESTINAL: As per HPI. MUSCULOSKELETAL: No complaint. INTEGUMENTARY: No complaint. PSYCHOLOGICAL: No complaint. ENDOCRINE: No complaint. NEUROLOGIC: No complaint. PAST MEDICAL HISTORY: Significant for fibromyalgia, gastroesophageal reflux disease, sleep apnea, asthma, abdominal wound infection. PAST SURGICAL HISTORY: Appendectomy, back surgery, bariatric surgery, , cholecystectomy, hernia repair, hysterectomy and back surgery. SOCIAL HISTORY: Remote history of smoking. No drinking or drug use. FAMILY HISTORY: Father with history of prostate cancer. ALLERGIES: PENICILLIN, ADHESIVE TAPE. MEDICATIONS: The patient is currently on Tylenol, Fioricet, Ventolin, BuSpar, Bentyl, Benadryl, Cymbalta, Lasix, Mag oxide, Antivert, Zaroxolyn, Marcaine, suspension, Zofran, Protonix, K-Dur, Requip, Aldactone, Carafate. EXAMINATION: Blood pressure is 114/79 with a pulse of 83, temperature 98.5. She is 99% on room air. General description is a middle-aged female lying in bed in no distress. No tachypnea or accessory muscle of respiration use. HEENT: Shows pallor. No scleral icterus. Oral mucosa membrane is dry. No pharyngeal erythema or thrush. NECK: Trachea central. No thyromegaly. LUNGS: Unlabored breathing. Clear to auscultation. No wheeze or crackle. HEART: S1, S2. Regular rate and rhythm. ABDOMEN: Soft, mildly tender. No guarding. No rigidity. No organomegaly. EXTREMITIES: No edema of the feet. SKIN EXAMINATION: No rash or mass palpable. NEUROLOGICAL: Patient is awake, alert, oriented x3. Mood and affect normal. LABS: Hemoglobin is 10.4, white count 6.7. BUN of 7, creatinine 0.61. Stool for C. diff 11/11 and 11/12 have been negative. IMPRESSION AND PLAN: 1. Patient admitted to the hospital with intractable diarrhea that has been going on for about 4 days prior to presentation to hospital and the patient's daughter was recently diagnosed with C difficile colitis. The patient did have a CT abdomen and pelvis that had been suspicious for colitis involving the right colon and transverse colon, highly suspicious for possible infectious colitis. C diff to be on the top of the list. PLAN: 1. We will send a stool for C diff by PCR. 2. Will empirically add vancomycin 250 q.6h along with Questran. 3. We will follow up on clinical condition and culture to further adjust medication if needed. Thank you for this consultation. Will follow this patient along with you. MMODL / IJN: [id number] /
[2017-11-13 09:46] LABS: ALT 31 U/L (9-52); AST 16 U/L (14-36); Albumin 2.6 g/dL (3.5-5.0); Alkaline Phosphatase 161 U/L (38-126); Anion Gap 10 mmol/L; Blood Urea Nitrogen 3 mg/dL (7-17); Calcium 8.5 mg/dL (8.4-10.2); Carbon Dioxide 25 mmol/L (22-30); Chloride 99 mmol/L (98-107); Glucose 117 mg/dL (74-99); Potassium 3.4 mmol/L (3.5-5.1); Sodium 134 mmol/L (137-145); Total Bilirubin 0.3 mg/dL (0.2-1.3); Total Protein 5.4 g/dL (6.3-8.2)
--- NOTE | 2017-11-13 09:58 | HP ---
HISTORY AND PHYSICAL CHIEF COMPLAINT: A 52-year-old white female with nausea, vomiting, diarrhea. HISTORY OF PRESENT ILLNESS: A 52-year-old white female, evaluated for intractable diarrhea, abdominal pain, nausea, vomiting. Daughter with diagnosis of C diff, she is afraid she has C difficile colitis. She was admitted to the hospital and placed on IV treatment and oral treatment for diarrhea. She is having 4 to 5 bowel movements per day. She is followed up at bariatric surgery with multiple abdominal pains and difficulty with GI bleeding and at [facility] for the same thing. MEDICATIONS: 1. Cymbalta. 2. Ventolin. 3. BuSpar. 4. Bentyl. 5. Benadryl. 6. Subutex. 7. Zofran. 8. Carafate. 9. Fioricet. 10.Lasix. 11.Maxzide. 12.Antivert. 13.Zaroxolyn. 14.Protonix. 15.Spironolactone. 16.Requip. 17.B12. 18.Multivitamins. ALLERGIES: BROCCOLI, PENICILLIN, TORADOL, PENICILLIN, ADHESIVE TAPE. REVIEW OF SYSTEMS: A fourteen-point review of systems is negative except for mentioned in HPI. PAST MEDICAL HISTORY: Asthma, fibromyalgia, GERD, sleep apnea, gastric bypass surgery, morbid obesity, migraines, gastric ulcer, varicose veins, chronic fatigue syndrome, pernicious anemia, yeast infections, kidney stones. SURGICAL HISTORY: Hernia repair, cholecystectomy, appendectomy, back surgery, bariatric surgery, C- section, lithotripsy, gastric surgery in 2002, lower back, carpal tunnel release, panniculectomy. FAMILY HISTORY: Father with cancer. Mother with gastric bypass. PHYSICAL EXAM: VITAL SIGNS: Temp 98, respiratory rate 18, blood pressure 103 to 128 over 67, temp 98. PSYCH: She appears anxious and nervous. PSYCH: Fair mood and affect. Appears nervous. RESPIRATORY: Clear. CARDIOVASCULAR: S1, S2. GI: Soft, increased bowel sounds. HEMATOLOGY: Negative Homans. LABS: Labs are reviewed. Potassium 3.2, sodium 142, hemoglobin 10.9, white count 6.4. ASSESSMENT: 1. Intractable diarrhea. 2. Abdominal pain. 3. Elevated lipase. 4. Nausea, vomiting and dehydration. 5. Gastroenteritis. PLAN: Continue current treatment. Repeat stools for C diff. Wait for GI consultation. MMODL / IJN: [id number] /
[2017-11-13] MEDS ORDERED: POTASSIUM CHLORIDE 20 MEQ in WATER FOR INJECTION 1 100ML.BAG IVPB ONE (16:00)
[2017-11-13] MEDS: metroNIDAZOLE-NS PMX 500 MG in SALINE 1 100ML.BAG IVPB SCH ×2 (17:22→23:16)
[2017-11-13] MEDS: cefTRIAXone IN SWFI 1,000 MG/10 ML SYRINGE IVP SCH (17:22)
[2017-11-13] MEDS: BUPRENORPHINE HCL 4 MG SL SCH (17:25)
--- NOTE | 2017-11-14 00:16 | PN ---
PROGRESS NOTE DATE OF SERVICE: 11/13/2017. REASON FOR FOLLOWUP: Diarrhea with colitis. INTERVAL HISTORY: The patient is afebrile. Her diarrhea has slightly decreased. The patient denies having any chest pain or shortness of breath. The abdominal pain is slightly improved. No nausea or vomiting. EXAMINATION: Blood pressure 105/60 with a pulse of 97, temperature 98.8. She is 98%. GENERAL DESCRIPTION: A middle-aged female lying in bed in no distress. RESPIRATORY SYSTEM: Unlabored breathing. Clear to auscultation. HEART: S1, S2 regular rate and rhythm. ABDOMEN: Soft. LABS: Hemoglobin is 10.1, white count 6.7. Stool for C difficile was negative. DIAGNOSTIC IMPRESSION AND PLAN: Patient admitted to the hospital with diarrhea with a diagnosis of colitis. Patient at this time is waiting for stool culture to finalize. We will discontinue the p.o. vancomycin and start the patient on the IV Rocephin and Flagyl. Continue supportive care. MMSHERLYNL / JOSEN: [id number] /
[2017-11-14] MEDS: MORPHINE SULFATE 2 MG/ML SYRINGE IV PRN ×6 (02:40→23:21)
[2017-11-14] MEDS: SODIUM CHLORIDE 0.9% 1,000 ML IV SCH ×2 (05:43→08:48)
[2017-11-14] MEDS: BUPRENORPHINE HCL 2 MG SL SCH ×2 (08:03→12:27)
[2017-11-14] MEDS: busPIRone HCl 10 MG TAB PO SCH ×2 (08:46→20:39)
[2017-11-14] MEDS: CHOLESTYRAMINE (WITH SUGAR) 4 GM PACKET PO SCH ×3 (08:46→18:18)
[2017-11-14] MEDS: metroNIDAZOLE-NS PMX 500 MG in SALINE 1 100ML.BAG IVPB SCH ×2 (08:46→15:33)
[2017-11-14] MEDS: NYSTATIN 100,000 UNIT/ML SUSP 500,000 UNIT/5 ML CUP PO SCH ×4 (08:46→22:10)
[2017-11-14] MEDS: POTASSIUM CHLORIDE ER 20 MEQ TAB.ER PO SCH ×2 (08:47→20:40)
[2017-11-14] MEDS: DULoxetine HCL 60 MG CAPSULE.DR PO SCH ×2 (08:47→20:39)
[2017-11-14] MEDS: PANTOPRAZOLE 40 MG TABLET PO SCH ×2 (08:47→20:40)
[2017-11-14] MEDS: SUCRALFATE 1 GM TAB PO SCH ×2 (08:47→20:40)
[2017-11-14] MEDS: cefTRIAXone IN SWFI 1,000 MG/10 ML SYRINGE IVP SCH (08:48)
[2017-11-14] MEDS: METOLAZONE 5 MG TAB PO SCH (08:48)
[2017-11-14] MEDS: MAGNESIUM OXIDE 400 MG TAB PO SCH ×2 (08:50→20:40)
[2017-11-14] MEDS: CYANOCOBALAMIN 500 MCG TAB PO SCH (08:50)
[2017-11-14] MEDS: DICYCLOMINE 20 MG TAB PO SCH ×3 (08:50→18:18)
[2017-11-14 09:55] VITALS: BMI 20.6
[2017-11-14 11:12] LABS: ALT 33 U/L (9-52); AST 16 U/L (14-36); Albumin 2.5 g/dL (3.5-5.0); Alkaline Phosphatase 138 U/L (38-126); Anion Gap 9 mmol/L; Blood Urea Nitrogen 4 mg/dL (7-17); Calcium 8.3 mg/dL (8.4-10.2); Carbon Dioxide 23 mmol/L (22-30); Chloride 102 mmol/L (98-107); Glucose 112 mg/dL (74-99); Phosphorus 3.4 mg/dL (2.5-4.5); Potassium 3.8 mmol/L (3.5-5.1); Sodium 134 mmol/L (137-145); Total Bilirubin <0.1 mg/dL (0.2-1.3); Total Protein 5.2 g/dL (6.3-8.2)
--- NOTE | 2017-11-14 12:49 | P.GSCN ---
History of Present Illness Consult date: 11/13/17 History of present illness: The patient is a 52 year old female admitted 2 days ago with diarrhea. She is well known to the service. She reports possible exposure to the stomach flu. C Diff is negative. She has history of gastric bypass. Since admission, diarrhea has improved. Infectious disease is following. No reports of blood in stools. General surgery is consulted for her diarrhea. She is tolerating diet. Past Medical History Past Medical History: Asthma, Fibromyalgia, GERD/Reflux, Sleep Apnea/CPAP/BIPAP Additional Past Medical History / Comment(s): Asthma, fibromyalgia, acid reflux , Kaya-en-Y gastric bypass surgery for morbid obesity with subsequent 150 pounds of weight loss, history of obstructive sleep apnea, migraines, gastric ulcer, varicose veins, chronic fatigue syndrome, hx pernicious anemia, abdominal [id number], oral yeast infections, hx kidney stones History of Any Multi-Drug Resistant Organisms: None Reported Past Surgical History: Appendectomy, Back Surgery, Bariatric Surgery, Section, Cholecystectomy, Hernia Repair, Hysterectomy Additional Past Surgical History / Comment(s): x2, metal removed from rt eye 15 years ago,-lithotripsy, gastric bypass 2002 , 2 titanium rods in lower back, Carpal tunnel release bilaterally, PANNICULECTOMY Past Anesthesia/Blood Transfusion Reactions: Family History of Problems w/ Anesthesia Additional Past Anesthesia/Blood Transfusion Reaction / Comm: family members w/ severe headaches w/anesthesia Past Psychological History: Anxiety, Depression Smoking Status: Former smoker Past Alcohol Use History: None Reported Past Drug Use History: None Reported - Past Family History Father Family Medical History: Cancer Additional Family Medical History / Comment(s): PROSTATE CANCER Mother Additional Family Medical History / Comment(s): OBESITY-HAD GASTRIC BYPASS SX Medications and Allergies Home Medications Medication Instructions Recorded Confirmed Type DULoxetine HCL [Cymbalta] 60 mg PO BID 03/19/15 11/11/17 History Albuterol Inhaler [Ventolin Hfa 2 puff INHALATION RT-QID PRN 07/31/15 11/11/17 History Inhaler] busPIRone HCL [Buspar] 30 mg PO BID 02/21/17 11/11/17 History Dicyclomine [Bentyl] 20 mg PO AC-TID 02/28/17 11/11/17 History diphenhydrAMINE HCL [Benadryl] 25 mg PO DAILY PRN 02/28/17 11/11/17 History Buprenorphine HCl [Subutex] 4 mg SL HS 08/02/17 11/11/17 History Ondansetron HCl [Zofran] 4 mg PO BID PRN 08/02/17 11/11/17 History Sucralfate [Carafate] 1 gm PO BID 08/05/17 11/11/17 History Butalb/Acetaminophen/Caffeine 1 cap PO DAILY PRN 08/27/17 11/11/17 History [Fioricet 50-300-40 mg Capsule] Potassium Chloride ER [K-Dur 20] 20 meq PO BID tab.er.prt 09/29/17 11/11/17 Rx Buprenorphine HCl [Subutex] 2 mg SL BID@0800,1200 10/09/17 11/11/17 History Furosemide [Lasix] 60 mg PO BID PRN 10/09/17 11/11/17 History Magnesium Oxide [Mag-Ox] 500 mg PO BID 10/09/17 11/11/17 History Meclizine [Antivert] 25 mg PO Q8H PRN 10/09/17 11/11/17 History Metolazone [Zaroxolyn] 5 mg PO DAILY 10/09/17 11/11/17 History Pantoprazole Sodium [Protonix] 40 mg PO BID 10/09/17 11/11/17 History Spironolactone 100 mg PO DAILY 10/09/17 11/11/17 History rOPINIRole HCL [Requip] 0.5 mg PO HS 10/09/17 11/11/17 History Cyanocobalamin [Vitamin B-12] 500 mcg PO DAILY 11/11/17 11/11/17 History Multivitamins, Thera [Multivitamin 1 tab PO DAILY 11/11/17 11/11/17 History (formulary)] Vitamin B Complex 1 cap PO DAILY 11/11/17 11/11/17 History Vitamin C/Citrate 1 tab PO DAILY 11/11/17 11/11/17 History Allergies Allergy/AdvReac Type Severity Reaction Status Date / Time broccoli Allergy Severe Anaphylaxis Verified 11/11/17 19:07 with raw broccoli ketorolac [From Toradol] Allergy Unknown Verified 11/11/17 19:07 Penicillins AdvReac Unknown Anaphylaxis Verified 11/11/17 23:27 adhesive tape AdvReac Itching Verified 11/11/17 19:07 diet cola Allergy GI irritant Uncoded 11/11/17 18:39 Surgical - Exam Vital Signs Temp Pulse Resp BP Pulse Ox 98.0 F 82 18 128/79 100 11/11/17 18:35 11/11/17 18:35 11/11/17 18:35 11/11/17 18:35 11/11/17 18:35 ABDOMEN: Soft, nontender, nondistended. Results - Labs 11/12/17 08:34 11/14/17 10:07 Abnormal Lab Results - Last 24 Hours (Table) 11/14/17 Range/Units 10:07 Sodium 134 L (137-145) mmol/L BUN 4 L (7-17) mg/dL Creatinine 0.40 L (0.52-1.04) mg/dL Glucose 112 H (74-99) mg/dL Calcium 8.3 L (8.4-10.2) mg/dL Total Bilirubin <0.1 L (0.2-1.3) mg/dL Alkaline Phosphatase 138 H (38-126) U/L Total Protein 5.2 L (6.3-8.2) g/dL Albumin 2.5 L (3.5-5.0) g/dL Diabetes panel 11/14/17 Range/Units 10:07 Sodium 134 L (137-145) mmol/L Potassium 3.8 (3.5-5.1) mmol/L Chloride 102 (98-107) mmol/L Carbon Dioxide 23 (22-30) mmol/L BUN 4 L (7-17) mg/dL Creatinine 0.40 L (0.52-1.04) mg/dL Glucose 112 H (74-99) mg/dL Calcium 8.3 L (8.4-10.2) mg/dL AST 16 (14-36) U/L ALT 33 (9-52) U/L Alkaline Phosphatase 138 H (38-126) U/L Total Protein 5.2 L (6.3-8.2) g/dL Albumin 2.5 L (3.5-5.0) g/dL Calcium panel 11/14/17 Range/Units 10:07 Calcium 8.3 L (8.4-10.2) mg/dL Phosphorus 3.4 (2.5-4.5) mg/dL Albumin 2.5 L (3.5-5.0) g/dL Pituitary panel 11/14/17 Range/Units 10:07 Sodium 134 L (137-145) mmol/L Potassium 3.8 (3.5-5.1) mmol/L Chloride 102 (98-107) mmol/L Carbon Dioxide 23 (22-30) mmol/L BUN 4 L (7-17) mg/dL Creatinine 0.40 L (0.52-1.04) mg/dL Glucose 112 H (74-99) mg/dL Calcium 8.3 L (8.4-10.2) mg/dL Adrenal panel 11/14/17 Range/Units 10:07 Sodium 134 L (137-145) mmol/L Potassium 3.8 (3.5-5.1) mmol/L Chloride 102 (98-107) mmol/L Carbon Dioxide 23 (22-30) mmol/L BUN 4 L (7-17) mg/dL Creatinine 0.40 L (0.52-1.04) mg/dL Glucose 112 H (74-99) mg/dL Calcium 8.3 L (8.4-10.2) mg/dL Total Bilirubin <0.1 L (0.2-1.3) mg/dL AST 16 (14-36) U/L ALT 33 (9-52) U/L Alkaline Phosphatase 138 H (38-126) U/L Total Protein 5.2 L (6.3-8.2) g/dL Albumin 2.5 L (3.5-5.0) g/dL - Imaging CT scan - abdomen: report reviewed, image reviewed US - abdomen: report reviewed, image reviewed (Diffuse colitis without obstruction or free air) Assessment and Plan (1) Colitis Current Visit: Yes Status: Acute Code(s): K52.9 - NONINFECTIVE GASTROENTERITIS AND COLITIS, UNSPECIFIED SNOMED Code(s): 65392800 (2) Intractable diarrhea Current Visit: Yes Status: Acute Code(s): R19.7 - DIARRHEA, UNSPECIFIED SNOMED Code(s): 323019875 (3) History of Kaya-en-Y gastric bypass Current Visit: No Status: Acute Code(s): Z98.84 - BARIATRIC SURGERY STATUS SNOMED Code(s): 723431326 Plan: 1. Her bariatric labs were reviewed showing Vitamin D deficiency. 2. To prevent dumping syndrome, recommend diabetic low sugar diet. 3. Agree with ID consultation for antibiotic management as she has been started on oral vancomycin. 4. No surgical intervention at this time.
--- NOTE | 2017-11-14 16:51 | P.PN ---
Progress Note - Text Progress Note Date: 11/14/17 Patient still has complaints of diarrhea. She has no significant abdominal pain. She's had some limited oral intake. On exam her vital signs are stable. Her abdomen soft. Patient will trial Imodium. Stool cultures are pending.
[2017-11-14] MEDS: DIPHENOX-ATROP 2.5-0.025 MG 1 EACH TAB PO PRN (18:18)
[2017-11-14] MEDS: BUPRENORPHINE HCL 4 MG SL SCH (18:21)
[2017-11-15] MEDS: metroNIDAZOLE-NS PMX 500 MG in SALINE 1 100ML.BAG IVPB SCH ×4 (00:35→23:33)
[2017-11-15] MEDS: MORPHINE SULFATE 2 MG/ML SYRINGE IV PRN ×5 (03:25→21:03)
--- NOTE | 2017-11-15 04:15 | PN ---
PROGRESS NOTE DATE OF SERVICE: 11/14/2017. REASON FOR FOLLOWUP: Colitis and diarrhea. INTERVAL HISTORY: The patient is afebrile. She is still has diarrhea about the same. No significant worsening or improvement. No blood or mucus in the stool. No worsening abdominal pain. No nausea, no vomiting. Denies any chest pain, shortness of breath or cough. EXAMINATION: Blood pressure 98/65 with a pulse of 98. Temperature 97.2. She is 99% on room air. General description is a middle aged female, lying in bed in no distress. RESPIRATORY SYSTEM: Unlabored breathing. Clear to auscultation anteriorly. HEART: S1, S2. Regular rate and rhythm. ABDOMEN: Soft, no tenderness. LABS: BUN of 4, creatinine 0.4. Blood culture has been negative. Stool for C difficile has been negative. DIAGNOSTIC IMPRESSION AND PLAN: Patient admitted to the hospital with diarrhea with evidence of colitis, currently on Rocephin and Flagyl. May be need for repeat colonoscopy and biopsy. Continue supportive care. MMODL / IJN: [id number] /
[2017-11-15] MEDS: SODIUM CHLORIDE 0.9% 1,000 ML IV SCH ×2 (07:46→18:08)
[2017-11-15] MEDS: DICYCLOMINE 20 MG TAB PO SCH ×3 (08:02→16:24)
[2017-11-15] MEDS: CYANOCOBALAMIN 500 MCG TAB PO SCH (08:02)
[2017-11-15] MEDS: BUPRENORPHINE HCL 2 MG SL SCH ×2 (08:03→11:16)
[2017-11-15] MEDS: busPIRone HCl 10 MG TAB PO SCH ×2 (08:03→20:55)
[2017-11-15] MEDS: DULoxetine HCL 60 MG CAPSULE.DR PO SCH ×2 (08:04→20:56)
[2017-11-15] MEDS: MAGNESIUM OXIDE 400 MG TAB PO SCH ×2 (08:05→20:55)
[2017-11-15] MEDS: NYSTATIN 100,000 UNIT/ML SUSP 500,000 UNIT/5 ML CUP PO SCH ×4 (08:05→20:56)
[2017-11-15] MEDS: METOLAZONE 5 MG TAB PO SCH (08:05)
[2017-11-15] MEDS: SUCRALFATE 1 GM TAB PO SCH ×2 (08:06→20:55)
[2017-11-15] MEDS: POTASSIUM CHLORIDE ER 20 MEQ TAB.ER PO SCH ×2 (08:06→20:55)
[2017-11-15] MEDS: PANTOPRAZOLE 40 MG TABLET PO SCH ×2 (08:06→20:55)
[2017-11-15 08:49] LABS: Anisocytosis Slight; Basophils % (A) 0 %; Eosinophils # (A) 0.1 k/uL (0-0.7); Eosinophils % (A) 1 %; HCT 32.1 % (34.0-46.0); HGB 9.9 gm/dL (11.4-16.0); Hypochromasia Slight; Lymphocytes # (A) 1.2 k/uL (1.0-4.8); Lymphocytes % (A) 16 %; MCH 32.5 pg (25.0-35.0); MCHC 30.9 g/dL (31.0-37.0); Macrocytosis Moderate; Mean Platelet Volume 8.3; Monocytes # (A) 0.5 k/uL (0-1.0); Monocytes % (A) 6 %; Neutrophils # (A) 5.5 k/uL (1.3-7.7); Neutrophils % (A) 74 %; Platelet Count 160 k/uL (150-450); RBC 3.06 m/uL (3.80-5.40); RDW 17.6 % (11.5-15.5); WBC 7.3 k/uL (3.8-10.6)
[2017-11-15] MEDS: CHOLESTYRAMINE (WITH SUGAR) 4 GM PACKET PO SCH ×2 (09:20→16:29)
[2017-11-15] MEDS: cefTRIAXone IN SWFI 1,000 MG/10 ML SYRINGE IVP SCH (09:20)
--- NOTE | 2017-11-15 09:22 | PN ---
PROGRESS NOTE DATE OF SERVICE: 11/14/2017 SUBJECTIVE: A 52-year-old white female with intractable diarrhea, Dr. Gee has seen her and recommends a possible colonoscopy, awaiting Dr. Washington's recommendations. Vital signs appear to be stable. She is having 4 to 5 bowel movements a day. Her anxiety is better. CARDIOVASCULAR: S1, S2. Lungs are clear. GI is soft, increased bowel sounds. Negative Homans sign. ASSESSMENT: 1. Dehydration, severe hypokalemia secondary to chronic diarrhea. 2. Multiple medical conditions. 3. Continue replacing the potassium fluid uptake, possible colonoscopy per Infectious Disease. MMODL / IJN: [id number] /
[2017-11-15 09:26] LABS: Anion Gap 12 mmol/L; Blood Urea Nitrogen 4 mg/dL (7-17); Calcium 8.4 mg/dL (8.4-10.2); Carbon Dioxide 22 mmol/L (22-30); Chloride 102 mmol/L (98-107); Glucose 77 mg/dL (74-99); Potassium 3.6 mmol/L (3.5-5.1); Sodium 136 mmol/L (137-145)
[2017-11-15] MEDS ORDERED: PEG 3350-NA SULF,BICARB,CL/KCL 4,000 ML BOTTLE PO ONE (12:00)
--- NOTE | 2017-11-15 12:48 | P.PN ---
Progress Note - Text Progress Note Date: 11/15/17 The patient still has complaints of diarrhea. On exam her vital signs are stable. Her abdomen soft. Patient scheduled for colonoscopy in the a.m. for evaluation of diarrhea.
[2017-11-15] MEDS: BUPRENORPHINE HCL 4 MG SL SCH (20:54)
--- NOTE | 2017-11-15 23:05 | PN ---
PROGRESS NOTE DATE OF SERVICE: 11/15/2017 REASON FOR FOLLOWUP: Colitis. INTERVAL HISTORY: The patient is afebrile. She is still complaining of diarrhea. No blood or mucus in it. Denies having any chest pain or shortness of breath or cough. EXAMINATION: Blood pressure is 98/67, pulse of 95, temperature of 98.4. She is 99% on room air. General description is a middle-aged female lying in bed in no distress. RESPIRATORY SYSTEM: Unlabored breathing. Clear to auscultation anteriorly. HEART: S1, S2. Regular rate and rhythm. ABDOMEN: Soft. No tenderness. LABS: BUN of 4, creatinine 0.45. Hemoglobin is 9, white count OF 7.3. DIAGNOSTIC IMPRESSION AND PLAN: Patient with colitis with diarrhea. So far infection workup has been negative. With a question of possible inflammatory bowel disease, it may benefit from a short trial of steroids or A repeat colonoscopy. Continue supportive care. MMODL / IJN: [id number] /
[2017-11-16] MEDS: MORPHINE SULFATE 2 MG/ML SYRINGE IV PRN ×4 (00:54→21:48)
[2017-11-16] MEDS: CYANOCOBALAMIN 500 MCG TAB PO SCH (13:13)
[2017-11-16] MEDS: busPIRone HCl 10 MG TAB PO SCH ×2 (13:14→20:58)
[2017-11-16] MEDS: cefTRIAXone IN SWFI 1,000 MG/10 ML SYRINGE IVP SCH (13:14)
[2017-11-16] MEDS: SODIUM CHLORIDE 0.9% 1,000 ML IV SCH (13:14)
[2017-11-16] MEDS: NYSTATIN 100,000 UNIT/ML SUSP 500,000 UNIT/5 ML CUP PO SCH ×4 (13:14→22:04)
[2017-11-16] MEDS: DULoxetine HCL 60 MG CAPSULE.DR PO SCH ×2 (13:14→20:59)
[2017-11-16] MEDS: DICYCLOMINE 20 MG TAB PO SCH ×3 (13:14→17:18)
[2017-11-16] MEDS: METOLAZONE 5 MG TAB PO SCH (13:14)
[2017-11-16] MEDS: metroNIDAZOLE-NS PMX 500 MG in SALINE 1 100ML.BAG IVPB SCH ×2 (13:14→17:18)
[2017-11-16] MEDS: MAGNESIUM OXIDE 400 MG TAB PO SCH ×2 (13:14→21:02)
[2017-11-16] MEDS: BUPRENORPHINE HCL 2 MG SL SCH ×2 (13:14→13:49)
[2017-11-16] MEDS: PANTOPRAZOLE 40 MG TABLET PO SCH ×2 (13:15→21:00)
[2017-11-16] MEDS: POTASSIUM CHLORIDE ER 20 MEQ TAB.ER PO SCH ×2 (13:15→21:01)
[2017-11-16] MEDS: CHOLESTYRAMINE (WITH SUGAR) 4 GM PACKET PO SCH ×2 (13:15→17:18)
[2017-11-16] MEDS: SUCRALFATE 1 GM TAB PO SCH ×2 (13:15→21:01)
[2017-11-16] MEDS ORDERED: ePHEDrine SULFATE/0.9% NACL/PF 50 MG/5 ML SYRINGE IV ONE (13:43)
[2017-11-16] MEDS ORDERED: LIDOCAINE 1% INJ 10MG/ML (20 ML MDV) ONE (13:43)
[2017-11-16] MEDS ORDERED: PROPOFOL 10 MG/ML 20 ML VIAL IV ONE (13:43)
[2017-11-16] MEDS ORDERED: IV FLUID CONTINUATION 1,000 ML IV ONE (13:58)
[2017-11-16] MEDS ORDERED: SODIUM CHLORIDE 0.9% 1,000 ML IV ONE (14:11)
--- NOTE | 2017-11-16 15:21 | P.OP ---
Date of Procedure: 11/16/17 Preoperative Diagnosis: Diarrhea Postoperative Diagnosis: Diarrhea Procedure(s) Performed: Colonoscopy Anesthesia: MAC Surgeon: López Washington Pathology: none sent Condition: stable Disposition: PACU Description of Procedure: PROCEDURE: The patient was placed on the endoscopy table in the lateral position. Digital rectal examination was performed which revealed no abnormalities. Flexible colonoscope was then placed in the patient's anus and passed throughout the entire colon. The ileocecal valve was visualized. The cecum, ascending, transverse, descending and sigmoid colon were normal. The rectum was normal as well. There were no masses, polyps or diverticula noted in the entire colon. SUMMARY OF FINDINGS: Normal colonoscopy.
[2017-11-16] MEDS: BUPRENORPHINE HCL 4 MG SL SCH (21:06)
--- NOTE | 2017-11-16 22:45 | PN ---
PROGRESS NOTE SUBJECTIVE: A 52-year-old white female with severe intractable diarrhea. The patient having a colonoscopy today. Monitoring for hemoglobin and iron deficiency, possibly iron infusion will be given. Possible discharge was cleared. Unclear why she is having diarrhea at this time. She went to [facility] for a 2nd opinion, but may go to the [facility], as she continues to have chronic anemia and abdominal pain and diarrhea. VITAL SIGNS: Stable, afebrile. CARDIOVASCULAR: S1, S2. LUNGS: Clear. GI: Increased bowel sounds. HEMATOLOGY: Negative Homans'. ASSESSMENT: 1. Intractable diarrhea. 2. Dehydration. 3. Hypokalemia. 4. Prerenal renal failure. 5. Chronic diarrhea. Please see further colonoscopy reports and see what iron infusion will be given. MMODL / IJN: [id number] /
--- NOTE | 2017-11-16 23:15 | PN ---
PROGRESS NOTE DATE OF SERVICE: 11/16/2017 REASON FOR FOLLOWUP: Colitis, diarrhea, possible infectious etiology. INTERVAL HISTORY: The patient is afebrile. The patient did have bowel prep done this morning. The patient is status post colonoscopy completed by Dr. Washington with no evidence of any colitis. The patient denies having any chest pain, shortness of breath or cough. No nausea or vomiting. PHYSICAL EXAMINATION: Blood pressure is 115/69, pulse of 68, temperature 98. She is 98% on room air. General description is a middle-aged female lying in bed in no distress. RESPIRATORY SYSTEM: Unlabored breathing. Clear to auscultation anteriorly. HEART: S1, S2. Regular rate and rhythm. ABDOMEN: Soft. No tenderness. EXTREMITIES: No edema of the feet. LABS: Hemoglobin 9.9, white count 7.3, BUN of 4, creatinine 0.45. DIAGNOSTIC IMPRESSION AND PLAN: Patient admitted to hospital with diarrhea with concern about colitis, as seen on the CT. Patient significant back pain. The stool culture is negative. She did have colonoscopy with no evidence of any colitis. Antibiotics will be discontinued. She will be treated symptomatically. Continue with supportive care. MMODL / IJN: [id number] /
[2017-11-16 23:43] VITALS: RESP 20
[2017-11-17] MEDS: SODIUM CHLORIDE 0.9% 1,000 ML IV SCH ×2 (00:37→08:36)
[2017-11-17] MEDS: SODIUM FERRIC GLUCONAT-SUCROSE 125 MG in SODIUM CHLORIDE 0.9% 100 ML IVPB SCH ×2 (00:56→10:21)
[2017-11-17] MEDS: MORPHINE SULFATE 2 MG/ML SYRINGE IV PRN ×3 (01:47→10:54)
[2017-11-17 06:37] VITALS: BP 95/64; PULSE 90; TEMP 97.7
[2017-11-17 08:16] LABS: Anisocytosis Slight; Basophils % (A) 0 %; Eosinophils # (A) 0.1 k/uL (0-0.7); Eosinophils % (A) 1 %; HCT 30.6 % (34.0-46.0); HGB 9.4 gm/dL (11.4-16.0); Hypochromasia Slight; Lymphocytes # (A) 1.1 k/uL (1.0-4.8); Lymphocytes % (A) 19 %; MCH 32.3 pg (25.0-35.0); MCHC 30.7 g/dL (31.0-37.0); Macrocytosis Moderate; Mean Platelet Volume 8.1; Monocytes # (A) 0.6 k/uL (0-1.0); Monocytes % (A) 10 %; Neutrophils % (A) 67 %; Platelet Count 184 k/uL (150-450); RBC 2.91 m/uL (3.80-5.40); RDW 18.1 % (11.5-15.5)
[2017-11-17] MEDS: BUPRENORPHINE HCL 2 MG SL SCH ×2 (08:25→08:36)
[2017-11-17 08:32] LABS: ALT 28 U/L (9-52); AST 13 U/L (14-36); Albumin 2.6 g/dL (3.5-5.0); Alkaline Phosphatase 112 U/L (38-126); Anion Gap 8 mmol/L; Blood Urea Nitrogen 4 mg/dL (7-17); Calcium 8.6 mg/dL (8.4-10.2); Carbon Dioxide 27 mmol/L (22-30); Chloride 104 mmol/L (98-107); Glucose 78 mg/dL (74-99); Potassium 4.3 mmol/L (3.5-5.1); Sodium 139 mmol/L (137-145); Total Bilirubin 0.2 mg/dL (0.2-1.3); Total Protein 5.2 g/dL (6.3-8.2)
[2017-11-17] MEDS: busPIRone HCl 10 MG TAB PO SCH (08:33)
[2017-11-17] MEDS: DIPHENOX-ATROP 2.5-0.025 MG 1 EACH TAB PO PRN ×2 (08:33→10:59)
[2017-11-17] MEDS: CHOLESTYRAMINE (WITH SUGAR) 4 GM PACKET PO SCH (08:34)
[2017-11-17] MEDS: POTASSIUM CHLORIDE ER 20 MEQ TAB.ER PO SCH (08:34)
[2017-11-17] MEDS: SUCRALFATE 1 GM TAB PO SCH (08:34)
[2017-11-17] MEDS: PANTOPRAZOLE 40 MG TABLET PO SCH (08:34)
[2017-11-17] MEDS: MAGNESIUM OXIDE 400 MG TAB PO SCH (08:34)
[2017-11-17] MEDS: CYANOCOBALAMIN 500 MCG TAB PO SCH (08:34)
[2017-11-17] MEDS: DULoxetine HCL 60 MG CAPSULE.DR PO SCH (08:34)
[2017-11-17] MEDS: NYSTATIN 100,000 UNIT/ML SUSP 500,000 UNIT/5 ML CUP PO SCH ×2 (08:34→12:17)
[2017-11-17] MEDS: METOLAZONE 5 MG TAB PO SCH (08:35)
[2017-11-17] MEDS: DICYCLOMINE 20 MG TAB PO SCH ×2 (08:35→10:56)
--- NOTE | 2017-11-17 10:55 | P.PN ---
Subjective Progress Note Date: 11/17/17 52-year-old female seen and examined at bedside. Patient states that she has had 3 loose stools this morning. Currently receiving IV iron. Patient is being seen by surgical service for diarrhea. Underwent a colonoscopy on November 16. Which was a normal colonoscopy no acute findings. Patient currently is denying any abdominal pain no nausea no vomiting tolerating diet stool for C. diff was negative Objective - Vital Signs Vital signs: Vital Signs Temp 97.7 F 11/17/17 06:36 Pulse 90 11/17/17 06:36 Resp 20 11/17/17 08:38 BP 95/64 11/17/17 06:36 Pulse Ox 100 11/17/17 06:36 Intake & Output 11/16/17 11/17/17 11/17/17 18:59 06:59 18:59 Intake Total 350 Output Total 150 Balance 350 -150 Weight 51.256 kg Intake: IV 350 Output: Stool 150 Other: Voiding Method Toilet Toilet # Voids 3 1 - Exam Physical exam 52-year-old female sitting up in bed talkative appears in no acute distress Lungs clear adequate air movement on room air Heart S1-S2 audible regular Abdomen soft not distended nontender bowel tones present states has had 3 stools this morning tolerating diet no nausea no vomiting Extremities no edema - Labs CBC & Chem 7: 11/17/17 07:50 11/17/17 07:50 Labs: Abnormal Lab Results - Last 24 Hours (Table) 11/17/17 11/17/17 Range/Units 07:50 07:50 RBC 2.91 L (3.80-5.40) m/uL Hgb 9.4 L (11.4-16.0) gm/dL Hct 30.6 L (34.0-46.0) % MCV 105.0 H (80.0-100.0) fL MCHC 30.7 L (31.0-37.0) g/dL RDW 18.1 H (11.5-15.5) % BUN 4 L (7-17) mg/dL Creatinine 0.44 L (0.52-1.04) mg/dL AST 13 L (14-36) U/L Total Protein 5.2 L (6.3-8.2) g/dL Albumin 2.6 L (3.5-5.0) g/dL Assessment and Plan Assessment: Impression Normal colonoscopy done on November 16 as part of a workup for frequent loose stool diarrhea Stool for C. diff negative History of gastric bypass surgery for morbid obesity subsequently lost 150 pound Plan Defer to the attending to address medical issues okay for discharge from a surgical perspective Will follow with you The above impression and plan of care have been discussed and directed by signing physician. Lisa Alfaro nurse practitioner acting as scribe for signing physician.
--- NOTE | 2017-11-17 16:04 | PN ---
PROGRESS NOTE DATE OF SERVICE: 11/17/2017. REASON FOR FOLLOWUP: Diarrhea and a question of colitis. INTERVAL HISTORY: The patient is afebrile. Her diarrhea seems to have slightly improved. The patient is abdominal pain, but no vomiting and tolerating a clear liquid diet. Denies any chest pain, shortness of breath or cough. EXAMINATION: Blood pressure 95/64, pulse 96%. Temperature 97.7. She is 100% on room air. General description is a middle-aged female lying in bed in no distress. Respiratory system: Unlabored breathing. Clear to auscultation anteriorly. Heart S1, S2. Regular rate and rhythm. Abdomen soft, no tenderness. LABS: Hemoglobin is 9.4, white count 6.0, BUN 4, creatinine 0.44. DIAGNOSTIC IMPRESSION AND PLAN: Patient with diarrhea with question of colitis. She did have a colonoscopy which was negative for any evidence of colitis. Antibiotic has been discontinued. Culture has been negative. We will recommend symptomatic treatment. Continue supportive care. MMODL / IJN: [id number] /
== END 2017-11-17 14:20 | disposition home health service (06) | DRG 392 ==
LOC: EC 17:47 → 4MS4W 21:25 → OBSVTOIN 11-12 11:21
PROVIDERS: ADMIT Family Medicine; ATTEND Family Medicine
PROC: 0DJD8ZZ Inspection of Lower Intestinal Tract, Via Natural or Artificial Opening Endoscopic (ICD-10-PCS; principal; 2017-11-16 13:30)
DX: K52.9 Noninfective gastroenteritis and colitis, unspecified (principal); E86.0 Dehydration; E87.6 Hypokalemia; K21.9 Gastro-esophageal reflux disease without esophagitis; J45.909 Unspecified asthma, uncomplicated; G47.33 Obstructive sleep apnea (adult) (pediatric); F32.9 Major depressive disorder, single episode, unspecified; N19 Unspecified kidney failure; F41.9 Anxiety disorder, unspecified; M79.7 Fibromyalgia; D50.9 Iron deficiency anemia, unspecified; M54.9 Dorsalgia, unspecified; R74.8 Abnormal levels of other serum enzymes; R74.0 Nonspecific elevation of levels of transaminase and lactic acid dehydrogenase [LDH]; G43.909 Migraine, unspecified, not intractable, without status migrainosus; I83.90 Asymptomatic varicose veins of unspecified lower extremity; D51.0 Vitamin B12 deficiency anemia due to intrinsic factor deficiency; E55.9 Vitamin D deficiency, unspecified; R53.82 Chronic fatigue, unspecified; Z63.79 Other stressful life events affecting family and household; Z80.9 Family history of malignant neoplasm, unspecified; Z87.11 Personal history of peptic ulcer disease; Z98.84 Bariatric surgery status; Z79.899 Other long term (current) drug therapy; Z86.39 Personal history of other endocrine, nutritional and metabolic disease; Z87.442 Personal history of urinary calculi; Z87.891 Personal history of nicotine dependence; Z90.710 Acquired absence of both cervix and uterus; Z86.19 Personal history of other infectious and parasitic diseases; Z88.6 Allergy status to analgesic agent; Z88.0 Allergy status to penicillin; Z91.018 Allergy to other foods; Z91.048 Other nonmedicinal substance allergy status; Z90.49 Acquired absence of other specified parts of digestive tract; Z83.49 Family history of other endocrine, nutritional and metabolic diseases; Z80.42 Family history of malignant neoplasm of prostate
CPT/HCPCS: 36415; 45378; 74177; 80048; 80053; 83605; 83630; 83690; 83735; 84100; 84132; 85025; 87045; 87046; 87324; 87493; 96361; 96365; 96375; 99285

== ENCOUNTER → 2018-02-08 | Outpatient (CLI) | payer BC, MEDICARE ==
--- NOTE | 2018-02-08 12:11 | CONS ---
CONSULTATION DATE OF SERVICE: 02/08/2018 A 52-year-old lady who has been evaluated in the [facility] for treatment of central and obstructive sleep apnea-hypopnea syndrome. HISTORY OF PRESENT ILLNESS/SLEEP-WAKE EVALUATION: Patient has a history of sleep apnea for about 15 years. Since that time, she is on treatment with positive air pressure. For the last year she is on treatment with BiPAP. She stopped using BiPAP equipment about 2 months ago because she has problems with her mask and with the machine and she still continued to wake up from sleep and have problems during the day while on treatment with BiPAP. Her sleep schedule from around 11 p.m. until around 7 a.m. She does have problem with falling asleep. Has TV set in bedroom, usually sleeps on the side position she wakes up from sleep even while she is on BiPAP with episodes of nocturia, gasping for air, restless legs, and sweating. In the morning, she wakes up tired, has difficulties to pay attention, worry about her sleep, has problems with memory, concentration, irritability, depression, anxiety, [place] Sleepiness Scale is 7. PAST MEDICAL HISTORY: Positive for anxiety, depression, fibromyalgia, episodes of dizziness. No injury episodes. History of pneumonia, history of iron-deficiency anemia, related to postoperative lead and bleeding ulcer from peptic ulcer disease, asthma. PAST SURGICAL HISTORY: Cholecystectomy, total hysterectomy, , back fusion, panniculectomy with some problem with a wound infection after the surgery, hernia repair, appendectomy. MEDICATIONS: Duloxetine, Buspirone, Ketamine, dicyclomine, dicyclomine, pantoprazole, ondansetron, Differin oxalate, , furosemide, meclizine p.o. potassium supplement, magnesium supplement, some other supplements for the food, Ventolin. SOCIAL HISTORY: Negative for smoking. Alcohol consumption occasional. FAMILY HISTORY: Hypertension, angina, hyperlipidemia, stroke, arthritis, sinus headaches, bronchitis, sleep apnea, snoring, headaches, cancer, acid reflux, ulcers, liver problems, diabetes, nasal polyps, restless legs, and also past medical history for history of asthma to do 7 here a year surgery. Medication put Ventolin and in past medical history also please put asthma. REVIEW OF SYSTEMS: Awakenings from sleep while on BiPAP, episodes of swelling of the legs, episodes of wheezing. PHYSICAL EXAM: lady without distress, BP 113/75, HR 86, RR 17, height 5, 2-1/2, weight 153.8, body mass index 27.5, temperature 97.5, oxygen saturation at room air 100%. OROPHARYNX: Extremely low position of soft palate wide pillars. Neck 39 inches in circumference. Oblique scar on the belly after surgery. VITAL SIGNS BP@@ , HR@@ , RR@@, height @@ , weight @@ , BMI @@, temperature @@ , oxygen saturation at room air @@%. MONA KO, EOMI, evaluation of oropharynx showed tongue protrudes midline. Neck Supple, no JVD. Thyroid is not palpable. LUNGS Clear to percussion and to auscultation. Good air exchange. No wheezing or rhonchi. HEART S1, S2 regular. No murmurs, gallops, or rubs. ABDOMEN Soft and nontender. Bowel sounds are present. No organomegaly appreciated. EXTREMITIES No clubbing or cyanosis. 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 Cranial nerves 2 to 7 intact. There is no fasciculation or atrophy. noted. No focal deficits observed. IMPRESSION: 1. History of obstructive and central sleep apnea for many years. Patient trying to use her BiPAP, but still continued to wake up from sleep, has problem with the machine and mask, small oropharyngeal air space. 2. History of asthma. 3. History of restless legs syndrome. 4. History of anxiety. 5. History of depression. 6. History of fibromyalgia. 7. Episodes of dizziness. 8. Status post back fusion surgery. 9. Status post cholecystectomy. 10.Status post total hysterectomy. 11.Status post . 12.Status post panniculectomy with some wound infection after surgery. 13.Status post appendectomy. PLAN: 1. Repeat BiPAP titration for evaluation of effective BiPAP pressure at the present time to check seating of the mask and possibly replace the mask. 2. Sleep hygiene with regular time in bed for at least 8 hours. 3. No driving if feeling any sleepiness. 4. I will see the patient for follow up visit to explain the results of the test, recommendations, check compliance with treatment and make any necessary adjustment related to mask fitting, pressure and humidification. Thank you very much for allowing me to participate in the management of your patient. Sincerely, Jimmy Stefadu, MD, PhD, FAASM Diplomat of [employer] Building [employer] [facility] [place] 1. thank you very much for referring this patient for consultation sincerely 9. MMTORIE / MICHELLE: [id number] /
== END | disposition home or self-care (01) ==
LOC: SLEEP 10:33
PROVIDERS: ATTEND Internal Medicine
DX: G47.33 Obstructive sleep apnea (adult) (pediatric) (principal); J45.909 Unspecified asthma, uncomplicated; G25.81 Restless legs syndrome; F41.9 Anxiety disorder, unspecified; F32.9 Major depressive disorder, single episode, unspecified; M79.7 Fibromyalgia; R42 Dizziness and giddiness; Z98.1 Arthrodesis status; Z90.49 Acquired absence of other specified parts of digestive tract; Z90.710 Acquired absence of both cervix and uterus; Z98.890 Other specified postprocedural states; Z90.89 Acquired absence of other organs; Z79.899 Other long term (current) drug therapy
CPT/HCPCS: 99211

== ENCOUNTER → 2018-02-09 | Outpatient (CLI) | payer BC, MEDICARE ==
[2018-02-09 16:56] LABS: HCT 37.9 % (34.0-46.0); HGB 11.9 gm/dL (11.4-16.0); MCH 33.4 pg (25.0-35.0); MCHC 31.3 g/dL (31.0-37.0); MCV 106.5 fL (80.0-100.0); Macrocytosis Moderate; Mean Platelet Volume 6.7; Platelet Count 232 k/uL (150-450); RBC 3.56 m/uL (3.80-5.40); RDW 13.5 % (11.5-15.5)
[2018-02-09 18:29] LABS: Erythrocyte Sedimentation Rate 13 mm/hr (0-20)
[2018-02-10 05:15] LABS: Gliadin AB IgA, Unit 0.2 U/mL
== END | disposition home or self-care (01) ==
LOC: LABWHC1 15:59
PROVIDERS: ATTEND Internal Medicine Gastroenterology
DX: K52.9 Noninfective gastroenteritis and colitis, unspecified (principal)
CPT/HCPCS: 36415; 83516; 85027; 85652; 86140

== ENCOUNTER 2018-06-22 14:33 | Observation (INO) | payer BC, MEDICARE ==
[2018-06-22] MEDS ORDERED: SODIUM CHLORIDE 0.9% 1,000 ML IV STA (15:20)
[2018-06-22] MEDS ORDERED: FAMOTIDINE 20 MG/2 ML VIAL IV STA (15:21)
[2018-06-22] MEDS ORDERED: ONDANSETRON 4 MG/2 ML VIAL IVP STA (15:22)
[2018-06-22] MEDS ORDERED: IOPAMIDOL-300 CONTRAST 30 ML VIAL (ORAL USE) PO PRN (15:25)
--- NOTE | 2018-06-22 15:30 | ED ---
General Adult HPI - General Chief complaint: Abdominal Pain Stated complaint: abdominal pain Time Seen by Provider: 06/22/18 15:12 Source: patient, RN notes reviewed, old records reviewed Mode of arrival: ambulatory Limitations: no limitations - History of Present Illness Initial comments: 52-year-old female patient past medical history of multiple abdominal surgeries including hysterectomy, cholecystectomy, appendectomy, bariatric surgery, GI bleed presents to ED with approximately 5 days of epigastric abdominal pain. Patient describes it as a burning pain. Patient states that this feels somewhat similar to peptic ulcer she has had in the past. Patient has had some nausea without emesis. Patient also reports 1 occurrence of tarry stools this morning. Patient reports that she has had GI bleed in past. Patient is not on any blood thinners. Patient also reports that earlier today she had approximately 5 minutes of substernal chest pressure which resolved without intervention. Patient denies any shortness of breath. Patient denies other complaints. Systemic: Pt denies fatigue, myalgia, fever/chills, rash. Pt denies weakness, night sweats, weight loss. Neuro: Pt denies headache, visual disturbances, syncope or pre-syncope. HEENT: Pt denies ocular discharge or irritation, otalgia, rhinorrhea, pharyngitis or notable lymphadenopathy. Cardiopulmonary: Pt denies SOB, heart palpitations, dyspnea on exertion. Abdominal/GI: Pt denies abdominal pain, n/v/d. : Pt denies dysuria, burning w/ urination, frequency/urgency. Denies new onset urinary or bowel incontinence. MSK: Pt denies myalgia, loss of strength or function in extremities. Neuro: Pt denies new onset weakness, paresthesias. - Related Data Home Medications Medication Instructions Recorded Confirmed DULoxetine HCL [Cymbalta] 60 mg PO BID 03/19/15 06/22/18 busPIRone HCL [Buspar] 30 mg PO BID 02/21/17 06/22/18 Ondansetron HCl [Zofran] 4 mg PO BID PRN 08/02/17 06/22/18 Furosemide [Lasix] 60 mg PO DAILY 10/09/17 06/22/18 Meclizine [Antivert] 25 mg PO Q8H PRN 10/09/17 06/22/18 Metolazone [Zaroxolyn] 5 mg PO DAILY PRN 10/09/17 06/22/18 Pantoprazole Sodium [Protonix] 40 mg PO BID 10/09/17 06/22/18 rOPINIRole HCL [Requip] 1 mg PO HS 10/09/17 06/22/18 Multivitamins, Thera [Multivitamin 1 tab PO DAILY 11/11/17 06/22/18 (formulary)] Vitamin B Complex 1 cap PO DAILY 11/11/17 06/22/18 ARIPiprazole [Abilify] 10 mg PO HS 12/28/17 06/22/18 Butalb/APAP/Caff 50-325-40Mg 1 tab PO Q4H PRN 12/28/17 06/22/18 [Fioricet 50-325-40] Ketamine Bulk 45 mg PO 5XD 12/28/17 06/22/18 diphenhydrAMINE [Benadryl] 25 mg PO HS PRN 12/28/17 06/22/18 Acetaminophen [Tylenol Extra 1,000 mg PO TID PRN 06/22/18 06/22/18 Strength] Calcium Carb/Vitamin D3/Vit K1 1 tab PO TID 06/22/18 06/22/18 [Citracal Soft Chew] Dicyclomine HCl 20 mg PO TID 06/22/18 06/22/18 Magnesium Oxide [Lorenzo] 500 mg PO DAILY 06/22/18 06/22/18 Sucralfate [Carafate] 1 gm PO TID 06/22/18 06/22/18 Previous Rx's Medication Instructions Recorded Potassium Chloride ER [K-Dur 20] 20 meq PO BID tab.er.prt 09/29/17 Allergies Allergy/AdvReac Type Severity Reaction Status Date / Time broccoli Allergy Severe Anaphylaxis Verified 06/22/18 16:07 with raw broccoli ketorolac [From Toradol] Allergy Unknown Verified 06/22/18 16:07 Penicillins AdvReac Unknown Anaphylaxis Verified 06/22/18 16:07 adhesive tape AdvReac Itching Verified 06/22/18 16:07 diet cola Allergy GI irritant Uncoded 06/22/18 14:37 Review of Systems ROS Statement: Those systems with pertinent positive or pertinent negative responses have been documented in the HPI. ROS Other: All systems not noted in ROS Statement are negative. Past Medical History Past Medical History: Asthma, Fibromyalgia, GERD/Reflux, Sleep Apnea/CPAP/BIPAP Additional Past Medical History / Comment(s): migraines, gastric ulcer, varicose veins, chronic fatigue syndrome, hx pernicious anemia, abdominal pain- colitis-IBS, oral yeast infections, hx kidney stones History of Any Multi-Drug Resistant Organisms: None Reported Past Surgical History: Appendectomy, Back Surgery, Bariatric Surgery, Section, Cholecystectomy, Hernia Repair, Hysterectomy Additional Past Surgical History / Comment(s): x2, metal removed from rt eye 15 years ago,-lithotripsy, gastric bypass 2002 , 2 titanium rods in lower back, Carpal tunnel release bilaterally, PANNICULECTOMY Past Anesthesia/Blood Transfusion Reactions: Family History of Problems w/ Anesthesia Additional Past Anesthesia/Blood Transfusion Reaction / Comment(s): family members w/severe headaches w/anesthesia Past Psychological History: Anxiety, Depression Smoking Status: Former smoker - Past Family History Father Family Medical History: Cancer Additional Family Medical History / Comment(s): PROSTATE CANCER Mother Additional Family Medical History / Comment(s): OBESITY-HAD GASTRIC BYPASS SX General Exam - General Exam Comments Initial Comments: Constitutional: NAD, AOX3, Pt has pleasant affect. HEENT: NC/AT, trachea midline, neck supple, no lymphadenopathy. Posterior pharynx non erythematous, without exudates. External ears appear normal, without discharge. Mucous membranes moist. Eyes PERRLA, EOM intact. There is no scleral icterus. No pallor noted. Cardiopulmonary: RRR, no murmurs, rubs or gallops, no JVD noted. Lungs CTAB in anterior and posterior ortiz. No peripheral edema. Abdominal exam: Abdomen soft and non-distended. Multiple abdominal scars from previous surgeries. Mildly tender to palpation epigastric region. No ecchymoses, no guarding or rigidity. No hepatosplenomegaly. Neuro: CN II-XII grossly intact. No nuchal rigidity. MSK: No posterior calf tenderness bilaterally, homans sign negative bilaterally. Posterior tibialis and radial pulse +2 bilaterally. Sensation intact in upper and lower extremities. Full active ROM in upper and lower extremities, 5/5 stregnth. Limitations: no limitations Course Vital Signs 06/22/18 14:36 Temperature 98.2 F Pulse Rate 72 Respiratory 16 Rate Blood Pressure 118/78 O2 Sat by Pulse 98 Oximetry Medical Decision Making - Medical Decision Making 52-year-old female patient past history of multiple abdominal surgeries presented to ED with 5 days of epigastric pain also had a brief episode of chest pain earlier in day. Vital signs are stable in ED. Physical exam displayed mild epigastric tenderness. investigations revealed stable hemoglobin of 13.5. Correlation studies was within normal limits. CMP noncompressive. Lactic acid within normal limits. Cardiac enzymes negative. Amylase lipase within normal limits. UA contaminated will culutre. Occult blood was positive. Pt ekg not concerning for acute ischemia. Pt to be admitted for evaluation of GI bleed. - Lab Data Result diagrams: 06/22/18 15:15 06/22/18 15:15 Lab Results 06/22/18 06/22/18 06/22/18 Range/Units 15:15 15:15 15:15 WBC (3.8-10.6) k/uL RBC (3.80-5.40) m/uL Hgb (11.4-16.0) gm/dL Hct (34.0-46.0) % MCV (80.0-100.0) fL MCH (25.0-35.0) pg MCHC (31.0-37.0) g/dL RDW (11.5-15.5) % Plt Count (150-450) k/uL Neutrophils % % Lymphocytes % % Monocytes % % Eosinophils % % Basophils % % Neutrophils # (1.3-7.7) k/uL Lymphocytes # (1.0-4.8) k/uL Monocytes # (0-1.0) k/uL Eosinophils # (0-0.7) k/uL Basophils # (0-0.2) k/uL PT (9.0-12.0) sec INR (<1.2) APTT (22.0-30.0) sec Sodium 136 L (137-145) mmol/L Potassium 4.7 (3.5-5.1) mmol/L Chloride 104 (98-107) mmol/L Carbon Dioxide 21 L (22-30) mmol/L Anion Gap 11 mmol/L BUN 18 H (7-17) mg/dL Creatinine 0.67 (0.52-1.04) mg/dL Est GFR (CKD-EPI)AfAm >90 (>60 ml/min/1.73 sqM) Est GFR (CKD-EPI)NonAf >90 (>60 ml/min/1.73 sqM) Glucose 114 H (74-99) mg/dL Plasma Lactic Acid Dirk (0.7-2.0) mmol/L Calcium 9.8 (8.4-10.2) mg/dL Total Bilirubin 0.5 (0.2-1.3) mg/dL AST 31 (14-36) U/L ALT 38 (9-52) U/L Alkaline Phosphatase 134 H (38-126) U/L Total Creatine Kinase 41 (30-135) U/L CK-MB (CK-2) 0.5 (0.0-2.4) ng/mL CK-MB (CK-2) Rel Index 1.2 Troponin I <0.012 (0.000-0.034) ng/mL Total Protein 7.7 (6.3-8.2) g/dL Albumin 4.6 (3.5-5.0) g/dL Amylase 37 (30-110) U/L Lipase 49 (23-300) U/L Urine Color Urine Appearance (Clear) Urine pH (5.0-8.0) Ur Specific [place] (1.001-1.035) Urine Protein (Negative) Urine Glucose (UA) (Negative) Urine Ketones (Negative) Urine Blood (Negative) Urine Nitrite (Negative) Urine Bilirubin (Negative) Urine Urobilinogen (<2.0) mg/dL Ur Leukocyte Esterase (Negative) Urine RBC (0-5) /hpf Urine WBC (0-5) /hpf Ur Squamous Epith Cells (0-4) /hpf Urine Bacteria (None) /hpf Urine Mucus (None) /hpf Stool Occult Blood Positive H (Negative) 06/22/18 06/22/18 06/22/18 Range/Units 15:15 15:15 15:15 WBC 9.7 (3.8-10.6) k/uL RBC 4.12 (3.80-5.40) m/uL Hgb 13.5 (11.4-16.0) gm/dL Hct 41.3 (34.0-46.0) % MCV 100.2 H (80.0-100.0) fL MCH 32.7 (25.0-35.0) pg MCHC 32.6 (31.0-37.0) g/dL RDW 12.5 (11.5-15.5) % Plt Count 239 (150-450) k/uL Neutrophils % 70 % Lymphocytes % 21 % Monocytes % 6 % Eosinophils % 1 % Basophils % 0 % Neutrophils # 6.8 (1.3-7.7) k/uL Lymphocytes # 2.1 (1.0-4.8) k/uL Monocytes # 0.6 (0-1.0) k/uL Eosinophils # 0.1 (0-0.7) k/uL Basophils # 0.0 (0-0.2) k/uL PT 10.1 (9.0-12.0) sec INR 0.9 (<1.2) APTT 25.7 (22.0-30.0) sec Sodium (137-145) mmol/L Potassium (3.5-5.1) mmol/L Chloride (98-107) mmol/L Carbon Dioxide (22-30) mmol/L Anion Gap mmol/L BUN (7-17) mg/dL Creatinine (0.52-1.04) mg/dL Est GFR (CKD-EPI)AfAm (>60 ml/min/1.73 sqM) Est GFR (CKD-EPI)NonAf (>60 ml/min/1.73 sqM) Glucose (74-99) mg/dL Plasma Lactic Acid Dirk 1.0 (0.7-2.0) mmol/L Calcium (8.4-10.2) mg/dL Total Bilirubin (0.2-1.3) mg/dL AST (14-36) U/L ALT (9-52) U/L Alkaline Phosphatase (38-126) U/L Total Creatine Kinase (30-135) U/L CK-MB (CK-2) (0.0-2.4) ng/mL CK-MB (CK-2) Rel Index Troponin I (0.000-0.034) ng/mL Total Protein (6.3-8.2) g/dL Albumin (3.5-5.0) g/dL Amylase (30-110) U/L Lipase (23-300) U/L Urine Color Urine Appearance (Clear) Urine pH (5.0-8.0) Ur Specific [place] (1.001-1.035) Urine Protein (Negative) Urine Glucose (UA) (Negative) Urine Ketones (Negative) Urine Blood (Negative) Urine Nitrite (Negative) Urine Bilirubin (Negative) Urine Urobilinogen (<2.0) mg/dL Ur Leukocyte Esterase (Negative) Urine RBC (0-5) /hpf Urine WBC (0-5) /hpf Ur Squamous Epith Cells (0-4) /hpf Urine Bacteria (None) /hpf Urine Mucus (None) /hpf Stool Occult Blood (Negative) 06/22/18 Range/Units 15:15 WBC (3.8-10.6) k/uL RBC (3.80-5.40) m/uL Hgb (11.4-16.0) gm/dL Hct (34.0-46.0) % MCV (80.0-100.0) fL MCH (25.0-35.0) pg MCHC (31.0-37.0) g/dL RDW (11.5-15.5) % Plt Count (150-450) k/uL Neutrophils % % Lymphocytes % % Monocytes % % Eosinophils % % Basophils % % Neutrophils # (1.3-7.7) k/uL Lymphocytes # (1.0-4.8) k/uL Monocytes # (0-1.0) k/uL Eosinophils # (0-0.7) k/uL Basophils # (0-0.2) k/uL PT (9.0-12.0) sec INR (<1.2) APTT (22.0-30.0) sec Sodium (137-145) mmol/L Potassium (3.5-5.1) mmol/L Chloride (98-107) mmol/L Carbon Dioxide (22-30) mmol/L Anion Gap mmol/L BUN (7-17) mg/dL Creatinine (0.52-1.04) mg/dL Est GFR (CKD-EPI)AfAm (>60 ml/min/1.73 sqM) Est GFR (CKD-EPI)NonAf (>60 ml/min/1.73 sqM) Glucose (74-99) mg/dL Plasma Lactic Acid Dirk (0.7-2.0) mmol/L Calcium (8.4-10.2) mg/dL Total Bilirubin (0.2-1.3) mg/dL AST (14-36) U/L ALT (9-52) U/L Alkaline Phosphatase (38-126) U/L Total Creatine Kinase (30-135) U/L CK-MB (CK-2) (0.0-2.4) ng/mL CK-MB (CK-2) Rel Index Troponin I (0.000-0.034) ng/mL Total Protein (6.3-8.2) g/dL Albumin (3.5-5.0) g/dL Amylase (30-110) U/L Lipase (23-300) U/L Urine Color Yellow Urine Appearance Clear (Clear) Urine pH 6.0 (5.0-8.0) Ur Specific [place] 1.034 (1.001-1.035) Urine Protein 1+ H (Negative) Urine Glucose (UA) Negative (Negative) Urine Ketones Trace H (Negative) Urine Blood Negative (Negative) Urine Nitrite Negative (Negative) Urine Bilirubin Negative (Negative) Urine Urobilinogen 2.0 (<2.0) mg/dL Ur Leukocyte Esterase Trace H (Negative) Urine RBC 4 (0-5) /hpf Urine WBC 8 H (0-5) /hpf Ur Squamous Epith Cells 7 H (0-4) /hpf Urine Bacteria Rare H (None) /hpf Urine Mucus Occasional H (None) /hpf Stool Occult Blood (Negative) - EKG Data -: EKG Interpreted by Me EKG Comments: Ventricular rate 57, WA interval 146, QRS 82, QT/QTc 408/397. Sinus bradycardia. No concerns for acute ischemia. Disposition Clinical Impression: GI bleed Disposition: ADMITTED IP TO THIS HOSP Condition: Serious Is patient prescribed a controlled substance at d/c from ED?: No Referrals: Peter Lake MD [Primary Care Provider] - 1-2 days Time of Disposition: 18:20
[2018-06-22 15:43] LABS: Appearance,Urine Clear (Clear); Bacteria,Urine Rare /hpf; Basophils % (A) 0 %; Bilirubin,Urine Negative (Negative); Blood,Urine Negative (Negative); Color,Urine Yellow; Eosinophils # (A) 0.1 k/uL (0-0.7); Eosinophils % (A) 1 %; Glucose,Urine (UA) Negative (Negative); HCT 41.3 % (34.0-46.0); HGB 13.5 gm/dL (11.4-16.0); Ketones,Urine Trace (Negative); Leukocyte Esterase,Urine Trace (Negative); Lymphocytes # (A) 2.1 k/uL (1.0-4.8); Lymphocytes % (A) 21 %; MCH 32.7 pg (25.0-35.0); MCHC 32.6 g/dL (31.0-37.0); MCV 100.2 fL (80.0-100.0); Mean Platelet Volume 6.6; Monocytes # (A) 0.6 k/uL (0-1.0); Monocytes % (A) 6 %; Mucus,Urine Occasional /hpf; Neutrophils # (A) 6.8 k/uL (1.3-7.7); Neutrophils % (A) 70 %; Nitrite,Urine Negative (Negative); Platelet Count 239 k/uL (150-450); Protein,Urine 1+ (Negative); RBC 4.12 m/uL (3.80-5.40); RBC,Urine 4 /hpf (0-5); RDW 12.5 % (11.5-15.5); Specific Gravity,Urine 1.034 (1.001-1.035); Squamous Epithelial Cell,Urine 7 /hpf (0-4); WBC 9.7 k/uL (3.8-10.6)
[2018-06-22 15:51] LABS: INR 0.9 (<1.2); Partial Thromboplastin Time 25.7 sec (22.0-30.0); Prothrombin Time 10.1 sec (9.0-12.0)
[2018-06-22 15:56] LABS: ALT 38 U/L (9-52); AST 31 U/L (14-36); Albumin 4.6 g/dL (3.5-5.0); Alkaline Phosphatase 134 U/L (38-126); Amylase 37 U/L (30-110); Anion Gap 11 mmol/L; Blood Urea Nitrogen 18 mg/dL (7-17); Calcium 9.8 mg/dL (8.4-10.2); Carbon Dioxide 21 mmol/L (22-30); Chloride 104 mmol/L (98-107); Glucose 114 mg/dL (74-99); Lipase 49 U/L (23-300); Potassium 4.7 mmol/L (3.5-5.1); Sodium 136 mmol/L (137-145); Total Bilirubin 0.5 mg/dL (0.2-1.3); Total Protein 7.7 g/dL (6.3-8.2)
[2018-06-22 16:00] LABS: Creatine Kinase 41 U/L (30-135)
[2018-06-22 16:13] LABS: Creatine Kinase MB 0.5 ng/mL (0.0-2.4); Troponin I <0.012 ng/mL (0.000-0.034)
--- NOTE | 2018-06-22 17:31 | CT ---
EXAMINATION TYPE: CT abdomen pelvis w con DATE OF EXAM: 06/22/2018 COMPARISON: 11/11/2017 HISTORY: Right sided pain. Nausea. History of colitis. CT DLP: 1024.2 mGycm Automated exposure control for dose reduction was used. TECHNIQUE: Helical acquisition of images was performed from the lung bases through the pelvis. CONTRAST: Performed with Oral Contrast and with IV Contrast, patient injected with 100 mL of Isovue 300. FINDINGS: The lung bases are clear of infiltrate. There is no pleural effusion. Heart size is normal. Liver [place] ws no focal defect. Spleen appears normal. There is gastrojejunostomy. There is no oral contrast in t he body of the stomach and the duodenum. There is oral contrast in the proximal jejunum. There is no adrenal mass. Pancreas shows no evidence of a mass. The bile ducts are not dilated. There is cholecys tectomy noted. There is no adrenal mass. Kidneys show satisfactory contrast opacification. There is no hydronephrosi s. There is no retroperitoneal adenopathy. The ureters are not dilated. Bladder distends smoothly. Th ere is no inguinal hernia. There is no free fluid in the pelvis. There is no evidence of bowel obstru ction. There is 8 mm cortical cyst anterior right kidney. There is 5 mm cortical cyst posterior left kidney. Appendix is not seen. There is no sign of appendicitis. There is posterior fusion surgery in the lumbar spine at L5-S1. There is a minimal 5 mm subluxation a t L4-5. There is no compression fracture. I see no bony destructive process. There is no evidence of pneumoperitoneum. There is no ascites. IMPRESSION: THERE IS SOME NODULAR THICKENING OF THE GASTRIC FUNDUS. THIS COULD RELATE TO GASTROENTERITIS. THIS IS A CHANGE COMPARED TO OLD CT SCAN. PREVIOUS GASTRIC BYPASS SURGERY.
[2018-06-22] MEDS ORDERED: PANTOPRAZOLE 40 MG/10 ML VIAL IVP STA (18:01)
[2018-06-22] MEDS ORDERED: NALOXONE 0.4 MG/ML 1 ML VIAL IV PRN (18:15)
[2018-06-22] MEDS: SODIUM CHLORIDE 0.9% 1,000 ML IV SCH (18:46)
[2018-06-22] MEDS ORDERED: BUTALB/APAP/CAFF 50-325-40MG TAB PO PRN (21:29)
[2018-06-22] MEDS ORDERED: diphenhydrAMINE 25 MG CAP PO PRN (21:29)
[2018-06-22] MEDS ORDERED: MECLIZINE 25 MG TAB PO PRN (21:29)
[2018-06-22] MEDS ORDERED: METOLAZONE 5 MG TAB PO PRN (21:29)
[2018-06-22] MEDS: SUCRALFATE 1 GM TAB PO SCH (22:07)
[2018-06-22] MEDS: busPIRone HCl 10 MG TAB PO SCH (22:07)
[2018-06-22] MEDS: ARIPiprazole 10 MG TAB PO SCH (22:07)
[2018-06-22] MEDS: DULoxetine HCL 60 MG CAPSULE.DR PO SCH (22:07)
[2018-06-22] MEDS: traZODone HCL 50 MG TAB PO SCH (22:08)
[2018-06-23] MEDS: KETAMINE PO SCH ×5 (00:05→21:58)
[2018-06-23 00:09] VITALS: BMI 34.4
[2018-06-23 03:28] LABS: HCT 36.7 % (34.0-46.0); HGB 11.7 gm/dL (11.4-16.0); MCH 32.4 pg (25.0-35.0); MCHC 31.8 g/dL (31.0-37.0); MCV 102.1 fL (80.0-100.0); Macrocytosis Slight; Mean Platelet Volume 6.8; Platelet Count 187 k/uL (150-450); RBC 3.59 m/uL (3.80-5.40); RDW 12.4 % (11.5-15.5); WBC 6.3 k/uL (3.8-10.6)
[2018-06-23 05:30] LABS: Eosinophils # (M) 0.06 k/uL (0-0.7); Lymphocytes # (M) 2.02 k/uL (1.0-4.8); Neutrophils # (M) 3.72 k/uL (1.3-7.7); Neutrophils % (M) 59 %; Nucleated Red Blood Cells 0 /100 WBC (0-0); Total Cells Counted 100
[2018-06-23 05:32] LABS: Reactive Lymphocytes Present
[2018-06-23] MEDS: PANTOPRAZOLE 40 MG/10 ML VIAL IVP SCH ×2 (08:00→21:17)
[2018-06-23] MEDS ORDERED: NON-FORMULARY DRUG (Vitamin B Complex [Vitamin B Complex] 1 CAP) PO SCH (09:00)
[2018-06-23] MEDS: DULoxetine HCL 60 MG CAPSULE.DR PO SCH ×2 (10:00→21:37)
[2018-06-23] MEDS: busPIRone HCl 10 MG TAB PO SCH ×2 (10:01→21:36)
[2018-06-23] MEDS: SUCRALFATE 1 GM TAB PO SCH ×3 (10:02→21:39)
[2018-06-23] MEDS: POTASSIUM CHLORIDE ER 20 MEQ TAB.ER PO SCH ×2 (10:12→21:38)
[2018-06-23] MEDS: MULTIVITAMINS, THERA 1 EACH TAB PO SCH (11:02)
[2018-06-23] MEDS: MORPHINE SULFATE 4 MG/ML SYRINGE IV PRN ×3 (11:57→23:13)
--- NOTE | 2018-06-23 15:15 | HP ---
HISTORY AND PHYSICAL CHIEF COMPLAINT: [id number] white female came in with history of mild abdominal surgeries with hysterectomy, cholecystectomy, bariatric surgery, appendix surgery with 5 days of abdominal pain, positive blood in the stool. Came into the hospital with surgical consult. Had one occurrence of tarry stools on the morning of admission. REVIEW OF SYSTEMS: Fourteen-point review of systems negative except for mentioned in HPI. MEDICATIONS: See list. ALLERGIES: 1. BROCCOLI. 2. KETOROLAC. 3. PENICILLIN. 4. DIET COLA. PAST MEDICAL HISTORY: 1. Asthma. 2. Fibromyalgia. 3. GERD. 4. Sleep apnea. 5. Chronic pain syndrome, for which she gets ketamine down in a pain clinic in [place] somewhere. 6. She has had bariatric surgery. 7. Back surgery. 8. Appendectomy. 9. C-sections. 10.Cholecystectomy. 11.Hernia repair. 12.Hysterectomy. 13.Gastric bypass. 14.Lithotripsy. 15.Two titanium rods. 16.Carpal tunnel release. 17.Panniculectomy. SOCIAL HISTORY: Former smoker. FAMILY HISTORY: Father with cancer of the prostate. Mother with gastric surgery. PHYSICAL EXAMINATION: Temperature 98.2, pulse 70s, respiratory rate 12 to 16, blood pressure 114/78, oxygen 98% on room air. CARDIOVASCULAR: S1, S2. LUNGS: Clear. GI: Soft. Tender to palpation, diffuse. Multiple scars. MUSCULOSKELETAL: Range of motion full x4. HEMATOLOGY: Negative Homans. PSYCH: Fair mood and affect. HEENT: Normocephalic, atraumatic. ASSESSMENT: Possible gastrointestinal bleed, status post multiple abdominal surgeries. Pulmonary consult is good. Surgical consult is pending versus GI. CT scan of the abdomen and pelvis is ordered. EKG shows no ischemia. Await surgical recommendations. MMODL / IJN: [id number] /
--- NOTE | 2018-06-23 15:20 | P.GSCN ---
History of Present Illness Consult date: 06/23/18 Reason for Consult: GI Bleed Requesting physician: John Cummins History of present illness: CHIEF COMPLAINT: epigastric pain HISTORY OF PRESENT ILLNESS: 52-year-old female presented to the emergency room with a chief complaint of epigastric pain 5 days. she reports the pain feels like a burning sensation similar to her previous ulcers. The patient reports nausea but denies emesis. She also reports an episode of black tarry stools. No further black stools. Stool for occult blood positive. Patient underwent colonoscopy by Dr. Washington in October 2017 which was unremarkable. She also underwent an EGD in September 2017 which revealed a healing ulcer at the gastrojejunostomy anastomosis. PAST MEDICAL HISTORY: See list. PAST SURGICAL HISTORY: See list. MEDICATIONS: See list. ALLERGIES: See list. SOCIAL HISTORY: No illicit drug use. REVIEW OF SYSTEMS: CONSTITUTIONAL: Denies fever or chills. HEENT: Denies blurred vision, vision changes, or eye pain. Denies hemoptysis ENDOCRINE: Denies heat or cold intolerance. CARDIOVASCULAR: Denies chest pain or pressure. RESPIRATORY: No shortness of breath. GASTROINTESTINAL: reports epigastric pain. Reports nausea. Denies emesis. Reports episode of black tarry stool. NEURO: Denies history of seizures. PSYCH: No depression or suicidal ideation HEMATOLOGIC: Denies bleeding disorders. LYMPHATIC: The patient denies any lumps and bumps around the neck. GENITOURINARY: Denies any blood in urine or increased urinary frequency. MUSCULOSKELETAL: Denies myalgias. Denies joint swelling. Denies decreased range of motion beyond patients baseline. SKIN: Denies pruitis. Denies rash. PHYSICAL EXAM: VITAL SIGNS: Currently stable. GENERAL: Well-developed in no acute distress. HEENT: No sclera icterus. Extraocular movements grossly intact. Moist buccal mucosa. Head is atraumatic, normocephalic. Hears conversational speech. No nasal drainage. NECK: Supple without lymphadenopathy. CHEST: Non-labored respirations and equal bilateral excursions. CARDIOVASCULAR: Regular rate with regular rhythm. Palpable 2+ radial pulses. ABDOMEN: Soft. Nondistended. Tenderness on palpation of epigastric region MUSCULOSKELETAL: No clubbing, cyanosis or edema. NEUROLOGIC: No focal or lateralizing signs. Cranial nerves II through XII grossly intact. PSYCH: Appropriate affect. Alert and oriented to person, place and time. SKIN: Well perfused. Good skin turgor. IMAGING: Per radiologist's dictation: 1. CT abdomen and pelvis: There is some nodular thickening of the gastric fundus. This could relate to gastroenteritis. This is a change compared to old CAT scan. Previous gastric bypass surgery. ASSESSMENT: 1. Epigastric pain x 5 days, nausea 2. History of healing ulcer at gastrojejunostomy anastomosis per EGD, 2018 PLAN: 1. Clear liquids. Nothing by mouth after midnight on Tuesday night 2. Patient to undergo EGD and colonoscopy on Tuesday per Dr. Washington Nurse practitioner note has been reviewed by physician. Signing provider agrees with the documented findings, assessment, and plan of care. Past Medical History Past Medical History: Asthma, Fibromyalgia, GERD/Reflux, Sleep Apnea/CPAP/BIPAP Additional Past Medical History / Comment(s): migraines, gastric ulcer, varicose veins, chronic fatigue syndrome, hx pernicious anemia, abdominal pain- colitis-IBS, oral yeast infections, hx kidney stones History of Any Multi-Drug Resistant Organisms: None Reported Past Surgical History: Appendectomy, Back Surgery, Bariatric Surgery, Section, Cholecystectomy, Hernia Repair, Hysterectomy Additional Past Surgical History / Comment(s): x2, metal removed from rt eye 15 years ago,-lithotripsy, gastric bypass 2002 , 2 titanium rods in lower back, Carpal tunnel release bilaterally, PANNICULECTOMY Past Anesthesia/Blood Transfusion Reactions: Family History of Problems w/ Anesthesia Additional Past Anesthesia/Blood Transfusion Reaction / Comm: family members w/ severe headaches w/anesthesia Past Psychological History: Anxiety, Depression Smoking Status: Former smoker Past Alcohol Use History: Occasional Additional Past Alcohol Use History / Comment(s): quit smoking 04/2016, smoked for 13 yrs, < 1 PPD Past Drug Use History: None Reported - Past Family History Father Family Medical History: Cancer Additional Family Medical History / Comment(s): PROSTATE CANCER Mother Additional Family Medical History / Comment(s): OBESITY-HAD GASTRIC BYPASS SX Medications and Allergies Home Medications Medication Instructions Recorded Confirmed Type DULoxetine HCL [Cymbalta] 60 mg PO BID 03/19/15 06/22/18 History busPIRone HCL [Buspar] 30 mg PO BID 02/21/17 06/22/18 History Ondansetron HCl [Zofran] 4 mg PO BID PRN 08/02/17 06/22/18 History Potassium Chloride ER [K-Dur 20] 20 meq PO BID tab.er.prt 09/29/17 06/22/18 Rx Furosemide [Lasix] 60 mg PO DAILY 10/09/17 06/22/18 History Meclizine [Antivert] 25 mg PO Q8H PRN 10/09/17 06/22/18 History Metolazone [Zaroxolyn] 5 mg PO DAILY PRN 10/09/17 06/22/18 History Pantoprazole Sodium [Protonix] 40 mg PO BID 10/09/17 06/22/18 History rOPINIRole HCL [Requip] 1 mg PO HS 10/09/17 06/22/18 History Multivitamins, Thera [Multivitamin 1 tab PO DAILY 11/11/17 06/22/18 History (formulary)] Vitamin B Complex 1 cap PO DAILY 11/11/17 06/22/18 History ARIPiprazole [Abilify] 10 mg PO HS 12/28/17 06/22/18 History Butalb/APAP/Caff 50-325-40Mg 1 tab PO Q4H PRN 12/28/17 06/22/18 History [Fioricet 50-325-40] Ketamine Bulk 45 mg PO 5XD 12/28/17 06/22/18 History diphenhydrAMINE [Benadryl] 25 mg PO HS PRN 12/28/17 06/22/18 History Acetaminophen [Tylenol Extra 1,000 mg PO TID PRN 06/22/18 06/22/18 History Strength] Calcium Carb/Vitamin D3/Vit K1 1 tab PO TID 06/22/18 06/22/18 History [Citracal Soft Chew] Dicyclomine HCl 20 mg PO TID 06/22/18 06/22/18 History Magnesium Oxide [Lorenzo] 500 mg PO DAILY 06/22/18 06/22/18 History Sucralfate [Carafate] 1 gm PO TID 06/22/18 06/22/18 History traZODone HCL [Desyrel] 25 mg PO HS 06/22/18 06/22/18 History Allergies Allergy/AdvReac Type Severity Reaction Status Date / Time broccoli Allergy Severe Anaphylaxis Verified 06/22/18 16:07 with raw broccoli ketorolac [From Toradol] Allergy Unknown Verified 06/22/18 16:07 Penicillins AdvReac Unknown Anaphylaxis Verified 06/22/18 16:07 adhesive tape AdvReac Itching Verified 06/22/18 16:07 diet cola Allergy GI irritant Uncoded 06/22/18 14:37 Surgical - Exam Vital Signs Temp Pulse Resp BP Pulse Ox 98.2 F 72 16 118/78 98 06/22/18 14:36 06/22/18 14:36 06/22/18 14:36 06/22/18 14:36 06/22/18 14:36 Results - Labs 06/23/18 03:07 06/22/18 15:15 Abnormal Lab Results - Last 24 Hours (Table) 06/22/18 06/22/18 06/22/18 Range/Units 15:15 15:15 15:15 RBC (3.80-5.40) m/uL MCV 100.2 H (80.0-100.0) fL Sodium 136 L (137-145) mmol/L Carbon Dioxide 21 L (22-30) mmol/L BUN 18 H (7-17) mg/dL Glucose 114 H (74-99) mg/dL Alkaline Phosphatase 134 H (38-126) U/L Urine Protein (Negative) Urine Ketones (Negative) Ur Leukocyte Esterase (Negative) Urine WBC (0-5) /hpf Ur Squamous Epith Cells (0-4) /hpf Urine Bacteria (None) /hpf Urine Mucus (None) /hpf Stool Occult Blood Positive H (Negative) 06/22/18 06/23/18 Range/Units 15:15 03:07 RBC 3.59 L (3.80-5.40) m/uL MCV 102.1 H (80.0-100.0) fL Sodium (137-145) mmol/L Carbon Dioxide (22-30) mmol/L BUN (7-17) mg/dL Glucose (74-99) mg/dL Alkaline Phosphatase (38-126) U/L Urine Protein 1+ H (Negative) Urine Ketones Trace H (Negative) Ur Leukocyte Esterase Trace H (Negative) Urine WBC 8 H (0-5) /hpf Ur Squamous Epith Cells 7 H (0-4) /hpf Urine Bacteria Rare H (None) /hpf Urine Mucus Occasional H (None) /hpf Stool Occult Blood (Negative) Microbiology - Last 24 Hours (Table) 06/22/18 15:15 Urine Culture - Preliminary Urine,Voided Diabetes panel 06/22/18 Range/Units 15:15 Sodium 136 L (137-145) mmol/L Potassium 4.7 (3.5-5.1) mmol/L Chloride 104 (98-107) mmol/L Carbon Dioxide 21 L (22-30) mmol/L BUN 18 H (7-17) mg/dL Creatinine 0.67 (0.52-1.04) mg/dL Glucose 114 H (74-99) mg/dL Calcium 9.8 (8.4-10.2) mg/dL AST 31 (14-36) U/L ALT 38 (9-52) U/L Alkaline Phosphatase 134 H (38-126) U/L Total Protein 7.7 (6.3-8.2) g/dL Albumin 4.6 (3.5-5.0) g/dL Calcium panel 06/22/18 Range/Units 15:15 Calcium 9.8 (8.4-10.2) mg/dL Albumin 4.6 (3.5-5.0) g/dL Pituitary panel 06/22/18 Range/Units 15:15 Sodium 136 L (137-145) mmol/L Potassium 4.7 (3.5-5.1) mmol/L Chloride 104 (98-107) mmol/L Carbon Dioxide 21 L (22-30) mmol/L BUN 18 H (7-17) mg/dL Creatinine 0.67 (0.52-1.04) mg/dL Glucose 114 H (74-99) mg/dL Calcium 9.8 (8.4-10.2) mg/dL Adrenal panel 06/22/18 Range/Units 15:15 Sodium 136 L (137-145) mmol/L Potassium 4.7 (3.5-5.1) mmol/L Chloride 104 (98-107) mmol/L Carbon Dioxide 21 L (22-30) mmol/L BUN 18 H (7-17) mg/dL Creatinine 0.67 (0.52-1.04) mg/dL Glucose 114 H (74-99) mg/dL Calcium 9.8 (8.4-10.2) mg/dL Total Bilirubin 0.5 (0.2-1.3) mg/dL AST 31 (14-36) U/L ALT 38 (9-52) U/L Alkaline Phosphatase 134 H (38-126) U/L Total Protein 7.7 (6.3-8.2) g/dL Albumin 4.6 (3.5-5.0) g/dL
[2018-06-23] MEDS: SODIUM CHLORIDE 0.9% 1,000 ML IV SCH (18:56)
[2018-06-23] MEDS: ARIPiprazole 10 MG TAB PO SCH (21:36)
[2018-06-23] MEDS: traZODone HCL 50 MG TAB PO SCH (21:38)
[2018-06-24] MEDS: KETAMINE PO SCH ×5 (01:22→20:18)
[2018-06-24] MEDS: MORPHINE SULFATE 4 MG/ML SYRINGE IV PRN ×3 (05:29→17:09)
[2018-06-24] MEDS: DULoxetine HCL 60 MG CAPSULE.DR PO SCH ×2 (08:38→20:18)
[2018-06-24] MEDS: POTASSIUM CHLORIDE ER 20 MEQ TAB.ER PO SCH ×2 (08:38→20:19)
[2018-06-24] MEDS: PANTOPRAZOLE 40 MG/10 ML VIAL IVP SCH ×2 (08:38→20:18)
[2018-06-24] MEDS: busPIRone HCl 10 MG TAB PO SCH ×2 (08:38→20:19)
[2018-06-24] MEDS: MULTIVITAMINS, THERA 1 EACH TAB PO SCH (08:38)
[2018-06-24] MEDS: SUCRALFATE 1 GM TAB PO SCH ×4 (08:38→20:19)
[2018-06-24 11:35] LABS: Basophils % (A) 0 %; Eosinophils # (A) 0.1 k/uL (0-0.7); Eosinophils % (A) 1 %; HGB 11.9 gm/dL (11.4-16.0); Lymphocytes # (A) 1.5 k/uL (1.0-4.8); Lymphocytes % (A) 20 %; MCH 32.6 pg (25.0-35.0); MCHC 32.2 g/dL (31.0-37.0); Mean Platelet Volume 7.6; Monocytes # (A) 0.5 k/uL (0-1.0); Monocytes % (A) 7 %; Neutrophils # (A) 5.4 k/uL (1.3-7.7); Neutrophils % (A) 71 %; Platelet Count 193 k/uL (150-450); RBC 3.66 m/uL (3.80-5.40); RDW 12.4 % (11.5-15.5); WBC 7.7 k/uL (3.8-10.6)
[2018-06-24 11:46] LABS: ALT 42 U/L (9-52); AST 34 U/L (14-36); Albumin 3.8 g/dL (3.5-5.0); Alkaline Phosphatase 122 U/L (38-126); Anion Gap 6 mmol/L; Blood Urea Nitrogen 10 mg/dL (7-17); Calcium 9.3 mg/dL (8.4-10.2); Carbon Dioxide 28 mmol/L (22-30); Chloride 104 mmol/L (98-107); Glucose 89 mg/dL (74-99); Potassium 4.6 mmol/L (3.5-5.1); Sodium 138 mmol/L (137-145); Total Bilirubin 0.3 mg/dL (0.2-1.3); Total Protein 6.4 g/dL (6.3-8.2)
[2018-06-24] MEDS ORDERED: DICYCLOMINE 20 MG TAB PO PRN (11:46)
[2018-06-24] MEDS: DICYCLOMINE 20 MG TAB PO SCH ×2 (12:51→17:09)
[2018-06-24] MEDS ORDERED: DICYCLOMINE 20 MG TAB PO SCH ×2 (13:00→16:00)
[2018-06-24] MEDS ORDERED: SUCRALFATE 1 GM TAB PO SCH (13:00)
--- NOTE | 2018-06-24 15:40 | P.PN ---
Subjective Progress Note Date: 06/24/18 CHIEF COMPLAINT: GI bleed HISTORY OF PRESENT ILLNESS: The patient is a 52-year-old female presents with recurrent GI bleed. Patient reports more tarry stools. She has history of chronic GI bleeds and marginal ulcers in the past from gastric bypass. Her parents are at bedside. Patient reports moderate weight gain and now symptoms of right upper and right lower quadrant abdominal pain from possible colitis. No reports of left upper quadrant abdominal pain. PHYSICAL EXAM: VITAL SIGNS: Reviewed GENERAL: Well-developed in no acute distress. HEENT: No sclera icterus. Extraocular movements grossly intact. Moist buccal mucosa. Head is atraumatic, normocephalic. Hears conversational speech. NECK: Supple without lymphadenopathy. CHEST: Non-labored respirations and equal bilateral excursions. CARDIOVASCULAR: Palpable 2+ radial pulses. Regular rate and regular rhythm ABDOMEN: Soft. No peritonitis. Tender along right upper and lower quadrant. MUSCULOSKELETAL: No clubbing, cyanosis. No edema. NEUROLOGIC: No focal or lateralizing signs. Cranial nerves II through XII grossly intact. PSYCH: Appropriate affect. Alert and oriented to person, place and time. SKIN: Well perfused. Good skin turgor. LABS: Reviewed STUDIES: Reviewed ASSESSMENT: 1. Gastrointestional bleed 2. History of gastric bypass 3. History of colitis PLAN: 1. Patient is scheduled for both upper and lower scopes. 2. At this time, hemoglobin is stable. 3. No reports of moderate abdominal pain at this time. Objective - Vital Signs Vital signs: Vital Signs Temp 98.0 F 06/24/18 13:33 Pulse 76 06/24/18 13:33 Resp 16 06/24/18 13:33 BP 131/84 06/24/18 13:33 Pulse Ox 98 06/24/18 13:33 Intake & Output 06/23/18 06/24/18 06/24/18 18:59 06:59 18:59 Intake Total 960 1400 Balance 960 1400 Intake: Oral 960 1400 Other: Voiding Method Toilet # Voids 2 1 3 - Labs CBC & Chem 7: 06/24/18 11:01 06/24/18 11:01 Labs: Abnormal Lab Results - Last 24 Hours (Table) 06/24/18 Range/Units 11:01 RBC 3.66 L (3.80-5.40) m/uL MCV 101.0 H (80.0-100.0) fL Microbiology - Last 24 Hours (Table) 06/22/18 15:15 Urine Culture - Preliminary Urine,Voided Gram Neg Bacilli 06/22/18 17:35 Blood Culture - Preliminary Blood No Growth after 24 hours - Imaging and Cardiology CT scan - abdomen: report reviewed, image reviewed CT scan - pelvis: report reviewed, image reviewed (No perforation or pneumoperitoneum ) Assessment and Plan (1) GI bleed Current Visit: Yes Status: Acute Code(s): K92.2 - GASTROINTESTINAL HEMORRHAGE, UNSPECIFIED SNOMED Code(s): 58932337 (2) Acute blood loss anemia Current Visit: No Status: Acute Code(s): D62 - ACUTE POSTHEMORRHAGIC ANEMIA SNOMED Code(s): 084521457 (3) Colitis Current Visit: No Status: Acute Code(s): K52.9 - NONINFECTIVE GASTROENTERITIS AND COLITIS, UNSPECIFIED SNOMED Code(s): 41822423 (4) History of Kaya-en-Y gastric bypass Current Visit: No Status: Acute Code(s): Z98.84 - BARIATRIC SURGERY STATUS SNOMED Code(s): 801237435
[2018-06-24] MEDS: SODIUM CHLORIDE 0.9% 1,000 ML IV SCH (17:14)
--- NOTE | 2018-06-24 19:40 | PN ---
PROGRESS NOTE DATE OF SERVICE: June 24, 2018. She does not have any shortness of breath. She continues to have melena. On physical examination, respiratory rate is 16, pulse rate is 76, temperature 98, blood pressure 131/84, O2 saturation on room air is 98%. HEENT is unremarkable. Chest is clear. Cardiovascular system is S1, S2. Abdomen is soft. There is no edema. She has pallor. White count of 7.7, hemoglobin of 11.9, MCV of 101. IMPRESSION: 1. Acute gastrointestinal bleed. 2. Status post multiple abdominal surgeries. Would continue to check her hemoglobin. Continue her on her current medications which were reviewed. Surgery is following and the patient is scheduled for upper and lower GI scopes per surgery. Her prognosis at this time is fair. MMODL / IJN: [id number] /
[2018-06-24] MEDS: ARIPiprazole 10 MG TAB PO SCH (20:18)
[2018-06-24] MEDS: traZODone HCL 50 MG TAB PO SCH (20:19)
[2018-06-25] MEDS: KETAMINE PO SCH ×5 (00:09→22:41)
[2018-06-25] MEDS: MORPHINE SULFATE 4 MG/ML SYRINGE IV PRN ×4 (00:09→17:19)
[2018-06-25] MEDS: DULoxetine HCL 60 MG CAPSULE.DR PO SCH ×2 (07:59→22:12)
[2018-06-25] MEDS: POTASSIUM CHLORIDE ER 20 MEQ TAB.ER PO SCH ×2 (07:59→22:12)
[2018-06-25] MEDS: DICYCLOMINE 20 MG TAB PO SCH ×3 (07:59→17:19)
[2018-06-25] MEDS: SUCRALFATE 1 GM TAB PO SCH ×4 (07:59→22:12)
[2018-06-25] MEDS: MULTIVITAMINS, THERA 1 EACH TAB PO SCH (07:59)
[2018-06-25] MEDS: PANTOPRAZOLE 40 MG/10 ML VIAL IVP SCH ×2 (07:59→22:11)
[2018-06-25] MEDS: busPIRone HCl 10 MG TAB PO SCH ×2 (07:59→22:12)
[2018-06-25] MEDS: LEVOFLOXACIN 500MG-D5W PMX 500 MG in DEXTROSE/WATER 1 100ML.BAG IVPB SCH (08:00)
[2018-06-25] MEDS ORDERED: PEG 3350-NA SULF,BICARB,CL/KCL 4,000 ML BOTTLE PO ONE (14:00)
--- NOTE | 2018-06-25 14:58 | P.PN ---
Subjective Progress Note Date: 06/25/18 CHIEF COMPLAINT: GI bleed HISTORY OF PRESENT ILLNESS: The patient is a 52-year-old female presents with recurrent GI bleed. She reports tarry stools is resolved. She is tolerating liquids. She is pending her GI prep for upper and lower endoscopy tomorrow. She reports abdominal pain has improved. She is currently being treated for urinary tract infection with start of antibiotics. Hemoglobin continues to be stable. PHYSICAL EXAM: VITAL SIGNS: Reviewed GENERAL: Well-developed in no acute distress. HEENT: No sclera icterus. Extraocular movements grossly intact. Moist buccal mucosa. Head is atraumatic, normocephalic. Hears conversational speech. NECK: Supple without lymphadenopathy. CHEST: Non-labored respirations and equal bilateral excursions. CARDIOVASCULAR: Palpable 2+ radial pulses. Regular rate and regular rhythm ABDOMEN: Soft. Nondistended. Nontender MUSCULOSKELETAL: No clubbing, cyanosis. No edema. NEUROLOGIC: No focal or lateralizing signs. Cranial nerves II through XII grossly intact. PSYCH: Appropriate affect. Alert and oriented to person, place and time. SKIN: Well perfused. Good skin turgor. LABS: Reviewed ASSESSMENT: 1. Gastrointestional bleed 2. History of gastric bypass 3. History of colitis PLAN: 1. Continue liquid diet. 2. Patient scheduled for upper lower endoscopy tomorrow. Bowel prep ordered. Objective - Vital Signs Vital signs: Vital Signs Temp 98.1 F 06/25/18 05:45 Pulse 82 06/25/18 05:45 Resp 16 06/25/18 08:00 BP 118/72 06/25/18 05:45 Pulse Ox 95 06/25/18 05:45 Intake & Output 06/24/18 06/25/18 06/25/18 18:59 06:59 18:59 Intake Total 1400 580 Balance 1400 580 Intake: Oral 1400 580 Other: # Voids 3 1 1 - Labs CBC & Chem 7: 06/24/18 11:01 06/24/18 11:01 Labs: Microbiology - Last 24 Hours (Table) 06/22/18 15:15 Urine Culture - Final Urine,Voided Escherichia coli 06/22/18 17:35 Blood Culture - Preliminary Blood No Growth after 48 hours Assessment and Plan (1) GI bleed Current Visit: Yes Status: Acute Code(s): K92.2 - GASTROINTESTINAL HEMORRHAGE, UNSPECIFIED SNOMED Code(s): 46297412 (2) Acute blood loss anemia Current Visit: No Status: Acute Code(s): D62 - ACUTE POSTHEMORRHAGIC ANEMIA SNOMED Code(s): 525683067 (3) Colitis Current Visit: No Status: Acute Code(s): K52.9 - NONINFECTIVE GASTROENTERITIS AND COLITIS, UNSPECIFIED SNOMED Code(s): 21804482 (4) History of Kaya-en-Y gastric bypass Current Visit: No Status: Acute Code(s): Z98.84 - BARIATRIC SURGERY STATUS SNOMED Code(s): 416218216 (5) Urinary tract infection Current Visit: Yes Status: Acute Code(s): N39.0 - URINARY TRACT INFECTION, SITE NOT SPECIFIED SNOMED Code(s): 92925960
[2018-06-25] MEDS: SODIUM CHLORIDE 0.9% 1,000 ML IV SCH (17:23)
--- NOTE | 2018-06-25 18:50 | PN ---
PROGRESS NOTE DATE OF SERVICE: 06/25/2018. She has been hemodynamically stable. She has some melena, but less than before. Her urine is growing E coli. PHYSICAL EXAMINATION: Blood pressure is 101/67, respiratory rate of 16, pulse rate 87, temperature 98.3, O2 saturation on room air is 98%. HEENT reveals pallor. Chest is clear. Cardiovascular system is S1, S2. Abdomen is soft. There is no pedal edema. Hemoglobin was 11.9, white count of 7.7. IMPRESSION: At this time: 1. Acute gastrointestinal bleed. 2. Urinary tract infection. At this point in time, surgery is planning endoscopy tomorrow with colonoscopy and EGD. Depending on what this shows, we should make further changes. Continue Levaquin at this time and depending on how she does, we shall make further changes to her care. REENA / MICHELLE: [id number] /
[2018-06-25] MEDS: traZODone HCL 50 MG TAB PO SCH (22:11)
[2018-06-25] MEDS: ARIPiprazole 10 MG TAB PO SCH (22:41)
[2018-06-26] MEDS: KETAMINE PO SCH ×4 (00:14→16:07)
[2018-06-26] MEDS: MORPHINE SULFATE 4 MG/ML SYRINGE IV PRN ×2 (00:17→11:19)
[2018-06-26 01:05] VITALS: RESP 18
--- NOTE | 2018-06-26 06:02 | CONS ---
CONSULTATION DATE OF SERVICE: 06/25/2018 REASON FOR CONSULTATION: Urinary tract infection. HISTORY OF PRESENT ILLNESS: The patient is a 52-year-old female presenting to the ER at [facility] on 06/22/2018 with chief complaints of black tarry stool. The patient before she presented to the hospital. However, prior to that the patient had been complaining of pain in the epigastric area which is mostly burning in nature, intensity about 5 to 6 out of 10. Has been nauseated but no vomiting. Patient denies high-grade fever. Did not recall any exposure to antibiotic recently and did not have any significant diarrhea with these symptoms, however, the patient was evaluated by the ER physician. On arrival to the ER, the patient did have CT of abdomen and pelvis, which did show some nodular thickening of the gastric fundus. This could relate to gastritis. This is change compared to old CT scan. Patient did not have any fever on presentation and even after admission to the hospital. The patient's white count has been normal. UA was slightly positive with trace leukocyte esterase with 8 WBCs and rare bacteria with urine culture finalized with an E coli a sensitive pathogen more than 100,000 colonies. Blood culture has been negative. The patient has been treated with Levaquin. Infectious Disease was consulted for further recommendation regarding antibiotic therapy. REVIEW OF SYSTEMS: Positive points has been mentioned in HPI. The rest of the systems has been negative. PAST MEDICAL HISTORY: Asthma, fibromyalgia, gastroesophageal reflux disease, sleep apnea, migraine, headache, gastric ulcer, chronic fatigue syndrome, kidney stone. PAST SURGICAL HISTORY: Appendectomy, back surgery, bariatric surgery, , cholecystectomy, hernia repair, hysterectomy. SOCIAL HISTORY: Remote history of smoking. No drinking or drug use. FAMILY HISTORY: Father history of prostate cancer, mother had history of obesity and gastric bypass. ALLERGIES: PENICILLIN, ADHESIVE TAPE, KETOROLAC. MEDICATIONS: Medications includes the patient is currently on sucralfate, Requip, K-Dur, Protonix, Narcan, Theragran, morphine sulfate, Zaroxolyn, Levaquin, Cymbalta, Benadryl, Bentyl, BuSpar, Abilify. PHYSICAL EXAMINATION: On examination, blood pressure is 101/67 with a pulse of 87, temperature 98.3. She is 98% on room air. General description is a middle-aged female up in the bed in no distress. No tachypnea or accessory muscle of respiration use. HEENT examination shows no pallor or scleral icterus. Oral mucous membrane is dry. No pharyngeal erythema or thrush. NECK: Trachea central. No thyromegaly. LUNGS: Unlabored breathing, clear to auscultation anteriorly. No wheeze or crackles. HEART: S1, S2. Regular rate and rhythm. ABDOMEN: Soft, no tenderness. No guarding or rigidity. EXTREMITIES: No edema of feet. SKIN EXAMINATION: No rash or mass palpable. NEUROLOGICALLY: The patient is awake, alert, oriented x3. Mood and affect normal. LABS: Hemoglobin is 11.9, white count 7.7. BUN of 10, creatinine 0.69. Electrolytes have been normal. Liver enzymes are normal. UA was mildly positive. Stool for occult blood was positive. DIAGNOSTIC IMPRESSION AND PLAN: 1. Patient with mildly positive UA and a positive urine culture with . Clinically doubt infection such as pyelonephritis sepsis. 2. Patient know to have PENICILLIN ALLERGY that limit the number of antibiotics that can be safely used. PLAN: 1. Levaquin 500 IV daily that can be transitioned to p.o. once her GI workup is completed for short course of 3 to 5 days. 2. Gentle IV fluid. 3. We will follow clinical condition and further adjust medication if needed. Thank you for this consultation. Will follow this patient along with you. MMODL / IJN: [id number] /
[2018-06-26] MEDS ORDERED: IV FLUID CONTINUATION 500 ML IV ONE (07:39)
--- NOTE | 2018-06-26 08:06 | P.OP ---
Date of Procedure: 06/26/18 Preoperative Diagnosis: GI bleed Postoperative Diagnosis: GI bleed secondary to marginal ulcer Normal colonoscopy Procedure(s) Performed: EGD Colonoscopy Anesthesia: MAC Surgeon: López Washington Pathology: other (Marginal ulcer) Condition: stable Disposition: PACU Description of Procedure: PROCEDURE: The patient was placed on the endoscopy table in the lateral position. Digital rectal examination was performed which revealed no abnormalities. The prostate was symmetrical without nodules. Flexible colonoscope was then placed in the patient's anus and passed throughout the entire colon. The ileocecal valve was visualized. The cecum, ascending, transverse, descending and sigmoid colon were normal. The rectum was normal as well. Next, the gastroscope placed oropharynx and passed in the esophagus and into the stomach. Patient previous gastric bypass. Just above the gastrojejunostomy there was a marginal ulcer. There is known to bleeding. There was a fibrotic exudative base. A biopsies performed. The scope was then placed into the jejunum. There is no evidence of obstruction. Scope was withdrawn. The ulcer was visualized and photographed. The GE junction was at 40 cm. The distal esophagus. Normal. The proximal esophagus. Normal. Scope withdrawn for patient. It was presumed that the patient's melanotic stool was due to the marginal ulcer.
[2018-06-26] MEDS: LEVOFLOXACIN 500MG-D5W PMX 500 MG in DEXTROSE/WATER 1 100ML.BAG IVPB SCH (09:16)
[2018-06-26] MEDS: busPIRone HCl 10 MG TAB PO SCH (09:17)
[2018-06-26] MEDS: SUCRALFATE 1 GM TAB PO SCH ×2 (09:17→11:53)
[2018-06-26] MEDS: MULTIVITAMINS, THERA 1 EACH TAB PO SCH (09:17)
[2018-06-26] MEDS: POTASSIUM CHLORIDE ER 20 MEQ TAB.ER PO SCH (09:17)
[2018-06-26] MEDS: PANTOPRAZOLE 40 MG/10 ML VIAL IVP SCH (09:18)
[2018-06-26] MEDS: DICYCLOMINE 20 MG TAB PO SCH ×2 (09:18→11:53)
[2018-06-26] MEDS: DULoxetine HCL 60 MG CAPSULE.DR PO SCH (09:18)
[2018-06-26 10:57] LABS: Basophils % (A) 0 %; Eosinophils # (A) 0.1 k/uL (0-0.7); Eosinophils % (A) 2 %; HCT 36.4 % (34.0-46.0); HGB 11.5 gm/dL (11.4-16.0); Lymphocytes # (A) 1.1 k/uL (1.0-4.8); Lymphocytes % (A) 23 %; MCH 32.3 pg (25.0-35.0); MCHC 31.5 g/dL (31.0-37.0); MCV 102.6 fL (80.0-100.0); Macrocytosis Slight; Mean Platelet Volume 7.7; Monocytes # (A) 0.3 k/uL (0-1.0); Monocytes % (A) 6 %; Neutrophils # (A) 3.4 k/uL (1.3-7.7); Neutrophils % (A) 68 %; Platelet Count 214 k/uL (150-450); RBC 3.55 m/uL (3.80-5.40); RDW 12.4 % (11.5-15.5); WBC 5.1 k/uL (3.8-10.6)
[2018-06-26 11:42] LABS: ALT 36 U/L (9-52); AST 32 U/L (14-36); Albumin 3.6 g/dL (3.5-5.0); Alkaline Phosphatase 108 U/L (38-126); Anion Gap 8 mmol/L; Blood Urea Nitrogen 8 mg/dL (7-17); Calcium 9.3 mg/dL (8.4-10.2); Carbon Dioxide 25 mmol/L (22-30); Chloride 110 mmol/L (98-107); Glucose 77 mg/dL (74-99); Potassium 4.5 mmol/L (3.5-5.1); Sodium 143 mmol/L (137-145); Total Bilirubin 0.2 mg/dL (0.2-1.3); Total Protein 6.3 g/dL (6.3-8.2)
--- NOTE | 2018-06-26 12:05 | P.PN ---
Subjective Progress Note Date: 06/26/18 CHIEF COMPLAINT: epigastric pain HISTORY OF PRESENT ILLNESS: Patient underwent EGD and colonoscopy this morning revealing a marginal ulcer just above the gastrojejunostomy. Colonoscopy was normal. Patient states her pain is resolved currently. She is tolerating PO intake. Denies nausea or vomiting. PHYSICAL EXAM: VITAL SIGNS: Currently stable. GENERAL: Well-developed in no acute distress. HEENT: No sclera icterus. Extraocular movements grossly intact. Moist buccal mucosa. Head is atraumatic, normocephalic. Hears conversational speech. No nasal drainage. NECK: Supple without lymphadenopathy. CHEST: Non-labored respirations and equal bilateral excursions. CARDIOVASCULAR: Regular rate with regular rhythm. Palpable 2+ radial pulses. ABDOMEN: Soft. Nondistended. Nontender. MUSCULOSKELETAL: No clubbing, cyanosis or edema. NEUROLOGIC: No focal or lateralizing signs. Cranial nerves II through XII grossly intact. PSYCH: Appropriate affect. Alert and oriented to person, place and time. SKIN: Well perfused. Good skin turgor. ASSESSMENT: 1. Epigastric pain x 5 days 2. Status post EGD and colonoscopy. EGD revealing marginal ulcer. Colonoscopy normal. 3. History of healing ulcer at gastrojejunostomy anastomosis per EGD, 2018 PLAN: Continue regular diet. Patient is stable from a surgical standpoint. Nurse practitioner note has been reviewed by physician. Signing provider agrees with the documented findings, assessment, and plan of care. Objective - Vital Signs Vital signs: Vital Signs Temp 96.9 F L 06/26/18 06:00 Pulse 75 06/26/18 06:00 Resp 18 06/26/18 06:00 BP 103/68 06/26/18 06:00 Pulse Ox 96 06/26/18 06:00 Intake & Output 06/25/18 06/26/18 06/26/18 18:59 06:59 18:59 Intake Total 500 100 Balance 500 100 Intake: IV 100 Oral 500 Other: Voiding Method Toilet Toilet # Voids 1 3 # Bowel Movements 8 - Labs CBC & Chem 7: 06/26/18 10:36 06/26/18 10:36 Labs: Abnormal Lab Results - Last 24 Hours (Table) 06/26/18 06/26/18 Range/Units 10:36 10:36 RBC 3.55 L (3.80-5.40) m/uL MCV 102.6 H (80.0-100.0) fL Chloride 110 H (98-107) mmol/L Microbiology - Last 24 Hours (Table) 06/22/18 17:35 Blood Culture - Preliminary Blood No Growth after 72 hours
--- NOTE | 2018-06-26 13:55 | P.PN ---
<Corry Corado E - Last Filed: 06/26/18 13:50> Subjective Progress Note Date: 06/26/18 Interval history: 06/26/18- patient is being seen examined and evaluated today on rounds while covering for Dr. Peter Laek. The patient went for EGD and colonoscopy this morning. Those results are currently pending. She did grow E. coli in her urine. She is being followed closely by infectious disease as well as surgical services. She is resting up in bed on room air. Denies any fevers chills or any further complaints. All labs and reports reviewed. Objective - Vital Signs Vital signs: Vital Signs Temp 96.9 F L 06/26/18 06:00 Pulse 75 06/26/18 06:00 Resp 18 06/26/18 06:00 BP 103/68 06/26/18 06:00 Pulse Ox 96 06/26/18 06:00 Intake & Output 06/25/18 06/26/18 06/26/18 18:59 06:59 18:59 Intake Total 500 100 Balance 500 100 Intake: IV 100 Oral 500 Other: Voiding Method Toilet Toilet # Voids 1 3 # Bowel Movements 8 - Exam GENERAL EXAM: Alert, active, comfortable in no apparent distress. HEAD: Normocephalic. EYES: Normal reaction of pupils, equal size. NOSE: Clear with pink turbinates. THROAT: No erythema or exudates. NECK: No masses, no JVD. CHEST: No chest wall deformity. LUNGS: Equal air entry with no crackles, wheeze, rhonchi or dullness. CVS: S1 and S2 normal with no audible mumurs, regular rhythm. ABDOMEN: No hepatosplenomegaly, normal bowel sounds, no guarding or rigidity. EXTREMITIES: No edema noted, pedal pulses palpable. CENTRAL NERVOUS SYSTEM: No focal deficits, tone is normal in all 4 extremities. - Labs CBC & Chem 7: 06/26/18 10:36 06/26/18 10:36 Labs: Abnormal Lab Results - Last 24 Hours (Table) 06/26/18 06/26/18 Range/Units 10:36 10:36 RBC 3.55 L (3.80-5.40) m/uL MCV 102.6 H (80.0-100.0) fL Chloride 110 H (98-107) mmol/L Microbiology - Last 24 Hours (Table) 06/22/18 17:35 Blood Culture - Preliminary Blood No Growth after 72 hours Assessment and Plan Assessment: Assessment Acute GI bleed Urinary tract infection present on admission Epigastric pain History of a healing ulcer at gastrojejunostomy anastomosis per EGD in 2018 Occult blood positive Plan Medications have been reviewed and will be continued as ordered. Continue to monitor hemoglobin and any overt signs of bleeding Antibiotics per infectious disease Status post EGD and colonoscopy, results pending Continue with pulmonary hygiene, coughing and deep breathing exercises, and supportive care. Diet per surgical services GI and DVT prophylaxis. We will continue to monitor labs/results and adjust treatment as necessary. Further recommendations pending. I, the signing physician performed an examination of the patient, discussed and directed their management with the nurse practitioner. I have reviewed the nurse practitioner's note and agree with the documented findings, orders and plan of care. Nurse practitioner acting as a scribe for the signing physician Please note we are covering for Dr. Peter Lake today <Rachel Patiño A - Last Filed: 06/26/18 16:15> Objective - Vital Signs Vital signs: Vital Signs Temp 97.6 F 06/26/18 14:07 Pulse 86 06/26/18 14:07 Resp 18 06/26/18 14:07 BP 115/76 06/26/18 14:07 Pulse Ox 96 06/26/18 14:07 Intake & Output 06/25/18 06/26/18 06/26/18 18:59 06:59 18:59 Intake Total 500 340 Balance 500 340 Intake: IV 100 Oral 500 240 Other: Voiding Method Toilet Toilet # Voids 1 3 3 # Bowel Movements 8 - Labs CBC & Chem 7: 06/26/18 10:36 06/26/18 10:36 Labs: Abnormal Lab Results - Last 24 Hours (Table) 06/26/18 06/26/18 Range/Units 10:36 10:36 RBC 3.55 L (3.80-5.40) m/uL MCV 102.6 H (80.0-100.0) fL Chloride 110 H (98-107) mmol/L Microbiology - Last 24 Hours (Table) 06/22/18 17:35 Blood Culture - Preliminary Blood No Growth after 72 hours Assessment and Plan Assessment: Patient seen and examined. Patient underwent EGD and colonoscopy. Awaiting final recommendations from gastroenterology. Discharge planning for the next 24 -48 hours. ~Rachel Patiño DO
[2018-06-26 14:23] VITALS: BP 115/76; PULSE 86; TEMP 97.6
--- NOTE | 2018-06-26 17:17 | P.DS ---
Providers Date of admission: 06/22/18 18:37 Expected date of discharge: 06/26/18 Attending physician: Peter Lake Consults: 06/22/18 18:15 Consult Physician Stat Consulting Provider: López Washington Consult Reason/Comments: GI Bleed Do you want consulting provider notified?: Yes 06/25/18 06:44 Consult Physician Routine Consulting Provider: Avni Gee Consult Reason/Comments: positive urine culture Do you want consulting provider notified?: Yes, Notify in am Primary care physician: [facility] Course: This is a 52-year-old female who presented to the emergency department on 2018 complaining of abdominal pain. She states that she has a history of peptic ulcer disease and that she feels like the pain is the same. She did report dark tarry stools. The patient was evaluated by the surgical team. She does have a history of gastric bypass surgery. The patient was prepped for EGD and colonoscopy. The patient was found to have a marginal ulcer. During the course of the patient states she was also treated for urinary tract infection with E. coli. The patient was treated with Levaquin. She was followed by infectious disease who recommended 3-5 more days of oral antibiotics. Procedures: EGD and colonoscopy Patient Condition at Discharge: Stable Plan - Discharge Summary Discharge Rx Participant: No New Discharge Prescriptions: New Dicyclomine [Bentyl] 20 mg PO 0730,1230,1730 tab Levofloxacin [Levaquin] 500 mg PO DAILY #5 tab Continue DULoxetine HCL [Cymbalta] 60 mg PO BID busPIRone HCL [Buspar] 30 mg PO BID Ondansetron HCl [Zofran] 4 mg PO BID PRN PRN Reason: Nausea Potassium Chloride ER [K-Dur 20] 20 meq PO BID tab.er.prt Metolazone [Zaroxolyn] 5 mg PO DAILY PRN PRN Reason: Edema Pantoprazole Sodium [Protonix] 40 mg PO BID Meclizine [Antivert] 25 mg PO Q8H PRN PRN Reason: Vertigo Furosemide [Lasix] 60 mg PO DAILY rOPINIRole HCL [Requip] 1 mg PO HS Vitamin B Complex 1 cap PO DAILY Multivitamins, Thera [Multivitamin (formulary)] 1 tab PO DAILY diphenhydrAMINE [Benadryl] 25 mg PO HS PRN PRN Reason: allergies Butalb/APAP/Caff 50-325-40Mg [Fioricet 50-325-40] 1 tab PO Q4H PRN PRN Reason: headache ARIPiprazole [Abilify] 10 mg PO HS Ketamine Bulk 45 mg PO 5XD Acetaminophen [Tylenol Extra Strength] 1,000 mg PO TID PRN PRN Reason: Pain Magnesium Oxide [Lorenzo] 500 mg PO DAILY Sucralfate [Carafate] 1 gm PO TID Dicyclomine HCl 20 mg PO TID Calcium Carb/Vitamin D3/Vit K1 [Citracal Soft Chew] 1 tab PO TID traZODone HCL [Desyrel] 25 mg PO HS Discharge Medication List DULoxetine HCL [Cymbalta] 60 mg PO BID 03/19/15 [History] busPIRone HCL [Buspar] 30 mg PO BID 02/21/17 [History] Ondansetron HCl [Zofran] 4 mg PO BID PRN 08/02/17 [History] Potassium Chloride ER [K-Dur 20] 20 meq PO BID tab.er.prt 09/29/17 [Rx] Furosemide [Lasix] 60 mg PO DAILY 10/09/17 [History] Meclizine [Antivert] 25 mg PO Q8H PRN 10/09/17 [History] Metolazone [Zaroxolyn] 5 mg PO DAILY PRN 10/09/17 [History] Pantoprazole Sodium [Protonix] 40 mg PO BID 10/09/17 [History] rOPINIRole HCL [Requip] 1 mg PO HS 10/09/17 [History] Multivitamins, Thera [Multivitamin (formulary)] 1 tab PO DAILY 11/11/17 [History ] Vitamin B Complex 1 cap PO DAILY 11/11/17 [History] ARIPiprazole [Abilify] 10 mg PO HS 12/28/17 [History] Butalb/APAP/Caff 50-325-40Mg [Fioricet 50-325-40] 1 tab PO Q4H PRN 12/28/17 [ History] Ketamine Bulk 45 mg PO 5XD 12/28/17 [History] diphenhydrAMINE [Benadryl] 25 mg PO HS PRN 12/28/17 [History] Acetaminophen [Tylenol Extra Strength] 1,000 mg PO TID PRN 06/22/18 [History] Calcium Carb/Vitamin D3/Vit K1 [Citracal Soft Chew] 1 tab PO TID 06/22/18 [ History] Dicyclomine HCl 20 mg PO TID 06/22/18 [History] Magnesium Oxide [Lorenzo] 500 mg PO DAILY 06/22/18 [History] Sucralfate [Carafate] 1 gm PO TID 06/22/18 [History] traZODone HCL [Desyrel] 25 mg PO HS 06/22/18 [History] Dicyclomine [Bentyl] 20 mg PO 0730,1230,1730 tab 06/26/18 [Rx] Levofloxacin [Levaquin] 500 mg PO DAILY #5 tab 06/26/18 [Rx] Follow up Appointment(s)/Referral(s): Peter Lake MD [Primary Care Provider] - 1-2 days Activity/Diet/Wound Care/Special Instructions: Regular diet. Biopsy taken in OR of ulcer. PATIENTS HOME MED IS IN INPT PHARMACY! Discharge Disposition: HOME SELF-CARE
--- NOTE | 2018-06-26 23:14 | PN ---
PROGRESS NOTE DATE OF SERVICE: 06/26/2018. REASON FOR FOLLOW UP: E coli urinary tract infection. INTERVAL HISTORY: The patient was seen on rounds this afternoon. The patient is status post EGD with evidence of a peptic ulcer disease. The patient denies having any chest pain. No cough. No abdominal pain. No diarrhea. PHYSICAL EXAMINATION: Blood pressure 115/76 with a pulse of 83, temperature 97.6. She is 96% on room air. General description is a middle aged female up in the room in no distress. Respiratory system: Unlabored breathing. Clear to auscultation anteriorly. HEART S1, S2. Regular rate and rhythm. No tenderness. LABS: Hemoglobin 11.5, white count 5.1 with a BUN of 8, creatinine 0.83. DIAGNOSTIC IMPRESSION AND PLAN: Patient with E. coli urinary tract infection for which the patient will begin a course of oral Levaquin to continue course of therapy. Continue supportive care. MMODL / IJN: [id number] /
[2018-06-27] MEDS ORDERED: LEVOFLOXACIN 500 MG TAB PO SCH (09:00)
== END 2018-06-26 18:13 | disposition home or self-care (01) ==
LOC: EC 14:33 → 4MS4W 18:37
PROVIDERS: ADMIT Family Medicine; ATTEND Family Medicine
DX: K28.4 Chronic or unspecified gastrojejunal ulcer with hemorrhage (principal); D62 Acute posthemorrhagic anemia; K52.9 Noninfective gastroenteritis and colitis, unspecified; R07.89 Other chest pain; Z98.84 Bariatric surgery status; N39.0 Urinary tract infection, site not specified; K21.9 Gastro-esophageal reflux disease without esophagitis; B96.20 Unspecified Escherichia coli [E. coli] as the cause of diseases classified elsewhere; Z87.11 Personal history of peptic ulcer disease; R53.82 Chronic fatigue, unspecified; Z90.710 Acquired absence of both cervix and uterus; Z90.49 Acquired absence of other specified parts of digestive tract; Z80.42 Family history of malignant neoplasm of prostate; Z86.2 Personal history of diseases of the blood and blood-forming organs and certain disorders involving the immune mechanism; Z98.890 Other specified postprocedural states; J45.909 Unspecified asthma, uncomplicated; G89.4 Chronic pain syndrome; M79.7 Fibromyalgia; Z87.442 Personal history of urinary calculi; Z86.19 Personal history of other infectious and parasitic diseases; F41.9 Anxiety disorder, unspecified; F32.9 Major depressive disorder, single episode, unspecified; Z96.698 Presence of other orthopedic joint implants; I83.90 Asymptomatic varicose veins of unspecified lower extremity; Z87.891 Personal history of nicotine dependence; G47.33 Obstructive sleep apnea (adult) (pediatric); Z99.89 Dependence on other enabling machines and devices; Z79.899 Other long term (current) drug therapy; Z88.0 Allergy status to penicillin; Z91.018 Allergy to other foods; Z91.09 Other allergy status, other than to drugs and biological substances
CPT/HCPCS: 96376 ×4; 96361 ×3; 96365; 96366 ×2; 96375 ×2; 99285; 36415; 93005; 88305; 80053 ×3; 82150; 82550; 82553; 83605; 83690; 84484 ×2; 85025 ×4; 85610; 85730; 82272; 81001; 87040; 87086; 87077; 87186; 74177; 45378; 43239; G0378 ×5; J2270 ×4; J2405; J1956 ×2; C9113 ×5; Q9967

== ENCOUNTER → 2018-06-28 | Outpatient (CLI) | payer BC, MEDICARE ==
--- NOTE | 2018-06-28 10:53 | SFUN ---
SLEEP CENTER FOLLOW UP NOTE DATE OF SERVICE: 06/28/2018 An 52-year-old lady who has been followed in the Sleep Center for treatment of obstructive and central sleep apnea-hypopnea syndrome. In February of 2018 Patient had PAP titration and with the titration, the best pressure was 8/4 cm of water. With a high pressure, patient developed a significant amount of central apneas. Subsequently, her auto Servo ventilator unit had been adjusted to the minimal pressure of 4 and maximal pressure at 8 with a pressure support up to 10. Patient is using equipment, but did not use it every night because she has sinus problems. I checked her auto Servo ventilator unit. Usage is 15/30 nights and 7/30 nights more than 4 hours. Average usage 2.9 hours. Most of the time inspiratory pressure 9.5, expiratory pressure 6.1. Leak is 5 L/minute. Apnea-hypopnea index only 0.5 with total apnea index only 0.2, which is absolutely normal. Great numbers. [place] Sleepiness Scale today is 8. MEDICATIONS: Duloxetine, Buspirone, ketamine, dicyclomine, pantoprazole, Ondansetron, Differin, furosemide, meclizine, potassium, magnesium supplement, Ventolin. PHYSICAL EXAM: Patient in no distress. BP 138/85, HR 72, RR 16, weight 195, temp 97.1, oxygen saturation at room air 99%. OROPHARYNX: Small oropharyngeal air space. Wide pillars. Neck Supple, no JVD. Thyroid is not palpable. LUNGS Clear to percussion and to auscultation. Good air exchange. No wheezing or rhonchi. HEART S1, S2 regular. No murmurs, gallops, or rubs. ABDOMEN Soft and nontender. Bowel sounds are present. No organomegaly appreciated. EXTREMITIES No clubbing or cyanosis. 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 Cranial nerves 2 to 7 intact. There is no fasciculation or atrophy. noted. No focal deficits observed. IMPRESSION: 1. Obstructive and central sleep apnea-hypopnea syndrome on control at the pressure 9.5/6.1 cm of water on auto Servo ventilator. Patient benefitting from treatment. 2. History of asthma. 3. History of anxiety. 4. History of depression. 5. History of fibromyalgia. 6. Episodes of dizziness. 7. Status post back fusion surgery. 8. Status post cholecystectomy. 9. Status post total hysterectomy. 10.Status post appendectomy. PLAN: 1. Patient will continue to use her PAP treatment every night for the whole night. 2. Sleep hygiene with regular time in bed for 7.5 hours. 3. No driving if feeling sleepiness. 4. Will maintain all necessary prescription for her supplies including Nena View full- face medium mask. Thank you very much for allowing me to participate in the management of your patient. Sincerely, Jimmy Persaud MD, PhD, FAASM Diplomat of [place] Board of Medical Specialties [place] Board of Internal Medicine [employer] Operator of [facility] [place] MMODL / IJN: [id number] /
== END ==
LOC: SLEEP 09:53
PROVIDERS: ATTEND Internal Medicine
DX: G47.33 Obstructive sleep apnea (adult) (pediatric) (principal); J45.909 Unspecified asthma, uncomplicated; F41.9 Anxiety disorder, unspecified; F32.9 Major depressive disorder, single episode, unspecified; M79.7 Fibromyalgia; R42 Dizziness and giddiness; Z98.1 Arthrodesis status; Z90.49 Acquired absence of other specified parts of digestive tract; Z90.710 Acquired absence of both cervix and uterus; Z99.89 Dependence on other enabling machines and devices

== ENCOUNTER → 2019-03-08 | Outpatient (CLI) | payer BC, MEDICARE ==
--- NOTE | 2019-03-08 09:09 | BD ---
EXAMINATION TYPE: Axial Bone Density DATE OF EXAM: 03/08/2019 COMPARISON: NONE CLINICAL HISTORY: 53 YR OLD FEMALE...ICD-10 CODE: Z28.39 HYPOESTROGENIC FEMALE Height: 62.2 Weight: 224 FRAX RISK QUESTIONS: Secondary Osteoporosis: YES 3. Menopause before 45: YES AT 42 4. Malnutrition: YES, LAST YR RISK FACTORS HISTORY OF: NO FXs IN HER 50'S...JUST FINGER FX IN THE PAST Surgery to Spine YES, LOWER, DGD RODS AND SCREWS IN LOWER BACK, AT AGE 45YRS OLD Diet low in dairy products/other sources of calcium: CHEESE ONLY Postmenopausal woman: TOTAL HYST AT 42 YRS OLD MEDICATIONS: Prednisone or other steroids: VENTOLIN ONLY FOR ASTHMA Additional Medications: CYMBALTA, ABILIFY, REFLUX MEDS, CALCIUM AND VIT D3, Additional History: ASTHMA, REFLUX, DEPRESSION, EXAM MEASUREMENTS: Bone mineral densitometry was performed using the [employer] System. SPINE NOT SCANNED.....LUMBAR CARLOS AND PINS, DGD Bone mineral density about the R hip (g/cm2): 0.757 Bone mineral density about the L hip (g/cm2): 0.710 T Score values are as follows: -----R Neck: -1.2 -----L Neck: -2.3 -----R Total: -2.0 -----L Total: -2.4 Bone mineral density IS FIRST DEXA STUDY AT [facility] FRAX%s: THERE IS A 6.3% CHANCE FOR A MAJOR OSTEOPOROTIC FX AND A 1.0% FOR HIP....PROBABILITY FOR FX IN 10 YRS TIME Bone mineral density about the L Wrist (g/cm2): 0.449 T Score values are as follows: -----Dist. R+U: -2.9 -----Prox. R+U: -3.3 -----Radius total: -3.4 Bone mineral density IS FIRST AT [facility] IMPRESSION: Osteoporosis (T Score less than -2.5). There is increased fracture risk and therapy is usually indicated based on age. Re-Screen 1-2 years. NOTE: T-SCORE=SD OF THE YOUNG ADULT MEAN.
--- NOTE | 2019-03-09 13:14 | MM ---
Reason for exam: screening (asymptomatic). Last mammogram was performed 2 years and 4 months ago. History: Patient is postmenopausal. Physical Findings: A clinical breast exam by your physician is recommended on an annual basis and results should be correlated with mammographic findings. MG Screening Mammo w CAD Bilateral CC and MLO view(s) were taken. Prior study comparison: November 19, 2016, mammogram. October 31, 2015, mammogram. There are scattered fibroglandular densities. No suspicious abnormality. No significant changes when compared with prior studies. ASSESSMENT: Negative, BI-RAD 1 RECOMMENDATION: Routine screening mammogram of both breasts in 1 year.
== END | disposition home or self-care (01) ==
LOC: RADMAMWWP 07:34
PROVIDERS: ATTEND Obstetrics & Gynecology
DX: Z12.31 Encounter for screening mammogram for malignant neoplasm of breast (principal); M81.0 Age-related osteoporosis without current pathological fracture; E28.39 Other primary ovarian failure
CPT/HCPCS: 77067; 77080

== ENCOUNTER 2019-12-06 07:21 | Day surgery (SDC) | payer BC, MEDICARE ==
[2019-12-04 10:05] VITALS: BMI 41.1
[~2019-12-06 07:21] MED LIST changes: -LIDOCAINE 1% 20 ML VIAL (10MG/ML) FOR IV START INTRADERMA PRN
[2019-12-06] MEDS ORDERED: LIDOCAINE 1% (10MG/ML) FOR IV START INTRADERMA ONE (07:49)
[2019-12-06 07:50] VITALS: RESP 16; TEMP 98
[2019-12-06 07:54] LABS: Glucose,Whole Blood 105 mg/dL (75-99)
[2019-12-06] MEDS ORDERED: PROPOFOL 10 MG/ML 20 ML VIAL IV ONE (08:11)
[2019-12-06] MEDS ORDERED: LIDOCAINE 1% INJ 10MG/ML (20 ML MDV) ONE (08:11)
--- NOTE | 2019-12-06 08:32 | P.PCN ---
Date of Procedure: 12/06/19 Description of Procedure: BRIEF HISTORY: Patient is a 54-year-old female with a history of gastric bypass who is presenting for esophagogastroduodenoscopy for evaluation of gastric ulcer. Patient previous seen in the hospital for anemia and GI bleed with anastomotic site ulcer seen on EGD at that time. PROCEDURE PERFORMED: Esophagogastroduodenoscopy/upper endoscopy with gold probe ablation. PREOPERATIVE DIAGNOSIS: Gastric ulcer, peptic ulcer disease, history of Kaya-en-Y gastric bypass. ESTIMATED BLOOD LOSS: Minimal. IV sedation per anesthesia. PROCEDURE: After informed consent was obtained, the patient was brought into the endoscopy unit. IV sedation was administered by Anesthesia under continuous monitoring. Initially the Olympus GIF-190 video endoscope was inserted into the mouth. Esophagus intubated without any difficulty. It was gradually advanced into the stomach and through the anastomotic site from Kaya-en-Y gastric bypass and into the jejunum. Small bowel carefully examined with a diminutive nonbleeding angiectasia in the jejunum just distal to the anastomotic site which was treated with gold probe ablation. The anastomotic site was carefully examined on withdrawal of the gastroscope and the previously seen ulcer appeared to be well healed with only minimal friability at the anastomotic site. The scope was then withdrawn into the gastric remnant which appeared intact. The scope was then withdrawn into the esophagus. The GE junction was located at 39 cm from the incisors. The esophagus appeared normal. There were no erosions or ulcerations seen and the patient tolerated the procedure well. IMPRESSION: 1. Kaya-en-Y gastric bypass. 2. Well-healed anastomotic ulcer. 3. Diminutive nonbleeding angiectasia in the jejunum treated with gold probe ablation. RECOMMENDATIONS: The findings of this examination were discussed with the patient. Okay to resume diet. Okay to resume medications. We'll continue Protonix and sucralfate therapy. Avoid NSAID use. Follow up in GI clinic as previously scheduled.
[2019-12-06 08:48] VITALS: BP 106/64; PULSE 82
== END 2019-12-06 08:56 | disposition home or self-care (01) ==
LOC: ORWHC2ENDO 07:21
PROVIDERS: ATTEND Internal Medicine
DX: K25.9 Gastric ulcer, unspecified as acute or chronic, without hemorrhage or perforation (principal); I99.8 Other disorder of circulatory system; J45.909 Unspecified asthma, uncomplicated; G47.33 Obstructive sleep apnea (adult) (pediatric); E11.9 Type 2 diabetes mellitus without complications; G43.909 Migraine, unspecified, not intractable, without status migrainosus; M79.7 Fibromyalgia; Z98.84 Bariatric surgery status; Z87.891 Personal history of nicotine dependence; Z80.42 Family history of malignant neoplasm of prostate; Z88.0 Allergy status to penicillin; Z88.6 Allergy status to analgesic agent; Z91.048 Other nonmedicinal substance allergy status; Z79.899 Other long term (current) drug therapy; Z79.891 Long term (current) use of opiate analgesic; Z98.890 Other specified postprocedural states; Z90.710 Acquired absence of both cervix and uterus; Z90.49 Acquired absence of other specified parts of digestive tract; Z87.19 Personal history of other diseases of the digestive system; Z79.84 Long term (current) use of oral hypoglycemic drugs
CPT/HCPCS: 43270; J2001; J2704

== ENCOUNTER → 2020-03-12 | Outpatient (CLI) | payer BC, MEDICARE ==
--- NOTE | 2020-03-17 11:38 | MM ---
Reason for exam: screening (asymptomatic). Last mammogram was performed 1 year ago. History: Patient is postmenopausal. Physical Findings: A clinical breast exam by your physician is recommended on an annual basis and results should be correlated with mammographic findings. MG 3D Screening Mammo W/Cad Bilateral CC and MLO view(s) were taken. Prior study comparison: March 08, 2019, bilateral MG screening mammo w CAD. November 19, 2016, mammogram. There are scattered fibroglandular densities. No significant changes when compared with prior studies. ASSESSMENT: Negative, BI-RAD 1 RECOMMENDATION: Routine screening mammogram of both breasts in 1 year.
== END | disposition home or self-care (01) ==
LOC: RADMAMWWP 08:24
PROVIDERS: ATTEND Nurse Practitioner Family
DX: Z12.31 Encounter for screening mammogram for malignant neoplasm of breast (principal)
CPT/HCPCS: 77063; 77067

== ENCOUNTER → 2023-09-05 | Outpatient (CLI) | payer BC, MEDICARE ==
--- NOTE | 2023-09-05 09:39 | CT ---
EXAMINATION TYPE: CT abdomen wo con CT DLP: 662.8 mGycm, Automated exposure control for dose reduction was used. DATE OF EXAM: 09/05/2023 7:47 AM COMPARISON: 06/22/2018 CLINICAL INDICATION:Female, 57 years old with history of N20.0 CALCULUS OF KIDNEY; renal stones TECHNIQUE: Axial CT abdomen wo con;Sagittal and coronal reformats were created on a separate worksta tion. Contrast used: mL of , (none if empty) Oral contrast used: without Oral Contrast (none if empty) FINDINGS: LOWER CHEST: Unremarkable ABDOMEN LIVER: Unremarkable GALLBLADDER AND BILE DUCTS: Unremarkable. PANCREAS: Unremarkable. SPLEEN: Unremarkable. ADRENAL GLANDS: Unremarkable. KIDNEYS AND URETERS: No evidence of hydronephrosis or renal calculus. The ureters are unremarkable. Small fat density seen in the cortex of left kidney possibly representing angiomyolipoma measuring 6 mm and in the left kidney measuring 7 mm. STOMACH AND BOWEL: No evidence of bowel obstruction. Postsurgical changes to the bowel gas esophageal junction. PERITONEUM/RETROPERITONEUM: No evidence of pneumoperitoneum or free fluid. Calcifications along the a nterior aspect of the abdomen with mesh in place. No evidence for hernia. VASCULATURE: No evidence of aortic aneurysm. MUSCULOSKELETAL: No acute osseous abnormalities, postsurgical changes of the spine. Hardware partiall y visualized and appears intact. LYMPH NODES: No gross evidence for lymphadenopathy. SOFT TISSUE/ABDOMINAL WALL: Hernia repair changes. No definitive hernia identified. IMPRESSION: No evidence for obstructive uropathy or renal contrast. Post anterior abdominal wall mesh repair changes. No evidence for hernia. Postsurgical changes gastro esophageal junction.
== END | disposition home or self-care (01) ==
LOC: RADCTMAIN 07:33
PROVIDERS: ATTEND Family Medicine
DX: N20.0 Calculus of kidney (principal)
CPT/HCPCS: 74150

== ENCOUNTER 2024-05-26 18:30 | Inpatient (IN) | payer BC, MEDICARE ==
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
[2024-05-26 21:15] LABS: Basophils % (A) 0 %; Eosinophils # (A) 0.1 k/uL (0-0.7); Eosinophils % (A) 1 %; HCT 37.3 % (34.0-46.0); HGB 12.1 gm/dL (11.4-16.0); Lymphocytes # (A) 2.5 k/uL (1.0-4.8); Lymphocytes % (A) 28 %; MCH 34.7 pg (25.0-35.0); MCHC 32.3 g/dL (31.0-37.0); MCV 107.3 fL (80.0-100.0); Macrocytosis Moderate; Mean Platelet Volume 8.2; Monocytes # (A) 0.5 k/uL (0-1.0); Monocytes % (A) 5 %; Neutrophils # (A) 5.8 k/uL (1.3-7.7); Neutrophils % (A) 64 %; Platelet Count 176 k/uL (150-450); RBC 3.48 m/uL (3.80-5.40); WBC 9.1 k/uL (3.8-10.6)
[2024-05-26] MEDS: MORPHINE SULFATE 4 MG/ML SYRINGE IVP STA (21:23)
[2024-05-26 21:26] LABS: ALT 66 U/L (4-34); AST 37 U/L (14-36); African American GFR (CKD) 80 (>60 ml/min/1.73 sqM); Albumin 4.2 g/dL (3.5-5.0); Alkaline Phosphatase 253 U/L (38-126); Anion Gap 8 mmol/L; Blood Urea Nitrogen 20 mg/dL (7-17); Calcium 9.5 mg/dL (8.4-10.2); Carbon Dioxide 26 mmol/L (22-30); Chloride 102 mmol/L (98-107); Creatine Kinase 61 U/L (30-135); Glucose 99 mg/dL (74-99); Non-African American GFR(CKD) 70 (>60 ml/min/1.73 sqM); Sodium 136 mmol/L (137-145); Total Bilirubin 0.3 mg/dL (0.2-1.3); Total Protein 6.5 g/dL (6.3-8.2)
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
[2024-05-26] MEDS ORDERED: NALOXONE 0.4 MG/ML 1 ML VIAL IV PRN (23:31)
[2024-05-27] MEDS: MORPHINE SULFATE 4 MG/ML SYRINGE IV PRN (00:15)
[2024-05-27 00:39] LABS: Appearance,Urine Clear (Clear); Bilirubin,Urine Negative (Negative); Blood,Urine Negative (Negative); Color,Urine Yellow; Glucose,Urine (UA) Negative (Negative); Ketones,Urine Trace (Negative); Leukocyte Esterase,Urine Negative (Negative); Nitrite,Urine Negative (Negative); Protein,Urine Trace (Negative)
[2024-05-27 00:45] LABS: Specific Gravity,Urine >1.050 (1.001-1.035)
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
[2024-05-27 03:09] LABS: ALT 352 U/L (4-34); African American GFR (CKD) 67 (>60 ml/min/1.73 sqM); Albumin 3.9 g/dL (3.5-5.0); Alkaline Phosphatase 403 U/L (38-126); Anion Gap 8 mmol/L; Blood Urea Nitrogen 20 mg/dL (7-17); Calcium 9.3 mg/dL (8.4-10.2); Carbon Dioxide 27 mmol/L (22-30); Chloride 103 mmol/L (98-107); Glucose 187 mg/dL (74-99); Non-African American GFR(CKD) 58 (>60 ml/min/1.73 sqM); Sodium 138 mmol/L (137-145); Total Bilirubin 0.8 mg/dL (0.2-1.3); Total Protein 6.1 g/dL (6.3-8.2)
[2024-05-27] MEDS: HYDROcodone/APAP 10-325MG 1 EACH TAB PO PRN (03:14)
[2024-05-27 03:29] LABS: Basophils % (A) 0 %; Eosinophils # (A) 0.1 k/uL (0-0.7); Eosinophils % (A) 1 %; HCT 34.8 % (34.0-46.0); HGB 11.1 gm/dL (11.4-16.0); Lymphocytes % (A) 26 %; MCH 34.9 pg (25.0-35.0); MCHC 31.8 g/dL (31.0-37.0); MCV 109.6 fL (80.0-100.0); Macrocytosis Marked; Mean Platelet Volume 8.7; Monocytes # (A) 0.4 k/uL (0-1.0); Monocytes % (A) 5 %; Neutrophils # (A) 5.3 k/uL (1.3-7.7); Neutrophils % (A) 66 %; Platelet Count 160 k/uL (150-450); RBC 3.18 m/uL (3.80-5.40); RDW 13.7 % (11.5-15.5)
[2024-05-27 03:42] LABS: AST 870 U/L (14-36)
[2024-05-27] MEDS: ONDANSETRON 4 MG/2 ML VIAL IVP PRN (05:15)
[2024-05-27 05:33] LABS: Anisocytosis (M) Present; Poikilocytosis (M) Present; Polychromasia Present
[2024-05-27] MEDS ORDERED: metOLazone 5 MG TAB PO PRN (11:04)
[2024-05-27] MEDS ORDERED: ONDANSETRON 4 MG TAB PO PRN (11:04)
[2024-05-27] MEDS ORDERED: tiZANidine 4 MG TAB PO PRN (11:04)
[2024-05-27] MEDS ORDERED: BUTALB/APAP/CAFF 50-325-40MG TAB PO PRN (11:04)
[2024-05-27] MEDS ORDERED: diphenhydrAMINE 25 MG CAP PO PRN (11:04)
[2024-05-27] MEDS ORDERED: ACETAMINOPHEN TAB 500 MG TAB PO PRN (11:04)
[2024-05-27] MEDS ORDERED: MECLIZINE 25 MG TAB PO PRN (11:04)
[2024-05-27] MEDS: diphenhydrAMINE 50 MG/ML 1 ML VIAL IVP PRN (12:21)
[2024-05-27] MEDS: SUCRALFATE 1 GM TAB PO SCH (12:22)
[2024-05-27] MEDS: KETAMINE PO SCH (15:51)
[2024-05-27] MEDS ORDERED: CALCIUM CARB-VIT D 500 MG-5 MCG TAB PO SCH (16:00)
[2024-05-27] MEDS: DICYCLOMINE 20 MG TAB PO SCH (16:06)
[2024-05-27] MEDS: PANTOPRAZOLE 40 MG TABLET PO SCH (16:59)
[2024-05-27] MEDS: traZODone HCL 50 MG TAB PO SCH (20:55)
[2024-05-27] MEDS: ATORVASTATIN 10 MG TAB PO SCH (20:55)
[2024-05-27] MEDS: DULoxetine HCL 60 MG CAPSULE.DR PO SCH (20:56)
[2024-05-27] MEDS: POTASSIUM CHLORIDE ER 20 MEQ TAB.ER PO SCH (20:56)
[2024-05-27] MEDS ORDERED: PROPRANOLOL 20 MG TAB PO SCH (21:00)
[2024-05-27] MEDS: tiZANidine 4 MG TAB PO SCH (21:52)
[2024-05-27 22:00] LABS: Basophils % (A) 0 %; Eosinophils # (A) 0.1 k/uL (0-0.7); Eosinophils % (A) 2 %; HCT 34.7 % (34.0-46.0); HGB 11.2 gm/dL (11.4-16.0); Lymphocytes # (A) 1.1 k/uL (1.0-4.8); Lymphocytes % (A) 13 %; MCH 35.4 pg (25.0-35.0); MCHC 32.2 g/dL (31.0-37.0); Macrocytosis Marked; Mean Platelet Volume 8.8; Monocytes # (A) 0.5 k/uL (0-1.0); Monocytes % (A) 6 %; Neutrophils # (A) 6.4 k/uL (1.3-7.7); Neutrophils % (A) 78 %; Platelet Count 159 k/uL (150-450); RBC 3.15 m/uL (3.80-5.40); RDW 13.3 % (11.5-15.5); WBC 8.2 k/uL (3.8-10.6)
[2024-05-27] MEDS: PROPRANOLOL 20 MG TAB PO SCH (22:01)
[2024-05-27 22:02] LABS: MCV 110.1 fL (80.0-100.0)
[2024-05-28] MEDS: ACETAMINOPHEN TAB 325 MG TAB PO PRN (01:38)
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
[2024-05-28] MEDS: FERROUS SULFATE 325 MG TAB PO SCH (08:07)
[2024-05-28] MEDS: MONTELUKAST 10 MG TAB PO SCH (08:08)
[2024-05-28] MEDS: allopurinoL 300 MG TAB PO SCH (08:08)
[2024-05-28] MEDS: FUROSEMIDE 40 MG TAB PO SCH (08:08)
[2024-05-28] MEDS: LORATADINE 10 MG TAB PO SCH (08:08)
[2024-05-28] MEDS: ARIPiprazole 10 MG TAB PO SCH (08:08)
[2024-05-28] MEDS ORDERED: MULTIVITAMINS, THERA 1 EACH TAB PO SCH (09:00)
[2024-05-28] MEDS ORDERED: FLUTICASONE NASAL 50MCG/SPRAY 16GM BTL EA NOSTRIL SCH (09:00)
[2024-05-28] MEDS ORDERED: oxyBUTYnin chloride 5 MG TAB PO SCH (09:00)
[2024-05-28] MEDS: IPRATROPIUM 0.5 MG/2.5 ML NEBU INHALATION SCH (09:43)
[2024-05-28] MEDS: OXYBUTYNIN 10 MG TAB.ER.24 PO SCH (10:18)
[2024-05-28 10:35] LABS: Basophils % (A) 0 %; Eosinophils # (A) 0.1 k/uL (0-0.7); Eosinophils % (A) 2 %; HCT 28.8 % (34.0-46.0); Lymphocytes # (A) 1.3 k/uL (1.0-4.8); Lymphocytes % (A) 18 %; MCH 36.4 pg (25.0-35.0); MCHC 33.7 g/dL (31.0-37.0); MCV 107.8 fL (80.0-100.0); Macrocytosis Moderate; Mean Platelet Volume 8.5; Monocytes # (A) 0.4 k/uL (0-1.0); Monocytes % (A) 6 %; Neutrophils # (A) 5.3 k/uL (1.3-7.7); Neutrophils % (A) 73 %; Platelet Count 151 k/uL (150-450); RBC 2.67 m/uL (3.80-5.40); RDW 13.5 % (11.5-15.5); WBC 7.3 k/uL (3.8-10.6)
[2024-05-28 10:43] LABS: HGB 9.7 gm/dL (11.4-16.0)
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
[2024-05-28] MEDS: CYCLOBENZAPRINE 5 MG TAB PO PRN (14:12)
--- NOTE | 2024-05-28 15:08 | P.PN ---
Subjective Progress Note Date: 05/28/24 SURGICAL PROGRESS NOTE CHIEF COMPLAINT: Trauma to left leg HISTORY OF PRESENT ILLNESS: Patient complains of left leg pain with left leg swelling. The blister on her calf did rupture earlier this morning with a clearish liquid expressed. Patient is reporting numbness in the calf. She did have a low-grade temp of 100.7. Hemoglobin did drop from 11.2-9.7 WBC is 7.3 PHYSICAL EXAM: VITAL SIGNS: Reviewed. GENERAL: Well-developed in no acute distress. ABDOMEN: Soft. Nondistended. Nontender. NEUROLOGIC: Alert and oriented. Cranial nerves II through XII grossly intact. Extremities :left calf swollen. Ecchymosis and hematoma noted on the left calf. Blister on the back of the calf has ruptured. There is dark tissue under the blister. Also a smaller blister noted posterior lower leg. Tender with palpation. Dorsalis pedis pulse intact. numbness back of calf ASSESSMENT: 1. Traumatic left lower extremity injury with hematoma 2. Anemia likely due to hematoma 3. Elevated LFTs PLAN: -Orthopedic service and vascular service have been consulted due to patient having new numbness in the left leg and recent trauma injury -Continue to monitor for compartment syndrome -Continue pain management -Flexeril added for muscle relaxer -Repeat CBC and LFTs in a.m. Physician Golf [employer] Assembler note has been reviewed by physician. Signing provider agrees with the documented findings, assessment, and plan of care. Objective - Vital Signs Vital signs: Vital Signs Temp 97.7 F 05/28/24 13:26 Pulse 76 05/28/24 13:26 Resp 16 05/28/24 13:26 BP 126/81 05/28/24 13:26 Pulse Ox 98 05/28/24 13:26 FiO2 Intake & Output 05/27/24 05/28/24 05/28/24 18:59 06:59 18:59 Other: # Voids 1 2 - Labs CBC & Chem 7: 05/28/24 10:05 05/27/24 02:38 Labs: Abnormal Lab Results - Last 24 Hours (Table) 05/27/24 05/28/24 Range/Units 20:56 10:05 RBC 3.15 L 2.67 L (3.80-5.40) m/uL Hgb 11.2 L 9.7 L D (11.4-16.0) gm/dL Hct 28.8 L (34.0-46.0) % MCV 110.1 H 107.8 H (80.0-100.0) fL MCH 35.4 H 36.4 H (25.0-35.0) pg Macrocytosis Marked A
--- NOTE | 2024-05-29 00:09 | PN ---
PROGRESS NOTE SUBJECTIVE: Left lower lobe hematoma, can be given Flexeril 10 mg q.8 hours for muscle spasm due to small edema in the left lower calf with lot of bruising. She had normal dorsalis pedis, and posterior tibial. OBJECTIVE: CARDIOVASCULAR: S1, S2. LUNGS: Transmitted upper sounds. HEMATOLOGY: Negative Homans. PSYCH: Fair mood and affect. Left lower lobe extremity hematoma, status post muscle injury to the left leg. MRI of her leg has been ordered. Ambulate as tolerated. Please see further orders. Prognosis guarded. MMODL / IJN: [id number] /
[2024-05-29 04:51] LABS: ALT 216 U/L (4-34); AST 76 U/L (14-36); African American GFR (CKD) >90 (>60 ml/min/1.73 sqM); Albumin 3.7 g/dL (3.5-5.0); Albumin/Globulin Ratio 1.7; Alkaline Phosphatase 319 U/L (38-126); Anion Gap 8 mmol/L; Blood Urea Nitrogen 16 mg/dL (7-17); Calcium 8.6 mg/dL (8.4-10.2); Carbon Dioxide 21 mmol/L (22-30); Chloride 105 mmol/L (98-107); Globulin 2.2 g/dL; Glucose 133 mg/dL (74-99); Non-African American GFR(CKD) >90 (>60 ml/min/1.73 sqM); Potassium 4.2 mmol/L (3.5-5.1); Sodium 134 mmol/L (137-145); Total Bilirubin 0.4 mg/dL (0.2-1.3); Total Protein 5.9 g/dL (6.3-8.2)
[2024-05-29 08:37] LABS: Basophils % (A) 0 %; Eosinophils # (A) 0.1 k/uL (0-0.7); Eosinophils % (A) 1 %; HCT 32.8 % (34.0-46.0); HGB 10.5 gm/dL (11.4-16.0); Hypochromasia Slight; Lymphocytes # (A) 1.1 k/uL (1.0-4.8); Lymphocytes % (A) 10 %; MCH 35.4 pg (25.0-35.0); MCV 110.8 fL (80.0-100.0); Macrocytosis Marked; Mean Platelet Volume 8.2; Monocytes # (A) 0.6 k/uL (0-1.0); Monocytes % (A) 6 %; Neutrophils # (A) 8.3 k/uL (1.3-7.7); Neutrophils % (A) 81 %; Platelet Count 154 k/uL (150-450); RBC 2.96 m/uL (3.80-5.40); RDW 12.9 % (11.5-15.5); WBC 10.2 k/uL (3.8-10.6)
--- NOTE | 2024-05-29 11:46 | P.PN ---
Subjective Progress Note Date: 05/29/24 SURGICAL PROGRESS NOTE CHIEF COMPLAINT: Trauma to left leg HISTORY OF PRESENT ILLNESS: Patient complains of left leg pain and swelling. Patient reports the numbness and pain are about the same as yesterday. Her ecchymosis is spreading more into the hamstring area. She was seen by both orthopedic and vascular service. No surgical intervention planned. As of yesterday patient had declined JOHN hose and Renato wrap per nursing staff. Afebrile. Mildly tachycardic. WBC 10.2 hemoglobin up from 9.7-10.5. LFTs trending down. PHYSICAL EXAM: VITAL SIGNS: Reviewed. GENERAL: Well-developed in no acute distress. ABDOMEN: Soft. Nondistended. Nontender. NEUROLOGIC: Alert and oriented. Cranial nerves II through XII grossly intact. Extremities :left calf swollen, but softer than yesterday. Ecchymosis and hematoma noted on the left calf spreading into string area. Blister on the back of the calf has ruptured. There is dark tissue under the blister. Smaller blisters noted on the calf distal to the larger blister that drained. ASSESSMENT: 1. Traumatic left lower extremity injury with hematoma 2. Anemia likely due to hematoma 3. Elevated LFTs trending down PLAN: -Patient is agreeable to JOHN hose placement. Discussed with nursing staff. -Continue pain management -Continue muscle relaxer -Orthopedic and vascular service recommendations noted. No surgical intervention planned. -Orthopedic service and vascular service have been consulted due to patient having new numbness in the left leg and recent trauma injury -Repeat labs in AM. Physician Tea Tree Farmer note has been reviewed by physician. Signing provider agrees with the documented findings, assessment, and plan of care. Objective - Vital Signs Vital signs: Vital Signs Temp 98.3 F 05/29/24 07:13 Pulse 105 H 05/29/24 08:38 Resp 16 05/29/24 08:20 BP 124/83 05/29/24 07:13 Pulse Ox 100 05/29/24 08:38 FiO2 Intake & Output 05/28/24 05/29/24 05/29/24 18:59 06:59 18:59 Intake Total 2043 540 Balance 2043 540 Intake: Oral 2043 540 Other: Voiding Method Toilet # Voids 5 4 - Labs CBC & Chem 7: 05/29/24 07:51 05/29/24 03:42 Labs: Abnormal Lab Results - Last 24 Hours (Table) 05/29/24 05/29/24 Range/Units 03:42 07:51 RBC 2.96 L (3.80-5.40) m/uL Hgb 10.5 L (11.4-16.0) gm/dL Hct 32.8 L (34.0-46.0) % MCV 110.8 H (80.0-100.0) fL MCH 35.4 H (25.0-35.0) pg Neutrophils # 8.3 H (1.3-7.7) k/uL Macrocytosis Marked A Sodium 134 L (137-145) mmol/L Carbon Dioxide 21 L (22-30) mmol/L Glucose 133 H (74-99) mg/dL AST 76 H (14-36) U/L ALT 216 H (4-34) U/L Alkaline Phosphatase 319 H (38-126) U/L Total Protein 5.9 L (6.3-8.2) g/dL
--- NOTE | 2024-05-29 13:53 | P.PN ---
Subjective Progress Note Date: 05/29/24 Principal diagnosis: Left lower extremity hematoma Patient is seen and examined today as a follow-up. No acute changes through the night. Patient was refusing any compression stocking to the left lower extremity as ordered. Seen by orthopedic without any surgical intervention recommended. CT reviewed without any evidence of arterial bleed. Hemoglobin improved at 10.5 today. Patient is able to flex her ankle and get up and walk although painful. Still has some numbness and tingling to the medial aspect of her calf. Objective - Vital Signs Vital signs: Vital Signs Temp 98.3 F 05/29/24 07:13 Pulse 75 05/29/24 07:13 Resp 19 05/29/24 07:13 BP 124/83 05/29/24 07:13 Pulse Ox 93 L 05/29/24 07:13 FiO2 Intake & Output 05/28/24 05/29/24 05/29/24 18:59 06:59 18:59 Intake Total 2043 540 Balance 2043 540 Intake: Oral 2043 540 Other: Voiding Method Toilet # Voids 5 4 - Exam General appearance: The patient is alert, oriented, appears in no acute distress. Morbidly obese. HET: Head is normocephalic and atraumatic. Pupils are equal and reactive. Neck: Supple. Abdomen: Soft, nondistended. Extremities: Palpable bilateral PT pulses. Lower extremities warm to the touch with good capillary refill. Left lower extremity swelling below the knee. Ecchymosis with skin tear where previous blister was with necrotic appearing tissue to posterior calf. Tender to palpation. Sensorimotor intact. Neurological: No focal deficits. Strength and sensation are grossly intact. - Labs CBC & Chem 7: 05/29/24 07:51 05/29/24 03:42 Labs: Abnormal Lab Results - Last 24 Hours (Table) 05/28/24 05/29/24 Range/Units 10:05 03:42 RBC 2.67 L (3.80-5.40) m/uL Hgb 9.7 L D (11.4-16.0) gm/dL Hct 28.8 L (34.0-46.0) % MCV 107.8 H (80.0-100.0) fL MCH 36.4 H (25.0-35.0) pg Sodium 134 L (137-145) mmol/L Carbon Dioxide 21 L (22-30) mmol/L Glucose 133 H (74-99) mg/dL AST 76 H (14-36) U/L ALT 216 H (4-34) U/L Alkaline Phosphatase 319 H (38-126) U/L Total Protein 5.9 L (6.3-8.2) g/dL Assessment and Plan Assessment: 1. Left lower leg trauma 2. Hematoma left lower extremity 3. Anemia likely secondary to hematoma 4. Morbid obesity Plan: Patient seen and examined with no evidence of compartment syndrome. Recommend elevation of left lower extremity and compression stocking. Activity as louise erated. There is no indication for any vascular surgical intervention at this time. Continue to follow sensorimotor status. Patient may need outpatient follow-up with wound care/possible debridement. Thank you for this consultation, we will follow along. The impression and plan of care has been dictated as directed. Dr. Ayala I performed a history and examination of this patient, discussed the same with the dictator. I agree with the dictator's note ,documented as a scribe. Any additional findings or plans will be noted.
--- NOTE | 2024-05-29 20:38 | CT ---
EXAMINATION TYPE: CT brain wo con DATE OF EXAM: 05/29/2024 8:16 PM COMPARISON: 08/27/2011 CLINICAL INDICATION: Female, 58 years old with history of altered mental status, AMS. TECHNIQUE: CT of the brain is performed utilizing 3 mm thick sections through the posterior fossa and 3 mm thick sections through the remaining calvarium. Study is performed within 24 hours of arrival to the hospital. Contrast used: mL of , (none if empty) CT DLP: 1106 mGycm, Automated exposure control for dose reduction was used. FINDINGS: No abnormal hyperdensity is present to suggest an acute intracranial hemorrhage. No mass lesion is evident. There is some vague hypodensity along the right temporal lobe extending towards the occipital lobe. C orrelate for right-sided infarct. Ventricles and sulci are appropriate for the patient age. Paranasal sinuses and mastoid air cells within the [id number] are clear. IMPRESSION: 1. Some vague signal change within the right temporal occipital region may be present. Potential in farct in this region. Consider follow-up with MRI. Report called to floor patient's nurse by Dr. Soco armstrong by telephone at the time of interpretation. [facility], Workstation: [facility], 05/29/2024 8:36 PM
[2024-05-29] MEDS: ALBUTEROL NEBULIZED 2.5 MG/3 ML INHALATION PRN (20:55)
--- NOTE | 2024-05-29 20:56 | CT ---
EXAMINATION TYPE: CT angio chest DATE OF EXAM: 05/29/2024 8:16 PM COMPARISON: None. CLINICAL INDICATION: Female, 58 years old with history of altered mental status, AMS. TECHNIQUE: CT of the chest is performed on a spiral scan at 2 mm thick sections. Study is performed with intravenous contrast timed for evaluation for pulmonary embolism. This will limit additional po rtions of the evaluation. 3-D MIP images reconstructed by the technologist are reviewed on the compu ter in the coronal and sagittal planes. Contrast used:80 ml mL of Isovue 370 with IV Contrast, (none if empty) Oral contrast used: (none if empty) CT DLP: 774 mGycm, Automated exposure control for dose reduction was used. FINDINGS: No persistent filling defects are evident to suggest an acute pulmonary embolism. No mediastinal or hilar adenopathy enlarged by CT criteria is evident. The ascending aorta diameter at the level of the main pulmonary artery is 3.2 cm. The main pulmonary artery diameter at the bifurcation is 2.6 cm. There is a 0.7 cm groundglass opacity anterior left upper lung field. Series 506 image 20. Faint dens ity may be along the left periphery. Image 20. Additional groundglass opacities are noted anterior le ft upper lung field Limited CT sections were through the upper abdomen. Upper abdomen appears unremarkable. IMPRESSION: 1. No acute pulmonary embolism. 2. Scattered mild groundglass opacities anterior left upper lung field. Follow-up can be performed as clinically indicated [facility], Workstation: [facility], 05/29/2024 8:54 PM
--- NOTE | 2024-05-29 22:34 | MR ---
EXAMINATION TYPE: MR brain wo/w con DATE OF EXAM: 05/29/2024 10:23 PM COMPARISON: CT brain 05/29/2024 , MRI 01/06/2015 CLINICAL INDICATION: Female, 58 years old with history of possible Infarct, Possible Infarct, abnorma l CT examination TECHNIQUE: Multiplanar, multiecho imaging on a 3.0 [place] magnet is performed through the brain. Stud y is performed within 24 hours of arrival to the hospital.Multiplanar, multiecho imaging on a 3.0 Elis la magnet is performed through the knee. IV Contrast: 11 mL Gadobutrol (None, if empty) FINDINGS: The craniovertebral junction is normal. The pituitary is normal. Diffusion-weighted imaging is performed. No abnormal hyperintensity is present to suggest an acute i ntracranial infarct or acute ischemic change. No signal abnormality within the right parietal-occipit al region is evident. There are a few scattered punctate areas of hyperintensity on T2 and Inversion Recovery weighted sequ ences within the centrum semiovale. Ventricular white matter which are non-specific but can be relate d to microvascular ischemic changes. Differential diagnosis could include multiple sclerosis, vasculi tis, Lyme disease. No acute ischemic changes identified by MRI. This is more extensive than the shital rison MRI. This may be more focal within the frontal lobes and centrum semiovale which is away from t he area in question on the CT exam. Ventricles and sulci are appropriate for the patient age. No suspicious enhancement IMPRESSION: 1. No suspicious changes to suggest acute infarct or acute ischemic change. 2. White matter changes, progressive from the 2014 comparison and greater than expected for patient o f this age. Differential diagnosis includes chronic microvascular ischemic change, vasculitis, Lyme d isease, multiple sclerosis. [facility], Workstation: [facility], 05/29/2024 10:31 PM
[2024-05-30 08:16] LABS: AST 31 U/L (14-36); African American GFR (CKD) >90 (>60 ml/min/1.73 sqM); Albumin 3.3 g/dL (3.5-5.0); Albumin/Globulin Ratio 1.4; Anion Gap 5 mmol/L; Blood Urea Nitrogen 10 mg/dL (7-17); Calcium 8.9 mg/dL (8.4-10.2); Carbon Dioxide 26 mmol/L (22-30); Chloride 104 mmol/L (98-107); Globulin 2.3 g/dL; Glucose 109 mg/dL (74-99); Non-African American GFR(CKD) >90 (>60 ml/min/1.73 sqM); Potassium 3.8 mmol/L (3.5-5.1); Sodium 135 mmol/L (137-145); Total Bilirubin 0.6 mg/dL (0.2-1.3); Total Protein 5.6 g/dL (6.3-8.2)
[2024-05-30 08:17] LABS: ALT 127 U/L (4-34); Alkaline Phosphatase 291 U/L (38-126)
[2024-05-30 08:26] LABS: Basophils % (A) 0 %; Eosinophils % (A) 1 %; HCT 26.8 % (34.0-46.0); Lymphocytes % (A) 14 %; MCH 35.6 pg (25.0-35.0); MCHC 32.7 g/dL (31.0-37.0); MCV 108.9 fL (80.0-100.0); Macrocytosis Moderate; Mean Platelet Volume 8.3; Monocytes # (A) 0.5 k/uL (0-1.0); Monocytes % (A) 8 %; Neutrophils # (A) 5.3 k/uL (1.3-7.7); Neutrophils % (A) 75 %; Platelet Count 162 k/uL (150-450); RBC 2.46 m/uL (3.80-5.40); RDW 12.9 % (11.5-15.5)
[2024-05-30 08:29] LABS: HGB 8.8 gm/dL (11.4-16.0)
--- NOTE | 2024-05-30 09:34 | P.PN ---
Subjective Progress Note Date: 05/30/24 Principal diagnosis: Left lower extremity hematoma Patient is seen and examined today as a follow-up. Apparently yesterday she had an event where she had some altered mental status changes she had a brain CT as well as MRI of the brain that showed no ischemic changes. Patient verbalized that they believe it was secondary to morphine administration. She is alert and oriented x 3 today. Leg pain is improving some. Swelling is improving. Compression stocking in place. Objective - Vital Signs Vital signs: Vital Signs Temp 98.1 F 05/30/24 08:05 Pulse 94 05/30/24 08:05 Resp 17 05/30/24 08:05 BP 91/60 05/30/24 08:05 Pulse Ox 97 05/30/24 08:05 FiO2 Intake & Output 05/29/24 05/30/24 05/30/24 18:59 06:59 18:59 Intake Total 240 Balance 240 Weight 111.4 kg Intake: Oral 240 Other: # Voids 4 1 - Exam General appearance: The patient is alert, oriented, appears in no acute distress. Morbidly obese. HET: Head is normocephalic and atraumatic. Pupils are equal and reactive. Neck: Supple. Abdomen: Soft, nondistended. Extremities: Palpable bilateral PT pulses. Lower extremities warm to the touch with good capillary refill. Left lower extremity swelling below the knee. Ecchymosis with skin tear where previous blister was with necrotic appearing tissue to posterior calf. Tender to palpation. Sensorimotor intact. Neurological: No focal deficits. Alert and oriented x 3. Strength and sensat ion are grossly intact. - Labs CBC & Chem 7: 05/30/24 06:59 05/30/24 06:59 Labs: Abnormal Lab Results - Last 24 Hours (Table) 05/30/24 05/30/24 Range/Units 06:59 06:59 RBC 2.46 L (3.80-5.40) m/uL Hgb 8.8 L D (11.4-16.0) gm/dL Hct 26.8 L (34.0-46.0) % MCV 108.9 H (80.0-100.0) fL MCH 35.6 H (25.0-35.0) pg Sodium 135 L (137-145) mmol/L Glucose 109 H (74-99) mg/dL ALT 127 H (4-34) U/L Alkaline Phosphatase 291 H (38-126) U/L Total Protein 5.6 L (6.3-8.2) g/dL Albumin 3.3 L (3.5-5.0) g/dL Assessment and Plan Assessment: 1. Left lower leg trauma 2. Hematoma left lower extremity 3. Anemia likely secondary to hematoma 4. Morbid obesity Plan: Patient seen and examined with no evidence of compartment syndrome. Recommend elevation of left lower extremity and co patient is cleared from vascular surgery for discharge. Mpression stocking. Activity as tolerated. There is no indication for any vascular surgical intervention at this time. Patient may need outpatient follow-up with wound care/possible debridement. Thank you for this consultation, patient is cleared from vascular surgery for discharge. The impression and plan of care has been dictated as directed. Dr. Lo I performed a history and examination of this patient, discussed the same with the dictator. I agree with the dictator's note ,documented as a scribe. Any additional findings or plans will be noted.
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
--- NOTE | 2024-05-30 12:39 | P.PN ---
Subjective Progress Note Date: 05/30/24 SURGICAL PROGRESS NOTE CHIEF COMPLAINT: Trauma to left leg HISTORY OF PRESENT ILLNESS: Patient had a code stroke called on her yesterday due to altered mental status. This likely that her altered mental status was due to the morphine. She did have CT scan of the brain that had reported some vague signal change in the right temporal occipital region. Potential infarct in this region. MRI of brain was then completed that showed no suspicious acute infarct or ischemic change. White matter changes progressive from 2015 comparison and greater than expected for patient of this age. Differential di agnosis includes chronic microvascular ischemic change, vasculitis, Lyme disease and multiple sclerosis. Chest CTA no acute PE. Patient is currently on the cardiac floor. Her mentation has normalized. She denies any chest pain or shortness of breath. She is able to move all 4 extremities. She is awake alert and communicating appropriately. She does report pain in the left leg. But she does report the calf does feel softer. Afebrile. WBC is 7 Hgb is down from 10.5-8.8 LFTs continue to trend down. PHYSICAL EXAM: VITAL SIGNS: Reviewed. GENERAL: Well-developed in no acute distress. ABDOMEN: Soft. Nondistended. Nontender. NEUROLOGIC: Alert and oriented. Cranial nerves II through XII grossly intact. Extremities: decreased swelling in the left calf. The calf is more soft today. Ecchymosis and hematoma noted on the left calf spreading into hamstring area. Eschar tissue on calf where blister has ruptured. Small blisters noted around the eschar tissue. No signs of infection. ASSESSMENT: 1. Traumatic left lower extremity injury with hematoma 2. Anemia likely due to hematoma 3. Elevated LFTs trending down PLAN: -Continue JOHN hose for compression to the left leg and to keep leg elevated -Continue pain management. Agree with discontinuing the morphine due to mentat ion changes -Continue muscle relaxer -Orthopedic and vascular service recommendations noted. No surgical intervention planned. Vascular service has cleared patient for discharge. -Repeat labs in a.m. -Consult PT OT to help ambulate patient -Patient may need debridement of the necrotic tissue in the left calf. This will likely be done in the outpatient setting. -Anticipate possible discharge tomorrow Physician Personnel Consultant note has been reviewed by physician. Signing provider agrees with the documented findings, assessment, and plan of care. Attestation Patient seen and examined at bedside. Presented with chief complaint of trauma to the left lower extremity. Hemoglobin is 8.8 today from 10.5 yesterday. Will continue to monitor. Due to the injury, vascular service was consulted with no plan for surgical intervention at this time. Awaiting demarcation of the blister site with eschar formation. She will likely require debridement, however awaiting demarcation at this time. She is aware of this. Tamara Alonso, Objective - Vital Signs Vital signs: Vital Signs Temp 98.1 F 05/30/24 08:05 Pulse 92 05/30/24 11:25 Resp 17 05/30/24 08:05 BP 91/60 05/30/24 08:05 Pulse Ox 97 05/30/24 08:05 FiO2 Intake & Output 05/29/24 05/30/24 05/30/24 18:59 06:59 18:59 Intake Total 240 Balance 240 Weight 111.4 kg Intake: Oral 240 Other: # Voids 4 1 - Labs CBC & Chem 7: 05/30/24 06:59 05/30/24 06:59 Labs: Abnormal Lab Results - Last 24 Hours (Table) 05/30/24 05/30/24 Range/Units 06:59 06:59 RBC 2.46 L (3.80-5.40) m/uL Hgb 8.8 L D (11.4-16.0) gm/dL Hct 26.8 L (34.0-46.0) % MCV 108.9 H (80.0-100.0) fL MCH 35.6 H (25.0-35.0) pg Sodium 135 L (137-145) mmol/L Glucose 109 H (74-99) mg/dL ALT 127 H (4-34) U/L Alkaline Phosphatase 291 H (38-126) U/L Total Protein 5.6 L (6.3-8.2) g/dL Albumin 3.3 L (3.5-5.0) g/dL
[2024-05-30] MEDS: NON FORMULARY DRUG (Alendronate Sodium [Alendronate Sodium] 70 MG Tablet) PO SCH (13:07)
--- NOTE | 2024-05-31 00:02 | PN ---
PROGRESS NOTE SUBJECTIVE: Left lower extremity hematoma with blistering in the posterior calf. Blood is coming out. Blood blisters due to severe hematoma in the left leg. She has not done any decompression surgery. She became confused last night. MRI of the brain is negative for stroke. It was due to morphine, most likely Benadryl which we are discontinuing. Monitoring her overnight. OBJECTIVE: CARDIOVASCULAR: S1, S2. LUNGS: Transmitted upper sounds. GI: Soft. HEMATOLOGY: Negative Homans. PSYCH: Fair mood and affect. Altered mental status secondary to polypharmacy. We will stop some drugs, morphine, and Benadryl. MRI of the brain is negative for stroke. Continue with orthopedic recommendations for left lower extremity hematoma. Prognosis guarded. MMODL / IJN: [id number] /
[2024-05-31 06:52] LABS: ALT 99 U/L (4-34); AST 27 U/L (14-36); African American GFR (CKD) >90 (>60 ml/min/1.73 sqM); Albumin 3.7 g/dL (3.5-5.0); Alkaline Phosphatase 268 U/L (38-126); Anion Gap 7 mmol/L; Blood Urea Nitrogen 15 mg/dL (7-17); Calcium 8.8 mg/dL (8.4-10.2); Carbon Dioxide 28 mmol/L (22-30); Chloride 103 mmol/L (98-107); Glucose 105 mg/dL (74-99); Non-African American GFR(CKD) 86 (>60 ml/min/1.73 sqM); Potassium 4.3 mmol/L (3.5-5.1); Sodium 138 mmol/L (137-145); Total Bilirubin 0.6 mg/dL (0.2-1.3)
[2024-05-31 07:05] LABS: HCT 25.7 % (34.0-46.0); HGB 8.3 gm/dL (11.4-16.0); MCH 34.5 pg (25.0-35.0); MCHC 32.2 g/dL (31.0-37.0); Macrocytosis Moderate; Mean Platelet Volume 8.8; Platelet Count 176 k/uL (150-450); RDW 13.5 % (11.5-15.5); WBC 7.8 k/uL (3.8-10.6)
--- NOTE | 2024-05-31 13:49 | P.PN ---
Subjective Progress Note Date: 05/31/24 Principal diagnosis: Left lower extremity hematoma Patient seen and examined today as a follow-up. She continues to have improvement in swelling of the left lower extremity, there is some weeping surrounding the blisters that had open. Patient states pain is improving as well as ambulation. Labs pending Objective - Vital Signs Vital signs: Vital Signs Temp 98.4 F 05/30/24 20:00 Pulse 94 05/31/24 08:55 Resp 16 05/31/24 04:00 BP 114/66 05/31/24 04:00 Pulse Ox 97 05/31/24 04:00 FiO2 Intake & Output 05/30/24 05/31/24 05/31/24 18:59 06:59 18:59 Intake Total 340 Balance 340 Weight 112.2 kg Intake: Oral 340 Other: Voiding Method Toilet Toilet - Exam General appearance: The patient is alert, oriented, appears in no acute distress. Morbidly obese. HET: Head is normocephalic and atraumatic. Pupils are equal and reactive. Neck: Supple. Abdomen: Soft, nondistended. Extremities: Palpable bilateral PT pulses. Lower extremities warm to the touch with good capillary refill. Left lower extremity swelling below the knee improving. Ecchymosis with skin tear where previous blister was with necrotic appearing tissue to posterior calf, other blisters have opened with some serosanguineous drainage. Tender to palpation. Sensorimotor intact. Neurological: No focal deficits. Alert and oriented x 3. Strength and sensation are grossly intact. - Labs CBC & Chem 7: 05/31/24 06:02 05/31/24 06:02 Labs: Abnormal Lab Results - Last 24 Hours (Table) 05/31/24 05/31/24 Range/Units 06:02 06:02 RBC 2.40 L (3.80-5.40) m/uL Hgb 8.3 L (11.4-16.0) gm/dL Hct 25.7 L (34.0-46.0) % MCV 107.0 H (80.0-100.0) fL Glucose 105 H (74-99) mg/dL ALT 99 H (4-34) U/L Alkaline Phosphatase 268 H (38-126) U/L Total Protein 6.0 L (6.3-8.2) g/dL Assessment and Plan Assessment: 1. Left lower leg trauma 2. Hematoma left lower extremity 3. Anemia likely secondary to hematoma 4. Morbid obesity Plan: Patient seen and examined continues with no evidence of compartment syndrome. Recommend elevation of left lower extremity and compression stocking. Encourage ambulation. No indication at this time for any vascular surgical intervention. Thank you for this consultation, patient is cleared from vascular surgery for di suha. We will sign off at this time. The impression and plan of care has been dictated as directed. Dr. Lo I performed a history and examination of this patient, discussed the same with the dictator. I agree with the dictator's note ,documented as a scribe. Any additional findings or plans will be noted.
--- NOTE | 2024-05-31 14:00 | P.PN ---
Subjective Progress Note Date: 05/31/24 SURGICAL PROGRESS NOTE CHIEF COMPLAINT: Trauma to left leg HISTORY OF PRESENT ILLNESS: Patient continues to report leg pain. She is able to ambulate. She does report that the calf is starting to feel warm. There is some mild erythema. Afebrile. WBC 7.8 Hgb down from 8.8-8.3 LFTs trending down. PHYSICAL EXAM: VITAL SIGNS: Reviewed. GENERAL: Well-developed in no acute distress. ABDOMEN: Soft. Nondistended. Nontender. NEUROLOGIC: Alert and oriented. Cranial nerves II through XII grossly intact. Extremities: Patient's left calf is softer. There is ecchymosis and in the calf and up into the hamstring area. The enlarged eschar tissue on cath noted. There is a small area of eschar tissue more on the lateral aspect of the calf. Patient started to have some mild erythema around the edges of the eschar tissue. Warm to touch. ASSESSMENT: 1. Traumatic left lower extremity injury with hematoma 2. Anemia likely due to hematoma 3. Elevated LFTs trending down 4. Altered mental status or metabolic encephalopathy due to morphine. Now improved after morphine discontinued. PLAN: -Added Kefzol for cellulitis changes on left calf -Continue JOHN hose for compression to the left leg and to keep leg elevated -Continue pain management -Continue muscle relaxer -Orthopedic and vascular service recommendations noted. No surgical intervention planned. Vascular service and orthopedic service have cleared patient for discharge Physician Security Systems Specialist note has been reviewed by physician. Signing provider agrees with the documented findings, assessment, and plan of care. Attestation Patient seen and examined at bedside. Presented with chief complaint of trauma to the left lower extremity. Demarcation is continuing as the eschar is somewhat expanding. Some cellulitis around the site is noted and patient was started on Kefzol. We will continue pain management. Likely completion of demarcation in the next day or so and we will plan for debridement at that point. Patient is agreeable. Tamara Alonso, Objective - Vital Signs Vital signs: Vital Signs Temp 98.2 F 05/31/24 07:45 Pulse 88 05/31/24 12:06 Resp 17 05/31/24 08:00 BP 118/69 05/31/24 07:45 Pulse Ox 99 05/31/24 07:45 FiO2 Intake & Output 05/30/24 05/31/2405/31/25 18:59 06:59 18:59 Intake Total 340 Balance 340 Weight 112.2 kg Intake: Oral 340 Other: Voiding Method Toilet Toilet Toilet - Labs CBC & Chem 7: 05/31/24 06:02 05/31/24 06:02 Labs: Abnormal Lab Results - Last 24 Hours (Table) 05/31/24 05/31/24 Range/Units 06:02 06:02 RBC 2.40 L (3.80-5.40) m/uL Hgb 8.3 L (11.4-16.0) gm/dL Hct 25.7 L (34.0-46.0) % MCV 107.0 H (80.0-100.0) fL Glucose 105 H (74-99) mg/dL ALT 99 H (4-34) U/L Alkaline Phosphatase 268 H (38-126) U/L Total Protein 6.0 L (6.3-8.2) g/dL
[2024-06-01 07:16] LABS: Basophils % (A) 0 %; Eosinophils # (A) 0.1 k/uL (0-0.7); Eosinophils % (A) 1 %; HCT 26.7 % (34.0-46.0); HGB 8.6 gm/dL (11.4-16.0); Lymphocytes # (A) 1.4 k/uL (1.0-4.8); Lymphocytes % (A) 16 %; MCHC 32.3 g/dL (31.0-37.0); MCV 108.5 fL (80.0-100.0); Macrocytosis Moderate; Monocytes # (A) 0.8 k/uL (0-1.0); Monocytes % (A) 9 %; Neutrophils # (A) 6.5 k/uL (1.3-7.7); Neutrophils % (A) 72 %; Platelet Count 200 k/uL (150-450); RBC 2.46 m/uL (3.80-5.40); RDW 12.9 % (11.5-15.5)
[2024-06-01 07:37] LABS: ALT 63 U/L (4-34); AST 24 U/L (14-36); African American GFR (CKD) >90 (>60 ml/min/1.73 sqM); Albumin 3.7 g/dL (3.5-5.0); Alkaline Phosphatase 259 U/L (38-126); Anion Gap 7 mmol/L; Blood Urea Nitrogen 14 mg/dL (7-17); Calcium 8.7 mg/dL (8.4-10.2); Carbon Dioxide 27 mmol/L (22-30); Chloride 103 mmol/L (98-107); Glucose 103 mg/dL (74-99); Non-African American GFR(CKD) >90 (>60 ml/min/1.73 sqM); Potassium 4.2 mmol/L (3.5-5.1); Sodium 137 mmol/L (137-145); Total Bilirubin 0.5 mg/dL (0.2-1.3)
[2024-06-01] MEDS ORDERED: NON FORMULARY DRUG (Dulaglutide [Trulicity] 0.75 MG/0.5 ML Pen.Injctr) SQ SCH (09:00)
[2024-06-01] MEDS: FUROSEMIDE 40 MG TAB PO SCH (09:11)
--- NOTE | 2024-06-01 13:03 | P.PN ---
Subjective Progress Note Date: 06/01/24 SURGICAL PROGRESS NOTE CHIEF COMPLAINT: Trauma to left leg HISTORY OF PRESENT ILLNESS: Patient continues to report leg pain and swelling. She is able to ambulate. There is some drainage from the the left calf noted on the dressing. Ecchymosis is spreading around the lower leg and up into the upper part of the left leg. Afebrile. BP slightly on the lower side. WBC 9.0 Hgb 8.6 platelets 200 sodium is 137 potassium is 4.2 creatinine 0.71 PHYSICAL EXAM: VITAL SIGNS: Reviewed. GENERAL: Well-developed in no acute distress. ABDOMEN: Soft. Nondistended. Nontender. NEUROLOGIC: Alert and oriented. Cranial nerves II through XII grossly intact. Extremities: Patient's ecchymosis is spreading from the calf on the left leg towards the anterior aspect of the lower left leg. There are now 3 areas of eschar tissue. There are small blisters in between these 3 areas. Very mild erythema noted. She does have ecchymosis up into the left upper leg. Skin is warm to touch. She is able to move the extremity. She continues to have some numbness in the left calf. ASSESSMENT: 1. Traumatic left lower extremity injury with hematoma 2. Anemia likely due to hematoma 3. Elevated LFTs trending down 4. Altered mental status or metabolic encephalopathy due to morphine. Now improved after morphine discontinued. PLAN: -Continue to monitor area of demarcation. Awaiting for complete demarcation hopefully within the next day or 2. Surgeon will then assess for possible debridement. -Continue to monitor hemoglobin -Continue Kefzol for mild cellulitis changes on left calf -Continue JOHN hose for compression to the left leg and to keep leg elevated -Continue pain management -Continue muscle relaxer -Orthopedic and vascular service recommendations noted. No surgical intervention planned. Vascular service and orthopedic service have cleared patient for discharge Physician Smoking Pipe Maker note has been reviewed by physician. Signing provider agrees with the documented findings, assessment, and plan of care. Objective - Vital Signs Vital signs: Vital Signs Temp 98.1 F 06/01/24 11:19 Pulse 83 06/01/24 11:19 Resp 18 06/01/24 11:19 BP 97/59 06/01/24 11:19 Pulse Ox 97 06/01/24 11:19 FiO2 Intake & Output 05/31/24 06/01/24 06/01/24 18:59 06:59 18:59 Intake Total 240 250 130 Balance 240 250 130 Intake: IV 10 10 Invasive Line 3 10 10 Oral 240 240 120 Other: Voiding Method Toilet Toilet Toilet # Voids 1 3 # Bowel Movements 1 - Labs CBC & Chem 7: 06/01/24 06:56 06/01/24 06:56 Labs: Abnormal Lab Results - Last 24 Hours (Table) 06/01/24 06/01/24 Range/Units 06:56 06:56 RBC 2.46 L (3.80-5.40) m/uL Hgb 8.6 L (11.4-16.0) gm/dL Hct 26.7 L (34.0-46.0) % MCV 108.5 H (80.0-100.0) fL Glucose 103 H (74-99) mg/dL ALT 63 H (4-34) U/L Alkaline Phosphatase 259 H (38-126) U/L Total Protein 6.0 L (6.3-8.2) g/dL Assessment and Plan Assessment: follow up lower extremity ct w/ iv contrast npo after midnight OR tomorrow Time with Patient: Greater than 30
--- NOTE | 2024-06-01 15:42 | CT ---
EXAMINATION TYPE: CT lower extremity LT w con CT DLP: 525.1 mGycm, Automated exposure control for dose reduction was used. DATE OF EXAM: 06/01/2024 3:24 PM COMPARISON: CT left lower extremity 05/26/2024 CLINICAL INDICATION:Female, 58 years old with history of left leg trauma, check for fluid collection; PHH, Left leg trauma, check for fluid collection. TECHNIQUE: Axial images were obtained of the left lower extremity after the uneventful administration of 100 cc of Isovue-300 intravenously. Additional coronal and sagittal reformatted images and soft t issue and bone window were obtained for review. FINDINGS: There is no evidence of fracture, subluxation, or dislocation. Diffuse subcutaneous edema. No visualized knee joint effusion. Mild patellar soft tissue edema. There is again extensive high den sity material throughout the posterior calf and left lower extremity soft tissues without definitive intramuscular extension. This grossly measures 10.2 x 3.6 x 15.3 cm in TV, AP, CC dimensions. Previou sly seen region of focal active extravasation is not visualized on today's exam. No soft tissue gas i dentified. No rim enhancement identified. These fluid collections appear more homogeneous in appearan ce from prior exam. The visualized distal superficial femoral artery, popliteal artery, anterior tibial, posterior tibial , peroneal arteries are patent in the left lower extremity. The distal aspects of the anterior tibial , posterior tibial, and peroneal arteries are poorly visualized distally. No focal muscular atrophy. No radiopaque foreign body. Small plantar calcaneal enthesophyte. Minimal tricompartmental osteolytic changes of the knee. IMPRESSION: 1. No acute fracture or dislocation. 2. Redemonstration of extensive high density blood products/hematoma throughout the posterior left l ower extremity soft tissues without intramuscular extension. Overall size is stable to marginally sma ller. Previously seen focal active extravasation is no longer visualized. [facility], , 06/01/2024 3:40 PM
--- NOTE | 2024-06-01 21:39 | PN ---
PROGRESS NOTE SUBJECTIVE: A 58-year-old white female with left lower extremity hematoma. Dr. Coates is going to do a debridement tomorrow, possibly put a wound VAC on her. Otherwise, she is back on her home medications including Lasix and breathing treatments. She is up ambulating with JOHN hose on her legs. OBJECTIVE: CARDIOVASCULAR: S1, S2. LUNGS: Clear. Status post muscle injury of the left calf with severe hematoma with dehiscence of skin with blood blisters etc. Dr. Brunner is taking her to surgery tomorrow. Continue current medicines. Prognosis guarded. MMODL / IJN: [id number] /
[2024-06-02] MEDS: hydrOXYzine HCL 25 MG TAB PO PRN (00:55)
[2024-06-02] MEDS ORDERED: MIDAZOLAM 2 MG/2 ML VIAL ONE (08:03)
[2024-06-02] MEDS ORDERED: fentaNYL (PF) 50 MCG/ML 2 ML AMP ONE (08:03)
[2024-06-02] MEDS ORDERED: LIDOCAINE 1% INJ 10MG/ML (20 ML MDV) ONE (08:03)
[2024-06-02] MEDS ORDERED: SUCCINYLCHOLINE CHLORIDE 200 MG/10 ML VIAL IV ONE (08:03)
[2024-06-02] MEDS ORDERED: PROPOFOL 10 MG/ML 20 ML VIAL IV ONE (08:03)
[2024-06-02] MEDS: IV FLUID CONTINUATION 1,000 ML IV ONE (08:09)
[2024-06-02] MEDS: SODIUM CHLORIDE 0.9% 100 ML with ceFAZolin 2,000 MG IV ONE (08:09)
[2024-06-02 08:44] LABS: African American GFR (CKD) >90 (>60 ml/min/1.73 sqM); Anion Gap 9 mmol/L; Blood Urea Nitrogen 14 mg/dL (7-17); Calcium 8.6 mg/dL (8.4-10.2); Carbon Dioxide 27 mmol/L (22-30); Chloride 101 mmol/L (98-107); Glucose 104 mg/dL (74-99); Magnesium 1.8 mg/dL (1.6-2.3); Non-African American GFR(CKD) >90 (>60 ml/min/1.73 sqM); Sodium 137 mmol/L (137-145)
[2024-06-02 08:45] LABS: HCT 26.9 % (34.0-46.0); HGB 8.7 gm/dL (11.4-16.0); MCH 34.8 pg (25.0-35.0); MCHC 32.4 g/dL (31.0-37.0); MCV 107.3 fL (80.0-100.0); Macrocytosis Moderate; Mean Platelet Volume 8.4; Platelet Count 238 k/uL (150-450); RBC 2.51 m/uL (3.80-5.40); RDW 12.8 % (11.5-15.5)
[2024-06-02] MEDS: HYDROmorphone 0.5 MG/0.5 ML SYRINGE IVP PRN (14:06)
--- NOTE | 2024-06-02 18:57 | P.OP ---
Date of Procedure: 06/02/24 Preoperative Diagnosis: left lower extremity pressure sore Postoperative Diagnosis: left lower extremity hematoma/stage 3 lower extremity ulcer Anesthesia: INGRID Surgeon: Misbah Woodson Estimated Blood Loss (ml): 300 Pathology: other (clot) Condition: stable Disposition: PACU Indications for Procedure: left lower extremity trauma Operative Findings: dark clots with necrotic subcutaneous tissue Description of Procedure: Patient was brought to the operative suite where she was cleaned and draped in sterile fashion. A timeout was performed and everyone agreed with the information recited. Next a number 10 blade was used to trace around the eschar. Electrocautery was used to dissect down to subcutaneous tissue w/ blunt dissection. Necrotic subcutaneous tissue down to the fascia of the muscle. Once all the necrotic tissue as removed, irrigation was used to clean the wound. Next, a wound vac was placed and secured. Patient was transferred to pacu in stable condition.
--- NOTE | 2024-06-02 23:07 | PN ---
PROGRESS NOTE SUBJECTIVE: Hemoglobin 7. She is going for left leg debridement, possibly put a wound VAC placement today. OBJECTIVE: CARDIOVASCULAR: S1, S2. LUNGS: Clear. GI: Soft. HEMATOLOGY: Negative Homans. Negative wound. She had evacuation of hematoma and wound VAC topically. The patient should possibly be ordered to be discharged with a wound VAC. Hemoglobin is stable at 8.7. ASSESSMENT: Left leg trauma with large hematoma with wound VAC in the posterior left calf. Prognosis guarded. Please see further orders. MMODL / IJN: [id number] /
[2024-06-03 12:32] LABS: HGB 8.4 gm/dL (11.4-16.0); Hypochromasia Slight; MCHC 32.5 g/dL (31.0-37.0); MCV 107.6 fL (80.0-100.0); Macrocytosis Moderate; Mean Platelet Volume 7.7; Platelet Count 259 k/uL (150-450); RBC 2.41 m/uL (3.80-5.40); RDW 13.1 % (11.5-15.5); WBC 7.7 k/uL (3.8-10.6)
[2024-06-03 12:43] LABS: African American GFR (CKD) >90 (>60 ml/min/1.73 sqM); Anion Gap 8 mmol/L; Blood Urea Nitrogen 14 mg/dL (7-17); Calcium 8.6 mg/dL (8.4-10.2); Carbon Dioxide 27 mmol/L (22-30); Chloride 102 mmol/L (98-107); Glucose 99 mg/dL (74-99); Non-African American GFR(CKD) 84 (>60 ml/min/1.73 sqM); Potassium 3.9 mmol/L (3.5-5.1); Sodium 137 mmol/L (137-145)
--- NOTE | 2024-06-03 22:29 | PN ---
PROGRESS NOTE HISTORY OF PRESENT ILLNESS: A 58-year-old white female who remains on Kefzol IV q.8 for her right leg cellulitis, open wound with a wound VAC. She has large amounts of blood coming out of her leg into the wound VAC. Her leg swelling is decreasing, possibly may need more debridement. We will check her hemoglobin as she has lost a lot of blood after debridement surgery with wound VAC being placed. PHYSICAL EXAMINATION: VITAL SIGNS: Blood pressure 112/74, pulse 70s to 80s, oxygen saturation 98% on room air. CARDIOVASCULAR: S1, S2. LUNGS: Transmitted upper sounds. GI: Soft. HEMATOLOGY: Negative Homans. PSYCH: Fair mood and affect. LABORATORY DATA: Pending. ASSESSMENT: Healed hematoma, status post leg debridement with large amounts of blood being removed from the left calf with severe hematoma with dehiscence of the skin. PROGNOSIS: Guarded. PLAN: Monitor hemoglobin levels. Continue home medications. MMODL / IJN: [id number] /
--- NOTE | 2024-06-03 23:08 | P.PN ---
Subjective Patient seen and evaluated at bedside. Patient doing well, admits lower extremity pain. Denies fevers, chills, shortness of breath or chest pain, wound vac reinforced last night. Objective - Vital Signs Vital signs: Vital Signs Temp 97.9 F 06/03/24 19:30 Pulse 88 06/03/24 20:19 Resp 16 06/03/24 19:37 BP 96/57 06/03/24 19:30 Pulse Ox 99 06/03/24 19:30 FiO2 Intake & Output 06/03/24 06/03/24 06/04/24 06:59 18:59 06:59 Intake Total 1016 Output Total 250 400 Balance 766 -400 Weight 115.4 kg Intake: Oral 1016 Output: Drainage 250 400 Left Calf 250 400 Other: Voiding Method Toilet Toilet Toilet # Voids 2 1 - Exam gen: nad cv: rrr pul: non labored breathing extremity demonstrates wound vac in place with decrease in bloody output, non purlent, compartments more soft compared to previously - Labs CBC & Chem 7: 06/03/24 12:06 06/03/24 12:06 Labs: Abnormal Lab Results - Last 24 Hours (Table) 06/03/24 Range/Units 12:06 RBC 2.41 L (3.80-5.40) m/uL Hgb 8.4 L (11.4-16.0) gm/dL Hct 26.0 L (34.0-46.0) % MCV 107.6 H (80.0-100.0) fL Assessment and Plan Assessment: 58 yo female s/p lower extremity wound debridement with wound vac application -OR tomorrow jun 04 for wound vac change -cbc in am -case management/social work for discharge planning Time with Patient: Less than 30
[2024-06-04 06:25] LABS: Basophils % (A) 1 %; Eosinophils # (A) 0.2 k/uL (0-0.7); Eosinophils % (A) 2 %; HCT 25.2 % (34.0-46.0); HGB 8.3 gm/dL (11.4-16.0); Hypochromasia Slight; Lymphocytes # (A) 1.5 k/uL (1.0-4.8); Lymphocytes % (A) 19 %; MCH 35.6 pg (25.0-35.0); MCHC 33.1 g/dL (31.0-37.0); MCV 107.6 fL (80.0-100.0); Macrocytosis Moderate; Mean Platelet Volume 9.2; Monocytes # (A) 0.7 k/uL (0-1.0); Monocytes % (A) 9 %; Neutrophils # (A) 5.4 k/uL (1.3-7.7); Neutrophils % (A) 68 %; Platelet Count 276 k/uL (150-450); RBC 2.34 m/uL (3.80-5.40)
[2024-06-04 06:33] LABS: ALT 12 U/L (4-34); AST 23 U/L (14-36); African American GFR (CKD) >90 (>60 ml/min/1.73 sqM); Albumin 3.3 g/dL (3.5-5.0); Alkaline Phosphatase 207 U/L (38-126); Anion Gap 5 mmol/L; Blood Urea Nitrogen 15 mg/dL (7-17); Calcium 8.3 mg/dL (8.4-10.2); Carbon Dioxide 28 mmol/L (22-30); Chloride 103 mmol/L (98-107); Glucose 100 mg/dL (74-99); Non-African American GFR(CKD) >90 (>60 ml/min/1.73 sqM); Potassium 4.1 mmol/L (3.5-5.1); Sodium 136 mmol/L (137-145); Total Bilirubin 0.4 mg/dL (0.2-1.3); Total Protein 5.8 g/dL (6.3-8.2)
[2024-06-04 09:36] LABS: Poikilocytosis (M) Present
--- NOTE | 2024-06-04 11:58 | P.CONS ---
History of Present Illness - Reason for Consult Consult date: 06/04/24 wound care - History of Present Illness This is a 58-year-old patient being seen on 3 [address]. for a nonhealing ulceration to the left calf. Patient suffered a crush injury over the new year resulting in a large hematoma. Patient had a surgical debridement and a negative pressure wound VAC placed over the weekend. The plan is for patient to return to the OR for possible continued debridement and wound VAC change. Patient currently has negative pressure wound VAC in place tolerating dressing without any difficulties. Patient's past medical history is significant for asthma, fibromyalgia, GERD, sleep apnea Review Of Systems: Constitutional: No fever, no chills, no night sweats. No weight change. No weakness, fatigue or lethargy. No daytime sleepiness. Integumentary:reports wounds, no lesions. No rash or pruritus. No unusual bruising. No change in hair or nails. Physical exam: General Appearance: Alert, cooperative, no distress, appears stated age. Skin: See HPI all other Skin color, texture, tugor normal, no rashes or lesions. Neurologic: Alert oriented x3 Assessment: 1. Nonhealing ulceration left calf with muscle necrosis Plan: 1. At this time surgery to manage negative pressure wound VAC. We will continue with outpatient wound VAC upon discharge. Patient is agreeable to come to the wound care center for outpatient care. If outpatient wound VAC is not available apply absorptive silver, saline moist gauze, dry gauze, rolled gauze ABD and secure with tape. Start outpatient negative wound VAC once it is available. Thank you for the consultation any questions please contact the wound care center DNP note has been reviewed and discussed with Dr. Cavazos and the impression and plan of care has been directed as dictated. Past Medical History Past Medical History: Asthma, Fibromyalgia, GERD/Reflux, Sleep Apnea/CPAP/BIPAP Additional Past Medical History / Comment(s): migraines, gastric ulcer, varicose veins, chronic fatigue syndrome, hx pernicious anemia, abdominal bjse-[id number]-IBX, oral yeast infections, hx kidney stones. STOMACH ULCER RUPTURE. History of Any Multi-Drug Resistant Organisms: None Reported Past Surgical History: Appendectomy, Back Surgery, Bariatric Surgery, Section, Cholecystectomy, Hernia Repair, Hysterectomy Additional Past Surgical History / Comment(s): x2, metal removed from rt eye 15 years ago,-lithotripsy, gastric bypass 2002 , 2 titanium rods in lower back, Carpal tunnel release bilaterally, PANNICULECTOMY Past Anesthesia/Blood Transfusion Reactions: Family History of Problems w/ Anesthesia Additional Past Anesthesia/Blood Transfusion Reaction / Comm: family members w/severe headaches w/anesthesia Past Psychological History: Anxiety, Depression Smoking Status: Former smoker Past Alcohol Use History: Occasional Additional Past Alcohol Use History / Comment(s): quit smoking 04/2016, smoked for 13 yrs, < 1 PPD Past Drug Use History: None Reported - Past Family History Brother(s) Family Medical History: Cancer Father Family Medical History: Cancer Additional Family Medical History / Comment(s): PROSTATE CANCER Mother Additional Family Medical History / Comment(s): OBESITY-HAD GASTRIC BYPASS SX Medications and Allergies Home Medications Medication Instructions Recorded Confirmed Type DULoxetine HCL [Cymbalta] 60 mg PO BID 03/19/15 05/27/24 History Potassium Chloride ER [K-Dur 20] 20 meq PO BID tab.er.prt 09/29/17 05/27/24 Rx Pantoprazole Sodium [Protonix] 40 mg PO BID 10/09/17 05/27/24 History rOPINIRole HCL [Requip] 1 mg PO HS 10/09/17 05/27/24 History Dicyclomine HCl 20 mg PO TID 06/22/18 05/27/24 History traZODone HCL [Desyrel] 50 mg PO HS 06/22/18 05/27/24 History ARIPiprazole [Abilify] 10 mg PO DAILY 12/04/19 05/27/24 History Furosemide [Lasix] 40 mg PO DAILY 12/04/19 05/27/24 History hydrOXYzine HCL [Atarax] 12.5 mg PO BID PRN 12/04/19 05/27/24 History Albuterol Sulfate [Albuterol 2 puff INHALATION RT-QID PRN 05/27/24 05/27/24 History Sulfate Hfa] Alendronate Sodium 70 mg PO WE 05/27/24 05/27/24 History Atorvastatin [Lipitor] 10 mg PO HS 05/27/24 05/27/24 History Ferrous Sulfate [Iron (65 MG 325 mg PO DAILY 05/27/24 05/27/24 History Elemental)] Ketamine 75mg 75 mg PO 5XD 05/27/24 05/28/24 History Loratadine 10 mg PO DAILY 05/27/24 05/27/24 History Montelukast [Singulair] 10 mg PO DAILY 05/27/24 05/27/24 History Oxybutynin ER [Ditropan XL] 10 mg PO DAILY 05/27/24 05/27/24 History Propranolol [Inderal] 20 mg PO Q12H 05/27/24 05/27/24 History Tiotropium 2.5 Mcg/Puff [Spiriva 2 puff INHALATION RT-DAILY 05/27/24 05/27/24 History Respimat 2.5 Mcg] allopurinoL [Zyloprim] 300 mg PO DAILY 05/27/24 05/27/24 History Cyclobenzaprine [Flexeril] 5 mg PO BID PRN tab 05/30/24 Rx Allergies Allergy/AdvReac Type Severity Reaction Status Date / Time broccoli Allergy Severe Anaphylaxis Verified 05/27/24 14:16 with raw broccoli amoxicillin Allergy face swells Verified 05/27/24 14:16 ketorolac [From Toradol] Allergy Hallucinati Verified 05/27/24 14:16 ons Penicillins AdvReac Unknown Anaphylaxis Verified 05/27/24 14:16 /hallucinat ions adhesive tape AdvReac Itching Verified 05/27/24 14:16 morphine AdvReac Hallucinati Verified 06/01/24 09:14 ons diet cola Allergy GI irritant Uncoded 05/27/24 14:16 Physical Exam Vitals: Vital Signs Temp Pulse Pulse Pulse Resp BP Pulse Ox 06/04/24 09:00 98 F 81 14 103/71 99 06/04/24 05:25 98.1 F 77 16 103/67 97 06/04/24 00:00 78 14 105/56 99 06/03/24 20:19 88 06/03/24 20:13 86 06/03/24 19:37 16 06/03/24 19:30 97.9 F 86 16 96/57 99 06/03/24 17:07 90 06/03/24 16:58 88 06/03/24 15:49 97.9 F 84 18 115/62 99 Intake and Output 06/03/24 06/04/24 06/04/24 22:59 06:59 14:59 Intake Total 240 Output Total 150 20 Balance 90 -20 Intake: Oral 240 Output: Drainage 150 20 Left Calf 150 20 Other: Voiding Method Toilet Toilet Toilet # Voids 1 1 Weight 116.4 kg Results CBC & Chem 7: 06/04/24 05:32 06/04/24 05:32 Labs: Abnormal Lab Results - Last 24 Hours (Table) 06/03/24 06/04/24 06/04/24 Range/Units 12:06 05:32 05:32 RBC 2.41 L 2.34 L (3.80-5.40) m/uL Hgb 8.4 L 8.3 L (11.4-16.0) gm/dL Hct 26.0 L 25.2 L (34.0-46.0) % MCV 107.6 H 107.6 H (80.0-100.0) fL MCH 35.6 H (25.0-35.0) pg Sodium 136 L (137-145) mmol/L Glucose 100 H (74-99) mg/dL Calcium 8.3 L (8.4-10.2) mg/dL Alkaline Phosphatase 207 H (38-126) U/L Total Protein 5.8 L (6.3-8.2) g/dL Albumin 3.3 L (3.5-5.0) g/dL Assessment and Plan (1) 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
--- NOTE | 2024-06-04 14:22 | CDI ---
Documentation Clarification Form Date: 06/04/2024 02:01:07 PM From: Jia Steel RN CCDS Phone: [phone] Admit Date: 05/29/2024 09:24:00 PM Patient Name: Keyla Faith Visit Number: [id number] Discharge Date: ATTENTION: The Clinical Documentation Specialists (CDI) and [facility] Coding Staff appreciate your assistance in clarifying documentation. Please respond to the clarification below the line at the bottom and electronically sign. The CDI & [facility] Coding staff will review the response and follow-up if needed. Please note: Queries are made part of the Legal Health Record. If you have any questions, please contact the author of this message via ITS. Dr: Misbah Woodson A procedure is documented on 06/02/2024. Unfortunately, some required elements have not been documented. Additional clarification regarding the procedure is requested. History/Risk Factors: 58 year old female presents to the ED for left lower extremity injury. Medical History: Asthma, Fibromyalgia, GERD, Sleep Apnea /CPAP / BIPAP. and varicose veins. 05/27, Clinical Indicators: Procedure 06/02: Left lower extremity pressure sore / Left lower extremity hematoma/ stage 3 lower extremity ulcer. Patient was brought to the operative suite where she was cleaned and draped in sterile fashion.A timeout was performed and everyone agreed with the information recited. Next a number 10 blade was used to trace around the eschar. Electrocautery was used to dissect down to subcutaneous tissue w/ blunt dissection. Necrotic subcutaneous tissue down to the fascia of the muscle.Once all the necrotic tissue as removed, irrigation was used to clean the wound. Next, a wound vac was placed and secured. Patient was transferred to pacu in stable condition Treatment: tissue was removed Please clarify the procedure performed : [x ] Excisional debridement (the removal of necrotic, devitalized tissue or slough by means of cutting away of tissue) [ ] Non-excisional debridement (the removal of necrotic, devitalized tissue or slough by means of flushing, brushing, or washing. (Irrigation) Five elements required for accurate and compliant documentation of a debridement: -Technique used (e.g., excisional, excised, cutting, brushing, jet lavage etc.) -Instrument(s) used (e.g., scalpel, curette, etc.) -Nature of the tissue removed (e.g., necrotic, devitalized tissues, non-viable tissue, etc.) -Appearance and size of the wound (e.g., down to fresh bleeding tissue, 7cm x 10cm, etc.) -Depth of the debridement* (e.g., skin, subcutaneous tissue, fascia, muscle, bone, etc.) (Template Last Revised: January 2024) excisional debridement with #10 blade necrotic tissue down to fascia of the muscle 7 x 7 x 3 cm MTDD
--- NOTE | 2024-06-05 02:07 | PN ---
PROGRESS NOTE A 58-year-old white female who is going to go back for another debridement of her wound VAC and wound VAC change in the OR tomorrow. Hemoglobin stable at 8.3. Large amounts of blood coming out of her wound VAC on her left posterior calf, where she has cut her leg, was taken out and debrided in surgery. Otherwise, she gains a lot of water weight. She wants us to refer for that as she has gained a lot of water weight since admitted to the hospital. Pick her IV fluids to negative. Possibly give her Zaroxolyn water pill once a day to elevate her urination. Prognosis guarded. Ambulate as tolerated. Please see further orders. Wound VAC looks intact. She is sitting up, giving appropriate answers. MMODL / IJN: [id number] /
[2024-06-05] MEDS: metOLazone 5 MG TAB PO SCH (08:20)
[2024-06-05] MEDS ORDERED: MIDAZOLAM 2 MG/2 ML VIAL ONE (12:57)
[2024-06-05] MEDS ORDERED: PROPOFOL 10 MG/ML 20 ML VIAL IV ONE (12:57)
[2024-06-05] MEDS ORDERED: fentaNYL (PF) 50 MCG/ML 2 ML AMP ONE (12:57)
[2024-06-05] MEDS ORDERED: KETAMINE HCL IN 0.9 % NACL 50 MG/5 ML SYRINGE ONE (12:57)
[2024-06-05] MEDS: IV FLUID CONTINUATION 1,000 ML IV ONE (17:25)
[2024-06-05] MEDS: DEXAMETHASONE SOD PHOSPHATE 4 MG/ML 1 ML VIAL IVP STA (17:28)
[2024-06-05 17:47] LABS: Glucose,Whole Blood 100 mg/dL (70-110)
[2024-06-05] MEDS: LIDOCAINE 1%-EPI 1:100,000 20 ML VIAL SQ ONE (18:16)
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
[2024-06-05] MEDS: HYDROmorphone 0.5 MG/0.5 ML SYRINGE IVP PRN (18:59)
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
[2024-06-06] MEDS: TIOTROPIUM 2.5 MCG INHALER INHALATION SCH (08:23)
[2024-06-06 14:01] VITALS: BMI 45.9
[2024-06-06] MEDS: diphenhydrAMINE 25 MG CAP PO PRN (14:13)
--- NOTE | 2024-06-06 15:59 | P.PN ---
Subjective Progress Note Date: 06/06/24 SURGICAL PROGRESS NOTE CHIEF COMPLAINT: Trauma to left leg HISTORY OF PRESENT ILLNESS: Patient status post debridement of the lower extremity wound and replacement of wound VAC yesterday with Dr. Alonso. Initially anticipating discharge today. Unfortunately we are still awaiting insurance authorization for outpatient wound VAC and home care service. Pain controlled. Patient was still using the IV Dilaudid. Also has been using IV Benadryl. PHYSICAL EXAM: VITAL SIGNS: Reviewed. GENERAL: Well-developed in no acute distress. Extremities: Wound VAC in place on left leg ASSESSMENT: 1. Traumatic left lower extremity injury with hematoma 2. Anemia likely due to hematoma 3. Elevated LFTs normalized 4. Altered mental status or metabolic encephalopathy due to morphine. Now improved after morphine discontinued. PLAN: -Awaiting insurance authorization for outpatient wound VAC and home care -Discontinue the IV Dilaudid. Working on transitioning patient to oral pain medication. -Switch Benadryl to oral -Encourage patient to ambulate -Plan to discharge once wound VAC and home care arranged Physician Certified Professional Controller note has been reviewed by physician. Signing provider agrees with the documented findings, assessment, and plan of care. Attestation Patient seen and examined on 06/06/2019 5 in the AM. Patient is status post debridement of left lower extremity wound and replacement of wound VAC. She is tolerating this. Awaiting insurance authorization for outpatient wound VAC and home care with anticipated discharge in the next 24 to 48 hours. Pain medication adjusted for transition to home oral pain meds. Tamara Alonso DO Objective - Vital Signs Vital signs: Vital Signs Temp 98.1 F 06/06/24 08:20 Pulse 84 06/06/24 08:20 Resp 16 06/06/24 08:20 BP 114/72 06/06/24 08:20 Pulse Ox 89 L 06/06/24 08:20 FiO2 Intake & Output 06/05/24 06/06/24 06/06/24 18:59 06:59 18:59 Intake Total 670 700 340 Output Total 4 Balance 666 700 340 Weight 114 kg 114 kg Intake: IV 500 60 Invasive Line 7 10 Intake, IV Titration 50 100 Amount ceFAZolin 2 gm In Sodium 50 100 Chloride 0.9% 50 ml @ 100 mls/hr IVPB Q8H [facility] Rx#: [id number] Oral 120 540 340 Output: Estimated Blood Loss 4 Other: Voiding Method Toilet Toilet Toilet # Voids 1 1 - Labs CBC & Chem 7: 06/04/24 05:32 06/04/24 05:32
[2024-06-07 04:12] VITALS: RESP 15
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
[2024-06-07 11:41] VITALS: BP 109/74; PULSE 62; TEMP 97.2
[2024-06-07] MEDS: ENOXAPARIN 40 MG/0.4 ML SYRINGE SQ SCH (11:43)
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
--- NOTE | 2024-06-08 11:48 | CDI ---
Documentation Clarification Form Date: 06/08/2024 11:29:14 AM From: Isis Acosta Admit Date: 05/29/2024 09:24:00 PM Patient Name: Keyla Faith Visit Number: [id number] Discharge Date: 06/07/2024 03:58:00 PM ATTENTION: The Clinical Documentation Specialists (CDI) and [facility] Coding Staff appreciate your assistance in clarifying documentation. Please respond to the clarification below the line at the bottom and electronically sign. The CDI & [facility] Coding staff will review the response and follow-up if needed. Please note: Queries are made part of the Legal Health Record. If you have any questions, please contact the author of this message via ITS. Doctor/Provider: Tamara Alonso, Sharp excisional debridement is documented on 06/05/24. Unfortunately, some required elements have not been documented. Additional clarification regarding the procedure is requested. History/Risk Factors: Asthma, fibromyalgia, GERD, sleep apnea, varicose veins Clinical Indicators: Traumatic left lower extremity injury, developed sizablehematomacreatingulcerationand stage IIIulceration. Treatment: Sharp excisional debridement was made along the Stage III traumatic ulcer, with necrotic tissue along the edges of the wound. Please clarify the procedure performed: Excisional debridement (the removal of necrotic, devitalized tissue or slough by means of cutting away of tissue) Please specify the depth of debridement [ ] Skin [ ] Subcutaneous tissue and fascia [X ] Muscle [ ] Bones [ ] Other; please specify Dr. Five elements required for accurate and compliant documentation of a debridement: -Technique used (e.g., excisional, excised, cutting, brushing, jet lavage etc.) -Instrument(s) used (e.g., scalpel, curette, etc.) -Nature of the tissue removed (e.g., necrotic, devitalized tissues, non-viable tissue, etc.) -Appearance and size of the wound (e.g., down to fresh bleeding tissue, 7cm x 10cm, etc.) -Depth of the debridement* (e.g., skin, subcutaneous tissue, fascia, muscle, bone, etc.) MTDD
== END 2024-06-07 15:58 | disposition home health service (06) | DRG 579 ==
LOC: EC 18:30 → 4SSUR 23:32 → OBSVTOIN 05-29 21:24 → 3SCARD 05-29 22:01
PROVIDERS: ADMIT Surgery; ATTEND Surgery
PROC: 05HC33Z Insertion of Infusion Device into Left Basilic Vein, Percutaneous Approach (ICD-10-PCS; 2024-05-28)
PROC: 05HY33Z Insertion of Infusion Device into Upper Vein, Percutaneous Approach (ICD-10-PCS; 2024-05-29)
PROC: 0KBT0ZZ Excision of Left Lower Leg Muscle, Open Approach (ICD-10-PCS; principal; 2024-06-02 08:00)
PROC: 0KBT0ZZ Excision of Left Lower Leg Muscle, Open Approach (ICD-10-PCS; 2024-06-05)
DX: S80.12XA Contusion of left lower leg, initial encounter (principal); G92.8 Other toxic encephalopathy; I96 Gangrene, not elsewhere classified; D62 Acute posthemorrhagic anemia; L97.223 Non-pressure chronic ulcer of left calf with necrosis of muscle; Z68.42 Body mass index [BMI] 45.0-49.9, adult; J45.40 Moderate persistent asthma, uncomplicated; F32.A Depression, unspecified; G25.81 Restless legs syndrome; L03.115 Cellulitis of right lower limb; E66.01 Morbid (severe) obesity due to excess calories; F41.9 Anxiety disorder, unspecified; T40.2X5A Adverse effect of other opioids, initial encounter; G93.32 Myalgic encephalomyelitis/chronic fatigue syndrome; K21.9 Gastro-esophageal reflux disease without esophagitis; G47.30 Sleep apnea, unspecified; M79.7 Fibromyalgia; R32 Unspecified urinary incontinence; E79.0 Hyperuricemia without signs of inflammatory arthritis and tophaceous disease; I83.90 Asymptomatic varicose veins of unspecified lower extremity; K58.9 Irritable bowel syndrome, unspecified; R74.01 Elevation of levels of liver transaminase levels; Z79.83 Long term (current) use of bisphosphonates; Z79.899 Other long term (current) drug therapy; Z87.891 Personal history of nicotine dependence; Z98.84 Bariatric surgery status; Z71.3 Dietary counseling and surveillance; Z88.6 Allergy status to analgesic agent; Z88.0 Allergy status to penicillin; V83.7XXA Person on outside of special industrial vehicle injured in nontraffic accident, initial encounter; Y92.239 Unspecified place in hospital as the place of occurrence of the external cause
CPT/HCPCS: 36410; 36415; 70450; 70553; 71275; 76937; 80048; 80053; 81003; 82140; 82550; 83735; 85025; 85027; 88304; 94640; 96374; 96376; 99285